=== PATIENT | male | born 1960 | race Hispanic/Latino ===

== ENCOUNTER 2017-03-26 19:46 | Emergency (ER) | payer SELFPAY ==
[2017-03-26 21:25] LABS: Basophils % (Auto) 0.4 % (0.0-1.8); Eosinophils % (Auto) 2.1 % (0.0-4.3); Hematocrit 39.7 % (35.5-45.6); Hemoglobin 13.6 gm/dl (11.8-15.2); Mean Corpuscular HGB Conc 34 % (32-34); Mean Corpuscular Hemoglobin 35 pg (28-32); Mean Corpuscular Volume 103 fl (84-94); Platelet Count 367 K/mm3 (140-440); Red Blood Count 3.86 M/mm3 (3.65-5.03); Red Cell Distribution Width 12.6 % (13.2-15.2); White Blood Count 14.2 K/mm3 (4.5-11.0)
[2017-03-26 21:39] LABS: Anion Gap 20 mmol/L; Blood Urea Nitrogen 8 mg/dL (9-20); Calcium 8.7 mg/dL (8.4-10.2); Carbon Dioxide 23 mmol/L (22-30); Chloride 97.1 mmol/L (98-107); Glucose 93 mg/dL (75-100); Potassium 4.3 mmol/L (3.6-5.0); Sodium 136 mmol/L (137-145)
[2017-03-26 22:09] LABS: Bacteria,Urine 1+ /HPF (Negative); Bilirubin,Urine NEG (Negative); Blood,Urine LG (Negative); Ketones,Urine NEG (Negative); Leukocyte Esterase,Urine MOD (Negative); Mucus,Urine FEW /HPF; Nitrite,Urine NEG (Negative); Protein,Urine <15 mg/dL mg/dL (Negative); Urobilinogen,Urine < 2.0 mg/dL (<2.0)
[2017-03-26] MEDS ORDERED: TORADOL IV ONE (23:38)
[2017-03-26] MEDS ORDERED: NACL 0.9% 1000 ML 2,000 ML IV ONE (23:38)
[2017-03-26] MEDS ORDERED: ZOFRAN IV ONE (23:38)
[2017-03-26] MEDS ORDERED: ROCEPHIN/NS 1 GM/50 ML 1 GM/50 ML BAG IV ONE (23:38)
[2017-03-26] MEDS ORDERED: TYLENOL PO ONE (23:39)
--- NOTE | 2017-03-26 23:40 | Emergency Department Report ---
ED Male HPI - General Chief complaint: Urogenital-Male Stated complaint: BLEEDING PENIS Time Seen by Provider: 03/26/17 23:30 Source: patient, RN notes reviewed Mode of arrival: Ambulatory Limitations: No Limitations - History of Present Illness Initial comments: This is a 56-year-old male who is unknown to this provider. Has a past history of tobacco consumption, alcohol consumption and cannabis consumption. Presents to the ear with gross hematuria, low-grade fever, chills, and back pain. There is no testicular pain, patient endorses dysuria. He has no pelvic or rectal pain. There is no dyschezia. MD Complaint: penile discharge, dysuria -: Gradual Location: penis Radiation: none Severity: moderate Consistency: constant Improves with: none Worsens with: none blood in urine, dysuria, fever - Related Data Sexually active: Yes Home Medications Medication Instructions Recorded Confirmed Last Taken Albuterol Sulfate [Proventil HFA] 1 - 2 puff IH Q4H PRN 09/22/13 09/22/13 Previous Rx's Medication Instructions Recorded Last Taken Type ALBUTEROL Inhaler [ProAir HFA 2 puff IH QID PRN 1 Days 09/22/13 Unknown Rx Inhaler] Azithromycin [Zithromax TAB] 500 mg PO QDAY #5 tablet 09/22/13 Unknown Rx predniSONE [Deltasone] 60 mg PO QDAY 4 Days 09/22/13 Unknown Rx Acetaminophen [Tylenol Arthritis] 650 mg PO Q6HR PRN #30 tablet.er 03/27/17 Unknown Rx Albuterol Sulfate [Proair 90 mcg IH Q4HR PRN #2 aer.pow.ba 03/27/17 Unknown Rx Respiclick] Ibuprofen [Motrin] 600 mg PO Q8H PRN #30 tablet 03/27/17 Unknown Rx Metoclopramide [Reglan] 10 mg PO QID PRN #30 tablet 03/27/17 Unknown Rx Ondansetron [Zofran Odt] 4 mg PO QID PRN #20 tab.rapdis 03/27/17 Unknown Rx Sulfamethoxazole/Trimethoprim 1 each PO BID #28 tablet 03/27/17 Unknown Rx [Bactrim DS TAB] chlordiazePOXIDE [Librium] 25 mg PO Q6H PRN #30 capsule 03/27/17 Unknown Rx Allergies Allergy/AdvReac Type Severity Reaction Status Date / Time No Known Allergies Allergy Unverified 09/22/13 14:33 ED Review of Systems ROS: Stated complaint: BLEEDING PENIS Other details as noted in HPI Constitutional: fever, malaise, weakness Eyes: denies: vision change ENT: denies: epistaxis Respiratory: denies: cough Cardiovascular: denies: chest pain Gastrointestinal: nausea. denies: abdominal pain Genitourinary: dysuria, frequency, hematuria. denies: testicular pain, testicular mass Musculoskeletal: back pain Skin: denies: lesions Neurological: weakness Psychiatric: anxiety ED Past Medical Hx - Past Medical History Previous Medical History?: Yes Hx CVA: Yes (BRONCHITIS) - Surgical History Past Surgical History?: Yes Additional Surgical History: LEFT FEMUR FRACTURE - Social History Smoking Status: Current Every Day Smoker Substance Use Type: Alcohol, Marijuana - Medications Home Medications: Home Medications Medication Instructions Recorded Confirmed Last Taken Type ALBUTEROL Inhaler [ProAir HFA 2 puff IH QID PRN 1 Days 09/22/13 Unknown Rx Inhaler] Albuterol Sulfate [Proventil HFA] 1 - 2 puff IH Q4H PRN 09/22/13 09/22/13 History Azithromycin [Zithromax TAB] 500 mg PO QDAY #5 tablet 09/22/13 Unknown Rx predniSONE [Deltasone] 60 mg PO QDAY 4 Days 09/22/13 Unknown Rx Acetaminophen [Tylenol Arthritis] 650 mg PO Q6HR PRN #30 tablet.er 03/27/17 Unknown Rx Albuterol Sulfate [Proair 90 mcg IH Q4HR PRN #2 aer.pow.ba 03/27/17 Unknown Rx Respiclick] Ibuprofen [Motrin] 600 mg PO Q8H PRN #30 tablet 03/27/17 Unknown Rx Metoclopramide [Reglan] 10 mg PO QID PRN #30 tablet 03/27/17 Unknown Rx Ondansetron [Zofran Odt] 4 mg PO QID PRN #20 tab.rapdis 03/27/17 Unknown Rx Sulfamethoxazole/Trimethoprim 1 each PO BID #28 tablet 03/27/17 Unknown Rx [Bactrim DS TAB] chlordiazePOXIDE [Librium] 25 mg PO Q6H PRN #30 capsule 03/27/17 Unknown Rx ED Physical Exam - General Limitations: No Limitations General appearance: alert, in no apparent distress - Head Head exam: Present: atraumatic, normocephalic - Eye Eye exam: Present: normal appearance, EOMI. Absent: nystagmus - ENT ENT exam: Present: normal exam, normal orophraynx, mucous membranes moist, normal external ear exam - Neck Neck exam: Present: normal inspection, full ROM. Absent: tenderness, meningismus - Respiratory Respiratory exam: Present: normal lung sounds bilaterally. Absent: respiratory distress, wheezes, rales, rhonchi, stridor, chest wall tenderness, accessory muscle use, decreased breath sounds, prolonged expiratory - Cardiovascular Cardiovascular Exam: Present: regular rate, normal rhythm, normal heart sounds. Absent: bradycardia, tachycardia, irregular rhythm, systolic murmur, diastolic murmur, rubs, gallop - GI/Abdominal GI/Abdominal exam: Present: soft, normal bowel sounds. Absent: distended, tenderness, guarding, rebound, rigid - Rectal Rectal exam: Present: normal inspection, normal rectal tone, heme (-) stool, prostate tenderness, prostate enlargement, other (during rectal examination, I am escorted by nurse Gilmar Lorenzana) - Extremities Exam Extremities exam: Present: normal inspection, full ROM, normal capillary refill. Absent: tenderness, pedal edema, joint swelling, calf tenderness - Back Exam Back exam: Present: normal inspection, full ROM, paraspinal tenderness. Absent : tenderness, CVA tenderness (R), CVA tenderness (L) - Neurological Exam Neurological exam: Present: alert, oriented X3, normal gait, other (Extraocular movements intact. Tongue midline. No facial droop. Facial sensation intact to light touch in the V1, V2, V3 distribution bilaterally. 5 and 5 strength in 4 extremities.. Sensation is intact to light touch in 4 extremities.). Absent : motor sensory deficit - Psychiatric Psychiatric exam: Present: normal affect, normal mood - Skin Skin exam: Present: warm, dry, intact, normal color. Absent: rash ED Course Vital Signs 03/26/17 03/26/17 03/27/17 20:47 23:30 00:05 Temperature 99.4 F 101.3 F H Pulse Rate 92 H 87 Respiratory 18 19 Rate Blood Pressure 144/88 O2 Sat by Pulse 95 96 Oximetry 03/27/17 03/27/17 03/27/17 00:15 00:30 01:00 Temperature Pulse Rate 84 81 76 Respiratory 16 22 23 Rate Blood Pressure 139/77 133/66 126/61 O2 Sat by Pulse 96 92 92 Oximetry 03/27/17 01:30 Temperature 98.6 F Pulse Rate 76 Respiratory 23 Rate Blood Pressure 134/65 O2 Sat by Pulse 94 Oximetry - Reevaluation(s) Reevaluation #1: 03/27/17 00:27 Differential diagnosis: Pyelonephritis, prostatitis, hemorrhagic cystitis, malignancy Assessment and plan: 56-year-old male with lower back pain, irritative urinary symptoms, hematuria, prostatic tenderness, no CVA tenderness. Possibly prostatitis, possibly hemorrhagic cystitis. He is febrile, with reassuring vital signs otherwise. He will be treated empirically with 2 L of IV fluid, nausea medication, pain medication, and ceftriaxone. Noncontrast CT scan of the abdomen and pelvis is pending. Has a GCS of 15, with an NIH score of 0. No midline spinal tenderness, history and physical not consistent with epidural compression syndrome. No IV drug use. Extraocular movements intact. Tongue midline. No facial droop. Facial sensation intact to light touch in the V1, V2, V3 distribution bilaterally. 5 and 5 strength in 4 extremities.. Sensation is intact to light touch in 4 extremities. Gait within normal limits. Reevaluation #2: 03/27/17 01:17 CT scan shows no evidence of intra-abdominal abscess or kidney stones. Nonspecific findings are noted in the left lower lung. Patient does not have symptoms to suggest pneumonia at this time. He does not have risk factors for tuberculosis. He will be treated empirically with 2 weeks of Bactrim, and he will be discharged with pain medication, nausea medication, antibiotics. Patient is instructed to closely follow up with outpatient primary care as well as urology. Return precautions are reviewed. I have reevaluated the patient, he reports that he feels much improved. He will be discharged at this time. Reevaluation #3: 03/27/17 01:26 Family requests as needed albuterol for cough at home. No active wheezing at this time. Reevaluation #4: 03/27/17 01:54 Family given a list of names, phone numbers, address of local detoxification centers for alcohol. The patient is not clinically withdrawing at this time. Family endorses a history of alcohol dependence. Encouraged to not consume alcohol while taking the Bactrim antibiotic. He is therefore given a prescription for Librium medication. Patient verbalized understanding. ED Medical Decision Making - Lab Data Result diagrams: 03/26/17 21:11 03/26/17 21:11 Vital Signs 03/26/17 03/26/17 03/27/17 20:47 23:30 00:05 Temperature 99.4 F 101.3 F H Pulse Rate 92 H 87 Respiratory 18 19 Rate Blood Pressure 144/88 O2 Sat by Pulse 95 96 Oximetry 03/27/17 00:15 Temperature Pulse Rate 84 Respiratory 16 Rate Blood Pressure 139/77 O2 Sat by Pulse 96 Oximetry Lab Results 03/26/17 03/26/17 03/26/17 Range/Units 21:11 21:11 21:30 WBC 14.2 H (4.5-11.0) K/mm3 RBC 3.86 (3.65-5.03) M/mm3 Hgb 13.6 (11.8-15.2) gm/dl Hct 39.7 (35.5-45.6) % MCV 103 H (84-94) fl MCH 35 H (28-32) pg MCHC 34 (32-34) % RDW 12.6 L (13.2-15.2) % Plt Count 367 (140-440) K/mm3 Lymph % (Auto) 10.3 L (13.4-35.0) % Bent % (Auto) 9.8 H (0.0-7.3) % Eos % (Auto) 2.1 (0.0-4.3) % Baso % (Auto) 0.4 (0.0-1.8) % Lymph # 1.5 (1.2-5.4) K/mm3 Bent # 1.4 H (0.0-0.8) K/mm3 Eos # 0.3 (0.0-0.4) K/mm3 Baso # 0.1 (0.0-0.1) K/mm3 Seg Neutrophils % 77.4 H (40.0-70.0) % Seg Neutrophils # 11.0 H (1.8-7.7) K/mm3 Sodium 136 L (137-145) mmol/L Potassium 4.3 (3.6-5.0) mmol/L Chloride 97.1 L (98-107) mmol/L Carbon Dioxide 23 (22-30) mmol/L Anion Gap 20 mmol/L BUN 8 L (9-20) mg/dL Creatinine 0.5 L (0.8-1.5) mg/dL Estimated GFR > 60 ml/min BUN/Creatinine Ratio 16.00 % Glucose 93 (75-100) mg/dL Calcium 8.7 (8.4-10.2) mg/dL Urine Color Yellow (Yellow) Urine Turbidity Clear (Clear) Urine pH 5.0 (5.0-7.0) Ur Specific [place] 1.015 (1.003-1.030) Urine Protein <15 mg/dl (Negative) mg/dL Urine Glucose (UA) Neg (Negative) mg/dL Urine Ketones Neg (Negative) mg/dL Urine Blood Lg (Negative) Urine Nitrite Neg (Negative) Urine Bilirubin Neg (Negative) Urine Urobilinogen < 2.0 (<2.0) mg/dL Ur Leukocyte Esterase Mod (Negative) Urine WBC (Auto) 16.0 H (0.0-6.0) /HPF Urine RBC (Auto) 26.0 (0.0-6.0) /HPF U Epithel Cells (Auto) 1.0 (0-13.0) /HPF Urine Bacteria (Auto) 1+ (Negative) /HPF Urine Mucus Few /HPF - Radiology Data Radiology results: report reviewed, image reviewed CT scan of the abdomen/pelvis demonstrates no kidney stones. No obvious intra- abdominal abscess. There is a cluster of densities in the left lower lobe and nodular consolidation of punctate nodules in the left lower lobe, concerning for pneumonia. May be mycobacterial or fungal in origin. No obstructive uropathy. Constipation is suggested. Inguinal hernias are suggested. Critical care attestation.: If time is entered above; I have spent that time in minutes in the direct care of this critically ill patient, excluding procedure time. ED Disposition Clinical Impression: Prostatitis Qualifiers: Prostatitis type: acute Qualified Code(s): N41.0 - Acute prostatitis Disposition: TO HOME OR SELFCARE Is pt being admited?: No Does the pt Need Aspirin: No Condition: Stable Instructions: Prostatitis (ED) Additional Instructions: Take albuterol as needed for cough and/or wheezing. Take the Bactrim twice daily for the next 2 weeks for presumed infection of the prostate. Cultures was sent today, results will be available in the next 3-5 days. Have a primary care doctor contact the medical records department to obtain culture results. For nausea, patient can take either Zofran, or Reglan, which ever is more financially convenient, and effective. Take Tylenol alternating with Motrin as needed for pain. Follow up with a urology specialist within the next month to 6 weeks. Not following up as recommended may result in an undiagnosed tumor/cancer/malignancy of the urinary tract. CT scan of the abdomen and pelvis demonstrated nonspecific findings in the left lower lung field. Discontinue tobacco consumption. Follow up with her primary care doctor for these left lower lung findings within the next month. If the patient develops intractable nausea or vomiting, persistent fevers, worsening pain, confusion, inability to tolerate liquid feeds, dizziness, lightheadedness , altered mental status, return to the emergency room right away. Dr. Cordoba is a local urology specialist. Dr. Perla is a local primary care doctor. [facility] is a local [facility] Center available for your convenience. Do not consume alcohol while taking the antibiotics. Prescriptions: Acetaminophen [Tylenol Arthritis] 650 mg PO Q6HR PRN #30 tablet.er PRN Reason: Pain Albuterol Sulfate [Proair Respiclick] 90 mcg IH Q4HR PRN #2 aer.pow.ba PRN Reason: Wheezing chlordiazePOXIDE [Librium] 25 mg PO Q6H PRN #30 capsule PRN Reason: Alcohol Withdrawal Ibuprofen [Motrin] 600 mg PO Q8H PRN #30 tablet PRN Reason: Pain Metoclopramide [Reglan] 10 mg PO QID PRN #30 tablet PRN Reason: Nausea Ondansetron [Zofran Odt] 4 mg PO QID PRN #20 tab.rapdis PRN Reason: Nausea Sulfamethoxazole/Trimethoprim [Bactrim DS TAB] 1 each PO BID #28 tablet Referrals: PRIMARY CARE, [Primary Care Provider] - 3-5 Days CHANTELLE ALMEIDA MD [Staff Physician] - 3-5 Days ADEOLA PERLA MD [Staff Physician] - 3-5 Days [facility] [Provider Group] - 3-5 Days
--- NOTE | 2017-03-27 01:05 | Cat Scan Report ---
FINAL REPORT EXAM: CT ABDOMEN PELVIS WO CON HISTORY: back pain hematuria fever COMPARISON: None available. TECHNIQUE: Contiguous axial images were obtained. Additional sagittal and coronal reformatted images were obtained. FINDINGS: Cluster of small nodules at the lateral margin of the left lower lobe small airspace consolidation areas of nodularity in lingula concerning for infectious process. This may be fungal or mycobacterial in origin. No calcified gallstones. Liver, spleen, pancreas and adrenal glands are grossly unremarkable. 9 millimeter right renal cyst. No nephrolithiasis or hydronephrosis. Aorta and IVC are normal in caliber. Mild to moderate calcified plaque along the aorta. No distal ureteral urinary bladder calculi. Urinary bladder and prostate gland are grossly unremarkable. No free fluid or lymphadenopathy in the pelvic cavity. Moderate large amount of stool in the colon. The appendix measures 5 millimeters and is normal in caliber. Small bilateral inguinal hernias partially containing fat and bowel. No associated bowel obstruction or inflammation. Lumbar vertebral body heights are preserved. Bony pelvis is grossly intact. IMPRESSION: Cluster of nodular densities left lower lobe and nodular consolidation punctate nodules left lower lobe concerning for pneumonia. This may be mycobacterial or fungal in origin. No other acute findings. No obstructive uropathy urolithiasis. Moderate large amount of stool in the colon. No focal inflammatory changes the bowel or appendix. Small bilateral inguinal hernias containing fat and bowel. No associated bowel obstruction.
[2017-03-27 01:33] VITALS: BP 134/65
== END 2017-03-27 01:45 | disposition home or self-care (01) ==
LOC: ED 19:46
DX: N41.0 Acute prostatitis (principal); F17.200 Nicotine dependence, unspecified, uncomplicated; F12.10 Cannabis abuse, uncomplicated; Z86.73 Personal history of transient ischemic attack (TIA), and cerebral infarction without residual deficits
CPT/HCPCS: 36415; 74176; 80048; 81001; 85025; 87086; 96365; 96375; 99284; J0696; J1885; J2405; J7030

== ENCOUNTER 2017-04-03 00:03 | Emergency (ER) | payer SELFPAY ==
[2017-04-03 01:26] LABS: Urine Drugs of Abuse Note Disclamer
[2017-04-03 01:32] LABS: Eosinophils % (Auto) 6.4 % (0.0-4.3); Hematocrit 40.2 % (35.5-45.6); Hemoglobin 13.4 gm/dl (11.8-15.2); Mean Corpuscular HGB Conc 33 % (32-34); Mean Corpuscular Hemoglobin 35 pg (28-32); Mean Corpuscular Volume 103 fl (84-94); Platelet Count 376 K/mm3 (140-440); Red Blood Count 3.89 M/mm3 (3.65-5.03); White Blood Count 6.3 K/mm3 (4.5-11.0)
[2017-04-03 01:50] LABS: Alanine Aminotransferase 15 units/L (7-56); Albumin 3.7 g/dL (3.9-5); Albumin/Globulin Ratio 1.3 %; Alkaline Phosphatase 88 units/L (35-129); Anion Gap 22 mmol/L; Bilirubin,Total < 0.20 mg/dL (0.1-1.2); Blood Urea Nitrogen 7 mg/dL (9-20); Calcium 8.7 mg/dL (8.4-10.2); Carbon Dioxide 23 mmol/L (22-30); Chloride 106.2 mmol/L (98-107); Glucose 89 mg/dL (75-100); Potassium 4.6 mmol/L (3.6-5.0); Sodium 147 mmol/L (137-145); Total Protein 6.6 g/dL (6.3-8.2)
[2017-04-03] MEDS ORDERED: VITAMIN B-1 100 MG, FOLVITE 1 MG, INFUVITE 10 ML in NACL 0.9% 1000 ML 1,000 ML IV ONE (02:12)
[2017-04-03] MEDS ORDERED: NACL 0.9% 1000 ML 1,000 ML IV ONE (02:12)
--- NOTE | 2017-04-03 05:35 | Emergency Department Report ---
ED Alcohol HPI - General Chief Complaint: Alcohol Stated Complaint: ETOH Time Seen by Provider: 04/03/17 01:09 Source: patient, EMS Mode of arrival: Stretcher Limitations: Altered Mental Status - History of Present Illness Initial Comments: 56-year-old male presents to the hospital with acute alcohol intoxication. Patient states he's been consuming alcohol since noon. He drinks daily if he can get it he states. History of alcohol withdrawal tremors in the past. Patient is sleeping due to intoxication denies any complaints at this time. - Related Data Home Medications Medication Instructions Recorded Confirmed Last Taken Albuterol Sulfate [Proventil HFA] 1 - 2 puff IH Q4H PRN 09/22/13 09/22/13 Previous Rx's Medication Instructions Recorded Last Taken Type ALBUTEROL Inhaler [ProAir HFA 2 puff IH QID PRN 1 Days 09/22/13 Unknown Rx Inhaler] Azithromycin [Zithromax TAB] 500 mg PO QDAY #5 tablet 09/22/13 Unknown Rx predniSONE [Deltasone] 60 mg PO QDAY 4 Days 09/22/13 Unknown Rx Acetaminophen [Tylenol Arthritis] 650 mg PO Q6HR PRN #30 tablet.er 03/27/17 Unknown Rx Albuterol Sulfate [Proair 90 mcg IH Q4HR PRN #2 aer.pow.ba 03/27/17 Unknown Rx Respiclick] Ibuprofen [Motrin] 600 mg PO Q8H PRN #30 tablet 03/27/17 Unknown Rx Metoclopramide [Reglan] 10 mg PO QID PRN #30 tablet 03/27/17 Unknown Rx Ondansetron [Zofran Odt] 4 mg PO QID PRN #20 tab.rapdis 03/27/17 Unknown Rx Sulfamethoxazole/Trimethoprim 1 each PO BID #28 tablet 03/27/17 Unknown Rx [Bactrim DS TAB] chlordiazePOXIDE [Librium] 25 mg PO Q6H PRN #30 capsule 03/27/17 Unknown Rx Allergies Allergy/AdvReac Type Severity Reaction Status Date / Time No Known Allergies Allergy Unverified 09/22/13 14:33 ED Review of Systems ROS: Stated complaint: ETOH Other details as noted in HPI Comment: All other systems reviewed and negative Other: Constitutional: No fevers chills Neck: Denies pain Respiratory: Denies cough, shortness of breath Cardiovascular: Denies chest pain GI: Denies abdominal pain, nausea, vomiting : Denies dysuria Musculoskeletal: Denies back luis Skin: Denies rash Neurologic: Denies headache ED Past Medical Hx - Past Medical History Previous Medical History?: Yes Hx CVA: Yes (BRONCHITIS) - Surgical History Additional Surgical History: LEFT FEMUR FRACTURE - Social History Smoking Status: Current Every Day Smoker Substance Use Type: Alcohol, Marijuana - Medications Home Medications: Home Medications Medication Instructions Recorded Confirmed Last Taken Type ALBUTEROL Inhaler [ProAir HFA 2 puff IH QID PRN 1 Days 09/22/13 Unknown Rx Inhaler] Albuterol Sulfate [Proventil HFA] 1 - 2 puff IH Q4H PRN 09/22/13 09/22/13 History Azithromycin [Zithromax TAB] 500 mg PO QDAY #5 tablet 09/22/13 Unknown Rx predniSONE [Deltasone] 60 mg PO QDAY 4 Days 09/22/13 Unknown Rx Acetaminophen [Tylenol Arthritis] 650 mg PO Q6HR PRN #30 tablet.er 03/27/17 Unknown Rx Albuterol Sulfate [Proair 90 mcg IH Q4HR PRN #2 aer.pow.ba 03/27/17 Unknown Rx Respiclick] Ibuprofen [Motrin] 600 mg PO Q8H PRN #30 tablet 03/27/17 Unknown Rx Metoclopramide [Reglan] 10 mg PO QID PRN #30 tablet 03/27/17 Unknown Rx Ondansetron [Zofran Odt] 4 mg PO QID PRN #20 tab.rapdis 03/27/17 Unknown Rx Sulfamethoxazole/Trimethoprim 1 each PO BID #28 tablet 03/27/17 Unknown Rx [Bactrim DS TAB] chlordiazePOXIDE [Librium] 25 mg PO Q6H PRN #30 capsule 03/27/17 Unknown Rx ED Physical Exam - General Limitations: Altered Mental Status - Other Other exam information: General: No limitations, patient is alert in no acute distress Head exam: Atraumatic, normocephalic Eyes exam: Normal appearance, pupils equal reactive to light, extraocular movements intact ENT: Moist mucous membrane, normal oropharynx Neck exam: Normal inspection, full range of motion, no meningismus nontender Respiratory exam: Clear to auscultation bilateral, no wheezes, rales, crackles Cardiovascular: Normal rate and rhythm, normal heart sounds Abdomen: Soft, nondistended, and nontender, with normal bowel sounds, no rebound, or guarding Extremity: Full range of motion normal inspection no deformity Back: Normal Inspection, full range of motion, no tenderness Neurologic: Alert, oriented x3, cranial nerves intact, no motor or sensory deficit Psychiatric: normal affect, normal mood Skin: Warm, dry, intact ED Course Vital Signs 04/03/17 04/03/17 04/03/17 00:41 00:47 02:40 Temperature 97.7 F 97 F L Pulse Rate 78 78 67 Respiratory 18 18 Rate Blood Pressure 113/73 Blood Pressure 113/73 102/63 [Right] O2 Sat by Pulse 100 100 Oximetry 04/03/17 04:21 Temperature Pulse Rate 63 Respiratory Rate Blood Pressure Blood Pressure 98/57 [Right] O2 Sat by Pulse Oximetry - Reevaluation(s) Reevaluation #1: 04/03/17 05:32 Patient treated with normal saline and a banana bag. Patient on director of cardiac rehabilitation ED Medical Decision Making - Lab Data Result diagrams: 04/03/17 01:14 04/03/17 01:14 Lab Results 04/03/17 04/03/17 04/03/17 Range/Units 01:14 01:14 01:14 WBC 6.3 (4.5-11.0) K/mm3 RBC 3.89 (3.65-5.03) M/mm3 Hgb 13.4 (11.8-15.2) gm/dl Hct 40.2 (35.5-45.6) % MCV 103 H (84-94) fl MCH 35 H (28-32) pg MCHC 33 (32-34) % RDW 13.0 L (13.2-15.2) % Plt Count 376 (140-440) K/mm3 Lymph % (Auto) 45.4 H (13.4-35.0) % [place] % (Auto) 5.9 (0.0-7.3) % Eos % (Auto) 6.4 H (0.0-4.3) % Baso % (Auto) 1.0 (0.0-1.8) % Lymph # 2.9 (1.2-5.4) K/mm3 [place] # 0.4 (0.0-0.8) K/mm3 Eos # 0.4 (0.0-0.4) K/mm3 Baso # 0.1 (0.0-0.1) K/mm3 Seg Neutrophils % 41.3 (40.0-70.0) % Seg Neutrophils # 2.6 (1.8-7.7) K/mm3 Sodium 147 H (137-145) mmol/L Potassium 4.6 (3.6-5.0) mmol/L Chloride 106.2 (98-107) mmol/L Carbon Dioxide 23 (22-30) mmol/L Anion Gap 22 mmol/L BUN 7 L (9-20) mg/dL Creatinine 0.5 L (0.8-1.5) mg/dL Estimated GFR > 60 ml/min BUN/Creatinine Ratio 14.00 % Glucose 89 (75-100) mg/dL Calcium 8.7 (8.4-10.2) mg/dL Magnesium 2.40 H (1.7-2.3) mg/dL Total Bilirubin < 0.20 (0.1-1.2) mg/dL AST 23 (5-40) units/L ALT 15 (7-56) units/L Alkaline Phosphatase 88 (35-129) units/L Total Protein 6.6 (6.3-8.2) g/dL Albumin 3.7 L (3.9-5) g/dL Albumin/Globulin Ratio 1.3 % Urine Opiates Screen Urine Methadone Screen Ur Barbiturates Screen Ur Phencyclidine Scrn Ur Amphetamines Screen U Benzodiazepines Scrn Urine Cocaine Screen U Marijuana (THC) Screen Drugs of Abuse Note Plasma/Serum Alcohol 0.37 H (0-0.07) gm% 04/03/17 Range/Units 01:14 WBC (4.5-11.0) K/mm3 RBC (3.65-5.03) M/mm3 Hgb (11.8-15.2) gm/dl Hct (35.5-45.6) % MCV (84-94) fl MCH (28-32) pg MCHC (32-34) % RDW (13.2-15.2) % Plt Count (140-440) K/mm3 Lymph % (Auto) (13.4-35.0) % [place] % (Auto) (0.0-7.3) % Eos % (Auto) (0.0-4.3) % Baso % (Auto) (0.0-1.8) % Lymph # (1.2-5.4) K/mm3 [place] # (0.0-0.8) K/mm3 Eos # (0.0-0.4) K/mm3 Baso # (0.0-0.1) K/mm3 Seg Neutrophils % (40.0-70.0) % Seg Neutrophils # (1.8-7.7) K/mm3 Sodium (137-145) mmol/L Potassium (3.6-5.0) mmol/L Chloride (98-107) mmol/L Carbon Dioxide (22-30) mmol/L Anion Gap mmol/L BUN (9-20) mg/dL Creatinine (0.8-1.5) mg/dL Estimated GFR ml/min BUN/Creatinine Ratio % Glucose (75-100) mg/dL Calcium (8.4-10.2) mg/dL Magnesium (1.7-2.3) mg/dL Total Bilirubin (0.1-1.2) mg/dL AST (5-40) units/L ALT (7-56) units/L Alkaline Phosphatase (35-129) units/L Total Protein (6.3-8.2) g/dL Albumin (3.9-5) g/dL Albumin/Globulin Ratio % Urine Opiates Screen Presumptive negative Urine Methadone Screen Presumptive negative Ur Barbiturates Screen Presumptive negative Ur Phencyclidine Scrn Presumptive negative Ur Amphetamines Screen Presumptive negative U Benzodiazepines Scrn Presumptive negative Urine Cocaine Screen Presumptive negative U Marijuana (THC) Screen Presumptive positive Drugs of Abuse Note Disclamer Plasma/Serum Alcohol (0-0.07) gm% - Medical Decision Making Patient has a significantly elevated alcohol level. Patient will be signed out to oncoming physician Dr. Siddiqi to discharge was clinically sober with a reliable ride or alcohol is below legal limit if no one is available to pick him up to take him home. Patient will need reassessment once sober - Differential Diagnosis drug intoxication, alcohol intoxication, electrolyte abnormality Critical Care Time: No Critical care attestation.: If time is entered above; I have spent that time in minutes in the direct care of this critically ill patient, excluding procedure time. ED Disposition Clinical Impression: Alcohol intoxication, Marijuana use Disposition: [id number]-01 TO HOME OR SELFCARE Is pt being admited?: No Does the pt Need Aspirin: No Condition: Stable Instructions: Abuse of Alcohol (ED) Additional Instructions: Follow-up with the primary care clinic in [facility] if he desire help with alcohol addiction. Also follow-up for primary care management. Return if symptoms worsen. Referrals: [facility] [Provider Group] - 3-5 Days [facility] [Outside] - 3-5 Days Time of Disposition: 05:34
[2017-04-03 13:48] VITALS: BP 126/77
== END 2017-04-03 09:05 | disposition home or self-care (01) ==
LOC: ED 00:03
DX: F10.129 Alcohol abuse with intoxication, unspecified (principal); F12.10 Cannabis abuse, uncomplicated; F17.210 Nicotine dependence, cigarettes, uncomplicated; Z86.73 Personal history of transient ischemic attack (TIA), and cerebral infarction without residual deficits
CPT/HCPCS: 36415; 80053; 80307; 83735; 85025; 96361; 96365; 99284; G0480; J3411; J7030; 80320

== ENCOUNTER 2018-02-06 20:11 | Emergency (ER) | payer SELFPAY ==
[2018-02-06] MEDS ORDERED: DUONEB *Not for PRN Use IH ONE ×2 (20:29→20:42)
[2018-02-06 21:11] LABS: Basophils % (Auto) 0.6 % (0.0-1.8); Eosinophils # (Auto) 0.5 K/mm3 (0.0-0.4); Eosinophils % (Auto) 7.4 % (0.0-4.3); Hematocrit 44.8 % (35.5-45.6); Hemoglobin 15.5 gm/dl (11.8-15.2); Lymphocytes # (Auto) 1.6 K/mm3 (1.2-5.4); Lymphocytes % (Auto) 23.3 % (13.4-35.0); Mean Corpuscular HGB Conc 35 % (32-34); Mean Corpuscular Hemoglobin 36 pg (28-32); Mean Corpuscular Volume 104 fl (84-94); Monocytes # (Auto) 0.7 K/mm3 (0.0-0.8); Monocytes % (Auto) 10.7 % (0.0-7.3); Platelet Count 220 K/mm3 (140-440); Red Blood Count 4.29 M/mm3 (3.65-5.03); Red Cell Distribution Width 13.5 % (13.2-15.2)
[2018-02-06 21:22] LABS: BUN/Creatinine Ratio 13; Blood Urea Nitrogen 8 mg/dL (9-20); Calcium 9.7 mg/dL (8.4-10.2); Hemolysis Index 4
--- NOTE | 2018-02-06 21:29 | XRay Report ---
FINAL REPORT EXAM: XR CHEST ROUTINE 2V HISTORY: Shortness of breath TECHNIQUE: Two view chest PA and lateral PRIORS: None. FINDINGS: Cardiac and mediastinal contours are unremarkable. No focal pulmonary infiltrate is identified. No pleural fluid collection seen. Pulmonary vasculature is unremarkable. IMPRESSION: Negative two-view chest
[2018-02-07] MEDS ORDERED: SOLU-Medrol IM ONE (00:55)
[2018-02-07] MEDS ORDERED: LEVALBUTEROL IH ONE (00:55)
--- NOTE | 2018-02-07 01:01 | Emergency Department Report ---
ED Shortness of Breath HPI - General Chief Complaint: Dyspnea/Respdistress Stated Complaint: SERGIO Time Seen by Provider: 02/06/18 23:50 Source: patient Mode of arrival: Ambulatory Limitations: No Limitations - History of Present Illness Initial Comments: Patient is 57 years old male history of COPD, heavy smokers. Presented to the ER complaining of off shortness of breath and cough for the last 5 days. Patient stated that his cough is productive for greenish sputum. Patient stated that he used his friend's bronchodilators, said it did help. Patient denied any chest pain. MD Complaint: shortness of breath, cough -: days(s) Consistency: constant Improves With: bronchodilators Known History Of: COPD Associated Symptoms: denies other symptoms - Related Data Home Medications Medication Instructions Recorded Confirmed Last Taken Albuterol Sulfate [Proventil HFA] 1 - 2 puff IH Q4H PRN 09/22/13 09/22/13 Previous Rx's Medication Instructions Recorded Last Taken Type ALBUTEROL Inhaler [ProAir HFA 2 puff IH QID PRN 1 Days 09/22/13 Unknown Rx Inhaler] inhalation Azithromycin [Zithromax TAB] 500 mg PO QDAY #5 tablet 09/22/13 Unknown Rx predniSONE [Deltasone] 60 mg PO QDAY 4 Days tab 09/22/13 Unknown Rx Acetaminophen [Tylenol Arthritis] 650 mg PO Q6HR PRN #30 tablet.er 03/27/17 Unknown Rx Albuterol Sulfate [Proair 90 mcg IH Q4HR PRN #2 aer.pow.ba 03/27/17 Unknown Rx Respiclick] Ibuprofen [Motrin] 600 mg PO Q8H PRN #30 tablet 03/27/17 Unknown Rx Metoclopramide [Reglan] 10 mg PO QID PRN #30 tablet 03/27/17 Unknown Rx Ondansetron [Zofran Odt] 4 mg PO QID PRN #20 tab.rapdis 03/27/17 Unknown Rx Sulfamethoxazole/Trimethoprim 1 each PO BID #28 tablet 03/27/17 Unknown Rx [Bactrim DS TAB] chlordiazePOXIDE [Librium] 25 mg PO Q6H PRN #30 capsule 03/27/17 Unknown Rx Allergies Allergy/AdvReac Type Severity Reaction Status Date / Time No Known Allergies Allergy Unverified 09/22/13 14:33 ED Review of Systems ROS: Stated complaint: SERGIO Other details as noted in HPI Comment: All other systems reviewed and negative Constitutional: denies: chills, fever Cardiovascular: dyspnea on exertion. denies: chest pain, palpitations, orthopnea, edema, syncope, paroxysmal nocturnal dyspnea Gastrointestinal: denies: abdominal pain, nausea, vomiting ED Past Medical Hx - Past Medical History Hx CVA: (BRONCHITIS) Hx Asthma: Yes Hx COPD: Yes - Surgical History Additional Surgical History: LEFT FEMUR FRACTURE - Social History Smoking Status: Current Every Day Smoker Substance Use Type: Alcohol - Medications Home Medications: Home Medications Medication Instructions Recorded Confirmed Last Taken Type ALBUTEROL Inhaler [ProAir HFA 2 puff IH QID PRN 1 Days 09/22/13 Unknown Rx Inhaler] inhalation Albuterol Sulfate [Proventil HFA] 1 - 2 puff IH Q4H PRN 09/22/13 09/22/13 History Azithromycin [Zithromax TAB] 500 mg PO QDAY #5 tablet 09/22/13 Unknown Rx predniSONE [Deltasone] 60 mg PO QDAY 4 Days tab 09/22/13 Unknown Rx Acetaminophen [Tylenol Arthritis] 650 mg PO Q6HR PRN #30 tablet.er 03/27/17 Unknown Rx Albuterol Sulfate [Proair 90 mcg IH Q4HR PRN #2 aer.pow.ba 03/27/17 Unknown Rx Respiclick] Ibuprofen [Motrin] 600 mg PO Q8H PRN #30 tablet 03/27/17 Unknown Rx Metoclopramide [Reglan] 10 mg PO QID PRN #30 tablet 03/27/17 Unknown Rx Ondansetron [Zofran Odt] 4 mg PO QID PRN #20 tab.rapdis 03/27/17 Unknown Rx Sulfamethoxazole/Trimethoprim 1 each PO BID #28 tablet 03/27/17 Unknown Rx [Bactrim DS TAB] chlordiazePOXIDE [Librium] 25 mg PO Q6H PRN #30 capsule 03/27/17 Unknown Rx ED Physical Exam - General Limitations: No Limitations General appearance: alert, in no apparent distress - Head Head exam: Present: atraumatic, normocephalic, normal inspection - ENT ENT exam: Present: normal exam, normal orophraynx, mucous membranes moist - Respiratory Respiratory exam: Present: wheezes, decreased breath sounds, prolonged expiratory. Absent: rales, rhonchi, accessory muscle use - Cardiovascular Cardiovascular Exam: Present: regular rate, normal rhythm, normal heart sounds - GI/Abdominal GI/Abdominal exam: Present: soft, normal bowel sounds. Absent: distended, tenderness, guarding, rebound, rigid, organomegaly, mass, bruit, pulsatile mass , hernia - Extremities Exam Extremities exam: Present: normal inspection, full ROM, normal capillary refill - Back Exam Back exam: Present: normal inspection, full ROM. Absent: tenderness, CVA tenderness (R), CVA tenderness (L), muscle spasm, paraspinal tenderness, vertebral tenderness - Neurological Exam Neurological exam: Present: alert, CN II-XII intact, normal gait, reflexes normal - Skin Skin exam: Present: warm, intact, normal color ED Course Vital Signs 02/06/18 02/07/18 20:35 02:36 Temperature 97.9 F Pulse Rate 71 Respiratory 18 20 Rate Blood Pressure 144/78 O2 Sat by Pulse 95 98 Oximetry - Reevaluation(s) Reevaluation #1: 02/07/18 04:27 Patient stated that he is feeling much better. ED Medical Decision Making - Lab Data Result diagrams: 02/06/18 20:46 02/06/18 20:46 - Radiology Data Radiology results: report reviewed Chest x-ray is unremarkable. Critical care attestation.: If time is entered above; I have spent that time in minutes in the direct care of this critically ill patient, excluding procedure time. ED Disposition Clinical Impression: COPD exacerbation Disposition: DC-01 TO HOME OR SELFCARE Is pt being admited?: No Condition: Stable Instructions: Chronic Obstructive Pulmonary Disease (ED), Acute Bronchitis (ED) Referrals: JUAN JOSE DUKE MD [Staff Physician] - 3-5 Days
[2018-02-07 05:06] VITALS: BP 146/88
== END 2018-02-07 05:07 | disposition home or self-care (01) ==
LOC: ED 20:11
DX: J44.1 Chronic obstructive pulmonary disease with (acute) exacerbation (principal); F17.200 Nicotine dependence, unspecified, uncomplicated
CPT/HCPCS: 36415; 71046; 80048; 85025; 93005; 93010; 96372; 99284; J2930

== ENCOUNTER 2018-07-30 10:44 | Emergency (ER) | payer SELFPAY ==
[2018-07-30] MEDS ORDERED: PROVENTIL IH ONE (10:53)
[2018-07-30] MEDS ORDERED: LEVAQUIN 750MG/150ML 750 MG/150 ML BAG IV ONE (10:53)
[2018-07-30] MEDS ORDERED: ATROVENT IH ONE (10:53)
[2018-07-30] MEDS ORDERED: NACL 0.9% 1000 ML 1,000 ML IV ONE (10:53)
--- NOTE | 2018-07-30 11:00 | Emergency Department Report ---
ED Shortness of Breath HPI - General Chief Complaint: Dyspnea/Respdistress Stated Complaint: SERGIO Time Seen by Provider: 07/30/18 10:51 Source: patient, EMS Mode of arrival: Stretcher Limitations: No Limitations - History of Present Illness Initial Comments: Patient is 57 years old male with history of COPD. Patient reports to the emergency room via EMS for acute respiratory distress. EMS stated that patient was tachypneic with an oxygen saturation of 84%. Patient is given albuterol, magnesium sulfate, Solu-Medrol and started on BiPAP by EMS. Upon arrival to the ER patient oxygen saturation is 96%. Patient stated that his symptoms started a few weeks ago but isn't progressively get worse for the last 3 days. Shortness of breath associated with cough, productive with greenish sputum. Patient denied any fever or chills, nausea or vomiting. MD Complaint: shortness of breath, cough -: week(s) Severity: severe Known History Of: COPD Context: recent URI - Related Data Home Medications Medication Instructions Recorded Confirmed Last Taken Albuterol Sulfate [Proventil HFA] 1 - 2 puff IH Q4H PRN 09/22/13 09/22/13 09/22/13 Previous Rx's Medication Instructions Recorded Last Taken Type ALBUTEROL Inhaler (OR & NICU) 2 puff IH QID PRN 1 Days 09/22/13 Unknown Rx [ProAir HFA Inhaler] inhalation Azithromycin [Zithromax TAB] 500 mg PO QDAY #5 tablet 09/22/13 Unknown Rx predniSONE [Deltasone] 60 mg PO QDAY 4 Days tab 09/22/13 Unknown Rx Acetaminophen [Tylenol Arthritis] 650 mg PO Q6HR PRN #30 tablet.er 03/27/17 Unknown Rx Albuterol Sulfate [Proair 90 mcg IH Q4HR PRN #2 aer.pow.ba 03/27/17 Unknown Rx Respiclick] Ibuprofen [Motrin] 600 mg PO Q8H PRN #30 tablet 03/27/17 Unknown Rx Metoclopramide [Reglan] 10 mg PO QID PRN #30 tablet 03/27/17 Unknown Rx Ondansetron [Zofran Odt] 4 mg PO QID PRN #20 tab.rapdis 03/27/17 Unknown Rx Sulfamethoxazole/Trimethoprim 1 each PO BID #28 tablet 03/27/17 Unknown Rx [Bactrim DS TAB] chlordiazePOXIDE [Librium] 25 mg PO Q6H PRN #30 capsule 03/27/17 Unknown Rx ALBUTEROL Inhaler (OR & NICU) 2 puff IH QID PRN #1 inhalation 02/07/18 Unknown Rx [ProAir HFA Inhaler] Prednisone [predniSONE (Sammi) ER 40 mg PO QDAY #40 tablet. 02/07/18 Unknown Rx TAB] levoFLOXacin [Levaquin TAB] 500 mg PO QDAY #7 tablet 02/07/18 Unknown Rx Allergies Allergy/AdvReac Type Severity Reaction Status Date / Time No Known Allergies Allergy Unverified 09/22/13 14:33 ED Review of Systems ROS: Stated complaint: SERGIO Other details as noted in HPI Comment: All other systems reviewed and negative Constitutional: denies: chills, fever Respiratory: cough, shortness of breath, SOB with exertion. denies: orthopnea, SOB at rest, wheezing Cardiovascular: denies: chest pain, palpitations, dyspnea on exertion Gastrointestinal: denies: abdominal pain, nausea, vomiting, diarrhea, constipation, hematemesis, melena, hematochezia Musculoskeletal: denies: back pain Neurological: denies: headache, weakness, numbness, paresthesias, confusion, abnormal gait ED Past Medical Hx - Past Medical History Hx CVA: (BRONCHITIS) Hx Asthma: Yes Hx COPD: Yes - Surgical History Additional Surgical History: LEFT FEMUR FRACTURE - Social History Smoking Status: Current Every Day Smoker Substance Use Type: None - Medications Home Medications: Home Medications Medication Instructions Recorded Confirmed Last Taken Type ALBUTEROL Inhaler (OR & NICU) 2 puff IH QID PRN 1 Days 09/22/13 Unknown Rx [ProAir HFA Inhaler] inhalation Albuterol Sulfate [Proventil HFA] 1 - 2 puff IH Q4H PRN 09/22/13 09/22/13 09/22/13 History Azithromycin [Zithromax TAB] 500 mg PO QDAY #5 tablet 09/22/13 Unknown Rx predniSONE [Deltasone] 60 mg PO QDAY 4 Days tab 09/22/13 Unknown Rx Acetaminophen [Tylenol Arthritis] 650 mg PO Q6HR PRN #30 tablet.er 03/27/17 Unknown Rx Albuterol Sulfate [Proair 90 mcg IH Q4HR PRN #2 aer.pow.ba 03/27/17 Unknown Rx Respiclick] Ibuprofen [Motrin] 600 mg PO Q8H PRN #30 tablet 03/27/17 Unknown Rx Metoclopramide [Reglan] 10 mg PO QID PRN #30 tablet 03/27/17 Unknown Rx Ondansetron [Zofran Odt] 4 mg PO QID PRN #20 tab.rapdis 03/27/17 Unknown Rx Sulfamethoxazole/Trimethoprim 1 each PO BID #28 tablet 03/27/17 Unknown Rx [Bactrim DS TAB] chlordiazePOXIDE [Librium] 25 mg PO Q6H PRN #30 capsule 03/27/17 Unknown Rx ALBUTEROL Inhaler (OR & NICU) 2 puff IH QID PRN #1 inhalation 02/07/18 Unknown Rx [ProAir HFA Inhaler] Prednisone [predniSONE (Sammi) ER 40 mg PO QDAY #40 tablet. 02/07/18 Unknown Rx TAB] levoFLOXacin [Levaquin TAB] 500 mg PO QDAY #7 tablet 02/07/18 Unknown Rx ED Physical Exam - General Limitations: No Limitations General appearance: alert, in distress - Head Head exam: Present: atraumatic, normocephalic, normal inspection - Eye Eye exam: Present: normal appearance, PERRL - ENT ENT exam: Present: normal exam, normal orophraynx, mucous membranes moist - Neck Neck exam: Present: normal inspection, full ROM. Absent: tenderness, meningismus, lymphadenopathy, thyromegaly - Respiratory Respiratory exam: Present: respiratory distress, wheezes, rales, rhonchi, decreased breath sounds, prolonged expiratory. Absent: stridor, accessory muscle use - Cardiovascular Cardiovascular Exam: Present: regular rate, normal rhythm, normal heart sounds - GI/Abdominal GI/Abdominal exam: Present: soft, normal bowel sounds. Absent: distended, tenderness, guarding, rebound, rigid, organomegaly, mass, bruit, pulsatile mass, hernia - Extremities Exam Extremities exam: Present: normal inspection, full ROM, normal capillary refill. Absent: pedal edema, calf tenderness - Back Exam Back exam: Present: normal inspection, full ROM. Absent: tenderness, CVA tenderness (R), CVA tenderness (L), muscle spasm, paraspinal tenderness, vertebral tenderness - Neurological Exam Neurological exam: Present: alert, oriented X3, CN II-XII intact, normal gait, reflexes normal - Skin Skin exam: Present: warm, intact, normal color ED Course Vital Signs 07/30/18 07/30/18 07/30/18 10:49 11:22 11:39 Temperature 98.7 F Pulse Rate 102 H 100 H Pulse Rate [ 94 H Anterior Bilateral] Respiratory 26 H 23 Rate Respiratory 20 Rate [Anterior Bilateral] Blood Pressure 129/78 O2 Sat by Pulse 100 100 Oximetry 07/30/18 11:46 Temperature Pulse Rate 100 H Pulse Rate [ Anterior Bilateral] Respiratory 23 Rate Respiratory Rate [Anterior Bilateral] Blood Pressure O2 Sat by Pulse 99 Oximetry ED Medical Decision Making - Lab Data Result diagrams: 07/30/18 10:55 07/30/18 10:55 - EKG Data EKG shows normal: sinus rhythm Rate: normal - EKG Data Interpretation: no acute changes - Radiology Data Radiology results: report reviewed Referring Physician: MILY MCRAE Patient Name: GRACIE CONTE Date of : 1960 Sex: Male Report Date: 2018-07-30 Report Status: Finalized Findings [facility] [address] [place] [address] XRay Report Signed Patient: GRACIE CONTE MR#: [id number] : 1960 Acct:[id number] Age/Sex: 57 / M ADM Date: 07/30/18 Loc: ED Attending Dr: Ordering Physician: MILY MCRAE Date of Service: 07/30/18 Procedure(s): XR chest 1V ap Accession Number(s): [id number] cc: MILY MCRAE Fluoro Time In Minutes: PORTABLE CHEST INDICATION: Dyspnea. COMPARISON: 01/31/2018 FINDINGS: Portable, frontal chest radiograph again demonstrates normal cardiomediastinal silhouette. Clear, slightly hyperexpanded lungs/possible COPD. No pleural effusions or CHF. EKG leads. Intact bones. CONCLUSION: No acute disease. Thank you for the opportunity to participate in this patient's care. Transcribed By: RS Dictated By: MOISE WELLINGTON MD Electronically Authenticated By: MOISE WELLINGTON MD Signed Date/Time: 07/30/18 1157 DD/ 1156 TD/TT: 07/30/18 1157 - Medical Decision Making Patient is 57 years old male with history of COPD. Patient reports to the emergency room via EMS for acute respiratory distress. EMS stated that patient was tachypneic with an oxygen saturation of 84%. Patient is given albuterol, magnesium sulfate, Solu-Medrol and started on BiPAP by EMS. Upon arrival to the ER patient oxygen saturation is 96%. Patient stated that his symptoms started a few weeks ago but isn't progressively get worse for the last 3 days. Shortness of breath associated with cough, productive with greenish sputum. Patient denied any fever or chills, nausea or vomiting. Patient evaluated by me multiple times. Patient stated that he is feeling much better. Chest x-ray is negative for acute findings. Labs reviewed and is negative. I discussed the patient with, he agreed to admit the patient to medical service. Critical Care Time: Yes Critical care time in (mins) excluding proc time.: 30 Critical care attestation.: If time is entered above; I have spent that time in minutes in the direct care of this critically ill patient, excluding procedure time. ED Disposition Clinical Impression: COPD exacerbation Disposition: DC-09 OP ADMIT IP TO THIS HOSP Is pt being admited?: Yes Condition: Stable Instructions: Chronic Obstructive Pulmonary Disease (ED)
[2018-07-30 11:07] LABS: Basophils # (Auto) 0.1 K/mm3 (0.0-0.1); Basophils % (Auto) 0.9 % (0.0-1.8); Eosinophils # (Auto) 1.1 K/mm3 (0.0-0.4); Eosinophils % (Auto) 10.7 % (0.0-4.3); Hematocrit 45.9 % (35.5-45.6); Hemoglobin 15.5 gm/dl (11.8-15.2); Lymphocytes % (Auto) 30.1 % (13.4-35.0); Mean Corpuscular HGB Conc 34 % (32-34); Mean Corpuscular Volume 104 fl (84-94); Monocytes % (Auto) 9.6 % (0.0-7.3); Platelet Count 257 K/mm3 (140-440); Red Blood Count 4.42 M/mm3 (3.65-5.03); Red Cell Distribution Width 14.2 % (13.2-15.2)
[2018-07-30 11:27] LABS: BUN/Creatinine Ratio 12; Blood Urea Nitrogen 7 mg/dL (9-20); Calcium 9.1 mg/dL (8.4-10.2); Hemolysis Index 31
--- NOTE | 2018-07-30 12:01 | XRay Report ---
PORTABLE CHEST INDICATION: Dyspnea. COMPARISON: 01/31/2018 FINDINGS: Portable, frontal chest radiograph again demonstrates normal cardiomediastinal silhouette. Clear, slightly hyperexpanded lungs/possible COPD. No pleural effusions or CHF. EKG leads. Intact bones. CONCLUSION: No acute disease. Thank you for the opportunity to participate in this patient's care.
--- NOTE | 2018-07-30 12:19 | History and Physical Report ---
Medications and Allergies Allergies Allergy/AdvReac Type Severity Reaction Status Date / Time No Known Allergies Allergy Unverified 09/22/13 14:33 Home Medications Medication Instructions Recorded Confirmed Last Taken Type ALBUTEROL Inhaler (OR & NICU) 2 puff IH QID PRN 1 Days 09/22/13 Unknown Rx [ProAir HFA Inhaler] inhalation Albuterol Sulfate [Proventil HFA] 1 - 2 puff IH Q4H PRN 09/22/13 09/22/13 09/22/13 History Azithromycin [Zithromax TAB] 500 mg PO QDAY #5 tablet 09/22/13 Unknown Rx predniSONE [Deltasone] 60 mg PO QDAY 4 Days tab 09/22/13 Unknown Rx Acetaminophen [Tylenol Arthritis] 650 mg PO Q6HR PRN #30 tablet.er 03/27/17 Unknown Rx Albuterol Sulfate [Proair 90 mcg IH Q4HR PRN #2 aer.pow.ba 03/27/17 Unknown Rx Respiclick] Ibuprofen [Motrin] 600 mg PO Q8H PRN #30 tablet 03/27/17 Unknown Rx Metoclopramide [Reglan] 10 mg PO QID PRN #30 tablet 03/27/17 Unknown Rx Ondansetron [Zofran Odt] 4 mg PO QID PRN #20 tab.rapdis 03/27/17 Unknown Rx Sulfamethoxazole/Trimethoprim 1 each PO BID #28 tablet 03/27/17 Unknown Rx [Bactrim DS TAB] chlordiazePOXIDE [Librium] 25 mg PO Q6H PRN #30 capsule 03/27/17 Unknown Rx ALBUTEROL Inhaler (OR & NICU) 2 puff IH QID PRN #1 inhalation 02/07/18 Unknown Rx [ProAir HFA Inhaler] Prednisone [predniSONE (Sammi) ER 40 mg PO QDAY #40 tablet.dr 02/07/18 Unknown Rx TAB] levoFLOXacin [Levaquin TAB] 500 mg PO QDAY #7 tablet 02/07/18 Unknown Rx Active Meds: Active Medications Levofloxacin/Dextrose (Levaquin 750mg/150ml) 750 mg in 150 mls @ 100 mls/hr IV ONCE ONE; Protocol Stop: 07/30/18 12:22 Last Admin: 07/30/18 11:59 Dose: 100 mls/hr Documented by: Sodium Chloride (Nacl 0.9% 1000 Ml) 1,000 mls @ 125 mls/hr IV ONCE ONE Stop: 07/30/18 18:52 Last Admin: 07/30/18 11:59 Dose: 125 mls/hr Documented by: Exam - Constitutional Vitals: Temp Pulse Resp BP Pulse Ox 98.7 F 100 H 23 129/78 99 07/30/18 10:49 07/30/18 11:46 07/30/18 11:46 07/30/18 10:49 07/30/18 11:46 Results - Labs CBC & Chem 7: 07/30/18 10:55 07/30/18 10:55 Labs: Abnormal lab results 07/30/18 07/30/18 07/30/18 Range/Units 10:55 10:55 11:47 Hgb 15.5 H (11.8-15.2) gm/dl Hct 45.9 H (35.5-45.6) % MCV 104 H (84-94) fl MCH 35 H (28-32) pg [place] % (Auto) 9.6 H (0.0-7.3) % Eos % (Auto) 10.7 H (0.0-4.3) % [place] # 1.0 H (0.0-0.8) K/mm3 Eos # 1.1 H (0.0-0.4) K/mm3 POC ABG pO2 130 H (80-105) BUN 7 L (9-20) mg/dL Creatinine 0.6 L (0.8-1.5) mg/dL Glucose 101 H (75-100) mg/dL
[2018-07-30] MEDS ORDERED: ZOFRAN IV ONE (13:28)
[2018-07-30] MEDS ORDERED: ZOFRAN ONE (13:32)
[2018-07-30 14:44] VITALS: BP 139/87
--- NOTE | 2018-08-20 08:33 | Event Note ---
Date: 07/30/18 57 YO Male seen and evaluated in ED for COPD Exacerbation, and ETOH Dependence. Pt treated with supportive care Patient is given albuterol, magnesium sulfate, Solu-Medrol and started on BiPAP by EMS. Upon arrival to the ER patient oxygen saturation is 96%. Patient medically optimized and back to usual state of health. Pt discharged home and instructed to F/U pcp 1wk, Pulmonary prn. - General Limitations: No Limitations General appearance: alert, in distress - Head Head exam: Present: atraumatic, normocephalic, normal inspection - Eye Eye exam: Present: normal appearance, PERRL - ENT ENT exam: Present: normal exam, normal orophraynx, mucous membranes moist - Neck Neck exam: Present: normal inspection, full ROM. Absent: tenderness, meningismus, lymphadenopathy, thyromegaly - Respiratory Respiratory exam: Present: CTA Bilaterally, No respiratory distress S/P treatment.. Absent: stridor, accessory muscle use - Cardiovascular Cardiovascular Exam: Present: regular rate, normal rhythm, normal heart sounds - GI/Abdominal GI/Abdominal exam: Present: soft, normal bowel sounds. Absent: distended, tenderness, guarding, rebound, rigid, organomegaly, mass, bruit, pulsatile mass, hernia - Extremities Exam Extremities exam: Present: normal inspection, full ROM, normal capillary refill. Absent: pedal edema, calf tenderness - Back Exam Back exam: Present: normal inspection, full ROM. Absent: tenderness, CVA tenderness (R), CVA tenderness (L), muscle spasm, paraspinal tenderness, vertebral tenderness - Neurological Exam Neurological exam: Present: alert, oriented X3, CN II-XII intact, normal gait, reflexes normal - Skin Skin exam: Present: warm, intact, normal color
== END 2018-07-30 14:43 | disposition admitted as inpatient to this hospital (09) ==
LOC: ED 10:44
DX: J44.1 Chronic obstructive pulmonary disease with (acute) exacerbation (principal); F17.200 Nicotine dependence, unspecified, uncomplicated
CPT/HCPCS: 36415; 71045; 80048; 82803; 85025; 87040; 93005; 93010; 94640; 96365; 96375; 99291; J1956; J2405; J7030

== ENCOUNTER 2018-09-07 12:36 | Inpatient (IN) | payer SELFPAY ==
[2018-09-07] MEDS ORDERED: PROVENTIL IH ONE ×2 (12:46→12:52)
[2018-09-07] MEDS ORDERED: MAGNESIUM SULFATE 2GM/50ML 2 GM/50 ML BAG IV ONE (12:51)
[2018-09-07] MEDS ORDERED: SOLU-Medrol IV ONE (12:51)
[2018-09-07] MEDS ORDERED: ATROVENT IH ONE (12:52)
--- NOTE | 2018-09-07 12:58 | Emergency Department Report ---
HPI - General Chief Complaint: Dyspnea/Respdistress Time Seen by Provider: 09/07/18 12:46 - HPI HPI: Room 20 The patient is a 57-year-old male presenting with chief complaint of shortness of breath. The patient states she has a history of COPD but is not on home O2. The patient states this morning when he awakened he began to feel short of breath. Patient is cough that is occasionally productive. Patient denies history of fever. Patient reportedly hypoxic to 92% on room air Location: Lungs Duration: [See above] Quality: Shortness of breath Severity: Moderate Modifying factors: [see above] Context: [see above] Mode of transportation: [not driving] ED Past Medical Hx - Past Medical History Hx CVA: (BRONCHITIS) Hx Asthma: Yes Hx COPD: Yes - Surgical History Past Surgical History?: No Additional Surgical History: LEFT FEMUR FRACTURE - Family History Family history: no significant - Social History Smoking Status: Current Every Day Smoker (over one pack per day) Substance Use Type: None (denies illicit drug use), Alcohol (moderate) - Medications Home Medications: Home Medications Medication Instructions Recorded Confirmed Last Taken Type Albuterol Sulfate [Albuterol 0.63% 0.63 mg IH TID PRN #1 box 07/30/18 Unknown Rx NEBS] Ciprofloxacin HCl [Ciprofloxacin 500 mg PO Q12H #12 tab 07/30/18 Unknown Rx TAB] Ipratropium [Atrovent NEB] 0.5 mg IH Q8HRT #1 box 07/30/18 Unknown Rx Nebulizer and Compressor [[place] 1 each MC TID PRN #1 each 07/30/18 Unknown Rx Choice Nebulizer] Prednisone [predniSONE 10 mg 10 mg PO .TAPER #1 tab.ds.pk 07/30/18 Unknown Rx (6-Day Pack, 21 Tabs)] ED Review of Systems ROS: Stated complaint: SERGIO Other details as noted in HPI Constitutional: denies: fever Eyes: denies: eye pain ENT: denies: throat pain Respiratory: see HPI, shortness of breath Cardiovascular: denies: chest pain Endocrine: no symptoms reported Gastrointestinal: nausea. denies: abdominal pain Genitourinary: denies: dysuria Musculoskeletal: back pain Neurological: denies: headache Physical Exam - Physical Exam Physical Exam: GENERAL: The patient is well-developed well-nourished male sitting on stretcher receiving breathing treatment. To be in mild respiratory distress. [] HEENT: Normocephalic. Atraumatic. Extraocular motions are intact. Patient has moist mucous membranes. NECK: Supple. Trachea midline CHEST/LUNGS: Diffuse wheezing. Occasional cough. There is no respiratory distress noted. HEART/CARDIOVASCULAR: Regular. There is tachycardia. There is no gallop rub or murmur. ABDOMEN: Abdomen is soft, nontender. Patient has normal bowel sounds. There is no abdominal distention. SKIN: There is no rash. There is no edema. There is no diaphoresis. NEURO: The patient is awake, alert, and oriented. The patient is cooperative. The patient has normal speech MUSCULOSKELETAL: There is no evidence of acute injury. ED Course - Reevaluation(s) Reevaluation #1: 09/07/18 15:15 The patient still has wheezing but looks more comfortable. Will admit to the hospital for further treatment ED Medical Decision Making - Lab Data Result diagrams: 09/07/18 Unknown 09/07/18 Unknown Laboratory Tests 09/07/18 09/07/18 09/07/18 13:29 Unknown Unknown WBC 8.1 RBC 4.09 Hgb 14.4 Hct 42.0 MCV 103 H MCH 35 H MCHC 34 RDW 13.8 Plt Count 382 Lymph % (Auto) 31.9 [place] % (Auto) 8.8 H Eos % (Auto) 8.8 H Baso % (Auto) 1.3 Lymph # 2.6 [place] # 0.7 Eos # 0.7 H Baso # 0.1 Seg Neutrophils % 49.2 Seg Neutrophils # 4.0 PT 12.6 INR 0.89 APTT 31.6 POC ABG pH 7.347 L POC ABG pCO2 44.1 POC ABG pO2 73 L POC ABG HCO3 24.2 POC ABG Total CO2 26 POC ABG O2 Sat 94 POC ABG Base Excess -1 FiO2 21 Sodium Potassium Chloride Carbon Dioxide Anion Gap BUN Creatinine Estimated GFR BUN/Creatinine Ratio Glucose Calcium Total Creatine Kinase CK-MB (CK-2) CK-MB (CK-2) Rel Index Troponin T NT-Pro-B Natriuret Pep 09/07/18 Unknown WBC RBC Hgb Hct MCV MCH MCHC RDW Plt Count Lymph % (Auto) [place] % (Auto) Eos % (Auto) Baso % (Auto) Lymph # [place] # Eos # Baso # Seg Neutrophils % Seg Neutrophils # PT INR APTT POC ABG pH POC ABG pCO2 POC ABG pO2 POC ABG HCO3 POC ABG Total CO2 POC ABG O2 Sat POC ABG Base Excess FiO2 Sodium 138 Potassium 4.3 Chloride 98.5 Carbon Dioxide 27 Anion Gap 17 BUN 8 L Creatinine 0.6 L Estimated GFR > 60 BUN/Creatinine Ratio 13 Glucose 94 Calcium 9.0 Total Creatine Kinase 140 CK-MB (CK-2) 3.5 CK-MB (CK-2) Rel Index 2.5 Troponin T < 0.010 NT-Pro-B Natriuret Pep 184.2 - Radiology Data Radiology results: image reviewed (chest x-ray) interpreted by me: Chest x-ray-no focal infiltrates, no pneumothorax - Differential Diagnosis COPD exacerbation, pneumonia, bronchitis Critical care attestation.: If time is entered above; I have spent that time in minutes in the direct care of this critically ill patient, excluding procedure time. ED Disposition Clinical Impression: COPD exacerbation, Shortness of breath, Hypoxia Disposition: 09 OP ADMIT IP TO THIS HOSP Is pt being admited?: Yes Does the pt Need Aspirin: Yes Condition: Fair Instructions: Chronic Obstructive Pulmonary Disease (ED) Time of Disposition: 15:16 (hospitalist paged (Dr Zaldivar))
[2018-09-07] MEDS ORDERED: ZOFRAN ONE (12:59)
[2018-09-07 13:14] LABS: Basophils # (Auto) 0.1 K/mm3 (0.0-0.1); Basophils % (Auto) 1.3 % (0.0-1.8); Eosinophils # (Auto) 0.7 K/mm3 (0.0-0.4); Eosinophils % (Auto) 8.8 % (0.0-4.3); Hemoglobin 14.4 gm/dl (11.8-15.2); Lymphocytes # (Auto) 2.6 K/mm3 (1.2-5.4); Lymphocytes % (Auto) 31.9 % (13.4-35.0); Mean Corpuscular HGB Conc 34 % (32-34); Mean Corpuscular Volume 103 fl (84-94); Monocytes # (Auto) 0.7 K/mm3 (0.0-0.8); Monocytes % (Auto) 8.8 % (0.0-7.3); Platelet Count 382 K/mm3 (140-440); Red Blood Count 4.09 M/mm3 (3.65-5.03); Red Cell Distribution Width 13.8 % (13.2-15.2)
[2018-09-07 13:26] LABS: INR 0.89 (0.87-1.13)
[2018-09-07 13:27] LABS: Partial Thromboplastin Time 31.6 Sec. (24.2-36.6)
[2018-09-07 13:40] LABS: BUN/Creatinine Ratio 13; Blood Urea Nitrogen 8 mg/dL (9-20); Creatine Kinase MB 3.5 ng/mL (0.0-4.0); Hemolysis Index 30
--- NOTE | 2018-09-07 13:50 | XRay Report ---
AP CHEST: HISTORY: Shortness of breath Advanced emphysema is stable since 07/30/18. No evidence for pneumonia, pleural effusion or pneumothorax. Heart size is within normal limits. IMPRESSION: Emphysema. No acute process identified.
[2018-09-07] MEDS ORDERED: SODIUM CHLORIDE FLUSH SYRINGE 10 ML IV PRN (16:18)
--- NOTE | 2018-09-07 16:18 | History and Physical Report ---
History of Present Illness Chief complaint: Im short of breath. History of present illness: 57 YO Male with Nicotine Dependence, COPD, Asthma presents to ED for evaluation. Pt states that he has experienced shortness of breath over the past 1 week, with increased productive cough of clear sputum. Pt denies improvement in symptoms with increased bronchodilator therapy. Pt denies fever, chills, CP, Palpitations, NVD, Trauma, BRBPR, or recent ill contacts. Pt transported to [facility] by private vehicle for further care. Pt seen and evaluated in ED and found to have COPD Exacerbation, complicated by Acute Hypoxemic Respiratory Failure. Pt admitted to [facility] and treated with supportive care. Past History Past Medical History: COPD, other (asthma) Past Surgical History: Other (Left Femur) Social history: single Family history: no significant family history (reviewed) Medications and Allergies Allergies Allergy/AdvReac Type Severity Reaction Status Date / Time No Known Allergies Allergy Unverified 09/22/13 14:33 Home Medications Medication Instructions Recorded Confirmed Last Taken Type Albuterol Sulfate [Albuterol 0.63% 0.63 mg IH TID PRN #1 box 07/30/18 09/07/18 Unknown Rx NEBS] Ciprofloxacin HCl [Ciprofloxacin 500 mg PO Q12H #12 tab 07/30/18 09/07/18 Unknown Rx TAB] Ipratropium [Atrovent NEB] 0.5 mg IH Q8HRT #1 box 07/30/18 09/07/18 Unknown Rx Nebulizer and Compressor [[place] 1 each MC TID PRN #1 each 07/30/18 09/07/18 Unknown Rx Choice Nebulizer] Prednisone [predniSONE 10 mg 10 mg PO .TAPER #1 tab.ds.pk 07/30/18 09/07/18 Unknown Rx (6-Day Pack, 21 Tabs)] Review of Systems Constitutional: no weight loss, no weight gain, no fever, no chills Ears, nose, mouth and throat: no ear pain, no ear discharge, no tinnitis, no decreased hearing, no nose pain, no nasal congestion Cardiovascular: no chest pain, no orthopnea, no palpitations Respiratory: no cough, no cough with sputum, no excessive sputum, no shortness of breath Gastrointestinal: no abdominal pain, no nausea, no vomiting, no diarrhea, no constipation Genitourinary Male: no hematuria, no flank pain, no discharge, no urinary frequency, no urinary hesitancy Rectal: no pain, no incontinence Musculoskeletal: no neck stiffness, no neck pain, no shooting arm pain, no arm numbness/tingling, no low back pain Integumentary: no rash, no pruritis, no sores, no wounds Neurological: no head injury, no transient paralysis, no paralysis, no parathe denise, no numbness, no tingling Psychiatric: no anxiety, no memory loss, no change in sleep habits, no insomnia, no hypersomnia, no change in appetite, no change in libido, no suicidal ideation Endocrine: no cold intolerance, no heat intolerance, no polyuria, no nocturia, no excessive sweating Hematologic/Lymphatic: no easy bruising, no easy bleeding, no lymphadenopathy, no lymphedema Allergic/Immunologic: no urticaria, no allergic rhinitis, no wheezing, no anaphylaxis, no angioedema Exam - Constitutional Vitals: Temp Pulse Resp BP Pulse Ox 104 H 23 140/76 95 09/07/18 14:30 09/07/18 14:30 09/07/18 14:30 09/07/18 14:30 General appearance: Present: mild distress - EENT Eyes: Present: PERRL ENT: hearing intact, clear oral mucosa - Neck Neck: Present: supple, normal ROM - Respiratory Respiratory effort: labored Respiratory: bilateral: diminished, rhonchi - Cardiovascular Heart Sounds: Present: S1 & S2. Absent: rub, click - Extremities Extremities: pulses symmetrical, No edema Peripheral Pulses: within normal limits - Abdominal General gastrointestinal: Present: soft, non-tender, non-distended, normal bowel sounds Male genitourinary: Present: normal - Integumentary Integumentary: Present: clear, warm, dry - Musculoskeletal Musculoskeletal: gait normal, strength equal bilaterally - Psychiatric Psychiatric: appropriate mood/affect, intact judgment & insight - Neurologic Neurologic: CNII-XII intact, moves all extremities Results - Labs CBC & Chem 7: 09/07/18 Unknown 09/07/18 Unknown Labs: Abnormal lab results 09/07/18 09/07/18 09/07/18 Range/Units 13:29 Unknown Unknown MCV 103 H (84-94) fl MCH 35 H (28-32) pg [place] % (Auto) 8.8 H (0.0-7.3) % Eos % (Auto) 8.8 H (0.0-4.3) % Eos # 0.7 H (0.0-0.4) K/mm3 POC ABG pH 7.347 L (7.35-7.45) POC ABG pO2 73 L (80-105) BUN 8 L (9-20) mg/dL Creatinine 0.6 L (0.8-1.5) mg/dL Assessment and Plan - Patient Problems (1) Acute respiratory failure Current Visit: Yes Status: Acute Qualifiers: Respiratory failure complication: hypoxia Qualified Code(s): J96.01 - Acute respiratory failure with hypoxia Plan to address problem: Admit to IMCU, ABG, supplemental oxygen, chest x ray, CTA chest, NIPPV as clinically indicated, nebulizer therapy, pulse oximetry. (2) Nicotine dependence Current Visit: Yes Status: Acute Qualifiers: Nicotine product type: cigarettes Substance use status: in withdrawal Qualified Code(s): F17.213 - Nicotine dependence, cigarettes, with withdrawal Plan to address problem: smoking cessation counseling, supportive care. (3) COPD exacerbation Current Visit: Yes Status: Acute Plan to address problem: nebulizer therapy, NIPPV as clinically indicated, supplemental oxygen, Iv steroid therapy, IV antibiotic therapy, chest x ray, pulse oximetry (4) DVT prophylaxis Current Visit: Yes Status: Acute Plan to address problem: SCD to BLE while in bed.
[2018-09-07] MEDS: PROVENTIL IH PRN (21:06)
[2018-09-07] MEDS ORDERED: AFLURIA QUAD 2018-2019 SYRINGE IM ONE (21:37)
[2018-09-07] MEDS: SOLU-Medrol IV SCH (22:31)
[2018-09-07] MEDS: SODIUM CHLORIDE FLUSH SYRINGE 10 ML IV SCH (22:31)
[2018-09-08] MEDS: PROVENTIL IH PRN (01:49)
[2018-09-08 05:44] LABS: Basophils % (Auto) 0.5 % (0.0-1.8); Eosinophils % (Auto) 0.1 % (0.0-4.3); Hematocrit 39.3 % (35.5-45.6); Hemoglobin 13.4 gm/dl (11.8-15.2); Lymphocytes # (Auto) 0.4 K/mm3 (1.2-5.4); Lymphocytes % (Auto) 11.1 % (13.4-35.0); Mean Corpuscular HGB Conc 34 % (32-34); Mean Corpuscular Volume 102 fl (84-94); Monocytes # (Auto) 0.3 K/mm3 (0.0-0.8); Monocytes % (Auto) 6.7 % (0.0-7.3); Platelet Count 296 K/mm3 (140-440); Red Blood Count 3.87 M/mm3 (3.65-5.03); Red Cell Distribution Width 13.7 % (13.2-15.2)
[2018-09-08 05:55] LABS: BUN/Creatinine Ratio 28; Blood Urea Nitrogen 17 mg/dL (9-20); Calcium 8.8 mg/dL (8.4-10.2); Hemolysis Index 6
[2018-09-08] MEDS ORDERED: DUONEB *Not for PRN Use IH ONE (09:47)
[2018-09-08] MEDS: SOLU-Medrol IV SCH ×2 (10:35→22:08)
[2018-09-08] MEDS: SODIUM CHLORIDE FLUSH SYRINGE 10 ML IV SCH ×2 (10:35→22:09)
[2018-09-08] MEDS: ZITHROMAX 500 MG in NACL 0.9% 250ML 250 ML IV SCH (10:36)
[2018-09-08] MEDS ORDERED: ATIVAN IV PRN (11:37)
--- NOTE | 2018-09-08 11:40 | Progress Note ---
Assessment and Plan / Acute respiratory failure Admitted to IMCU, cont supplemental oxygen, NIPPV as clinically indicated, nebulizer therapy, pulse oximetry. taper steroid when appropriate / Nicotine dependence smoking cessation counseling, supportive care. / COPD exacerbation cont nebulizer therapy, NIPPV as clinically indicated, supplemental oxygen, Iv steroid therapy, IV antibiotic therapy, pulse oximetry /Alcohol abuse as needed ativan, thiamin, folic acid /moderate to severe malnutrition - will order albumin and prealbumin, nutrition consult / DVT prophylaxis SCD to BLE while in bed. Subjective Date of service: 09/08/18 Interval history: Pt seen and examined c/o SOB even on rest, off bipap, on N/c admits drinking beer 5/6 cans daily also smokes tobacco 1 and 1/2ppd Objective - Constitutional Vitals: Vital Signs - 12hr 09/08/18 09/08/18 09/08/18 00:00 00:30 01:00 Pulse Rate 77 70 Pulse Rate [ Anterior Bilateral Throughout] Respiratory 21 23 21 Rate Respiratory Rate [Anterior Bilateral Throughout] Blood Pressure 104/54 117/57 O2 Sat by Pulse 97 98 98 Oximetry 09/08/18 09/08/18 09/08/18 01:49 01:59 02:00 Pulse Rate 90 Pulse Rate [ 96 H 109 H Anterior Bilateral Throughout] Respiratory 35 H Rate Respiratory 22 22 Rate [Anterior Bilateral Throughout] Blood Pressure 117/57 O2 Sat by Pulse 100 Oximetry 09/08/18 09/08/18 09/08/18 03:00 04:00 08:00 Pulse Rate 94 H Pulse Rate [ Anterior Bilateral Throughout] Respiratory 22 21 17 Rate Respiratory Rate [Anterior Bilateral Throughout] Blood Pressure 132/82 O2 Sat by Pulse 98 99 97 Oximetry 09/08/18 09/08/18 09/08/18 09:38 09:49 09:56 Pulse Rate Pulse Rate [ 83 Anterior Bilateral Throughout] Respiratory Rate Respiratory 21 Rate [Anterior Bilateral Throughout] Blood Pressure O2 Sat by Pulse 95 95 Oximetry 09/08/18 09:59 Pulse Rate Pulse Rate [ 89 Anterior Bilateral Throughout] Respiratory Rate Respiratory 24 Rate [Anterior Bilateral Throughout] Blood Pressure O2 Sat by Pulse Oximetry General appearance: Present: no acute distress, other (malnourished) - EENT Eyes: PERRL, EOM intact ENT: hearing intact, clear oral mucosa Ears: bilateral: normal - Neck Neck: supple, normal ROM - Respiratory Respiratory effort: normal Respiratory: bilateral: diminished - Cardiovascular Rhythm: regular Heart Sounds: Present: S1 & S2. Absent: gallop, rub Extremities: pulses intact, No edema, normal color, Full ROM - Gastrointestinal General gastrointestinal: Present: soft, non-tender, non-distended, normal bowel sounds - Integumentary Integumentary: clear, warm, dry - Musculoskeletal Musculoskeletal: 1, strength equal bilaterally - Neurologic Neurologic: moves all extremities - Psychiatric Psychiatric: memory intact, appropriate mood/affect, intact judgment & insight - Labs CBC & Chem 7: 09/08/18 04:40 09/08/18 04:40 Labs: Abnormal lab results 09/07/18 09/07/18 09/07/18 Range/Units 13:29 Unknown Unknown WBC (4.5-11.0) K/mm3 MCV 103 H (84-94) fl MCH 35 H (28-32) pg Lymph % (Auto) (13.4-35.0) % [place] % (Auto) 8.8 H (0.0-7.3) % Eos % (Auto) 8.8 H (0.0-4.3) % Lymph # (1.2-5.4) K/mm3 Eos # 0.7 H (0.0-0.4) K/mm3 Seg Neutrophils % (40.0-70.0) % POC ABG pH 7.347 L (7.35-7.45) POC ABG pO2 73 L (80-105) Sodium (137-145) mmol/L Chloride (98-107) mmol/L BUN 8 L (9-20) mg/dL Creatinine 0.6 L (0.8-1.5) mg/dL Glucose (75-100) mg/dL 09/08/18 09/08/18 Range/Units 04:40 04:40 WBC 3.8 L (4.5-11.0) K/mm3 MCV 102 H (84-94) fl MCH 35 H (28-32) pg Lymph % (Auto) 11.1 L (13.4-35.0) % [place] % (Auto) (0.0-7.3) % Eos % (Auto) (0.0-4.3) % Lymph # 0.4 L (1.2-5.4) K/mm3 Eos # (0.0-0.4) K/mm3 Seg Neutrophils % 81.6 H (40.0-70.0) % POC ABG pH (7.35-7.45) POC ABG pO2 (80-105) Sodium 132 L (137-145) mmol/L Chloride 95.2 L (98-107) mmol/L BUN (9-20) mg/dL Creatinine 0.6 L (0.8-1.5) mg/dL Glucose 197 H (75-100) mg/dL
[2018-09-08] MEDS ORDERED: DUONEB *Not for PRN Use IH SCH (14:00)
[2018-09-08] MEDS: DUONEB *Not for PRN Use IH SCH ×2 (15:46→20:13)
--- NOTE | 2018-09-08 16:46 | Cat Scan Report ---
PROCEDURE: CT angiogram chest with contrast. TECHNIQUE: Computerized tomographic angiography of the chest was performed after the IV injection of iodinated nonionic contrast including image processing. The image data was postprocessed using 2-di mensional multiplanar reformatted (MPR) and 3-dimensional (MIP and/or volume rendered) techniques. Au tomated exposure control, adjustment of mA and/or kV according to patient size, or iterative reconstr uction dose optimization techniques were utilized. CT DOSE LENGTH PRODUCT: 367.98 mGycm HISTORY: Dyspnea. COMPARISONS: None. FINDINGS: The trachea and central bronchi appear normal. There are small cysts in both upper lobes. This sugges ts early emphysema. The lungs are otherwise clear. There are no pleural effusions. The thoracic aorta has a normal caliber without evidence of dissection. The pulmonary arteries enhance normally. There is no evidence of pulmonary embolism. There is no mediastinal adenopathy. The heart size is normal. T he adrenal glands are not enlarged. The thoracic skeleton appears intact. IMPRESSION: No evidence of pulmonary embolism. Probable early emphysema. This document is electronically signed by Carl Haas MD., September 08 2018 04:44:39 PM ET
[2018-09-08] MEDS: FOLVITE PO SCH (19:32)
[2018-09-08] MEDS: HABITROL TD SCH (19:33)
[2018-09-08] MEDS: VITAMIN B-1 PO SCH (19:34)
[2018-09-08] MEDS: LOVENOX SUB-Q SCH (22:08)
[2018-09-09] MEDS: DUONEB *Not for PRN Use IH SCH ×6 (03:25→20:05)
--- NOTE | 2018-09-09 11:25 | Progress Note ---
Assessment and Plan / Acute respiratory failure, improving cont supplemental oxygen, taper steroid , NIPPV as clinically indicated, nebulizer therapy, pulse oximetry. / Nicotine dependence smoking cessation counseling, supportive care. / COPD exacerbation cont nebulizer therapy, NIPPV as clinically indicated, supplemental oxygen, Iv steroid therapy, IV antibiotic therapy, pulse oximetry /Alcohol abuse as needed ativan, thiamin, folic acid /moderate to severe malnutrition - will order albumin and prealbumin, nutrition consult /Physical debility, PT consult / DVT prophylaxis SCD to BLE while in bed. Subjective Date of service: 09/09/18 Interval history: Pt seen and examined c/o SOB with minor exertion, off bipap, on N/c admits drinking beer 5/6 cans daily, also smokes tobacco 1 and 1/2ppd c/o generalized weakness Objective - Exam Narrative Exam: General appearance: Present: no acute distress, other (malnourished) - EENT Eyes: PERRL, EOM intact ENT: hearing intact, clear oral mucosa Ears: bilateral: normal - Neck Neck: supple, normal ROM - Respiratory Respiratory effort: normal Respiratory: bilateral: diminished - Cardiovascular Rhythm: regular Heart Sounds: Present: S1 & S2. Absent: gallop, rub Extremities: pulses intact, No edema, normal color, Full ROM - Gastrointestinal General gastrointestinal: Present: soft, non-tender, non-distended, normal bowel sounds - Integumentary Integumentary: clear, warm, dry - Musculoskeletal Musculoskeletal: 1, strength equal bilaterally - Neurologic Neurologic: moves all extremities - Psychiatric Psychiatric: memory intact, appropriate mood/affect, intact judgment & insight - Constitutional Vitals: Vital Signs - 12hr 09/08/18 09/09/18 09/09/18 23:48 03:29 03:38 Temperature 97.8 F Pulse Rate 85 Pulse Rate [ 81 77 Anterior Bilateral Throughout] Respiratory 18 Rate Respiratory 20 20 Rate [Anterior Bilateral Throughout] Blood Pressure 113/65 O2 Sat by Pulse 97 Oximetry 09/09/18 09/09/18 09/09/18 04:57 07:24 07:34 Temperature 97.9 F Pulse Rate 69 Pulse Rate [ 80 90 Anterior Bilateral Throughout] Respiratory 18 Rate Respiratory 20 20 Rate [Anterior Bilateral Throughout] Blood Pressure 102/54 O2 Sat by Pulse 99 98 Oximetry - Labs CBC & Chem 7: 09/08/18 04:40 09/08/18 04:40 Labs: Abnormal lab results 09/08/18 Range/Units 12:11 POC Glucose 169 H (70-105)
[2018-09-09] MEDS: VITAMIN B-1 PO SCH (12:03)
[2018-09-09] MEDS: SOLU-Medrol IV SCH ×2 (12:03→22:06)
[2018-09-09] MEDS: ZITHROMAX 500 MG in NACL 0.9% 250ML 250 ML IV SCH (12:03)
[2018-09-09] MEDS: SODIUM CHLORIDE FLUSH SYRINGE 10 ML IV SCH ×2 (12:04→22:05)
[2018-09-09] MEDS: FOLVITE PO SCH (12:04)
[2018-09-09] MEDS: HABITROL TD SCH (12:04)
[2018-09-09 14:30] LABS: Albumin 3.5 g/dL (3.9-5); Prealbumin 0.205 g/L (0.200-0.400)
[2018-09-09] MEDS: LOVENOX SUB-Q SCH (22:05)
[2018-09-10] MEDS: DUONEB *Not for PRN Use IH SCH ×4 (02:56→14:41)
[2018-09-10] MEDS: ZITHROMAX 500 MG in NACL 0.9% 250ML 250 ML IV SCH (09:23)
[2018-09-10] MEDS: SOLU-Medrol IV SCH (09:24)
[2018-09-10] MEDS: HABITROL TD SCH (09:24)
[2018-09-10] MEDS: VITAMIN B-1 PO SCH (09:25)
[2018-09-10] MEDS: FOLVITE PO SCH (09:25)
[2018-09-10] MEDS: SODIUM CHLORIDE FLUSH SYRINGE 10 ML IV SCH (09:25)
--- NOTE | 2018-09-10 11:24 | Discharge Summary ---
Providers - Providers Date of Admission: 09/07/18 16:18 Date of discharge: 09/10/18 Attending physician: ANILA WELSH 09/09/18 11:25 Consult to Dietitian/Nutrition [CONS] Routine Physician Instructions: Reason For Exam: Reason for Consult: Malnutrition 09/09/18 12:31 Physical Therapy Evaluation and Treat [CONS] Routine Comment: Reason For Exam: placement [facility] Reason for admission: SOB Condition: Fair Pertinent studies: CXR: Emphysema Chest CTA: No PE Hospital course: 57 YO Male with Nicotine Dependence, COPD, Asthma presented to ED for evaluation of shortness of breath over the past 1 week, with increased productive cough of clear sputum. Patient seen and evaluated in ED and found to have COPD Exacerbation, complicated by Acute Hypoxemic Respiratory Failure. Patient admitted to IMCU, placed on as needed BiPAP and treated with supportive care. His symptom resolved, he was then discharged home in stable condition. Discharge diagnosis and management: / Acute respiratory failure, improved Managed with supplemental oxygen, tapering dose of steroid , NIPPV as clinically indicated, nebulizer therapy. / Nicotine dependence smoking cessation counseling done. / COPD exacerbation Placed on nebulizer therapy, NIPPV as clinically indicated, supplemental oxygen, Iv steroid therapy, IV antibiotic therapy. /Alcohol abuse Monitored for withdrawal. placed on as needed ativan, continued daily thiamin, folic acid /Mild malnutrition - Normal prealbumin, nutrition consulted /Physical debility, PT consulted, cleared for discharge. / DVT prophylaxis SCD to BLE while in bed. Physical exam - Exam Narrative Exam: General appearance: Present: no acute distress, other (malnourished) - EENT Eyes: PERRL, EOM intact ENT: hearing intact, clear oral mucosa Ears: bilateral: normal - Neck Neck: supple, normal ROM - Respiratory Respiratory effort: normal Respiratory: bilateral: diminished - Cardiovascular Rhythm: regular Heart Sounds: Present: S1 & S2. Absent: gallop, rub Extremities: pulses intact, No edema, normal color, Full ROM - Gastrointestinal General gastrointestinal: Present: soft, non-tender, non-distended, normal bowel sounds - Integumentary Integumentary: clear, warm, dry - Musculoskeletal Musculoskeletal: 1, strength equal bilaterally - Neurologic Neurologic: moves all extremities - Psychiatric Psychiatric: memory intact, appropriate mood/affect, intact judgment & insight Disposition: DC-01 TO HOME OR SELFCARE Time spent for discharge: 34 minutes Core Measure Documentation - Palliative Care Palliative Care/ Comfort Measures: Not Applicable - Core Measures Any of the following diagnoses?: none Exam - Constitutional Vitals: Temp Pulse Resp BP Pulse Ox 97.5 F L 95 H 20 121/77 96 09/10/18 06:10 09/10/18 07:51 09/10/18 07:51 09/10/18 06:10 09/10/18 07:41 Plan Activity: advance as tolerated Weight Bearing Status: Weight Bear as Tolerated Diet: regular Additional Instructions: Abstinance from drinking. Outpt alcohol rehab [facility]Primary Care Provider[facility] - 3-5 Days Prescriptions: Ipratropium [Atrovent NEB] 0.5 mg IH Q8HRT #1 box Folic Acid [Folvite] 1 mg PO QDAY #30 tablet Prednisone [predniSONE 10 mg (6-Day Pack, 21 Tabs)] 10 mg PO .TAPER #1 tab.ds.pk Budesonide/Formoterol Fumarate [Symbicort 80-4.5 Mcg Inhaler] 10.2 gm IH BID 30 Days hfa.aer.ad Thiamine [Vitamin B-1] 100 mg PO QDAY #30 tablet Azithromycin [Zithromax TAB] 500 mg PO QDAY #2 tablet
[2018-09-10 12:47] VITALS: BP 116/70
== END 2018-09-10 16:00 | disposition home or self-care (01) | DRG 189 ==
LOC: ED 12:36 → IMCU 16:18 → 3A 09-08 14:39
PROVIDERS: ADMIT Internal Medicine; ATTEND Internal Medicine
PROC: 4A033R1 Measurement of Arterial Saturation, Peripheral, Percutaneous Approach (ICD-10-PCS; principal; 2018-09-07)
DX: J96.01 Acute respiratory failure with hypoxia (principal); E43 Unspecified severe protein-calorie malnutrition; J44.1 Chronic obstructive pulmonary disease with (acute) exacerbation; F17.213 Nicotine dependence, cigarettes, with withdrawal; Z68.1 Body mass index [BMI] 19.9 or less, adult; F10.10 Alcohol abuse, uncomplicated; Y90.0 Blood alcohol level of less than 20 mg/100 ml; Z86.73 Personal history of transient ischemic attack (TIA), and cerebral infarction without residual deficits; Z79.51 Long term (current) use of inhaled steroids; Z79.899 Other long term (current) drug therapy; Z71.6 Tobacco abuse counseling
CPT/HCPCS: 36415; 71045; 71275; 80048; 82040; 82550; 82553; 82803; 82962; 83880; 84134; 84484; 85025; 85610; 85730; 87116; 90686; 94640; 94760; 96365; 96375; 99406; G0378; J0456; J1650; J2405; J2920; J2930; J3475; J7050; Q9967

== ENCOUNTER 2019-01-14 10:13 | Emergency (ER) | payer SELFPAY ==
[2019-01-14] MEDS ORDERED: ATROVENT IH ONE (10:18)
[2019-01-14] MEDS ORDERED: MAGNESIUM SULFATE 2GM/50ML 2 GM/50 ML BAG IV ONE (10:18)
[2019-01-14] MEDS ORDERED: PROVENTIL IH ONE ×2 (10:18→22:22)
--- NOTE | 2019-01-14 10:22 | Emergency Department Report ---
ED Shortness of Breath HPI - General Chief Complaint: Dyspnea/Respdistress Stated Complaint: SERGIO/COPD Time Seen by Provider: 01/14/19 10:17 Source: patient, EMS Mode of arrival: Stretcher Limitations: No Limitations - History of Present Illness Initial Comments: 58-year-old male with history of COPD presents to ED with difficulty breathing since this morning. Patient states he used his nebulizer at home, without relief. EMS was called. Reports room air sats 92%. Albuterol treatment, solumedrol given by EMS and patient transported to the ED. Patient reports subjective fever, nonproductive cough. Denies chest pain. Reports tobacco use. PCP: none MD Complaint: shortness of breath -: This morning Severity: moderate Improves With: bronchodilators Worsens With: exertion Known History Of: recurrent pnemonia Associated Symptoms: fever, cough Treatments Prior to Arrival: bronchodilator, other (solumedrol) - Related Data Previous Rx's Medication Instructions Recorded Last Taken Type Albuterol Sulfate [Albuterol 0.63% 0.63 mg IH TID PRN #1 box 07/30/18 01/13/19 Rx NEBS] Nebulizer and Compressor [[place] 1 each MC TID PRN #1 each 07/30/18 01/13/19 Rx Choice Nebulizer] Ipratropium [Atrovent NEB] 0.5 mg IH Q8HRT #1 box 09/10/18 01/13/19 Rx Allergies Allergy/AdvReac Type Severity Reaction Status Date / Time No Known Allergies Allergy Verified 01/14/19 10:21 ED Review of Systems ROS: Stated complaint: SERGIO/COPD Other details as noted in HPI Comment: All other systems reviewed and negative Constitutional: fever Respiratory: cough, shortness of breath, wheezing Cardiovascular: denies: chest pain Gastrointestinal: denies: nausea, vomiting ED Past Medical Hx - Past Medical History Previous Medical History?: Yes Hx CVA: (BRONCHITIS) Hx Heart Attack/AMI: No Hx Asthma: Yes Hx COPD: Yes Hx HIV: No - Surgical History Past Surgical History?: Yes Additional Surgical History: LEFT FEMUR FRACTURE - Social History Smoking Status: Current Every Day Smoker - Medications Home Medications: Home Medications Medication Instructions Recorded Confirmed Last Taken Type Albuterol Sulfate [Albuterol 0.63% 0.63 mg IH TID PRN #1 box 07/30/18 01/14/19 01/13/19 Rx NEBS] Nebulizer and Compressor [[place] 1 each MC TID PRN #1 each 07/30/18 01/14/19 01/13/19 Rx Choice Nebulizer] Ipratropium [Atrovent NEB] 0.5 mg IH Q8HRT #1 box 09/10/18 01/14/19 01/13/19 Rx ED Physical Exam - General Limitations: No Limitations General appearance: alert - Head Head exam: Present: atraumatic, normocephalic - Eye Eye exam: Present: normal appearance - ENT ENT exam: Present: mucous membranes moist - Neck Neck exam: Present: normal inspection - Respiratory Respiratory exam: Present: respiratory distress, wheezes - Cardiovascular Cardiovascular Exam: Present: regular rate, normal rhythm - GI/Abdominal GI/Abdominal exam: Present: soft. Absent: distended, tenderness - Extremities Exam Extremities exam: Absent: pedal edema, calf tenderness - Neurological Exam Neurological exam: Present: alert, oriented X3, CN II-XII intact. Absent: motor sensory deficit - Psychiatric Psychiatric exam: Present: normal affect, normal mood - Skin Skin exam: Present: warm, dry, intact, normal color ED Course Vital Signs 01/14/19 01/14/19 01/14/19 10:19 10:30 10:33 Pulse Rate 99 H 94 H Pulse Rate [ 98 H Anterior Bilateral Throughout] Respiratory 20 23 Rate Respiratory 18 Rate [Anterior Bilateral Throughout] Blood Pressure 149/91 O2 Sat by Pulse 94 100 Oximetry 01/14/19 01/14/19 01/14/19 10:45 11:00 11:04 Pulse Rate 98 H 94 H Pulse Rate [ 100 H Anterior Bilateral Throughout] Respiratory 19 21 Rate Respiratory 20 Rate [Anterior Bilateral Throughout] Blood Pressure 140/91 144/85 O2 Sat by Pulse 100 Oximetry 01/14/19 01/14/19 01/14/19 11:15 11:30 11:45 Pulse Rate 87 94 H 82 Pulse Rate [ Anterior Bilateral Throughout] Respiratory 21 18 18 Rate Respiratory Rate [Anterior Bilateral Throughout] Blood Pressure 148/82 159/85 152/81 O2 Sat by Pulse 96 93 96 Oximetry 01/14/19 01/14/19 01/14/19 12:00 12:15 12:30 Pulse Rate 61 67 61 Pulse Rate [ Anterior Bilateral Throughout] Respiratory 18 19 19 Rate Respiratory Rate [Anterior Bilateral Throughout] Blood Pressure 143/81 132/72 134/73 O2 Sat by Pulse 93 93 93 Oximetry 01/14/19 01/14/19 01/14/19 12:45 13:00 13:15 Pulse Rate 85 107 H 97 H Pulse Rate [ Anterior Bilateral Throughout] Respiratory 20 29 H 20 Rate Respiratory Rate [Anterior Bilateral Throughout] Blood Pressure 142/89 142/89 162/95 O2 Sat by Pulse 93 92 Oximetry 01/14/19 01/14/19 01/14/19 13:30 13:45 14:00 Pulse Rate 90 61 94 H Pulse Rate [ Anterior Bilateral Throughout] Respiratory 20 17 24 Rate Respiratory Rate [Anterior Bilateral Throughout] Blood Pressure 149/83 144/70 152/78 O2 Sat by Pulse 93 92 93 Oximetry 01/14/19 01/14/19 01/14/19 14:16 14:30 14:45 Pulse Rate 104 H 67 68 Pulse Rate [ Anterior Bilateral Throughout] Respiratory 29 H 20 20 Rate Respiratory Rate [Anterior Bilateral Throughout] Blood Pressure 137/87 144/71 147/79 O2 Sat by Pulse 93 93 95 Oximetry 01/14/19 01/14/19 01/14/19 15:00 15:15 15:30 Pulse Rate 81 67 90 Pulse Rate [ Anterior Bilateral Throughout] Respiratory 22 19 25 H Rate Respiratory Rate [Anterior Bilateral Throughout] Blood Pressure 145/88 148/80 156/89 O2 Sat by Pulse 95 96 Oximetry 01/14/19 01/14/19 01/14/19 15:45 16:00 16:15 Pulse Rate 61 93 H 87 Pulse Rate [ Anterior Bilateral Throughout] Respiratory 20 17 21 Rate Respiratory Rate [Anterior Bilateral Throughout] Blood Pressure 145/74 150/84 155/87 O2 Sat by Pulse 95 93 95 Oximetry 01/14/19 01/14/19 01/14/19 16:30 16:45 17:00 Pulse Rate 60 78 59 L Pulse Rate [ Anterior Bilateral Throughout] Respiratory 20 21 16 Rate Respiratory Rate [Anterior Bilateral Throughout] Blood Pressure 142/70 143/92 142/73 O2 Sat by Pulse 92 91 91 Oximetry 01/14/19 01/14/19 01/14/19 17:15 17:31 17:45 Pulse Rate 65 100 H 95 H Pulse Rate [ Anterior Bilateral Throughout] Respiratory 20 25 H 20 Rate Respiratory Rate [Anterior Bilateral Throughout] Blood Pressure 144/81 144/118 152/101 O2 Sat by Pulse 93 94 95 Oximetry 01/14/19 01/14/19 18:00 18:15 Pulse Rate 65 87 Pulse Rate [ Anterior Bilateral Throughout] Respiratory 20 21 Rate Respiratory Rate [Anterior Bilateral Throughout] Blood Pressure 145/72 133/80 O2 Sat by Pulse 94 96 Oximetry ED Medical Decision Making - Lab Data Result diagrams: 01/14/19 10:23 01/14/19 10:23 - Radiology Data Radiology results: report reviewed, image reviewed - Medical Decision Making - COPD exacerbation - administered neb treatment at home - EMS gave solumedrol, albuterol neb - pt receiveed 1-hr albuterol/atrovent nebs, mag sulfate here in ED - pt became dyspneic w/ ambulation around ED, O2 dropped to 91% - will admit to hospitalist, Dr Zaldivar, for further management - Differential Diagnosis COPD, pneumonia, CHF Critical Care Time: Yes Critical care time in (mins) excluding proc time.: 35 Critical care attestation.: If time is entered above; I have spent that time in minutes in the direct care of this critically ill patient, excluding procedure time. Critical Care Time: 35 min ED Disposition Clinical Impression: Acute respiratory distress, COPD with acute exacerbation Disposition: -09 OP ADMIT IP TO THIS HOSP Is pt being admited?: Yes Condition: Stable Instructions: Chronic Obstructive Pulmonary Disease (ED) Referrals: KIZZY MONAE MD [Primary Care Provider] - 3-5 Days Time of Disposition: 12:05
[2019-01-14 10:33] LABS: Basophils % (Auto) 0.6 % (0.0-1.8); Eosinophils % (Auto) 11.9 % (0.0-4.3); Hematocrit 42.2 % (35.5-45.6); Hemoglobin 14.5 gm/dl (11.8-15.2); Lymphocytes # (Auto) 2.4 K/mm3 (1.2-5.4); Lymphocytes % (Auto) 29.3 % (13.4-35.0); Mean Corpuscular HGB Conc 34 % (32-34); Mean Corpuscular Volume 107 fl (84-94); Monocytes # (Auto) 0.9 K/mm3 (0.0-0.8); Monocytes % (Auto) 10.7 % (0.0-7.3); Platelet Count 229 K/mm3 (140-440); Red Blood Count 3.96 M/mm3 (3.65-5.03); Red Cell Distribution Width 14.2 % (13.2-15.2)
--- NOTE | 2019-01-14 10:46 | XRay Report ---
CHEST 1 VIEW INDICATION: Shortness of breath for 2 days. COPD, asthma. COMPARISON: 09/07/2018 FINDINGS: Support devices: None. Heart: Within normal limits. Lungs/Pleura: The lungs remain hyperinflated. No evidence for infiltrate, nodule, effusion or pneumot horax. Additional findings: None. IMPRESSION: Emphysema/COPD. No acute cardiopulmonary process. Signer Name: Malachi Camacho Jr, MD Signed: 01/14/2019 10:42 AM Workstation Name: [id number]
[2019-01-14 10:53] LABS: BUN/Creatinine Ratio 8; Blood Urea Nitrogen 5 mg/dL (9-20); Calcium 8.9 mg/dL (8.4-10.2); Hemolysis Index 20
[2019-01-14] MEDS: SOLU-Medrol IV ONE ×3 (12:20→15:47)
[2019-01-14] MEDS ORDERED: SOLU-Medrol ONE (15:47)
--- NOTE | 2019-01-14 19:22 | Event Note ---
Date: 01/14/19 58 YO Male with COPD, Nicotine Dependence presents to ED for evaluation. Pt seen and evaluated in ED and found to have Chronic Bronchitis. Pt treated with supportive care with improvement in symptoms. Pt underwent 6 minute walk to evaluate for home oxygen and found to have SaO2 of 93%. Case management consulted. Pt does not qualify for home oxygen, and also states that he does not have resources if home oxygen prescribed. Pt medically optimized and back to usual state of health and subsequently discharged home and instructed to F/U pcp 3-5 days, as well as Pulmonary 3-5 days. Pt counseled regarding Nicotine cessation. - General Limitations: No Limitations General appearance: alert - Head Head exam: Present: atraumatic, normocephalic - Eye Eye exam: Present: normal appearance - ENT ENT exam: Present: mucous membranes moist - Neck Neck exam: Present: normal inspection - Respiratory Respiratory exam: Present: CTA, chronic lung changes, no acute findings. fair air entry. - Cardiovascular Cardiovascular Exam: Present: regular rate, normal rhythm - GI/Abdominal GI/Abdominal exam: Present: soft. Absent: distended, tenderness - Extremities Exam Extremities exam: Absent: pedal edema, calf tenderness - Neurological Exam Neurological exam: Present: alert, oriented X3, CN II-XII intact. Absent: motor sensory deficit - Psychiatric Psychiatric exam: Present: normal affect, normal mood - Skin Skin exam: Present: warm, dry, intact, normal color
[2019-01-14 23:27] VITALS: BP 151/87
== END 2019-01-14 23:55 | disposition admitted as inpatient to this hospital (09) ==
LOC: ED 10:13
DX: J44.1 Chronic obstructive pulmonary disease with (acute) exacerbation (principal); R06.03 Acute respiratory distress; J45.909 Unspecified asthma, uncomplicated; F17.200 Nicotine dependence, unspecified, uncomplicated; Z79.899 Other long term (current) drug therapy; Z86.73 Personal history of transient ischemic attack (TIA), and cerebral infarction without residual deficits
CPT/HCPCS: 36415; 71045; 80048; 82803; 85025; 94640; 94644; 96365; 96375; 99291; J2930; J3475

== ENCOUNTER 2019-03-12 22:35 | Emergency (ER) | payer SELFPAY ==
[2019-03-13 00:23] LABS: Basophils # (Auto) 0.1 K/mm3 (0.0-0.1); Basophils % (Auto) 0.8 % (0.0-1.8); Eosinophils # (Auto) 0.3 K/mm3 (0.0-0.4); Eosinophils % (Auto) 3.5 % (0.0-4.3); Hematocrit 42.1 % (35.5-45.6); Hemoglobin 14.2 gm/dl (11.8-15.2); Lymphocytes % (Auto) 36.8 % (13.4-35.0); Mean Corpuscular HGB Conc 34 % (32-34); Mean Corpuscular Volume 106 fl (84-94); Monocytes # (Auto) 0.7 K/mm3 (0.0-0.8); Monocytes % (Auto) 8.3 % (0.0-7.3); Platelet Count 250 K/mm3 (140-440); Red Blood Count 3.97 M/mm3 (3.65-5.03)
[2019-03-13 00:41] LABS: Alanine Aminotransferase 21 units/L (7-56); Albumin 4.2 g/dL (3.9-5); BUN/Creatinine Ratio 10; Blood Urea Nitrogen 6 mg/dL (9-20); Calcium 9.1 mg/dL (8.4-10.2); Hemolysis Index 9
--- NOTE | 2019-03-13 00:54 | Emergency Department Report ---
<BRYAN CISNEROS - Last Filed: 03/14/19 11:55> ED Psych HPI - General Chief Complaint: Psych Stated Complaint: DRUG ABUSE Time Seen by Provider: 03/13/19 00:37 - Related Data Previous Rx's Medication Instructions Recorded Last Taken Type Albuterol Sulfate [Albuterol 0.63% 0.63 mg IH TID PRN #1 box 01/14/19 Unknown Rx NEBS] Ciprofloxacin HCl [Ciprofloxacin 500 mg PO Q12HR #12 tab 01/14/19 Unknown Rx TAB] Ipratropium [Atrovent NEB] 0.5 mg IH Q8HRT #1 box 01/14/19 Unknown Rx Nebulizer and Compressor [[place] 1 each MC TID PRN #1 each 01/14/19 Unknown Rx Choice Nebulizer] Prednisone [predniSONE 10 mg 10 mg PO .TAPER #1 tab.ds.pk 01/14/19 Unknown Rx (6-Day Pack, 21 Tabs)] chlordiazePOXIDE [Librium] 50 mg PO DAILY #20 capsule 03/14/19 Unknown Rx Allergies Allergy/AdvReac Type Severity Reaction Status Date / Time No Known Allergies Allergy Verified 01/14/19 10:21 ED Past Medical Hx - Medications Home Medications: Home Medications Medication Instructions Recorded Confirmed Last Taken Type Albuterol Sulfate [Albuterol 0.63% 0.63 mg IH TID PRN #1 box 01/14/19 Unknown Rx NEBS] Ciprofloxacin HCl [Ciprofloxacin 500 mg PO Q12HR #12 tab 01/14/19 Unknown Rx TAB] Ipratropium [Atrovent NEB] 0.5 mg IH Q8HRT #1 box 01/14/19 Unknown Rx Nebulizer and Compressor [[place] 1 each MC TID PRN #1 each 01/14/19 Unknown Rx Choice Nebulizer] Prednisone [predniSONE 10 mg 10 mg PO .TAPER #1 tab.ds.pk 01/14/19 Unknown Rx (6-Day Pack, 21 Tabs)] chlordiazePOXIDE [Librium] 50 mg PO DAILY #20 capsule 03/14/19 Unknown Rx ED Course - Reevaluation(s) Reevaluation #1: 03/14/19 11:55 Is in his voluntary nonattention 13. Recommended discharge for outpatient follow-up after psychiatric assessment. During ED stay patient did exhibit withdrawal symptoms requiring Ativan. Patient also received a banana bag. Will discharged with Librium taper and outpatient detox resources. ED Medical Decision Making - Lab Data Result diagrams: 03/13/19 00:00 03/13/19 00:00 ED Disposition Clinical Impression: Alcohol abuse, Polysubstance abuse Disposition: DC-01 TO HOME OR SELFCARE Is pt being admited?: No Does the pt Need Aspirin: No Condition: Stable Instructions: Abuse of Alcohol (ED), Polysubstance Abuse (ED) Additional Instructions: Take the medication as prescribed to help with alcohol withdrawal symptoms. Do not drink alcohol and take the prescribed medication. Follow-up with your doct or or with the doctor/clinic provided. Return if symptoms worsen as indicated by your discharge instructions. Prescriptions: chlordiazePOXIDE [Librium] 50 mg PO DAILY #20 capsule Referrals: PRIMARY CARE, [Primary Care Provider] - 3-5 Days [facility] [place] [Provider Group] - 3-5 Days [facility] [Outside] - 3-5 Days Time of Disposition: 12:00 <AGUSTIN RODRIGUEZ - Last Filed: 03/15/19 16:39> ED Psych HPI - General Source: patient Mode of arrival: Ambulatory - History of Present Illness Initial Comments: 58 yo M w/ hx of COPD, alcohol abuse presents to ED requesting detox off of drugs and alcohol. Pt reports daily ETOH use. States last used cocaine and meth 1 month ago. Pt states he called police to bring him here. Triage note [facility] ates pt is suicidal, however, pt currently denies SI or HI. Improves With: none Worsens With: none Context: recent alcohol abuse, recent drug abuse Associated Symptoms: denies other symptoms Treatments Prior to Arrival: none ED Review of Systems ROS: Stated complaint: DRUG ABUSE Other details as noted in HPI Comment: All other systems reviewed and negative Psychiatric: denies: homicidal thoughts, suicidal thoughts ED Past Medical Hx - Past Medical History Previous Medical History?: Yes Hx CVA: (BRONCHITIS) Hx Heart Attack/AMI: No Hx Asthma: Yes Hx COPD: Yes Hx HIV: No - Surgical History Past Surgical History?: Yes Additional Surgical History: LEFT FEMUR FRACTURE - Social History Smoking Status: Current Every Day Smoker Substance Use Type: Alcohol, Cocaine, Marijuana, Methamphetamines, Other ED Physical Exam - General Limitations: No Limitations General appearance: alert, in no apparent distress, other (appears unkempt) - Head Head exam: Present: atraumatic, normocephalic - Eye Eye exam: Present: normal appearance - ENT ENT exam: Present: mucous membranes moist - Neck Neck exam: Present: normal inspection - Respiratory Respiratory exam: Present: normal lung sounds bilaterally. Absent: respiratory distress - Cardiovascular Cardiovascular Exam: Present: regular rate, normal rhythm - GI/Abdominal GI/Abdominal exam: Absent: distended - Extremities Exam Extremities exam: Present: normal inspection - Neurological Exam Neurological exam: Present: alert, oriented X3 - Psychiatric Psychiatric exam: Present: normal affect, normal mood - Skin Skin exam: Present: warm, dry, intact, normal color ED Course Vital Signs 03/12/19 03/13/19 03/13/19 23:01 01:01 09:55 Temperature 98.6 F Pulse Rate 92 H 89 Respiratory 16 18 22 Rate Blood Pressure 140/99 Blood Pressure 141/79 [Right] O2 Sat by Pulse 96 94 Oximetry 03/13/19 03/14/19 03/14/19 22:35 06:24 06:25 Temperature 98.9 F Pulse Rate 62 68 Respiratory 16 18 18 Rate Blood Pressure Blood Pressure 131/77 155/89 [Right] O2 Sat by Pulse 95 96 96 Oximetry 03/14/19 03/14/19 10:17 10:25 Temperature 98.6 F Pulse Rate 86 Respiratory 18 16 Rate Blood Pressure Blood Pressure 131/76 [Right] O2 Sat by Pulse 96 98 Oximetry ED Medical Decision Making - Lab Data Result diagrams: 03/13/19 00:00 03/13/19 00:00 - Medical Decision Making Pt requesting drug and alcohol detox. ETOH level currently 300. Denies SI, HI. Will dispo per psych. - Differential Diagnosis alcohol abuse, drug abuse Critical care attestation.: If time is entered above; I have spent that time in minutes in the direct care of this critically ill patient, excluding procedure time.
[2019-03-13 00:58] LABS: Bilirubin,Urine NEG (Negative); Blood,Urine NEG (Negative); Color,Urine Straw (Yellow); Protein,Urine <15 mg/dL mg/dL (Negative); Urobilinogen,Urine < 2.0 mg/dL (<2.0)
[2019-03-13 00:59] LABS: Amphetamine Screen,Urine PRESUMPTIVE NEGATIVE; Benzodiazepines Screen,Urine PRESUMPTIVE NEGATIVE; Cocaine Screen,Urine PRESUMPTIVE NEGATIVE; Methadone Screen,Urine PRESUMPTIVE NEGATIVE; Opiate Screen,Urine PRESUMPTIVE NEGATIVE
[2019-03-13 01:12] LABS: RBC,Urine < 1.0 /HPF (0.0-6.0); WBC,Urine < 1.0 /HPF (0.0-6.0)
[2019-03-13 01:19] LABS: Cannabinoid Screen,Urine PRESUMPTIVE POSITIVE
[2019-03-13] MEDS ORDERED: ZOFRAN IV ONE (09:31)
[2019-03-13] MEDS ORDERED: ATIVAN ONE (09:36)
[2019-03-13] MEDS ORDERED: ATIVAN IV ONE (09:41)
[2019-03-13] MEDS ORDERED: VITAMIN B-1 100 MG, FOLVITE 1 MG, INFUVITE 10 ML in NACL 0.9% 1000 ML 1,000 ML IV ONE (10:30)
--- NOTE | 2019-03-13 14:13 | Consultation ---
History of Present Illness - Reason for Consult Consult date: 03/13/19 Reason for consult: Initial Psychiatric Evaluation - Chief Complaint Chief complaint: " Alcohol and drug use" - History of Present Psychiatric Illness Patient is a 58 year old male that presents to the hospital for drug and alcohol abuse. Today the patient is cooperative and anxious during the assessment. Presents with impoverished thought process and delayed responses. Patient is requesting to be transferred to [place]. He states, " I drink at least a 6 ppd a day. I smoke marijuana 2-3 times weekly." He reports when I wake up in the morning , I have to take a drink because I'm shaking. He endorses decrease appetite, decrease energy, and decrease sleep. He denies SI/HI's, A/VH's, and delusions. Patient reports that he does not take any psychiatric medications. Per assigned RN patient was having alcohol withdrawals- tremors, anxiety, and diaphoresis. Patient given ATIVAN PRN- per CIWA. Current Psychiatric Medications: Patient denies. Past Psychiatric History: No previous past psychiatric diagnosis; No previous inpatient hospitalizations; no outpatient psychiatrist; 2 suicide attempts " cutting and jumping off a building." Past Medication Trials: Patient denies. History of Abuse/Trauma: Patient denies trauma; denies sexual, physical, and mental abuse. History of Drug/Abuse: Alcohol- 6 ppd or more daily ( beer), last use 03-12-, first use- age 13; marijuana - 2 to 3 times weekly, last use- 03/11/19, first use - age 16. UDS positive for marijuana. Upon arrival blood alcohol level 0.30. Family of Psychiatric Illness/Substance Abuse: Patient denies family history of psychiatric illness and substance abuse. Social History: GED- highest level of education; lives with friend in [place], [place]; 5 children; no pending legal issues. Medications and Allergies Allergies Allergy/AdvReac Type Severity Reaction Status Date / Time No Known Allergies Allergy Verified 01/14/19 10:21 Home Medications Medication Instructions Recorded Confirmed Last Taken Type Albuterol Sulfate [Albuterol 0.63% 0.63 mg IH TID PRN #1 box 01/14/19 Unknown Rx NEBS] Ciprofloxacin HCl [Ciprofloxacin 500 mg PO Q12HR #12 tab 01/14/19 Unknown Rx TAB] Ipratropium [Atrovent NEB] 0.5 mg IH Q8HRT #1 box 01/14/19 Unknown Rx Nebulizer and Compressor [[place] 1 each MC TID PRN #1 each 01/14/19 Unknown Rx Choice Nebulizer] Prednisone [predniSONE 10 mg 10 mg PO .TAPER #1 tab.ds.pk 01/14/19 Unknown Rx (6-Day Pack, 21 Tabs)] Active Meds: Active Medications Thiamine HCl 100 mg/ Folic Acid 1 mg/ Multivitamins/Minerals 10 ml/ Sodium Chloride 1,011.2 mls @ 250 mls/hr IV ONCE ONE Stop: 03/13/19 14:32 Last Admin: 03/13/19 10:02 Dose: 250 mls/hr Documented by: Mental Status Exam - Vital signs Last Vital Signs Temp 98.6 F 03/12/19 23:01 Pulse 89 03/13/19 09:55 Resp 22 03/13/19 09:55 BP 141/79 03/13/19 09:55 Pulse Ox 94 03/13/19 09:55 - Exam Narrative exam: Mental Status Exam Appearance: in hospital attire Behavior: regular eye contact Speech: regular rate and tone Mood: "okay"; depressed/dysphoric Affect: congruent to mood Thought Process: impoverished, delayed Thought Content: no gestures of SI/HI's Motor Activity: laying in bed Cognition: alert and oriented x 2 Insight: variable Judgment: variable Results Result Diagrams: 03/13/19 00:00 03/13/19 00:00 Abnormal lab results 03/13/19 03/13/19 03/13/19 Range/Units 00:00 00:00 00:00 MCV 106 H (84-94) fl MCH 36 H (28-32) pg RDW 13.0 L (13.2-15.2) % Lymph % (Auto) 36.8 H (13.4-35.0) % Randall % (Auto) 8.3 H (0.0-7.3) % BUN 6 L (9-20) mg/dL Creatinine 0.6 L (0.8-1.5) mg/dL AST 41 H (5-40) units/L Alkaline Phosphatase 146 H (35-129) units/L Salicylates (2.8-20.0) mg/dL Acetaminophen (10.0-30.0) ug/mL Plasma/Serum Alcohol 0.30 H (0-0.07) % 03/13/19 03/13/19 Range/Units 00:11 00:11 MCV (84-94) fl MCH (28-32) pg RDW (13.2-15.2) % Lymph % (Auto) (13.4-35.0) % Randall % (Auto) (0.0-7.3) % BUN (9-20) mg/dL Creatinine (0.8-1.5) mg/dL AST (5-40) units/L Alkaline Phosphatase (35-129) units/L Salicylates < 0.3 L (2.8-20.0) mg/dL Acetaminophen < 5.0 L (10.0-30.0) ug/mL Plasma/Serum Alcohol (0-0.07) % All other labs normal. Assessment and Plan Assessment and plan: Impression: Alcohol Use Disorder, severe with withdrawal symptoms; Cannabis Use Disorder, moderate ; MDD, recurrent, moderate. Today the patient is cooperative and anxious during the assessment. UDS positive for marijuana. Recommendation/Plan: 1. Continue CIWA protocol. 2. Will reassess in 24 hours. 3. Patient refuses medications for depressive symptoms. At this time patient prefers talk therapy. Disposition: Will reassess in 24 hours to determine if patient will be referred to inpatient services or [facility] services. Will staff with Dr. Robert Portillo.
[2019-03-13] MEDS ORDERED: HABITROL TD ONE (19:47)
[2019-03-14] MEDS ORDERED: PEPCID IV ONE (08:32)
--- NOTE | 2019-03-14 09:47 | Progress Note ---
Subjective - Reason for Consult Consult date: 03/14/19 Reason for consult: Psychiatry Follow-up - Chief Complaint Chief complaint: "I will do my nest to stay sober" 58 year old male that presents to the hospital for drug and alcohol abuse. Today the patient was calm and cooperative during the assessment. He stated that he will try to stay sober. He stated that he is willing to attend rehab services when discharged. He stated that he is homeless. He denies SI/HI's and AVH's. Mental Status Exam - Vital signs Last Vital Signs Temp 98.9 F 03/13/19 22:35 Pulse 68 03/14/19 06:24 Resp 18 03/14/19 06:25 BP 155/89 03/14/19 06:24 Pulse Ox 96 03/14/19 06:25 - Exam Narrative exam: MSE: Appearance: calm, cooperative Behavior: regular eye contact Speech: regular rate and low tone Mood: "okay" Affect: congruent to mood Thought Process: logical Thought Content: denies SI/HI's and AVH's Motor Activity: ambulatory Cognition: A/O x 3 Insight: fair Judgment: fair Assessment and Plan Impression: Alcohol Use DO. Cannabis Use DO. Today the patient was calm and cooperative during the assessment. Mild tremors noted (etoh). Recommendation/Plan: Discussed the importance to abstain from alcohol consumption (etoh), he verbalized understanding. Case Mgmt involvement, the patient will need assistance with placement. Dispo: The patient can follow up with [facility] for outpatient psy rehab services. Will staff with Dr Robert Portillo.
[2019-03-14 10:26] VITALS: BP 131/76
== END 2019-03-14 12:15 | disposition home or self-care (01) ==
LOC: ED 22:35 → EEVIPCON 22:35 → ED 03-14 12:15
DX: F10.129 Alcohol abuse with intoxication, unspecified (principal); F15.10 Other stimulant abuse, uncomplicated; J44.9 Chronic obstructive pulmonary disease, unspecified; F17.200 Nicotine dependence, unspecified, uncomplicated; F12.10 Cannabis abuse, uncomplicated; F14.10 Cocaine abuse, uncomplicated
CPT/HCPCS: 36415; 80053; 80307; 81001; 85025; 96365; 96375; 99284; J2060; J2405; J3411; J7030; 80320; G0480

== ENCOUNTER 2019-05-29 08:27 | Inpatient (IN) | payer OTHER ==
[2019-05-29] MEDS ORDERED: ASPIRIN 325 MG TAB PO ONE (08:38)
[2019-05-29] MEDS ORDERED: SODIUM CHLORIDE 0.9% 1000 ML 1,000 ML IV ONE ×2 (09:11→10:23)
[2019-05-29] MEDS ORDERED: ALBUTEROL 2.5 MG/3 ML NEBU IH ONE (09:11)
[2019-05-29] MEDS ORDERED: methylPREDNISolone Sod Succinate 125 MG/2 ML INJ IV ONE (09:11)
[2019-05-29] MEDS ORDERED: IPRATROPIUM 0.02% NEBU 2.5 ML IH ONE (09:12)
[2019-05-29 09:17] LABS: Basophils % (Auto) 0.3 % (0.0-1.8); Hematocrit 43.4 % (35.5-45.6); Hemoglobin 15.1 gm/dl (11.8-15.2); Lymphocytes # (Auto) 0.6 K/mm3 (1.2-5.4); Lymphocytes % (Auto) 6.3 % (13.4-35.0); Mean Corpuscular HGB Conc 35 % (32-34); Mean Corpuscular Volume 102 fl (84-94); Monocytes # (Auto) 0.8 K/mm3 (0.0-0.8); Platelet Count 121 K/mm3 (140-440); Red Blood Count 4.24 M/mm3 (3.65-5.03); Red Cell Distribution Width 13.2 % (13.2-15.2)
--- NOTE | 2019-05-29 09:31 | Emergency Department Report ---
ED Chest Pain HPI - General Chief Complaint: Chest Pain Stated Complaint: CHEST PAIN/SERGIO Time Seen by Provider: 05/29/19 08:52 Source: patient, EMS Mode of arrival: Stretcher Limitations: No Limitations - History of Present Illness Initial Comments: Patient 58-year-old male with history of COPD and drug abuse presents with complaints of left-sided chest pain and shortness of breath today. He rates the pain as a 7/10 in severity and describes it as a shooting pressure- like pain. He admits to family history of heart disease, however denies any history of PR/CVA/DVT/PE/CAD, leg pain/swelling, recent long travel. Patient states he has not slept in 3 days since using cocaine. He admits to continued smoking. He states he has been out of his nebulizer medications and complaints of wheezing. Patient also admits to dizziness, but denies any headache, vision changes, numbness/tingling/weakness, confusion, or syncope. Patient was 90% on room air [employer] per EMS. Patient states he is on home oxygen. -: Sudden - Related Data Previous Rx's Medication Instructions Recorded Last Taken Type Albuterol Sulfate [Albuterol 0.63% 0.63 mg IH TID PRN #1 box 01/14/19 Unknown Rx NEBS] Ciprofloxacin HCl [Ciprofloxacin 500 mg PO Q12HR #12 tab 01/14/19 Unknown Rx TAB] Ipratropium [Atrovent NEB] 0.5 mg IH Q8HRT #1 box 01/14/19 Unknown Rx Nebulizer and Compressor [[place] 1 each MC TID PRN #1 each 01/14/19 Unknown Rx Choice Nebulizer] Prednisone [predniSONE 10 mg 10 mg PO .TAPER #1 tab.ds.pk 01/14/19 Unknown Rx (6-Day Pack, 21 Tabs)] chlordiazePOXIDE [Librium] 50 mg PO DAILY #20 capsule 03/14/19 Unknown Rx Allergies Allergy/AdvReac Type Severity Reaction Status Date / Time No Known Allergies Allergy Verified 01/14/19 10:21 Heart Score - HEART Score History: Moderately suspicious EKG: Normal Age: 45-65 Risk factors: > 3 risk factors or hx of atherosclerotic disease Troponin: < normal limit HEART Score: 4 ED Review of Systems ROS: Stated complaint: CHEST PAIN/SERGIO Other details as noted in HPI Constitutional: malaise. denies: chills, diaphoresis, fever, weakness Eyes: denies: vision change ENT: throat pain Respiratory: cough, shortness of breath, SOB with exertion, SOB at rest Cardiovascular: chest pain, orthopnea. denies: palpitations, edema, syncope Endocrine: no symptoms reported Gastrointestinal: denies: abdominal pain, nausea, vomiting, diarrhea Genitourinary: denies: dysuria, frequency Musculoskeletal: denies: back pain Skin: denies: rash, lesions Neurological: denies: headache, weakness, numbness, paresthesias, confusion, abnormal gait Psychiatric: denies: depression Hematological/Lymphatic: denies: easy bleeding, easy bruising ED Past Medical Hx - Past Medical History Previous Medical History?: Yes Hx CVA: (BRONCHITIS) Hx Heart Attack/AMI: No Hx Asthma: Yes Hx COPD: Yes Hx HIV: No - Surgical History Past Surgical History?: Yes Additional Surgical History: LEFT FEMUR FRACTURE - Social History Smoking Status: Current Every Day Smoker Substance Use Type: Alcohol, Cocaine - Medications Home Medications: Home Medications Medication Instructions Recorded Confirmed Last Taken Type Albuterol Sulfate [Albuterol 0.63% 0.63 mg IH TID PRN #1 box 01/14/19 Unknown Rx NEBS] Ciprofloxacin HCl [Ciprofloxacin 500 mg PO Q12HR #12 tab 01/14/19 Unknown Rx TAB] Ipratropium [Atrovent NEB] 0.5 mg IH Q8HRT #1 box 01/14/19 Unknown Rx Nebulizer and Compressor [[place] 1 each MC TID PRN #1 each 01/14/19 Unknown Rx Choice Nebulizer] Prednisone [predniSONE 10 mg 10 mg PO .TAPER #1 tab.ds.pk 01/14/19 Unknown Rx (6-Day Pack, 21 Tabs)] chlordiazePOXIDE [Librium] 50 mg PO DAILY #20 capsule 03/14/19 Unknown Rx ED Physical Exam - General Limitations: No Limitations General appearance: alert, in no apparent distress - Head Head exam: Present: atraumatic, normocephalic - Eye Eye exam: Present: normal appearance, PERRL. Absent: scleral icterus - ENT ENT exam: Present: normal orophraynx, mucous membranes moist - Neck Neck exam: Present: normal inspection, full ROM. Absent: lymphadenopathy - Respiratory Respiratory exam: Present: wheezes, rhonchi, decreased breath sounds, other (moderate tachypnea noted). Absent: rales, accessory muscle use - Cardiovascular Cardiovascular Exam: Present: normal rhythm, tachycardia, normal heart sounds - GI/Abdominal GI/Abdominal exam: Present: soft. Absent: distended, tenderness - Rectal Rectal exam: Present: deferred - Extremities Exam Extremities exam: Absent: pedal edema, calf tenderness - Back Exam Back exam: Present: full ROM - Neurological Exam Neurological exam: Present: alert, oriented X3 - Psychiatric Psychiatric exam: Present: normal affect, normal mood - Skin Skin exam: Present: warm, dry, intact, normal color. Absent: rash, cyanosis, diaphoretic, erythema ED Course Vital Signs 05/29/19 05/29/19 09:28 11:30 Temperature 97.9 F 98.3 F Pulse Rate 108 H 102 H Respiratory 28 H 22 Rate Blood Pressure 133/91 137/76 [Left] O2 Sat by Pulse 97 98 Oximetry ED Medical Decision Making - Lab Data Result diagrams: 05/29/19 08:53 05/29/19 08:53 Lab Results 05/29/19 05/29/19 05/29/19 Range/Units 08:53 08:53 09:32 WBC 9.0 (4.5-11.0) K/mm3 RBC 4.24 (3.65-5.03) M/mm3 Hgb 15.1 (11.8-15.2) gm/dl Hct 43.4 (35.5-45.6) % MCV 102 H (84-94) fl MCH 36 H (28-32) pg MCHC 35 H (32-34) % RDW 13.2 (13.2-15.2) % Plt Count 121 L (140-440) K/mm3 Lymph % (Auto) 6.3 L (13.4-35.0) % [place] % (Auto) 9.0 H (0.0-7.3) % Eos % (Auto) 0.0 (0.0-4.3) % Baso % (Auto) 0.3 (0.0-1.8) % Lymph # 0.6 L (1.2-5.4) K/mm3 [place] # 0.8 (0.0-0.8) K/mm3 Eos # 0.0 (0.0-0.4) K/mm3 Baso # 0.0 (0.0-0.1) K/mm3 Seg Neutrophils % 84.4 H (40.0-70.0) % Seg Neutrophils # 7.6 (1.8-7.7) K/mm3 PT 11.2 L (12.2-14.9) Sec. INR 0.82 L (0.87-1.13) APTT 31.2 (24.2-36.6) Sec. D-Dimer (0-234) ng/mlDDU POC ABG pH (7.35-7.45) POC ABG pCO2 (35-45) POC ABG pO2 (80-105) POC ABG HCO3 (22-26 mml/L) POC ABG Total CO2 (23-27mmol/L) POC ABG O2 Sat POC ABG Base Excess ((-2) - (+3)mmol/L) FiO2 % Sodium 127 L (137-145) mmol/L Potassium 3.7 (3.6-5.0) mmol/L Chloride 86.9 L (98-107) mmol/L Carbon Dioxide 20 L (22-30) mmol/L Anion Gap 24 mmol/L BUN 7 L (9-20) mg/dL Creatinine 0.5 L (0.8-1.5) mg/dL Estimated GFR > 60 ml/min BUN/Creatinine Ratio 14 % Glucose 118 H (75-100) mg/dL Calcium 9.3 (8.4-10.2) mg/dL Total Bilirubin (0.1-1.2) mg/dL Direct Bilirubin (0-0.2) mg/dL Indirect Bilirubin mg/dL AST (5-40) units/L ALT (7-56) units/L Alkaline Phosphatase (35-129) units/L Total Creatine Kinase 193 H (55-170) units/L Troponin T < 0.010 (0.00-0.029) ng/mL NT-Pro-B Natriuret Pep 463.6 (0-900) pg/mL Total Protein (6.3-8.2) g/dL Albumin (3.9-5) g/dL Albumin/Globulin Ratio % Urine Opiates Screen Urine Methadone Screen Ur Barbiturates Screen Ur Phencyclidine Scrn Ur Amphetamines Screen U Benzodiazepines Scrn Urine Cocaine Screen U Marijuana (THC) Screen Drugs of Abuse Note 11/27/19 11/27/19 11/27/19 Range/Units 09:32 09:46 11:29 WBC (4.5-11.0) K/mm3 RBC (3.65-5.03) M/mm3 Hgb (11.8-15.2) gm/dl Hct (35.5-45.6) % MCV (84-94) fl MCH (28-32) pg MCHC (32-34) % RDW (13.2-15.2) % Plt Count (140-440) K/mm3 Lymph % (Auto) (13.4-35.0) % [place] % (Auto) (0.0-7.3) % Eos % (Auto) (0.0-4.3) % Baso % (Auto) (0.0-1.8) % Lymph # (1.2-5.4) K/mm3 [place] # (0.0-0.8) K/mm3 Eos # (0.0-0.4) K/mm3 Baso # (0.0-0.1) K/mm3 Seg Neutrophils % (40.0-70.0) % Seg Neutrophils # (1.8-7.7) K/mm3 PT (12.2-14.9) Sec. INR (0.87-1.13) APTT (24.2-36.6) Sec. D-Dimer 632.89 H (0-234) ng/mlDDU POC ABG pH 7.535 H (7.35-7.45) POC ABG pCO2 30.0 L (35-45) POC ABG pO2 76 L (80-105) POC ABG HCO3 25.3 (22-26 mml/L) POC ABG Total CO2 26 (23-27mmol/L) POC ABG O2 Sat 97 POC ABG Base Excess 3 ((-2) - (+3)mmol/L) FiO2 21 % Sodium (137-145) mmol/L Potassium (3.6-5.0) mmol/L Chloride (98-107) mmol/L Carbon Dioxide (22-30) mmol/L Anion Gap mmol/L BUN (9-20) mg/dL Creatinine (0.8-1.5) mg/dL Estimated GFR ml/min BUN/Creatinine Ratio % Glucose (75-100) mg/dL Calcium (8.4-10.2) mg/dL Total Bilirubin (0.1-1.2) mg/dL Direct Bilirubin (0-0.2) mg/dL Indirect Bilirubin mg/dL AST (5-40) units/L ALT (7-56) units/L Alkaline Phosphatase (35-129) units/L Total Creatine Kinase (55-170) units/L Troponin T (0.00-0.029) ng/mL NT-Pro-B Natriuret Pep (0-900) pg/mL Total Protein (6.3-8.2) g/dL Albumin (3.9-5) g/dL Albumin/Globulin Ratio % Urine Opiates Screen Presumptive negative Urine Methadone Screen Presumptive negative Ur Barbiturates Screen Presumptive negative Ur Phencyclidine Scrn Presumptive negative Ur Amphetamines Screen Presumptive positive U Benzodiazepines Scrn Presumptive negative Urine Cocaine Screen Presumptive negative U Marijuana (THC) Screen Presumptive positive Drugs of Abuse Note Disclamer 05/29/19 Range/Units 12:02 WBC (4.5-11.0) K/mm3 RBC (3.65-5.03) M/mm3 Hgb (11.8-15.2) gm/dl Hct (35.5-45.6) % MCV (84-94) fl MCH (28-32) pg MCHC (32-34) % RDW (13.2-15.2) % Plt Count (140-440) K/mm3 Lymph % (Auto) (13.4-35.0) % [place] % (Auto) (0.0-7.3) % Eos % (Auto) (0.0-4.3) % Baso % (Auto) (0.0-1.8) % Lymph # (1.2-5.4) K/mm3 [place] # (0.0-0.8) K/mm3 Eos # (0.0-0.4) K/mm3 Baso # (0.0-0.1) K/mm3 Seg Neutrophils % (40.0-70.0) % Seg Neutrophils # (1.8-7.7) K/mm3 PT (12.2-14.9) Sec. INR (0.87-1.13) APTT (24.2-36.6) Sec. D-Dimer (0-234) ng/mlDDU POC ABG pH (7.35-7.45) POC ABG pCO2 (35-45) POC ABG pO2 (80-105) POC ABG HCO3 (22-26 mml/L) POC ABG Total CO2 (23-27mmol/L) POC ABG O2 Sat POC ABG Base Excess ((-2) - (+3)mmol/L) FiO2 % Sodium (137-145) mmol/L Potassium (3.6-5.0) mmol/L Chloride (98-107) mmol/L Carbon Dioxide (22-30) mmol/L Anion Gap mmol/L BUN (9-20) mg/dL Creatinine (0.8-1.5) mg/dL Estimated GFR ml/min BUN/Creatinine Ratio % Glucose (75-100) mg/dL Calcium (8.4-10.2) mg/dL Total Bilirubin 1.20 (0.1-1.2) mg/dL Direct Bilirubin 0.4 H (0-0.2) mg/dL Indirect Bilirubin 0.8 mg/dL AST 59 H (5-40) units/L ALT 56 (7-56) units/L Alkaline Phosphatase 141 H (35-129) units/L Total Creatine Kinase (55-170) units/L Troponin T (0.00-0.029) ng/mL NT-Pro-B Natriuret Pep (0-900) pg/mL Total Protein 6.9 (6.3-8.2) g/dL Albumin 4.1 (3.9-5) g/dL Albumin/Globulin Ratio 1.5 % Urine Opiates Screen Urine Methadone Screen Ur Barbiturates Screen Ur Phencyclidine Scrn Ur Amphetamines Screen U Benzodiazepines Scrn Urine Cocaine Screen U Marijuana (THC) Screen Drugs of Abuse Note - Radiology Data Radiology results: report reviewed CHEST 1 VIEW INDICATION: Chest Pain. COMPARISON: 01/14/2019 FINDINGS: Support devices: None. Heart: Within normal limits. Lungs/Pleura: The lungs are hyperinflated but clear. No pleural effusion or pneumothorax. Additional findings: None. IMPRESSION: Emphysematous changes. No acute change since 01/14/2019. - Medical Decision Making The 8-year-old male patient here with complaints of shortness of breath and chest pain. Patient has history of COPD, is on home oxygen, and continues to smoke. Patient also states he has not been able sleep for the past 3 days after using cocaine. Drug screen is positive for methamphetamines. Patient was initially 90% on room air per EMS. Chest x-ray is negative for acute findings. WBCs are normal. Anion gap noted to be at 24. ABG shows respiratory alkalosis. Hyponatremia also noted on BMP. Patient given hour long DuoNeb treatment, Solu-Medrol, and magnesium sulfate. Patient states some improvement in his breathing, however still significant wheezing on exam. Patient continues to complain of chest tightness and pain. Heart score = 4. Patient now satting at 100% on 4 L nasal cannula. D-dimer is positive, CTA chest pending. Discussed patient with Dr. Martínez, patient to be admitted to hospital for further evaluation and treatment. Critical care attestation.: If time is entered above; I have spent that time in minutes in the direct care of this critically ill patient, excluding procedure time. ED Disposition Clinical Impression: COPD exacerbation, Acute respiratory alkalosis, Hyponatremia, Hypoxia Chest pain Qualifiers: Chest pain type: other chest pain Qualified Code(s): R07.89 - Other chest pain Disposition: DC-[id number] OP ADMIT IP TO THIS HOSP Is pt being admited?: Yes Condition: Stable
[2019-05-29 09:46] LABS: BUN/Creatinine Ratio 14; Blood Urea Nitrogen 7 mg/dL (9-20); Calcium 9.3 mg/dL (8.4-10.2); Hemolysis Index 19
--- NOTE | 2019-05-29 09:56 | XRay Report ---
CHEST 1 VIEW INDICATION: Chest Pain. COMPARISON: 01/14/2019 FINDINGS: Support devices: None. Heart: Within normal limits. Lungs/Pleura: The lungs are hyperinflated but clear. No pleural effusion or pneumothorax. Additional findings: None. IMPRESSION: Emphysematous changes. No acute change since 01/14/2019. Signer Name: Malachi Camacho Jr, MD Signed: 05/29/2019 9:51 AM Workstation Name: [id number]
[2019-05-29 10:05] LABS: INR 0.82 (0.87-1.13)
[2019-05-29 10:06] LABS: Partial Thromboplastin Time 31.2 Sec. (24.2-36.6)
[2019-05-29 10:23] LABS: Benzodiazepines Screen,Urine PRESUMPTIVE NEGATIVE; Cocaine Screen,Urine PRESUMPTIVE NEGATIVE; Methadone Screen,Urine PRESUMPTIVE NEGATIVE; Opiate Screen,Urine PRESUMPTIVE NEGATIVE
[2019-05-29 10:37] LABS: Amphetamine Screen,Urine PRESUMPTIVE POSITIVE; Cannabinoid Screen,Urine PRESUMPTIVE POSITIVE
[2019-05-29] MEDS ORDERED: MAGNESIUM SULFATE 2 GM/50 ML BAG IV ONE (11:59)
[2019-05-29 12:40] LABS: Albumin 4.1 g/dL (3.9-5); Bilirubin,Direct 0.4 mg/dL (0-0.2)
[2019-05-29 13:21] LABS: BUN/Creatinine Ratio 14; Blood Urea Nitrogen 7 mg/dL (9-20); Hemolysis Index 7
--- NOTE | 2019-05-29 13:59 | Cat Scan Report ---
CTA CHEST WITH CONTRAST INDICATION : chest pain, SOB, +dimer. TECHNIQUE: Axial imaging performed through the chest, with contrast bolus timing set to maximize opa cification of the pulmonary arteries. Sagittal and coronal reformatted images. 3-plane MIP reformatte d images were obtained. All CT scans at this location are performed using CT dose reduction for ALAR A by means of automated exposure control. 100 mL of intravenous contrast administered. COMPARISON: 09/08/2018 FINDINGS: Bolus: Contrast bolus timing is adequate. PTE: No filling defect is present to suggest PTE. Mediastinum: Heart and great vessels appear normal. No pathologic mediastinal adenopathy. Mild circ umferential thickening of the distal esophagus is suggested. Lungs: The lungs are clear. No mass, infiltrate, effusion or pneumothorax. Moderate centrilobular em physematous changes are noted. Bones: Degenerative changes in the spine with nothing acute. Upper abdomen: Limited imaging of the upper abdomen shows nothing acute. Mild hepatic steatosis. IMPRESSION: No evidence for pulmonary embolus. Emphysematous changes. Mild circumferential thickening of the distal esophagus. Correlate for esophagitis. Fatty change in the liver. Signer Name: Malachi Camacho Jr, MD Signed: 05/29/2019 1:55 PM Workstation Name: [id number]
[2019-05-29] MEDS ORDERED: ACETAMINOPHEN 325 MG TAB PO PRN (20:15)
[2019-05-29] MEDS ORDERED: ONDANSETRON 4 MG/2 ML INJ IV PRN (20:15)
[2019-05-29] MEDS ORDERED: METOCLOPRAMIDE 10 MG/2 ML INJ IV PRN (20:17)
[2019-05-29] MEDS ORDERED: oxyCODONE /ACETAMINOPHEN 5-325MG TAB PO PRN (20:17)
[2019-05-29] MEDS ORDERED: HYDROmorphone 1 MG/1 ML INJ IV PRN (20:17)
[2019-05-29] MEDS ORDERED: IPRATROPIUM/ALBUTEROL SULFATE 3 ML AMPUL.NEB IH PRN (20:18)
--- NOTE | 2019-05-29 20:28 | History and Physical Report ---
History of Present Illness Date of examination: 05/29/19 Date of admission: 05/29/19 12:32 Chief complaint: Shortness of breath since a.m. History of present illness: 58-year-old male with past medical history of COPD and cocaine abuse comes in for increasing shortness of breath and chest pain since morning. Shortness of breath and cough present. Cough is productive of mucoid sputum. Patient also has left-sided chest pain which is about 7 on a scale of 1-10. Sharp and intermittent. No diaphoresis no palpitations. No recent travel. Patient has been using cocaine for last 3 days and not sleeping. Patient has a family history of coronary artery disease. Patient was 90% on room air prior to admission. Patient is on home oxygen. Does not use his nebulizers regularly. No recent travel. Past Medical History Previous Medical History?: Yes CVA CAllergiesOPD Surgical History Past Surgical History?: Yes Additional Surgical History: LEFT FEMUR FRACTURE Social History Smoking Status: Current Every Day Smoker Substance Use Type: Alcohol, Cocaine Family history Htn - Medications Home Medications: Home Medications Medication Instructions Recorded Confirmed Last Taken Type Albuterol Sulfate [Albuterol 0.63% 0.63 mg IH TID PRN #1 box 01/14/19 Unknown Rx NEBS] Ciprofloxacin HCl [Ciprofloxacin 500 mg PO Q12HR #12 tab 01/14/19 Unknown Rx TAB] Ipratropium [Atrovent NEB] 0.5 mg IH Q8HRT #1 box 01/14/19 Unknown Rx Nebulizer and Compressor [[place] 1 each MC TID PRN #1 each 01/14/19 Unknown Rx Choice Nebulizer] Prednisone [predniSONE 10 mg 10 mg PO .TAPER #1 tab.ds.pk 01/14/19 Unknown Rx (6-Day Pack, 21 Tabs)] chlordiazePOXIDE [Librium] 50 mg PO DAILY #20 capsule 03/14/19 Unknown Rx Review of Systems ROS: Stated complaint: CHEST PAIN/SERGIO Other details as noted in HPI Constitutional: malaise. denies: chills, diaphoresis, fever, weakness Eyes: denies: vision change ENT: throat pain Respiratory: cough, shortness of breath, SOB with exertion, SOB at rest Cardiovascular: chest pain, orthopnea. denies: palpitations, edema, syncope Endocrine: no symptoms reported Gastrointestinal: denies: abdominal pain, nausea, vomiting, diarrhea Genitourinary: denies: dysuria, frequency Musculoskeletal: denies: back pain Skin: denies: rash, lesions Neurological: denies: headache, weakness, numbness, paresthesias, confusion, abn ormal gait Psychiatric: denies: depression Hematological/Lymphatic: denies: easy bleeding, easy bruising Medications and Allergies Allergies Allergy/AdvReac Type Severity Reaction Status Date / Time No Known Allergies Allergy Verified 01/14/19 10:21 Home Medications Medication Instructions Recorded Confirmed Last Taken Type Albuterol Sulfate [Albuterol 0.63% 0.63 mg IH TID PRN #1 box 01/14/19 Unknown Rx NEBS] Ciprofloxacin HCl [Ciprofloxacin 500 mg PO Q12HR #12 tab 01/14/19 Unknown Rx TAB] Ipratropium [Atrovent NEB] 0.5 mg IH Q8HRT #1 box 01/14/19 Unknown Rx Nebulizer and Compressor [[place] 1 each MC TID PRN #1 each 01/14/19 Unknown Rx Choice Nebulizer] Prednisone [predniSONE 10 mg 10 mg PO .TAPER #1 tab.ds.pk 01/14/19 Unknown Rx (6-Day Pack, 21 Tabs)] chlordiazePOXIDE [Librium] 50 mg PO DAILY #20 capsule 03/14/19 Unknown Rx Active Meds: Active Medications Acetaminophen (Tylenol) 650 mg PO Q4H PRN PRN Reason: Pain MILD(1-3)/Fever >100.5/PATRICIO Albuterol/Ipratropium (Duoneb *Not For Prn Use*) 1 ampul IH Q3H PRN PRN Reason: Wheezing Albuterol/Ipratropium (Duoneb *Not For Prn Use*) 1 ampul IH QIDRT GATO Chlordiazepoxide HCl (Librium) 25 mg PO QHS GATO Famotidine (Pepcid) 20 mg IV BID GATO Hydromorphone HCl (Dilaudid) 0.5 mg IV Q3H PRN PRN Reason: Pain , Severe (7-10) Sodium Chloride (Nacl 0.9% 1000 Ml) 1,000 mls @ 75 mls/hr IV DIRECT GATO Stop: 05/30/19 11:00 Levofloxacin/Dextrose (Levaquin 750mg/150ml) 750 mg in 150 mls @ 100 mls/hr IV Q24HR GATO; Protocol Methylprednisolone Sodium Succinate (Solu-Medrol) 80 mg IV Q8HR GATO Metoclopramide HCl (Reglan) 10 mg IV Q6H PRN PRN Reason: Nausea And Vomiting Ondansetron HCl (Zofran) 4 mg IV Q3H PRN PRN Reason: Nausea And Vomiting Oxycodone/Acetaminophen (Percocet 5/325) 1 tab PO Q6H PRN PRN Reason: Pain, Moderate (4-6) Sodium Chloride (Sodium Chloride Flush Syringe 10 Ml) 10 ml IV BID GATO Sodium Chloride (Sodium Chloride Flush Syringe 10 Ml) 10 ml IV PRN PRN PRN Reason: LINE FLUSH Exam - Constitutional Vitals: Temp Pulse Resp BP Pulse Ox 98.3 F 101 H 18 140/68 97 05/29/19 13:54 05/29/19 18:39 05/29/19 17:12 05/29/19 13:54 05/29/19 17:12 General appearance: Present: no acute distress, well-nourished - EENT Eyes: Present: PERRL ENT: hearing intact, clear oral mucosa - Neck Neck: Present: supple, normal ROM - Respiratory Respiratory effort: normal Respiratory: bilateral: CTA - Cardiovascular Heart rate: 78 Rhythm: regular Heart Sounds: Present: S1 & S2. Absent: rub, click - Extremities Extremities: no ischemia, pulses intact, pulses symmetrical, No edema Extremity abnormal: edema Peripheral Pulses: within normal limits - Abdominal General gastrointestinal: Present: soft, non-tender, non-distended, normal bowel sounds Male genitourinary: Present: normal - Rectal Rectal Exam: deferred - Integumentary Integumentary: Present: clear, warm, dry - Musculoskeletal Musculoskeletal: gait normal, strength equal bilaterally - Psychiatric Psychiatric: appropriate mood/affect, intact judgment & insight - Neurologic Neurologic: CNII-XII intact, moves all extremities - Allied Health Allied health notes reviewed: nursing, case management Results - Labs CBC & Chem 7: 05/29/19 08:53 05/29/19 12:25 Labs: Laboratory Last Values WBC 9.0 K/mm3 (4.5-11.0) 05/29/19 08:53 RBC 4.24 M/mm3 (3.65-5.03) 05/29/19 08:53 Hgb 15.1 gm/dl (11.8-15.2) 05/29/19 08:53 Hct 43.4 % (35.5-45.6) 05/29/19 08:53 MCV 102 fl (84-94) H 05/29/19 08:53 MCH 36 pg (28-32) H 05/29/19 08:53 MCHC 35 % (32-34) H 05/29/19 08:53 RDW 13.2 % (13.2-15.2) 05/29/19 08:53 Plt Count 121 K/mm3 (140-440) L 05/29/19 08:53 Lymph % (Auto) 6.3 % (13.4-35.0) L 05/29/19 08:53 [place] % (Auto) 9.0 % (0.0-7.3) H 05/29/19 08:53 Eos % (Auto) 0.0 % (0.0-4.3) 05/29/19 08:53 Baso % (Auto) 0.3 % (0.0-1.8) 05/29/19 08:53 Lymph # 0.6 K/mm3 (1.2-5.4) L 05/29/19 08:53 [place] # 0.8 K/mm3 (0.0-0.8) 05/29/19 08:53 Eos # 0.0 K/mm3 (0.0-0.4) 05/29/19 08:53 Baso # 0.0 K/mm3 (0.0-0.1) 05/29/19 08:53 Seg Neutrophils % 84.4 % (40.0-70.0) H 05/29/19 08:53 Seg Neutrophils # 7.6 K/mm3 (1.8-7.7) 05/29/19 08:53 PT 11.2 Sec. (12.2-14.9) L 05/29/19 09:32 INR 0.82 (0.87-1.13) L 05/29/19 09:32 APTT 31.2 Sec. (24.2-36.6) 05/29/19 09:32 D-Dimer 632.89 ng/mlDDU (0-234) H 05/29/19 09:32 POC ABG pH 7.535 (7.35-7.45) H 05/29/19 11:29 POC ABG pCO2 30.0 (35-45) L 05/29/19 11:29 POC ABG pO2 76 (80-105) L 05/29/19 11:29 POC ABG HCO3 25.3 (22-26 mml/L) 05/29/19 11:29 POC ABG Total CO2 26 (23-27mmol/L) 05/29/19 11:29 POC ABG O2 Sat 97 05/29/19 11:29 POC ABG Base Excess 3 ((-2) - (+3)mmol/L) 05/29/19 11:29 FiO2 21 % 05/29/19 11:29 Sodium 134 mmol/L (137-145) L D 05/29/19 12:25 Potassium 3.8 mmol/L (3.6-5.0) 05/29/19 12:25 Chloride 91.3 mmol/L (98-107) L 05/29/19 12:25 Carbon Dioxide 22 mmol/L (22-30) 05/29/19 12:25 Anion Gap 25 mmol/L 05/29/19 12:25 BUN 7 mg/dL (9-20) L 05/29/19 12:25 Creatinine 0.5 mg/dL (0.8-1.5) L 05/29/19 12:25 Estimated GFR > 60 ml/min 05/29/19 12:25 BUN/Creatinine Ratio 14 % 05/29/19 12:25 Glucose 118 mg/dL (75-100) H 05/29/19 12:25 Calcium 9.0 mg/dL (8.4-10.2) 05/29/19 12:25 Total Bilirubin 1.20 mg/dL (0.1-1.2) 05/29/19 12:02 Direct Bilirubin 0.4 mg/dL (0-0.2) H 05/29/19 12:02 Indirect Bilirubin 0.8 mg/dL 05/29/19 12:02 AST 59 units/L (5-40) H 05/29/19 12:02 ALT 56 units/L (7-56) 05/29/19 12:02 Alkaline Phosphatase 141 units/L (35-129) H 05/29/19 12:02 Total Creatine Kinase 193 units/L (55-170) H 05/29/19 08:53 Troponin T < 0.010 ng/mL (0.00-0.029) 05/29/19 Unknown NT-Pro-B Natriuret Pep 463.6 pg/mL (0-900) 05/29/19 08:53 Total Protein 6.9 g/dL (6.3-8.2) 05/29/19 12:02 Albumin 4.1 g/dL (3.9-5) 05/29/19 12:02 Albumin/Globulin Ratio 1.5 % 05/29/19 12:02 Urine Opiates Screen Presumptive negative 05/29/19 09:46 Urine Methadone Screen Presumptive negative 05/29/19 09:46 Ur Barbiturates Screen Presumptive negative 05/29/19 09:46 Ur Phencyclidine Scrn Presumptive negative 05/29/19 09:46 Ur Amphetamines Screen Presumptive positive 05/29/19 09:46 U Benzodiazepines Scrn Presumptive negative 05/29/19 09:46 Urine Cocaine Screen Presumptive negative 05/29/19 09:46 U Marijuana (THC) Screen Presumptive positive 05/29/19 09:46 Drugs of Abuse Note Disclamer 05/29/19 09:46 - Imaging and Cardiology Chest x-ray: report reviewed (emphysematous changes. No acute changes) Imaging and Cardiology: EKG SINUS RHYTHM CONSIDER LEFT VENTRICULAR HYPERTROPHY ANTERIOR ST ELEVATION, PROBABLY DUE TO LVH Assessment and Plan Advance Directives: Yes (full code) VTE prophylaxis?: Chemical Plan of care discussed with patient/family: Yes - Patient Problems (1) Acute respiratory failure with hypoxia Current Visit: Yes Status: Acute Plan to address problem: Patient on IV steroids, IV Levaquin and DuoNeb around the clock and when necessary ABG shows pH of 7.535 PCO2 of 30 PO2 of 76 bicarbonate of 25.3 FiO2 of 21% (2) COPD exacerbation Current Visit: Yes Status: Acute Plan to address problem: IV Levaquin, IV Solu-Medrol and duo nebs [id number] and when necessary BiPAP if necessary Intubation if necessary (3) Chest pain Current Visit: Yes Status: Acute Qualifiers: Chest pain type: other chest pain Qualified Code(s): R07.89 - Other chest pain; R07.8 - Other chest pain Plan to address problem: Chest pain protocol Lexiscan in a.m. Serial troponins (4) Cocaine dependence Current Visit: Yes Status: Chronic Qualifiers: Substance use status: uncomplicated Qualified Code(s): F14.20 - Cocaine dependence, uncomplicated Plan to address problem: CIWA protocol if necessary Patient counseled about the dangers of cocaine (5) Hyponatremia Current Visit: Yes Status: Acute Plan to address problem: Moderate, went up from 127-134 Should resolve with IV fluids (6) Macrocytosis without anemia Current Visit: Yes Status: Chronic Plan to address problem: Patient may have B12 and folic acid deficiency because of his cocaine use etc. Check folic acid and B12 levels (7) DVT prophylaxis Current Visit: No Status: Acute Plan to address problem: On heparin and GI prophylaxis
[2019-05-29] MEDS ORDERED: ALBUTEROL 2.5 MG/3 ML NEBU IH PRN (20:33)
[2019-05-29] MEDS ORDERED: SODIUM CHLORIDE 0.9% 1000 ML 1,000 ML IV SCH (21:00)
[2019-05-29] MEDS: methylPREDNISolone Sod Succinate 125 MG/2 ML INJ IV SCH (21:24)
[2019-05-29] MEDS: HEPARIN 5,000 UNIT/1 ML VIAL SUB-Q SCH (21:25)
[2019-05-29] MEDS: chlordiazePOXIDE 25 MG CAP PO SCH (21:25)
[2019-05-29] MEDS: PANTOPRAZOLE 40 MG INJ IV SCH (21:51)
[2019-05-29] MEDS ORDERED: FAMOTIDINE 20 MG/2 ML INJ IV SCH (22:00)
[2019-05-30 05:50] LABS: Hematocrit 40.3 % (35.5-45.6); Hemoglobin 13.9 gm/dl (11.8-15.2); Mean Corpuscular HGB Conc 34 % (32-34); Mean Corpuscular Volume 104 fl (84-94); Platelet Count 100 K/mm3 (140-440); Red Blood Count 3.87 M/mm3 (3.65-5.03); Red Cell Distribution Width 13.3 % (13.2-15.2)
[2019-05-30 06:15] LABS: Alanine Aminotransferase 41 units/L (7-56); Albumin 3.5 g/dL (3.9-5); BUN/Creatinine Ratio 13; Blood Urea Nitrogen 8 mg/dL (9-20); Calcium 8.8 mg/dL (8.4-10.2); Hemolysis Index 19
[2019-05-30] MEDS: methylPREDNISolone Sod Succinate 125 MG/2 ML INJ IV SCH ×3 (06:28→21:34)
[2019-05-30 06:35] LABS: Basophils % (Manual) 0 % (0.0-1.8); Eosinophils % (Manual) 0 % (0.0-4.3); Total Cells Counted 100
[2019-05-30 06:36] LABS: Large Platelets Few; Platelet Estimate Consistent w Auto; RBC Morphology Normal
[2019-05-30] MEDS: IPRATROPIUM/ALBUTEROL SULFATE 3 ML AMPUL.NEB IH SCH ×4 (08:04→21:52)
[2019-05-30] MEDS: LORazepam 2 MG/ML VIAL IV PRN ×7 (08:55→23:18)
[2019-05-30] MEDS: PANTOPRAZOLE 40 MG INJ IV SCH (09:09)
[2019-05-30] MEDS: HEPARIN 5,000 UNIT/1 ML VIAL SUB-Q SCH ×2 (09:09→21:34)
--- NOTE | 2019-05-30 12:38 | Progress Note ---
Assessment and Plan Assessment and plan: 58-year-old male with past medical history of COPD and cocaine abuse comes in for increasing shortness of breath and chest pain since morning. Shortness of breath and cough present. Cough is productive of mucoid sputum. Patient also has left-sided chest pain which is about 7 on a scale of 1-10. Sharp and intermittent. No diaphoresis no palpitations. No recent travel. Patient has been using cocaine for last 3 days and not sleeping. Patient has a family history of coronary artery disease. Patient was 90% on room air prior to admission. Patient is on home oxygen. Does not use his nebulizers regularly. No recent travel. * On my examination the patient has mild delirium tremens with palpitation and hepatic flaps noted. * And also significant alcohol use. He denies any chest pain or shortness of breath at this time. Toxic metabolic encephalopathy secondary to EtOH withdrawal Delirium tremens EtOH abuse Acute on chronic respiratory failure with hypoxia COPD with exacerbation likely secondary to alcohol derangements Atypical chest pain-now resolved Substance abuse with cocaine preference Tobacco dependence Hyponatremia likely secondary to EtOH abuse Microcytic anemia likely secondary to EtOH abuse plan Supportive care Fall precautions wean steroids cancel stress test, patient not in any shape to undergo such Continue abx, to cover for possible aspiration. No evidence of sepsis ABG shows pH of 7.535 PCO2 of 30 PO2 of 76 bicarbonate of 25.3 FiO2 of 21% on admission Patient counseled about the dangers of cocaine will reemphasis when more awake Monitor Na level Patient may have B12 and folic acid deficiency because of his cocaine use etc. Check folic acid and B12 levels DVT/GI Prophy evaluated with Nurse at bedside History Interval history: Patient seen and examined, undergoing mild DTs, no other complaints, Endosors strong etoh daily, porbably about 2 quart volume Hospitalist Physical - Physical exam Narrative exam: VITAL SIGNS: Reviewed. GENERAL: The patient appears normally developed otherwise this shoveled with significant erythema from the base of the neck to the head., Vital signs as documented. HEAD: No signs of head trauma. EYES: Pupils are equal. Extraocular motions intact. EARS: Hearing grossly intact. MOUTH: Oropharynx is normal. NECK: No adenopathy, no JVD. CHEST: Chest with clear breath sounds bilaterally. No wheezes, rales, or rhonchi. CARDIAC: Regular rate and rhythm. S1 and S2, without murmurs, gallops, or rubs. VASCULAR: No Edema. Peripheral pulses normal and equal in all extremities. ABDOMEN: Soft, non tender and non distended. No rebound or guarding, and no masses palpated. Bowel Sounds normal. MUSCULOSKELETAL: Good range of motion of all major joints. Extremities without clubbing, cyanosis or edema. NEUROLOGIC EXAM: Awake with intermittent disorientation. No focal sensory or strength deficits. Speech normal. Follows some commands. PSYCHIATRIC: Mood normal. SKIN: detail exam as documented in skin assessment - Constitutional Vitals: Temp Pulse Resp BP Pulse Ox 98.0 F 98 H 18 132/75 94 05/30/19 08:25 05/30/19 08:25 05/30/19 08:25 05/30/19 08:25 05/30/19 08:25 General appearance: Present: no acute distress, well-nourished Results - Labs CBC & Chem 7: 05/31/19 06:27 05/30/19 04:59 Labs: Laboratory Last Values WBC 9.4 K/mm3 (4.5-11.0) 05/30/19 04:59 RBC 3.87 M/mm3 (3.65-5.03) 05/30/19 04:59 Hgb 13.9 gm/dl (11.8-15.2) 05/30/19 04:59 Hct 40.3 % (35.5-45.6) 05/30/19 04:59 MCV 104 fl (84-94) H 05/30/19 04:59 MCH 36 pg (28-32) H 05/30/19 04:59 MCHC 34 % (32-34) 05/30/19 04:59 RDW 13.3 % (13.2-15.2) 05/30/19 04:59 Plt Count 100 K/mm3 (140-440) L 05/30/19 04:59 Lymph % (Auto) 6.3 % (13.4-35.0) L 05/29/19 08:53 [place] % (Auto) 9.0 % (0.0-7.3) H 05/29/19 08:53 Eos % (Auto) 0.0 % (0.0-4.3) 05/29/19 08:53 Baso % (Auto) 0.3 % (0.0-1.8) 05/29/19 08:53 Lymph # 0.6 K/mm3 (1.2-5.4) L 05/29/19 08:53 [place] # 0.8 K/mm3 (0.0-0.8) 05/29/19 08:53 Eos # 0.0 K/mm3 (0.0-0.4) 05/29/19 08:53 Baso # 0.0 K/mm3 (0.0-0.1) 05/29/19 08:53 Add Manual Diff Complete 05/30/19 04:59 Total Counted 100 05/30/19 04:59 Seg Neutrophils % Full Stack Php Developer 05/30/19 04:59 Seg Neuts % (Manual) 95.0 % (40.0-70.0) H 05/30/19 04:59 Band Neutrophils % 0 % 05/30/19 04:59 Lymphocytes % (Manual) 3.0 % (13.4-35.0) L 05/30/19 04:59 Reactive Lymphs % (Man) 0 % 05/30/19 04:59 Monocytes % (Manual) 2.0 % (0.0-7.3) 05/30/19 04:59 Eosinophils % (Manual) 0 % (0.0-4.3) 05/30/19 04:59 Basophils % (Manual) 0 % (0.0-1.8) 05/30/19 04:59 Metamyelocytes % 0 % 05/30/19 04:59 Myelocytes % 0 % 05/30/19 04:59 Promyelocytes % 0 % 05/30/19 04:59 Blast Cells % 0 % 05/30/19 04:59 Nucleated RBC % Not Reportable 05/30/19 04:59 Seg Neutrophils # 7.6 K/mm3 (1.8-7.7) 05/29/19 08:53 Seg Neutrophils # Man 8.9 K/mm3 (1.8-7.7) H 05/30/19 04:59 Band Neutrophils # 0.0 K/mm3 05/30/19 04:59 Lymphocytes # (Manual) 0.3 K/mm3 (1.2-5.4) L 05/30/19 04:59 Abs React Lymphs (Man) 0.0 K/mm3 05/30/19 04:59 Monocytes # (Manual) 0.2 K/mm3 (0.0-0.8) 05/30/19 04:59 Eosinophils # (Manual) 0.0 K/mm3 (0.0-0.4) 05/30/19 04:59 Basophils # (Manual) 0.0 K/mm3 (0.0-0.1) 05/30/19 04:59 Metamyelocytes # 0.0 K/mm3 05/30/19 04:59 Myelocytes # 0.0 K/mm3 05/30/19 04:59 Promyelocytes # 0.0 K/mm3 05/30/19 04:59 Blast Cells # 0.0 K/mm3 05/30/19 04:59 WBC Morphology Not Reportable 05/30/19 04:59 Hypersegmented Neuts Not Reportable 05/30/19 04:59 Hyposegmented Neuts Not Reportable 05/30/19 04:59 Hypogranular Neuts Not Reportable 05/30/19 04:59 Smudge Cells Not Reportable 05/30/19 04:59 Toxic Granulation Not Reportable 05/30/19 04:59 Toxic Vacuolation Not Reportable 05/30/19 04:59 Dohle Bodies Not Reportable 05/30/19 04:59 [place]-Huet Anomaly Not Reportable 05/30/19 04:59 Michelle Rods Not Reportable 05/30/19 04:59 Platelet Estimate Consistent w auto 05/30/19 04:59 Clumped Platelets Not Reportable 05/30/19 04:59 Plt Clumps, EDTA Not Reportable 05/30/19 04:59 Large Platelets Few 05/30/19 04:59 Giant Platelets Not Reportable 05/30/19 04:59 Platelet Satelliting Not Reportable 05/30/19 04:59 Plt Morphology Comment Not Reportable 05/30/19 04:59 RBC Morphology Normal 05/30/19 04:59 Dimorphic RBCs Not Reportable 05/30/19 04:59 Polychromasia Not Reportable 05/30/19 04:59 Hypochromasia Not Reportable 05/30/19 04:59 Poikilocytosis Not Reportable 05/30/19 04:59 Anisocytosis Not Reportable 05/30/19 04:59 Microcytosis Not Reportable 05/30/19 04:59 Macrocytosis Not Reportable 05/30/19 04:59 Spherocytes Not Reportable 05/30/19 04:59 Pappenheimer Bodies Not Reportable 05/30/19 04:59 Sickle Cells Not Reportable 05/30/19 04:59 Target Cells Not Reportable 05/30/19 04:59 Tear Drop Cells Not Reportable 05/30/19 04:59 Ovalocytes Not Reportable 05/30/19 04:59 Helmet Cells Not Reportable 05/30/19 04:59 [place] Bodies Not Reportable 05/30/19 04:59 [place] Rings Not Reportable 05/30/19 04:59 [place] Cells Not Reportable 05/30/19 04:59 Bite Cells Not Reportable 05/30/19 04:59 Crenated Cell Not Reportable 05/30/19 04:59 Elliptocytes Not Reportable 05/30/19 04:59 Acanthocytes (Spur) Not Reportable 05/30/19 04:59 [place]leaux Not Reportable 05/30/19 04:59 Hemoglobin C Crystals Not Reportable 05/30/19 04:59 Schistocytes Not Reportable 05/30/19 04:59 Malaria parasites Not Reportable 05/30/19 04:59 [place] Bodies Not Reportable 05/30/19 04:59 Hem Pathologist Commnt No 05/30/19 04:59 PT 11.2 Sec. (12.2-14.9) L 05/29/19 09:32 INR 0.82 (0.87-1.13) L 05/29/19 09:32 APTT 31.2 Sec. (24.2-36.6) 05/29/19 09:32 D-Dimer 632.89 ng/mlDDU (0-234) H 05/29/19 09:32 POC ABG pH 7.535 (7.35-7.45) H 05/29/19 11:29 POC ABG pCO2 30.0 (35-45) L 05/29/19 11:29 POC ABG pO2 76 (80-105) L 05/29/19 11:29 POC ABG HCO3 25.3 (22-26 mml/L) 05/29/19 11:29 POC ABG Total CO2 26 (23-27mmol/L) 05/29/19 11:29 POC ABG O2 Sat 97 05/29/19 11:29 POC ABG Base Excess 3 ((-2) - (+3)mmol/L) 05/29/19 11:29 FiO2 21 % 05/29/19 11:29 Sodium 136 mmol/L (137-145) L 05/30/19 04:59 Potassium 3.6 mmol/L (3.6-5.0) 05/30/19 04:59 Chloride 99.1 mmol/L (98-107) 05/30/19 04:59 Carbon Dioxide 23 mmol/L (22-30) 05/30/19 04:59 Anion Gap 18 mmol/L 05/30/19 04:59 BUN 8 mg/dL (9-20) L 05/30/19 04:59 Creatinine 0.6 mg/dL (0.8-1.5) L 05/30/19 04:59 Estimated GFR > 60 ml/min 05/30/19 04:59 BUN/Creatinine Ratio 13 % 05/30/19 04:59 Glucose 133 mg/dL (75-100) H 05/30/19 04:59 Hemoglobin A1c 5.4 % (4-6) 05/30/19 04:59 Calcium 8.8 mg/dL (8.4-10.2) 05/30/19 04:59 Total Bilirubin 0.60 mg/dL (0.1-1.2) 05/30/19 04:59 Direct Bilirubin 0.4 mg/dL (0-0.2) H 05/29/19 12:02 Indirect Bilirubin 0.8 mg/dL 05/29/19 12:02 AST 33 units/L (5-40) 05/30/19 04:59 ALT 41 units/L (7-56) 05/30/19 04:59 Alkaline Phosphatase 102 units/L (35-129) 05/30/19 04:59 Total Creatine Kinase 193 units/L (55-170) H 05/29/19 08:53 Troponin T < 0.010 ng/mL (0.00-0.029) 05/29/19 Unknown NT-Pro-B Natriuret Pep 463.6 pg/mL (0-900) 05/29/19 08:53 Total Protein 6.5 g/dL (6.3-8.2) 05/30/19 04:59 Albumin 3.5 g/dL (3.9-5) L 05/30/19 04:59 Albumin/Globulin Ratio 1.2 % 05/30/19 04:59 Vitamin B12 601.9 pg/mL (211-911) 05/29/19 20:59 Urine Opiates Screen Presumptive negative 05/29/19 09:46 Urine Methadone Screen Presumptive negative 05/29/19 09:46 Ur Barbiturates Screen Presumptive negative 05/29/19 09:46 Ur Phencyclidine Scrn Presumptive negative 05/29/19 09:46 Ur Amphetamines Screen Presumptive positive 05/29/19 09:46 U Benzodiazepines Scrn Presumptive negative 05/29/19 09:46 Urine Cocaine Screen Presumptive negative 05/29/19 09:46 U Marijuana (THC) Screen Presumptive positive 05/29/19 09:46 Drugs of Abuse Note Disclamer 05/29/19 09:46 Active Medications - Current Medications Current Medications: Generic Name Dose Route Start Last Admin Trade Name Freq PRN Reason Stop Dose Admin Acetaminophen 650 mg 05/29/19 20:15 Tylenol PO Q4H PRN Pain MILD(1-3)/Fever >100.5/PATRICIO Albuterol 2.5 mg 05/29/19 20:33 Proventil IH Q3HRT PRN Wheezing Albuterol/Ipratropium 1 ampul 05/30/19 08:00 05/30/19 11:37 Duoneb *Not For Prn Use* IH Not Given QIDRT GATO Chlordiazepoxide HCl 25 mg 05/29/19 22:00 05/29/19 21:25 Librium PO 25 mg QHS GATO Administration Heparin Sodium (Porcine) 5,000 unit 05/29/19 22:00 05/30/19 09:09 Heparin SUB-Q 5,000 unit Q12HR GATO Administration Hydromorphone HCl 0.5 mg 05/29/19 20:17 Dilaudid IV Q3H PRN Pain , Severe (7-10) Levofloxacin 750 mg 05/30/19 22:00 Levaquin PO 06/02/19 22:01 Q24H GATO Lorazepam 2 mg 05/29/19 20:46 05/30/19 10:00 Ativan IV 2 mg Q1H PRN Administration CIWA-Ar 8-15 Lorazepam 4 mg 11/27/19 20:46 Ativan IV Q1H PRN CIWA-Ar 16-25 Methylprednisolone Sodium Succinate 60 mg 05/30/19 14:00 Solu-Medrol IV Q8HR GATO Metoclopramide HCl 10 mg 05/29/19 20:17 Reglan IV Q6H PRN Nausea And Vomiting Ondansetron HCl 4 mg 05/29/19 20:15 Zofran IV Q3H PRN Nausea And Vomiting Oxycodone/Acetaminophen 1 tab 05/29/19 20:17 Percocet 5/325 PO Q6H PRN Pain, Moderate (4-6) Pantoprazole Sodium 40 mg 05/30/19 22:00 Protonix PO BID GATO Sodium Chloride 10 ml 05/29/19 22:00 05/30/19 09:10 Sodium Chloride Flush Syringe 10 Ml IV 10 ml BID GATO Administration Sodium Chloride 10 ml 05/29/19 20:15 Sodium Chloride Flush Syringe 10 Ml IV PRN PRN LINE FLUSH
[2019-05-30] MEDS: 1: FOLIC ACID 1 MG, MULTIPLE VITAMIN INJ, ADULT 10 ML, THIAMINE 100 MG in SODIUM CHLORID IV SCH ×2 (13:37→21:40)
[2019-05-30] MEDS: PANTOPRAZOLE 40 MG TAB PO SCH (21:33)
[2019-05-30] MEDS: chlordiazePOXIDE 25 MG CAP PO SCH (21:33)
[2019-05-30] MEDS ORDERED: SODIUM CHLORIDE 0.9% 1000 ML 1,000 ML ONE (21:41)
[2019-05-30] MEDS ORDERED: SODIUM CHLORIDE 0.9% 1000 ML 1,000 ML IV SCH (22:00)
[2019-05-30] MEDS: levoFLOXacin 750 MG TAB PO SCH (22:41)
[2019-05-31] MEDS: IPRATROPIUM/ALBUTEROL SULFATE 3 ML AMPUL.NEB IH SCH ×4 (01:55→20:51)
[2019-05-31] MEDS: LORazepam 2 MG/ML VIAL IV PRN ×3 (03:19→15:19)
[2019-05-31] MEDS: methylPREDNISolone Sod Succinate 125 MG/2 ML INJ IV SCH (05:06)
[2019-05-31] MEDS: 1: FOLIC ACID 1 MG, MULTIPLE VITAMIN INJ, ADULT 10 ML, THIAMINE 100 MG in SODIUM CHLORID IV SCH ×3 (05:07→22:19)
[2019-05-31 07:04] LABS: Hematocrit 37.6 % (35.5-45.6); Hemoglobin 12.8 gm/dl (11.8-15.2); Mean Corpuscular HGB Conc 34 % (32-34); Mean Corpuscular Volume 105 fl (84-94); Platelet Count 115 K/mm3 (140-440); Red Blood Count 3.57 M/mm3 (3.65-5.03); Red Cell Distribution Width 13.4 % (13.2-15.2)
[2019-05-31 07:18] LABS: BUN/Creatinine Ratio 18; Blood Urea Nitrogen 7 mg/dL (9-20); Calcium 8.4 mg/dL (8.4-10.2); Hemolysis Index 5
--- NOTE | 2019-05-31 07:21 | Progress Note ---
Assessment and Plan Assessment and plan: 58-year-old male with past medical history of COPD and cocaine abuse comes in for increasing shortness of breath and chest pain since morning. Shortness of breath and cough present. Cough is productive of mucoid sputum. Patient also has left-sided chest pain which is about 7 on a scale of 1-10. Sharp and intermittent. No diaphoresis no palpitations. No recent travel. Patient has been using cocaine for last 3 days and not sleeping. Patient has a family history of coronary artery disease. Patient was 90% on room air prior to admission. Patient is on home oxygen. Does not use his nebulizers regularly. No recent travel. * On my examination the patient has mild delirium tremens with palpitation and hepatic flaps noted. * And also significant alcohol use. He denies any chest pain or shortness of breath at this time. Toxic metabolic encephalopathy secondary to EtOH withdrawal Delirium tremens Hypokalemia EtOH abuse Acute on chronic respiratory failure with hypoxia COPD with exacerbation likely secondary to alcohol derangements Atypical chest pain-now resolved Substance abuse with cocaine preference Tobacco dependence Hyponatremia likely secondary to EtOH abuse- resolved Microcytic anemia likely secondary to EtOH abuse Thrombocytopenia plan Supportive care, continue ciwa protocol Fall precautions Replace K wean steroids cancel stress test, patient not in any shape to undergo such Continue abx, to cover for possible aspiration. No evidence of sepsis ABG shows pH of 7.535 PCO2 of 30 PO2 of 76 bicarbonate of 25.3 FiO2 of 21% on admission Patient counseled about the dangers of cocaine will reemphasis when more awake Monitor Na level Patient may have B12 and folic acid deficiency because of his cocaine use etc. Check folic acid and B12 levels DVT/GI Prophy evaluated with Nurse at bedside History Interval history: Patient seen and examined, undergoing mild DTs, no other complaints, no adverse event noted overnight Hospitalist Physical - Physical exam Narrative exam: VITAL SIGNS: Reviewed. GENERAL: The patient appears normally developed otherwise, disheveled with significant erythema from the base of the neck to the head., Vital signs as documented. HEAD: No signs of head trauma. EYES: Pupils are equal. Extraocular motions intact. EARS: Hearing grossly intact. MOUTH: Oropharynx is normal. NECK: No adenopathy, no JVD. CHEST: Chest with clear breath sounds bilaterally. No wheezes, rales, or rhonchi. CARDIAC: Regular rate and rhythm. S1 and S2, without murmurs, gallops, or rubs. VASCULAR: No Edema. Peripheral pulses normal and equal in all extremities. ABDOMEN: Soft, non tender and non distended. No rebound or guarding, and no masses palpated. Bowel Sounds normal. MUSCULOSKELETAL: Good range of motion of all major joints. Extremities without clubbing, cyanosis or edema. NEUROLOGIC EXAM: Awake with intermittent disorientation. No focal sensory or strength deficits. Speech normal. Follows some commands. PSYCHIATRIC: Mood normal. SKIN: detail exam as documented in skin assessment - Constitutional Vitals: Temp Pulse Resp BP Pulse Ox 97.7 F 83 20 140/90 99 05/31/19 06:18 05/31/19 06:18 05/31/19 06:18 05/31/19 06:18 05/31/19 06:18 General appearance: Present: no acute distress, well-nourished Results - Labs CBC & Chem 7: 05/31/19 06:27 05/31/19 15:38 Labs: Laboratory Last Values WBC 9.2 K/mm3 (4.5-11.0) 05/31/19 06:27 RBC 3.57 M/mm3 (3.65-5.03) L 05/31/19 06:27 Hgb 12.8 gm/dl (11.8-15.2) 05/31/19 06:27 Hct 37.6 % (35.5-45.6) 05/31/19 06:27 MCV 105 fl (84-94) H 05/31/19 06:27 MCH 36 pg (28-32) H 05/31/19 06:27 MCHC 34 % (32-34) 05/31/19 06:27 RDW 13.4 % (13.2-15.2) 05/31/19 06:27 Plt Count 115 K/mm3 (140-440) L 05/31/19 06:27 Lymph % (Auto) 6.3 % (13.4-35.0) L 05/29/19 08:53 [place]utherford % (Auto) 9.0 % (0.0-7.3) H 05/29/19 08:53 Eos % (Auto) 0.0 % (0.0-4.3) 05/29/19 08:53 Baso % (Auto) 0.3 % (0.0-1.8) 05/29/19 08:53 Lymph # 0.6 K/mm3 (1.2-5.4) L 05/29/19 08:53 Rutherford # 0.8 K/mm3 (0.0-0.8) 05/29/19 08:53 Eos # 0.0 K/mm3 (0.0-0.4) 05/29/19 08:53 Baso # 0.0 K/mm3 (0.0-0.1) 05/29/19 08:53 Add Manual Diff Complete 05/30/19 04:59 Total Counted 100 05/30/19 04:59 Seg Neutrophils % Dictionary Editor 05/30/19 04:59 Seg Neuts % (Manual) 95.0 % (40.0-70.0) H 05/30/19 04:59 Band Neutrophils % 0 % 05/30/19 04:59 Lymphocytes % (Manual) 3.0 % (13.4-35.0) L 05/30/19 04:59 Reactive Lymphs % (Man) 0 % 05/30/19 04:59 Monocytes % (Manual) 2.0 % (0.0-7.3) 05/30/19 04:59 Eosinophils % (Manual) 0 % (0.0-4.3) 05/30/19 04:59 Basophils % (Manual) 0 % (0.0-1.8) 05/30/19 04:59 Metamyelocytes % 0 % 05/30/19 04:59 Myelocytes % 0 % 05/30/19 04:59 Promyelocytes % 0 % 05/30/19 04:59 Blast Cells % 0 % 05/30/19 04:59 Nucleated RBC % Not Reportable 05/30/19 04:59 Seg Neutrophils # 7.6 K/mm3 (1.8-7.7) 05/29/19 08:53 Seg Neutrophils # Man 8.9 K/mm3 (1.8-7.7) H 05/30/19 04:59 Band Neutrophils # 0.0 K/mm3 05/30/19 04:59 Lymphocytes # (Manual) 0.3 K/mm3 (1.2-5.4) L 05/30/19 04:59 Abs React Lymphs (Man) 0.0 K/mm3 05/30/19 04:59 Monocytes # (Manual) 0.2 K/mm3 (0.0-0.8) 05/30/19 04:59 Eosinophils # (Manual) 0.0 K/mm3 (0.0-0.4) 05/30/19 04:59 Basophils # (Manual) 0.0 K/mm3 (0.0-0.1) 05/30/19 04:59 Metamyelocytes # 0.0 K/mm3 05/30/19 04:59 Myelocytes # 0.0 K/mm3 05/30/19 04:59 Promyelocytes # 0.0 K/mm3 05/30/19 04:59 Blast Cells # 0.0 K/mm3 05/30/19 04:59 WBC Morphology Not Reportable 05/30/19 04:59 Hypersegmented Neuts Not Reportable 05/30/19 04:59 Hyposegmented Neuts Not Reportable 05/30/19 04:59 Hypogranular Neuts Not Reportable 05/30/19 04:59 Smudge Cells Not Reportable 05/30/19 04:59 Toxic Granulation Not Reportable 05/30/19 04:59 Toxic Vacuolation Not Reportable 05/30/19 04:59 Dohle Bodies Not Reportable 05/30/19 04:59 Pelger-Huet Anomaly Not Reportable 05/30/19 04:59 Michelle Rods Not Reportable 05/30/19 04:59 Platelet Estimate Consistent w auto 05/30/19 04:59 Clumped Platelets Not Reportable 05/30/19 04:59 Plt Clumps, EDTA Not Reportable 05/30/19 04:59 Large Platelets Few 05/30/19 04:59 Giant Platelets Not Reportable 05/30/19 04:59 Platelet Satelliting Not Reportable 05/30/19 04:59 Plt Morphology Comment Not Reportable 05/30/19 04:59 RBC Morphology Normal 05/30/19 04:59 Dimorphic RBCs Not Reportable 05/30/19 04:59 Polychromasia Not Reportable 05/30/19 04:59 Hypochromasia Not Reportable 05/30/19 04:59 Poikilocytosis Not Reportable 05/30/19 04:59 Anisocytosis Not Reportable 05/30/19 04:59 Microcytosis Not Reportable 05/30/19 04:59 Macrocytosis Not Reportable 05/30/19 04:59 Spherocytes Not Reportable 05/30/19 04:59 Pappenheimer Bodies Not Reportable 05/30/19 04:59 Sickle Cells Not Reportable 05/30/19 04:59 Target Cells Not Reportable 05/30/19 04:59 Tear Drop Cells Not Reportable 05/30/19 04:59 Ovalocytes Not Reportable 05/30/19 04:59 Helmet Cells Not Reportable 05/30/19 04:59 Mcgrath-[place] Bodies Not Reportable 05/30/19 04:59 Carlyle Rings Not Reportable 05/30/19 04:59 Elizabeth Cells Not Reportable 05/30/19 04:59 Bite Cells Not Reportable 05/30/19 04:59 Crenated Cell Not Reportable 05/30/19 04:59 Elliptocytes Not Reportable 05/30/19 04:59 Acanthocytes (Spur) Not Reportable 05/30/19 04:59 Rouleaux Not Reportable 05/30/19 04:59 Hemoglobin C Crystals Not Reportable 05/30/19 04:59 Schistocytes Not Reportable 05/30/19 04:59 Malaria parasites Not Reportable 05/30/19 04:59 Miguelito Bodies Not Reportable 05/30/19 04:59 Hem Pathologist Commnt No 05/30/19 04:59 PT 11.2 Sec. (12.2-14.9) L 05/29/19 09:32 INR 0.82 (0.87-1.13) L 05/29/19 09:32 APTT 31.2 Sec. (24.2-36.6) 05/29/19 09:32 D-Dimer 632.89 ng/mlDDU (0-234) H 05/29/19 09:32 POC ABG pH 7.535 (7.35-7.45) H 05/29/19 11:29 POC ABG pCO2 30.0 (35-45) L 05/29/19 11:29 POC ABG pO2 76 (80-105) L 05/29/19 11:29 POC ABG HCO3 25.3 (22-26 mml/L) 05/29/19 11:29 POC ABG Total CO2 26 (23-27mmol/L) 05/29/19 11:29 POC ABG O2 Sat 97 05/29/19 11:29 POC ABG Base Excess 3 ((-2) - (+3)mmol/L) 05/29/19 11:29 FiO2 21 % 05/29/19 11:29 Sodium 137 mmol/L (137-145) 05/31/19 06:27 Potassium 3.6 mmol/L (3.6-5.0) 05/30/19 04:59 Chloride 101.2 mmol/L (98-107) 05/31/19 06:27 Carbon Dioxide 24 mmol/L (22-30) 05/31/19 06:27 Anion Gap 15 mmol/L 05/31/19 06:27 BUN 7 mg/dL (9-20) L 05/31/19 06:27 Creatinine 0.4 mg/dL (0.8-1.5) L 05/31/19 06:27 Estimated GFR > 60 ml/min 05/31/19 06:27 BUN/Creatinine Ratio 18 % 05/31/19 06:27 Glucose 135 mg/dL (75-100) H 05/31/19 06:27 Hemoglobin A1c 5.4 % (4-6) 05/30/19 04:59 Calcium 8.4 mg/dL (8.4-10.2) 05/31/19 06:27 Total Bilirubin 0.60 mg/dL (0.1-1.2) 05/30/19 04:59 Direct Bilirubin 0.4 mg/dL (0-0.2) H 05/29/19 12:02 Indirect Bilirubin 0.8 mg/dL 05/29/19 12:02 AST 33 units/L (5-40) 05/30/19 04:59 ALT 41 units/L (7-56) 05/30/19 04:59 Alkaline Phosphatase 102 units/L (35-129) 05/30/19 04:59 Total Creatine Kinase 193 units/L (55-170) H 05/29/19 08:53 Troponin T < 0.010 ng/mL (0.00-0.029) 05/29/19 Unknown NT-Pro-B Natriuret Pep 463.6 pg/mL (0-900) 05/29/19 08:53 Total Protein 6.5 g/dL (6.3-8.2) 05/30/19 04:59 Albumin 3.5 g/dL (3.9-5) L 05/30/19 04:59 Albumin/Globulin Ratio 1.2 % 05/30/19 04:59 Vitamin B12 601.9 pg/mL (211-911) 05/29/19 20:59 Urine Opiates Screen Presumptive negative 05/29/19 09:46 Urine Methadone Screen Presumptive negative 05/29/19 09:46 Ur Barbiturates Screen Presumptive negative 05/29/19 09:46 Ur Phencyclidine Scrn Presumptive negative 05/29/19 09:46 Ur Amphetamines Screen Presumptive positive 05/29/19 09:46 U Benzodiazepines Scrn Presumptive negative 05/29/19 09:46 Urine Cocaine Screen Presumptive negative 05/29/19 09:46 U Marijuana (THC) Screen Presumptive positive 05/29/19 09:46 Drugs of Abuse Note Disclamer 05/29/19 09:46 Active Medications - Current Medications Current Medications: Generic Name Dose Route Start Last Admin Trade Name Freq PRN Reason Stop Dose Admin Acetaminophen 650 mg 05/29/19 20:15 Tylenol PO Q4H PRN Pain MILD(1-3)/Fever >100.5/PATRICIO Albuterol 2.5 mg 05/29/19 20:33 Proventil IH Q3HRT PRN Wheezing Albuterol/Ipratropium 1 ampul 05/30/19 20:00 05/31/19 01:55 Duoneb *Not For Prn Use* IH Not Given Q6HRT GATO Chlordiazepoxide HCl 25 mg 05/29/19 22:00 05/30/19 21:33 Librium PO 25 mg QHS GATO Administration Heparin Sodium (Porcine) 5,000 unit 05/29/19 22:00 05/30/19 21:34 Heparin SUB-Q 5,000 unit Q12HR GATO Administration Hydromorphone HCl 0.5 mg 05/29/19 20:17 Dilaudid IV Q3H PRN Pain , Severe (7-10) Folic Acid 1 mg/ Multivitamins 1,000 mls @ 125 mls/hr 05/30/19 13:00 05/30/19 13:37 /Minerals 10 ml/ Thiamine HCl IV 125 mls/hr 100 mg/ Sodium Chloride .BY DURATION GATO Administration Sodium Chloride 1,000 mls @ 125 mls/hr 05/30/19 13:00 05/31/19 05:07 Nacl 0.9% 1000 Ml IV 125 mls/hr .BY DURATION GATO Administration Sodium Chloride 1,000 mls @ 125 mls/hr 05/30/19 22:00 Nacl 0.9% 1000 Ml IV DIRECT GATO Levofloxacin 750 mg 05/30/19 22:00 05/30/19 22:41 Levaquin PO 06/02/19 22:01 750 mg Q24H GATO Administration Lorazepam 2 mg 05/29/19 20:46 05/30/19 17:40 Ativan IV 2 mg Q1H PRN Administration CIWA-Ar 8-15 Lorazepam 4 mg 05/29/19 20:46 05/31/19 03:19 Ativan IV 4 mg Q1H PRN Administration CIWA-Ar 16-25 Methylprednisolone Sodium Succinate 60 mg 05/30/19 14:00 05/31/19 05:06 Solu-Medrol IV 60 mg Q8HR GATO Administration Metoclopramide HCl 10 mg 05/29/19 20:17 Reglan IV Q6H PRN Nausea And Vomiting Ondansetron HCl 4 mg 05/29/19 20:15 Zofran IV Q3H PRN Nausea And Vomiting Oxycodone/Acetaminophen 1 tab 05/29/19 20:17 Percocet 5/325 PO Q6H PRN Pain, Moderate (4-6) Pantoprazole Sodium 40 mg 05/30/19 22:00 05/30/19 21:33 Protonix PO 40 mg BID GATO Administration Sodium Chloride 10 ml 05/29/19 22:00 05/30/19 21:33 Sodium Chloride Flush Syringe 10 Ml IV 10 ml BID GATO Administration Sodium Chloride 10 ml 05/29/19 20:15 Sodium Chloride Flush Syringe 10 Ml IV PRN PRN LINE FLUSH Nutrition/Malnutrition Assess - Dietary Evaluation Nutrition/Malnutrition Findings: Nutrition Notes Start: 05/30/19 12:47 Freq: Status: Active Protocol: Document 05/30/19 12:47 LM (Rec: 05/30/19 12:52 LM [id number]) Nutrition Notes Need for Assessment generated from: Low BMI Initial or Follow up Brief Note Current Diagnosis COPD,Stroke Other Pertinent Diagnosis Cocaine abuse Current Diet Regular diet Labs/Tests Na 136 Subjective/Other Information Low BMI screen. Visited pt twice. Pt asleep at both visits. Observed wasting of clavicle and deltoid muscle. Observed lunch tray untouched. Nutrition Intervention Follow-Up By: 05/31/19 Additional Comments F/U for assessment
[2019-05-31] MEDS ORDERED: POTASSIUM CHLORIDE 20 MEQ PACKET PO NR (08:30)
[2019-05-31] MEDS ORDERED: MAGNESIUM SULFATE 1 GM in SODIUM CHLORIDE 0.9% 50 ML IV ONE (09:00)
[2019-05-31] MEDS: POTASSIUM CHLORIDE 10 MEQ 10 MEQ/100 ML BAG IV SCH ×4 (09:28→12:30)
[2019-05-31] MEDS: PANTOPRAZOLE 40 MG TAB PO SCH ×2 (09:29→22:05)
[2019-05-31] MEDS: predniSONE 20 MG TAB PO SCH (09:29)
[2019-05-31] MEDS: HEPARIN 5,000 UNIT/1 ML VIAL SUB-Q SCH ×2 (09:37→22:06)
[2019-05-31] MEDS: chlordiazePOXIDE 25 MG CAP PO SCH (22:05)
[2019-05-31] MEDS: levoFLOXacin 750 MG TAB PO SCH (22:49)
[2019-06-01] MEDS: 1: FOLIC ACID 1 MG, MULTIPLE VITAMIN INJ, ADULT 10 ML, THIAMINE 100 MG in SODIUM CHLORID IV SCH ×3 (05:06→23:34)
[2019-06-01 06:58] LABS: Hematocrit 36.1 % (35.5-45.6); Hemoglobin 12.3 gm/dl (11.8-15.2); Mean Corpuscular HGB Conc 34 % (32-34); Mean Corpuscular Volume 106 fl (84-94); Platelet Count 116 K/mm3 (140-440); Red Blood Count 3.41 M/mm3 (3.65-5.03); Red Cell Distribution Width 13.5 % (13.2-15.2)
[2019-06-01 07:13] LABS: BUN/Creatinine Ratio 20; Blood Urea Nitrogen 8 mg/dL (9-20); Calcium 8.1 mg/dL (8.4-10.2); Hemolysis Index 6
[2019-06-01] MEDS: IPRATROPIUM/ALBUTEROL SULFATE 3 ML AMPUL.NEB IH SCH ×3 (10:11→21:26)
[2019-06-01] MEDS: PANTOPRAZOLE 40 MG TAB PO SCH ×2 (10:29→22:48)
[2019-06-01] MEDS: NICOTINE 14 MG/24 HR PATCH TD SCH (10:29)
[2019-06-01] MEDS: predniSONE 20 MG TAB PO SCH (10:29)
[2019-06-01] MEDS: HEPARIN 5,000 UNIT/1 ML VIAL SUB-Q SCH ×2 (10:30→22:50)
[2019-06-01] MEDS: POTASSIUM CHLORIDE 10 MEQ 10 MEQ/100 ML BAG IV SCH ×3 (16:00→23:28)
--- NOTE | 2019-06-01 16:01 | Progress Note ---
Assessment and Plan Assessment and plan: 58-year-old male with past medical history of COPD and cocaine abuse comes in for increasing shortness of breath and chest pain since morning. Shortness of breath and cough present. Cough is productive of mucoid sputum. Patient also has left-sided chest pain which is about 7 on a scale of 1-10. Sharp and intermittent. No diaphoresis no palpitations. No recent travel. Patient has been using cocaine for last 3 days and not sleeping. Patient has a family history of coronary artery disease. Patient was 90% on room air prior to admission. Patient is on home oxygen. Does not use his nebulizers regularly. No recent travel. * On my examination the patient has mild delirium tremens with palpitation and hepatic flaps noted. * And also significant alcohol use. He denies any chest pain or shortness of breath at this time. Toxic metabolic encephalopathy secondary to EtOH withdrawal Delirium tremens Hypokalemia-persistent EtOH abuse Acute on chronic respiratory failure with hypoxia COPD with exacerbation likely secondary to alcohol derangements Atypical chest pain-now resolved Substance abuse with cocaine preference Tobacco dependence Hyponatremia likely secondary to EtOH abuse- resolved Microcytic anemia likely secondary to EtOH abuse Thrombocytopenia plan Supportive care, continue ciwa protocol Fall precautions Replace K wean steroids Discontinue Tele, Patient showing some clinical improvement. Maintain fall precaution, discussed with Nursing staff cancel stress test, patient not in any shape to undergo such Continue abx, to cover for possible aspiration. No evidence of sepsis ABG shows pH of 7.535 PCO2 of 30 PO2 of 76 bicarbonate of 25.3 FiO2 of 21% on admission Patient counseled about the dangers of cocaine will reemphasis when more awake Monitor Na level Patient may have B12 and folic acid deficiency because of his cocaine use etc. Check folic acid and B12 levels DVT/GI Prophy evaluated with Nurse at bedside History Interval history: Patient seen and examined, undergoing mild DTs, no other complaints, no adverse event noted overnight, clinically improving Hospitalist Physical - Physical exam Narrative exam: VITAL SIGNS: Reviewed. GENERAL: The patient appears normally developed otherwise, disheveled with significant erythema from the base of the neck to the head., Vital signs as documented. HEAD: No signs of head trauma. EYES: Pupils are equal. Extraocular motions intact. EARS: Hearing grossly intact. MOUTH: Oropharynx is normal. NECK: No adenopathy, no JVD. CHEST: Chest with clear breath sounds bilaterally. No wheezes, rales, or rhonchi. CARDIAC: Regular rate and rhythm. S1 and S2, without murmurs, gallops, or rub s. VASCULAR: No Edema. Peripheral pulses normal and equal in all extremities. ABDOMEN: Soft, non tender and non distended. No rebound or guarding, and no masses palpated. Bowel Sounds normal. MUSCULOSKELETAL: Good range of motion of all major joints. Extremities without clubbing, cyanosis or edema. NEUROLOGIC EXAM: Awake with intermittent disorientation. No focal sensory or strength deficits. Speech normal. Follows some commands. PSYCHIATRIC: Mood normal. SKIN: detail exam as documented in skin assessment - Constitutional Vitals: Temp Pulse Resp BP Pulse Ox 97.7 F 82 20 134/82 98 06/01/19 04:22 06/01/19 14:00 06/01/19 14:00 06/01/19 04:22 06/01/19 10:00 General appearance: Present: no acute distress, well-nourished Results - Labs CBC & Chem 7: 06/01/19 06:15 06/01/19 06:15 Labs: Laboratory Last Values WBC 5.9 K/mm3 (4.5-11.0) 06/01/19 06:15 RBC 3.41 M/mm3 (3.65-5.03) L 06/01/19 06:15 Hgb 12.3 gm/dl (11.8-15.2) 06/01/19 06:15 Hct 36.1 % (35.5-45.6) 06/01/19 06:15 MCV 106 fl (84-94) H 06/01/19 06:15 MCH 36 pg (28-32) H 06/01/19 06:15 MCHC 34 % (32-34) 06/01/19 06:15 RDW 13.5 % (13.2-15.2) 06/01/19 06:15 Plt Count 116 K/mm3 (140-440) L 06/01/19 06:15 Lymph % (Auto) 6.3 % (13.4-35.0) L 05/29/19 08:53 Levy % (Auto) 9.0 % (0.0-7.3) H 05/29/19 08:53 Eos % (Auto) 0.0 % (0.0-4.3) 05/29/19 08:53 Baso % (Auto) 0.3 % (0.0-1.8) 05/29/19 08:53 Lymph # 0.6 K/mm3 (1.2-5.4) L 05/29/19 08:53 Levy # 0.8 K/mm3 (0.0-0.8) 05/29/19 08:53 Eos # 0.0 K/mm3 (0.0-0.4) 05/29/19 08:53 Baso # 0.0 K/mm3 (0.0-0.1) 05/29/19 08:53 Add Manual Diff Complete 05/30/19 04:59 Total Counted 100 05/30/19 04:59 Seg Neutrophils % Foreign Collection Clerk 05/30/19 04:59 Seg Neuts % (Manual) 95.0 % (40.0-70.0) H 05/30/19 04:59 Band Neutrophils % 0 % 05/30/19 04:59 Lymphocytes % (Manual) 3.0 % (13.4-35.0) L 05/30/19 04:59 Reactive Lymphs % (Man) 0 % 05/30/19 04:59 Monocytes % (Manual) 2.0 % (0.0-7.3) 05/30/19 04:59 Eosinophils % (Manual) 0 % (0.0-4.3) 05/30/19 04:59 Basophils % (Manual) 0 % (0.0-1.8) 05/30/19 04:59 Metamyelocytes % 0 % 05/30/19 04:59 Myelocytes % 0 % 05/30/19 04:59 Promyelocytes % 0 % 05/30/19 04:59 Blast Cells % 0 % 05/30/19 04:59 Nucleated RBC % Not Reportable 05/30/19 04:59 Seg Neutrophils # 7.6 K/mm3 (1.8-7.7) 05/29/19 08:53 Seg Neutrophils # Man 8.9 K/mm3 (1.8-7.7) H 05/30/19 04:59 Band Neutrophils # 0.0 K/mm3 05/30/19 04:59 Lymphocytes # (Manual) 0.3 K/mm3 (1.2-5.4) L 05/30/19 04:59 Abs React Lymphs (Man) 0.0 K/mm3 05/30/19 04:59 Monocytes # (Manual) 0.2 K/mm3 (0.0-0.8) 05/30/19 04:59 Eosinophils # (Manual) 0.0 K/mm3 (0.0-0.4) 05/30/19 04:59 Basophils # (Manual) 0.0 K/mm3 (0.0-0.1) 05/30/19 04:59 Metamyelocytes # 0.0 K/mm3 05/30/19 04:59 Myelocytes # 0.0 K/mm3 05/30/19 04:59 Promyelocytes # 0.0 K/mm3 05/30/19 04:59 Blast Cells # 0.0 K/mm3 05/30/19 04:59 WBC Morphology Not Reportable 05/30/19 04:59 Hypersegmented Neuts Not Reportable 05/30/19 04:59 Hyposegmented Neuts Not Reportable 05/30/19 04:59 Hypogranular Neuts Not Reportable 05/30/19 04:59 Smudge Cells Not Reportable 05/30/19 04:59 Toxic Granulation Not Reportable 05/30/19 04:59 Toxic Vacuolation Not Reportable 05/30/19 04:59 Dohle Bodies Not Reportable 05/30/19 04:59 Pelger-Huet Anomaly Not Reportable 05/30/19 04:59 Michelle Rods Not Reportable 05/30/19 04:59 Platelet Estimate Consistent w auto 05/30/19 04:59 Clumped Platelets Not Reportable 05/30/19 04:59 Plt Clumps, EDTA Not Reportable 05/30/19 04:59 Large Platelets Few 05/30/19 04:59 Giant Platelets Not Reportable 05/30/19 04:59 Platelet Satelliting Not Reportable 05/30/19 04:59 Plt Morphology Comment Not Reportable 05/30/19 04:59 RBC Morphology Normal 05/30/19 04:59 Dimorphic RBCs Not Reportable 05/30/19 04:59 Polychromasia Not Reportable 05/30/19 04:59 Hypochromasia Not Reportable 05/30/19 04:59 Poikilocytosis Not Reportable 05/30/19 04:59 Anisocytosis Not Reportable 05/30/19 04:59 Microcytosis Not Reportable 05/30/19 04:59 Macrocytosis Not Reportable 05/30/19 04:59 Spherocytes Not Reportable 05/30/19 04:59 Pappenheimer Bodies Not Reportable 05/30/19 04:59 Sickle Cells Not Reportable 05/30/19 04:59 Target Cells Not Reportable 05/30/19 04:59 Tear Drop Cells Not Reportable 05/30/19 04:59 Ovalocytes Not Reportable 05/30/19 04:59 Helmet Cells Not Reportable 05/30/19 04:59 Mcgrath-Lafontaine Bodies Not Reportable 05/30/19 04:59 Rochelle Rings Not Reportable 05/30/19 04:59 Elizabeth Cells Not Reportable 05/30/19 04:59 Bite Cells Not Reportable 05/30/19 04:59 Crenated Cell Not Reportable 05/30/19 04:59 Elliptocytes Not Reportable 05/30/19 04:59 Acanthocytes (Spur) Not Reportable 05/30/19 04:59 Rouleaux Not Reportable 05/30/19 04:59 Hemoglobin C Crystals Not Reportable 05/30/19 04:59 Schistocytes Not Reportable 05/30/19 04:59 Malaria parasites Not Reportable 05/30/19 04:59 Miguelito Bodies Not Reportable 05/30/19 04:59 Hem Pathologist Commnt No 05/30/19 04:59 PT 11.2 Sec. (12.2-14.9) L 05/29/19 09:32 INR 0.82 (0.87-1.13) L 05/29/19 09:32 APTT 31.2 Sec. (24.2-36.6) 05/29/19 09:32 D-Dimer 632.89 ng/mlDDU (0-234) H 05/29/19 09:32 POC ABG pH 7.535 (7.35-7.45) H 05/29/19 11:29 POC ABG pCO2 30.0 (35-45) L 05/29/19 11:29 POC ABG pO2 76 (80-105) L 05/29/19 11:29 POC ABG HCO3 25.3 (22-26 mml/L) 05/29/19 11:29 POC ABG Total CO2 26 (23-27mmol/L) 05/29/19 11:29 POC ABG O2 Sat 97 05/29/19 11:29 POC ABG Base Excess 3 ((-2) - (+3)mmol/L) 05/29/19 11:29 FiO2 21 % 05/29/19 11:29 Sodium 140 mmol/L (137-145) 06/01/19 06:15 Potassium 3.0 mmol/L (3.6-5.0) L D 06/01/19 06:15 Chloride 107.5 mmol/L (98-107) H 06/01/19 06:15 Carbon Dioxide 24 mmol/L (22-30) 06/01/19 06:15 Anion Gap 12 mmol/L 06/01/19 06:15 BUN 8 mg/dL (9-20) L 06/01/19 06:15 Creatinine 0.4 mg/dL (0.8-1.5) L 06/01/19 06:15 Estimated GFR > 60 ml/min 06/01/19 06:15 BUN/Creatinine Ratio 20 % 06/01/19 06:15 Glucose 100 mg/dL (75-100) 06/01/19 06:15 Hemoglobin A1c 5.4 % (4-6) 05/30/19 04:59 Calcium 8.1 mg/dL (8.4-10.2) L 06/01/19 06:15 Magnesium 2.10 mg/dL (1.7-2.3) 05/31/19 06:27 Total Bilirubin 0.60 mg/dL (0.1-1.2) 05/30/19 04:59 Direct Bilirubin 0.4 mg/dL (0-0.2) H 05/29/19 12:02 Indirect Bilirubin 0.8 mg/dL 05/29/19 12:02 AST 33 units/L (5-40) 05/30/19 04:59 ALT 41 units/L (7-56) 05/30/19 04:59 Alkaline Phosphatase 102 units/L (35-129) 05/30/19 04:59 Ammonia < 10.0 umol/L (25-60) L 05/31/19 15:38 Total Creatine Kinase 193 units/L (55-170) H 05/29/19 08:53 Troponin T < 0.010 ng/mL (0.00-0.029) 05/29/19 Unknown NT-Pro-B Natriuret Pep 463.6 pg/mL (0-900) 05/29/19 08:53 Total Protein 6.5 g/dL (6.3-8.2) 05/30/19 04:59 Albumin 3.5 g/dL (3.9-5) L 05/30/19 04:59 Albumin/Globulin Ratio 1.2 % 05/30/19 04:59 Vitamin B12 601.9 pg/mL (211-911) 05/29/19 20:59 Urine Opiates Screen Presumptive negative 05/29/19 09:46 Urine Methadone Screen Presumptive negative 05/29/19 09:46 Ur Barbiturates Screen Presumptive negative 05/29/19 09:46 Ur Phencyclidine Scrn Presumptive negative 05/29/19 09:46 Ur Amphetamines Screen Presumptive positive 05/29/19 09:46 U Benzodiazepines Scrn Presumptive negative 05/29/19 09:46 Urine Cocaine Screen Presumptive negative 05/29/19 09:46 U Marijuana (THC) Screen Presumptive positive 05/29/19 09:46 Drugs of Abuse Note Disclamer 05/29/19 09:46 Active Medications - Current Medications Current Medications: Generic Name Dose Route Start Last Admin Trade Name Freq PRN Reason Stop Dose Admin Acetaminophen 650 mg 05/29/19 20:15 Tylenol PO Q4H PRN Pain MILD(1-3)/Fever >100.5/PATRICIO Albuterol 2.5 mg 05/29/19 20:33 06/01/19 03:34 Proventil IH 2.5 mg Q3HRT PRN Administration Wheezing Albuterol/Ipratropium 1 ampul 05/31/19 14:00 06/01/19 14:29 Duoneb *Not For Prn Use* IH 1 ampul TIDRT GATO Administration Chlordiazepoxide HCl 25 mg 05/29/19 22:00 05/31/19 22:05 Librium PO 25 mg QHS GATO Administration Folic Acid 1 mg 06/02/19 10:00 Folvite PO DAILY GATO Heparin Sodium (Porcine) 5,000 unit 05/29/19 22:00 06/01/19 10:30 Heparin SUB-Q 5,000 unit Q12HR GATO Administration Hydromorphone HCl 0.5 mg 05/29/19 20:17 Dilaudid IV Q3H PRN Pain , Severe (7-10) Folic Acid 1 mg/ Multivitamins 1,000 mls @ 125 mls/hr 05/30/19 13:00 06/01/19 13:55 /Minerals 10 ml/ Thiamine HCl IV 06/01/19 23:59 125 mls/hr 100 mg/ Sodium Chloride .BY DURATION GATO Administration Sodium Chloride 1,000 mls @ 125 mls/hr 05/30/19 13:00 06/01/19 05:06 Nacl 0.9% 1000 Ml IV 06/01/19 23:59 Not Given .BY DURATION GATO Sodium Chloride 1,000 mls @ 125 mls/hr 06/02/19 09:00 Nacl 0.9% 1000 Ml IV DIRECT GATO Potassium Chloride 10 meq in 100 mls @ 100 mls/hr 06/01/19 15:00 Kcl 10meq/100ml IV 06/01/19 18:59 Q1H GATO Levofloxacin 750 mg 05/30/19 22:00 05/31/19 22:49 Levaquin PO 06/02/19 22:01 750 mg Q24H GATO Administration Lorazepam 2 mg 05/29/19 20:46 05/31/19 15:19 Ativan IV 2 mg Q1H PRN Administration CIWA-Ar 8-15 Lorazepam 4 mg 05/29/19 20:46 05/31/19 03:19 Ativan IV 4 mg Q1H PRN Administration CIWA-Ar 16-25 Metoclopramide HCl 10 mg 05/29/19 20:17 Reglan IV Q6H PRN Nausea And Vomiting Multivitamins/Minerals 1 each 06/02/19 10:00 Theragran-M Tab PO QDAY GATO Nicotine 14 mg 06/01/19 10:00 06/01/19 10:29 Habitrol TD 14 mg QDAY GATO Administration Ondansetron HCl 4 mg 05/29/19 20:15 Zofran IV Q3H PRN Nausea And Vomiting Oxycodone/Acetaminophen 1 tab 05/29/19 20:17 Percocet 5/325 PO Q6H PRN Pain, Moderate (4-6) Pantoprazole Sodium 40 mg 05/30/19 22:00 06/01/19 10:29 Protonix PO 40 mg BID GATO Administration Prednisone 20 mg 05/31/19 10:00 06/01/19 10:29 Deltasone PO 20 mg QDAY GATO Administration Sodium Chloride 10 ml 05/29/19 22:00 06/01/19 10:29 Sodium Chloride Flush Syringe 10 Ml IV 10 ml BID GATO Administration Sodium Chloride 10 ml 05/29/19 20:15 Sodium Chloride Flush Syringe 10 Ml IV PRN PRN LINE FLUSH Thiamine HCl 100 mg 06/02/19 10:00 Vitamin B-1 PO QDAY GATO Nutrition/Malnutrition Assess - Dietary Evaluation Nutrition/Malnutrition Findings: Nutrition Notes Start: 05/30/19 12:47 Freq: Status: Active Protocol: Document 05/31/19 14:23 LM (Rec: 05/31/19 14:44 LM [email or web address]) Nutrition Notes Initial or Follow up Assessment Current Diagnosis COPD,Respiratory Failure, Stroke Other Pertinent Diagnosis Cocaine abuse, ETOH abuse/ withdrawal, Nicotine dependence, SOB Current Diet Regular diet Labs/Tests K 2.8 BUN 7 Cr 0.4 BG 135 Pertinent Medications Folic acid/multivitamins/ minerals/thiamine Nacl at 125 ml/hr Height 5 ft 5 in Weight 45.3 kg Usual Body Weight 45.5 kg [place] Body Weight (kg) 61.81 BMI 16.6 Subjective/Other Information Pt stated he does not eat well at home. 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 Pt stated he lost 20 lb in at least 2 weeks but weighs the same as his UBW. Pt did not eat breakfast this AM . Pt with muscle and fat wasting. Food preferences taken, discussed ONS, and encouraged pt to eat. 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 No Is Patient Ambulatory and/or Out of Bed Yes REE-(Nuckolls-St. Jeor-ambulatory/OOB) [ 1553.344 [id number]] Kcal/Kg value to use for calculation 45 Approximate Energy Requirements Using 2038 kcal/Kg Calculation Used for Recommendations Kcal/kg Additional Notes Protein: 54-68g (1.2-1.5g/kg) Fluid: 1 ml/kcal Nutrition Intervention Change Diet Order: Continue Regular diet Add Supplement/Snack (indicate name/kcal Ensure Enlive chocolate BID /protein ) Provides kCal: 700 Provides Protein (gm) 40 Goal #1 Meet at least 80% of energy and protein needs via PO/ONS Anticipated Discharge Needs: Regular diet and ONS Follow-Up By: 06/03/19 Additional Comments F/U for PO/ONS intakes
[2019-06-01] MEDS: chlordiazePOXIDE 25 MG CAP PO SCH (22:48)
[2019-06-01] MEDS: levoFLOXacin 750 MG TAB PO SCH (23:29)
[2019-06-02] MEDS: POTASSIUM CHLORIDE 10 MEQ 10 MEQ/100 ML BAG IV SCH ×6 (01:41→22:04)
[2019-06-02 07:58] LABS: BUN/Creatinine Ratio 13; Blood Urea Nitrogen 5 mg/dL (9-20); Hemolysis Index 7
[2019-06-02] MEDS ORDERED: SODIUM CHLORIDE 0.9% 1000 ML 1,000 ML IV SCH (09:00)
[2019-06-02] MEDS: predniSONE 20 MG TAB PO SCH (09:54)
[2019-06-02] MEDS: NICOTINE 14 MG/24 HR PATCH TD SCH (09:54)
[2019-06-02] MEDS: HEPARIN 5,000 UNIT/1 ML VIAL SUB-Q SCH ×2 (09:54→22:50)
[2019-06-02] MEDS: MULTIVITAMINS,THER W-MINERALS TAB PO SCH (09:56)
[2019-06-02] MEDS: FOLIC ACID 1 MG TAB PO SCH (09:56)
[2019-06-02] MEDS: PANTOPRAZOLE 40 MG TAB PO SCH ×2 (09:56→22:50)
[2019-06-02] MEDS: THIAMINE 100 MG TAB PO SCH (09:57)
[2019-06-02] MEDS: IPRATROPIUM/ALBUTEROL SULFATE 3 ML AMPUL.NEB IH SCH ×3 (10:16→19:36)
[2019-06-02] MEDS ORDERED: POTASSIUM CHLORIDE ER 20 MEQ TAB PO ONE ×2 (11:09→14:00)
--- NOTE | 2019-06-02 12:20 | Progress Note ---
Assessment and Plan Assessment and plan: 58-year-old male with past medical history of COPD and cocaine abuse comes in for increasing shortness of breath and chest pain since morning. Shortness of breath and cough present. Cough is productive of mucoid sputum. Patient also has left-sided chest pain which is about 7 on a scale of 1-10. Sharp and intermittent. No diaphoresis no palpitations. No recent travel. Patient has been using cocaine for last 3 days and not sleeping. Patient has a family history of coronary artery disease. Patient was 90% on room air prior to admission. Patient is on home oxygen. Does not use his nebulizers regularly. No recent travel. * On my examination the patient has mild delirium tremens with palpitation and hepatic flaps noted. * And also significant alcohol use. He denies any chest pain or shortness of breath at this time. * Patient clinically improving but significantly weak and lethargic, needs 2 people assist to stand * CM consult in am for possible rehab * PT eval and treat. Toxic metabolic encephalopathy secondary to EtOH withdrawal Delirium tremens Hypokalemia-persistent EtOH abuse Acute on chronic respiratory failure with hypoxia COPD with exacerbation likely secondary to alcohol derangements Atypical chest pain-now resolved Substance abuse with cocaine preference Tobacco dependence Hyponatremia likely secondary to EtOH abuse- resolved Microcytic anemia likely secondary to EtOH abuse Thrombocytopenia plan Supportive care, continue ciwa protocol Fall precautions Replace K wean steroids Discontinue Tele, Patient showing some clinical improvement. Maintain fall precaution, discussed with Nursing staff cancel stress test, patient not in any shape to undergo such Continue abx, to cover for possible aspiration. No evidence of sepsis ABG shows pH of 7.535 PCO2 of 30 PO2 of 76 bicarbonate of 25.3 FiO2 of 21% on admission Patient counseled about the dangers of cocaine will reemphasis when more awake Monitor Na level Patient may have B12 and folic acid deficiency because of his cocaine use etc. Check folic acid and B12 levels DVT/GI Prophy evaluated with Nurse at bedside History Interval history: Patient seen and examined, undergoing mild DTs, no other complaints, no adverse event noted overnight, clinically improving Hospitalist Physical - Physical exam Narrative exam: VITAL SIGNS: Reviewed. GENERAL: The patient appears normally developed otherwise, disheveled with significant erythema from the base of the neck to the head., Vital signs as doc umented. HEAD: No signs of head trauma. EYES: Pupils are equal. Extraocular motions intact. EARS: Hearing grossly intact. MOUTH: Oropharynx is normal. NECK: No adenopathy, no JVD. CHEST: Chest with clear breath sounds bilaterally. No wheezes, rales, or rhonchi. CARDIAC: Regular rate and rhythm. S1 and S2, without murmurs, gallops, or rubs. VASCULAR: No Edema. Peripheral pulses normal and equal in all extremities. ABDOMEN: Soft, non tender and non distended. No rebound or guarding, and no masses palpated. Bowel Sounds normal. MUSCULOSKELETAL: Good range of motion of all major joints. Extremities without clubbing, cyanosis or edema. NEUROLOGIC EXAM: Awake with intermittent disorientation. No focal sensory or strength deficits. Speech normal. Follows commands but very weak. PSYCHIATRIC: Mood normal. SKIN: detail exam as documented in skin assessment - Constitutional Vitals: Temp Pulse Resp BP Pulse Ox 97.6 F 117 H 20 135/87 94 06/02/19 12:06 06/02/19 12:06 06/02/19 12:06 06/02/19 12:06 06/02/19 12:06 General appearance: Present: no acute distress, well-nourished Results - Labs CBC & Chem 7: 06/01/19 06:15 06/02/19 07:09 Labs: Laboratory Last Values WBC 5.9 K/mm3 (4.5-11.0) 06/01/19 06:15 RBC 3.41 M/mm3 (3.65-5.03) L 06/01/19 06:15 Hgb 12.3 gm/dl (11.8-15.2) 06/01/19 06:15 Hct 36.1 % (35.5-45.6) 06/01/19 06:15 MCV 106 fl (84-94) H 06/01/19 06:15 MCH 36 pg (28-32) H 06/01/19 06:15 MCHC 34 % (32-34) 06/01/19 06:15 RDW 13.5 % (13.2-15.2) 06/01/19 06:15 Plt Count 116 K/mm3 (140-440) L 06/01/19 06:15 Lymph % (Auto) 6.3 % (13.4-35.0) L 05/29/19 08:53 [place] % (Auto) 9.0 % (0.0-7.3) H 05/29/19 08:53 Eos % (Auto) 0.0 % (0.0-4.3) 05/29/19 08:53 Baso % (Auto) 0.3 % (0.0-1.8) 05/29/19 08:53 Lymph # 0.6 K/mm3 (1.2-5.4) L 05/29/19 08:53 [place] # 0.8 K/mm3 (0.0-0.8) 05/29/19 08:53 Eos # 0.0 K/mm3 (0.0-0.4) 05/29/19 08:53 Baso # 0.0 K/mm3 (0.0-0.1) 05/29/19 08:53 Add Manual Diff Complete 05/30/19 04:59 Total Counted 100 05/30/19 04:59 Seg Neutrophils % System Development Manager 05/30/19 04:59 Seg Neuts % (Manual) 95.0 % (40.0-70.0) H 05/30/19 04:59 Band Neutrophils % 0 % 05/30/19 04:59 Lymphocytes % (Manual) 3.0 % (13.4-35.0) L 05/30/19 04:59 Reactive Lymphs % (Man) 0 % 05/30/19 04:59 Monocytes % (Manual) 2.0 % (0.0-7.3) 05/30/19 04:59 Eosinophils % (Manual) 0 % (0.0-4.3) 05/30/19 04:59 Basophils % (Manual) 0 % (0.0-1.8) 05/30/19 04:59 Metamyelocytes % 0 % 05/30/19 04:59 Myelocytes % 0 % 05/30/19 04:59 Promyelocytes % 0 % 05/30/19 04:59 Blast Cells % 0 % 05/30/19 04:59 Nucleated RBC % Not Reportable 05/30/19 04:59 Seg Neutrophils # 7.6 K/mm3 (1.8-7.7) 05/29/19 08:53 Seg Neutrophils # Man 8.9 K/mm3 (1.8-7.7) H 05/30/19 04:59 Band Neutrophils # 0.0 K/mm3 05/30/19 04:59 Lymphocytes # (Manual) 0.3 K/mm3 (1.2-5.4) L 05/30/19 04:59 Abs React Lymphs (Man) 0.0 K/mm3 05/30/19 04:59 Monocytes # (Manual) 0.2 K/mm3 (0.0-0.8) 05/30/19 04:59 Eosinophils # (Manual) 0.0 K/mm3 (0.0-0.4) 05/30/19 04:59 Basophils # (Manual) 0.0 K/mm3 (0.0-0.1) 05/30/19 04:59 Metamyelocytes # 0.0 K/mm3 05/30/19 04:59 Myelocytes # 0.0 K/mm3 05/30/19 04:59 Promyelocytes # 0.0 K/mm3 05/30/19 04:59 Blast Cells # 0.0 K/mm3 05/30/19 04:59 WBC Morphology Not Reportable 05/30/19 04:59 Hypersegmented Neuts Not Reportable 05/30/19 04:59 Hyposegmented Neuts Not Reportable 05/30/19 04:59 Hypogranular Neuts Not Reportable 05/30/19 04:59 Smudge Cells Not Reportable 05/30/19 04:59 Toxic Granulation Not Reportable 05/30/19 04:59 Toxic Vacuolation Not Reportable 05/30/19 04:59 Dohle Bodies Not Reportable 05/30/19 04:59 Pelger-Huet Anomaly Not Reportable 05/30/19 04:59 Michelle Rods Not Reportable 05/30/19 04:59 Platelet Estimate Consistent w auto 05/30/19 04:59 Clumped Platelets Not Reportable 05/30/19 04:59 Plt Clumps, EDTA Not Reportable 05/30/19 04:59 Large Platelets Few 05/30/19 04:59 Giant Platelets Not Reportable 05/30/19 04:59 Platelet Satelliting Not Reportable 05/30/19 04:59 Plt Morphology Comment Not Reportable 05/30/19 04:59 RBC Morphology Normal 05/30/19 04:59 Dimorphic RBCs Not Reportable 05/30/19 04:59 Polychromasia Not Reportable 05/30/19 04:59 Hypochromasia Not Reportable 05/30/19 04:59 Poikilocytosis Not Reportable 05/30/19 04:59 Anisocytosis Not Reportable 05/30/19 04:59 Microcytosis Not Reportable 05/30/19 04:59 Macrocytosis Not Reportable 05/30/19 04:59 Spherocytes Not Reportable 05/30/19 04:59 Pappenheimer Bodies Not Reportable 05/30/19 04:59 Sickle Cells Not Reportable 05/30/19 04:59 Target Cells Not Reportable 05/30/19 04:59 Tear Drop Cells Not Reportable 05/30/19 04:59 Ovalocytes Not Reportable 05/30/19 04:59 Helmet Cells Not Reportable 05/30/19 04:59 Mcgrath-Larwill Bodies Not Reportable 05/30/19 04:59 [place] Rings Not Reportable 05/30/19 04:59 [place] Cells Not Reportable 05/30/19 04:59 Bite Cells Not Reportable 05/30/19 04:59 Crenated Cell Not Reportable 05/30/19 04:59 Elliptocytes Not Reportable 05/30/19 04:59 Acanthocytes (Spur) Not Reportable 05/30/19 04:59 Rouleaux Not Reportable 05/30/19 04:59 Hemoglobin C Crystals Not Reportable 05/30/19 04:59 Schistocytes Not Reportable 05/30/19 04:59 Malaria parasites Not Reportable 05/30/19 04:59 Miguelito Bodies Not Reportable 05/30/19 04:59 Hem Pathologist Commnt No 05/30/19 04:59 PT 11.2 Sec. (12.2-14.9) L 05/29/19 09:32 INR 0.82 (0.87-1.13) L 05/29/19 09:32 APTT 31.2 Sec. (24.2-36.6) 05/29/19 09:32 D-Dimer 632.89 ng/mlDDU (0-234) H 05/29/19 09:32 POC ABG pH 7.535 (7.35-7.45) H 05/29/19 11:29 POC ABG pCO2 30.0 (35-45) L 05/29/19 11:29 POC ABG pO2 76 (80-105) L 05/29/19 11:29 POC ABG HCO3 25.3 (22-26 mml/L) 05/29/19 11:29 POC ABG Total CO2 26 (23-27mmol/L) 05/29/19 11:29 POC ABG O2 Sat 97 05/29/19 11:29 POC ABG Base Excess 3 ((-2) - (+3)mmol/L) 05/29/19 11:29 FiO2 21 % 05/29/19 11:29 Sodium 142 mmol/L (137-145) 06/02/19 07:09 Potassium 3.5 mmol/L (3.6-5.0) L 06/02/19 07:09 Chloride 104.1 mmol/L (98-107) 06/02/19 07:09 Carbon Dioxide 24 mmol/L (22-30) 06/02/19 07:09 Anion Gap 17 mmol/L 06/02/19 07:09 BUN 5 mg/dL (9-20) L 06/02/19 07:09 Creatinine 0.4 mg/dL (0.8-1.5) L 06/02/19 07:09 Estimated GFR > 60 ml/min 06/02/19 07:09 BUN/Creatinine Ratio 13 % 06/02/19 07:09 Glucose 86 mg/dL (75-100) 06/02/19 07:09 Hemoglobin A1c 5.4 % (4-6) 05/30/19 04:59 Calcium 9.0 mg/dL (8.4-10.2) 06/02/19 07:09 Magnesium 2.10 mg/dL (1.7-2.3) 05/31/19 06:27 Total Bilirubin 0.60 mg/dL (0.1-1.2) 05/30/19 04:59 Direct Bilirubin 0.4 mg/dL (0-0.2) H 05/29/19 12:02 Indirect Bilirubin 0.8 mg/dL 05/29/19 12:02 AST 33 units/L (5-40) 05/30/19 04:59 ALT 41 units/L (7-56) 05/30/19 04:59 Alkaline Phosphatase 102 units/L (35-129) 05/30/19 04:59 Ammonia < 10.0 umol/L (25-60) L 05/31/19 15:38 Total Creatine Kinase 193 units/L (55-170) H 05/29/19 08:53 Troponin T < 0.010 ng/mL (0.00-0.029) 05/29/19 Unknown NT-Pro-B Natriuret Pep 463.6 pg/mL (0-900) 05/29/19 08:53 Total Protein 6.5 g/dL (6.3-8.2) 05/30/19 04:59 Albumin 3.5 g/dL (3.9-5) L 05/30/19 04:59 Albumin/Globulin Ratio 1.2 % 05/30/19 04:59 Vitamin B12 601.9 pg/mL (211-911) 05/29/19 20:59 Urine Opiates Screen Presumptive negative 05/29/19 09:46 Urine Methadone Screen Presumptive negative 05/29/19 09:46 Ur Barbiturates Screen Presumptive negative 05/29/19 09:46 Ur Phencyclidine Scrn Presumptive negative 05/29/19 09:46 Ur Amphetamines Screen Presumptive positive 05/29/19 09:46 U Benzodiazepines Scrn Presumptive negative 05/29/19 09:46 Urine Cocaine Screen Presumptive negative 05/29/19 09:46 U Marijuana (THC) Screen Presumptive positive 05/29/19 09:46 Drugs of Abuse Note Disclamer 05/29/19 09:46 Active Medications - Current Medications Current Medications: Generic Name Dose Route Start Last Admin Trade Name Freq PRN Reason Stop Dose Admin Acetaminophen 650 mg 05/29/19 20:15 Tylenol PO Q4H PRN Pain MILD(1-3)/Fever >100.5/PATRICIO Albuterol 2.5 mg 05/29/19 20:33 06/01/19 03:34 Proventil IH 2.5 mg Q3HRT PRN Administration Wheezing Albuterol/Ipratropium 1 ampul 05/31/19 14:00 06/02/19 10:16 Duoneb *Not For Prn Use* IH 1 ampul TIDRT GATO Administration Chlordiazepoxide HCl 25 mg 05/29/19 22:00 06/01/19 22:48 Librium PO 25 mg QHS GATO Administration Folic Acid 1 mg 06/02/19 10:00 06/02/19 09:56 Folvite PO 1 mg DAILY GATO Administration Heparin Sodium (Porcine) 5,000 unit 05/29/19 22:00 06/02/19 09:54 Heparin SUB-Q 5,000 unit Q12HR GATO Administration Hydromorphone HCl 0.5 mg 05/29/19 20:17 Dilaudid IV Q3H PRN Pain , Severe (7-10) Sodium Chloride 1,000 mls @ 125 mls/hr 06/02/19 09:00 06/02/19 09:53 Nacl 0.9% 1000 Ml IV 125 mls/hr DIRECT GATO Administration Potassium Chloride 10 meq in 100 mls @ 100 mls/hr 06/02/19 13:00 Kcl 10meq/100ml IV 06/02/19 16:59 Q1H GATO Levofloxacin 750 mg 05/30/19 22:00 06/01/19 23:29 Levaquin PO 06/02/19 22:01 750 mg Q24H GATO Administration Lorazepam 2 mg 05/29/19 20:46 05/31/19 15:19 Ativan IV 2 mg Q1H PRN Administration CIWA-Ar 8-15 Lorazepam 4 mg 05/29/19 20:46 05/31/19 03:19 Ativan IV 4 mg Q1H PRN Administration CIWA-Ar 16-25 Metoclopramide HCl 10 mg 05/29/19 20:17 Reglan IV Q6H PRN Nausea And Vomiting Multivitamins/Minerals 1 each 06/02/19 10:00 06/02/19 09:56 Theragran-M Tab PO 1 each QDAY GATO Administration Nicotine 14 mg 06/01/19 10:00 06/02/19 09:54 Habitrol TD 14 mg QDAY GATO Administration Ondansetron HCl 4 mg 05/29/19 20:15 Zofran IV Q3H PRN Nausea And Vomiting Oxycodone/Acetaminophen 1 tab 05/29/19 20:17 Percocet 5/325 PO Q6H PRN Pain, Moderate (4-6) Pantoprazole Sodium 40 mg 05/30/19 22:00 06/02/19 09:56 Protonix PO 40 mg BID GATO Administration Sodium Chloride 10 ml 05/29/19 22:00 06/02/19 09:56 Sodium Chloride Flush Syringe 10 Ml IV 10 ml BID GATO Administration Sodium Chloride 10 ml 05/29/19 20:15 Sodium Chloride Flush Syringe 10 Ml IV PRN PRN LINE FLUSH Thiamine HCl 100 mg 06/02/19 10:00 06/02/19 09:57 Vitamin B-1 PO 100 mg QDAY GATO Administration Nutrition/Malnutrition Assess - Dietary Evaluation Nutrition/Malnutrition Findings: Nutrition Notes Start: 05/30/19 12:47 Freq: Status: Active Protocol: Document 05/31/19 14:23 LM (Rec: 05/31/19 14:44 LM [id number]) Nutrition Notes Initial or Follow up Assessment Current Diagnosis COPD,Respiratory Failure, Stroke Other Pertinent Diagnosis Cocaine abuse, ETOH abuse/ withdrawal, Nicotine dependence, SOB Current Diet Regular diet Labs/Tests K 2.8 BUN 7 Cr 0.4 BG 135 Pertinent Medications Folic acid/multivitamins/ minerals/thiamine Nacl at 125 ml/hr Height 5 ft 5 in Weight 45.3 kg Usual Body Weight 45.5 kg [place] Body Weight (kg) 61.81 BMI 16.6 Subjective/Other Information Pt stated he does not eat well at home. 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 Pt stated he lost 20 lb in at least 2 weeks but weighs the same as his UBW. Pt did not eat breakfast this AM . Pt with muscle and fat wasting. Food preferences taken, discussed ONS, and encouraged pt to eat. GI Symptoms None Current % PO Negligible Minimum of two criteria Yes Energy Intake (severe) < or equal to 50% Estimated Energy Requirement > or equal to 5 days Body Fat Depletion Mild depletion (non-severe) Muscle Mass Mild Depletion (non-severe) #2 Nutrition Diagnosis Inadequate oral intake Etiology Cocaine and ETOH abuse/ withdrawal As Evidenced by Signs and Symptoms 0% intakes, pt not eating for 4 days [employer] MEMBER, multiple nutrient deficiencies #1 Nutrition Diagnosis Malnutrition Etiology Cocaine and ETOH abuse As Evidenced by Signs and Symptoms muscle and fat wasting, <75% EER < 7 days, BMI 16.6 Is patient on ventilator? No Is Patient Ambulatory and/or Out of Bed Yes REE-([place] or-ambulatory/OOB) [ 1553.344 NUTR.[id number]] Kcal/Kg value to use for calculation 45 Approximate Energy Requirements Using 2038 kcal/Kg Calculation Used for Recommendations Kcal/kg Additional Notes Protein: 54-68g (1.2-1.5g/kg) Fluid: 1 ml/kcal Nutrition Intervention Change Diet Order: Continue Regular diet Add Supplement/Snack (indicate name/kcal Ensure Enlive chocolate BID /protein ) Provides kCal: 700 Provides Protein (gm) 40 Goal #1 Meet at least 80% of energy and protein needs via PO/ONS Anticipated Discharge Needs: Regular diet and ONS Follow-Up By: 06/03/19 Additional Comments F/U for PO/ONS intakes
[2019-06-02] MEDS: levoFLOXacin 750 MG TAB PO SCH (23:11)
[2019-06-03] MEDS: IPRATROPIUM/ALBUTEROL SULFATE 3 ML AMPUL.NEB IH SCH ×2 (09:12→14:12)
[2019-06-03 10:45] LABS: BUN/Creatinine Ratio 13; Blood Urea Nitrogen 8 mg/dL (9-20); Calcium 9.4 mg/dL (8.4-10.2); Hemolysis Index 8
[2019-06-03] MEDS: NICOTINE 14 MG/24 HR PATCH TD SCH (11:09)
[2019-06-03] MEDS: FOLIC ACID 1 MG TAB PO SCH (11:11)
[2019-06-03] MEDS: HEPARIN 5,000 UNIT/1 ML VIAL SUB-Q SCH (11:11)
[2019-06-03] MEDS: MULTIVITAMINS,THER W-MINERALS TAB PO SCH (11:11)
[2019-06-03] MEDS: PANTOPRAZOLE 40 MG TAB PO SCH (11:11)
[2019-06-03] MEDS: THIAMINE 100 MG TAB PO SCH (11:11)
--- NOTE | 2019-06-03 11:43 | Discharge Summary ---
Providers - Providers Date of Admission: 05/29/19 12:32 Attending physician: ANNY MEJIA MD 06/02/19 12:17 Physical Therapy Evaluation and Treat [CONS] Routine Comment: Reason For Exam: ataxia 06/02/19 12:39 Physical Therapy Evaluation and Treat [CONS] Routine Comment: Reason For Exam: weakness 06/02/19 12:40 Occupational Therapy Evaluate and Treat [CONS] Routine Comment: Reason For Exam: weakness Primary care physician: [facility] Hospitalization Reason for admission: etoh withdrawal Condition: Stable Hospital course: 58-year-old male with past medical history of COPD and cocaine abuse comes in for increasing shortness of breath and chest pain since morning. Shortness of breath and cough present. Cough is productive of mucoid sputum. Patient also has left-sided chest pain which is about 7 on a scale of 1-10. Sharp and intermittent. No diaphoresis no palpitations. No recent travel. Patient has been using cocaine for last 3 days and not sleeping. Patient has a family history of coronary artery disease. Patient was 90% on room air prior to admission. Patient is on home oxygen. Does not use his nebulizers regularly. No recent travel. * On my examination the patient has mild delirium tremens with palpitation and hepatic flaps noted. * And also significant alcohol use. He denies any chest pain or shortness of breath at this time. * Patient clinically improving but significantly weak and lethargic, needs 2 people assist to stand * CM consult in am for possible rehab * PT eval and treat and recommned home with home health * Electrolytes were corrected and Discussed extensively with the patient need to be complaint and quit etoh and cocain * Also advised to follow with cardiology for outpatient stress test Toxic metabolic encephalopathy secondary to EtOH withdrawal Delirium tremens Hypokalemia-persistent EtOH abuse Acute on chronic respiratory failure with hypoxia COPD with exacerbation likely secondary to alcohol derangements Atypical chest pain-now resolved Substance abuse with cocaine preference Tobacco dependence Hyponatremia likely secondary to EtOH abuse- resolved Microcytic anemia likely secondary to EtOH abuse Thrombocytopenia Disposition: [id number]/[place]-[id number] HOME UNDER HOME [facility] Time spent for discharge: 35 mins Core Measure Documentation - Palliative Care Palliative Care/ Comfort Measures: Not Applicable - Core Measures Any of the following diagnoses?: none Exam - Physical Exam Narrative exam: VITAL SIGNS: Reviewed. GENERAL: The patient appears normally developed otherwise, Vital signs as documented. HEAD: No signs of head trauma. EYES: Pupils are equal. Extraocular motions intact. EARS: Hearing grossly intact. MOUTH: Oropharynx is normal. NECK: No adenopathy, no JVD. CHEST: Chest with clear breath sounds bilaterally. No wheezes, rales, or rhonchi. CARDIAC: Regular rate and rhythm. S1 and S2, without murmurs, gallops, or r ubs. VASCULAR: No Edema. Peripheral pulses normal and equal in all extremities. ABDOMEN: Soft, non tender and non distended. No rebound or guarding, and no masses palpated. Bowel Sounds normal. MUSCULOSKELETAL: Good range of motion of all major joints. Extremities without clubbing, cyanosis or edema. NEUROLOGIC EXAM: Awake oriented x 3, some gait abnormality but ambulated 70 feet with assistance. No focal sensory or strength deficits. Speech normal. Follows commands PSYCHIATRIC: Mood normal. SKIN: detail exam as documented in skin assessment - Constitutional Vitals: Temp Pulse Resp BP Pulse Ox 97.7 F 89 20 137/79 97 06/03/19 05:41 06/03/19 09:12 06/03/19 09:12 06/03/19 05:41 06/03/19 09:11 Plan Activity: advance as tolerated, fall precautions Diet: low fat Special Instructions: record daily BP diary, smoking cessation (also quit substance abuse. ), physical therapy, occupational therapy Additional Instructions: follow with [facility] for stress test. No strenouse activity until evaluated by cardiology outpatient Follow up with: PRIMARY CARE, [Primary Care Provider] - 3-5 Days JOSEPH HICKS MD [Staff Physician] - 7 Days Prescriptions: Albuterol Sulfate [Albuterol 0.63% NEBS] 0.63 mg IH TID PRN #1 box PRN Reason: Wheezing Ipratropium [Atrovent NEB] 0.5 mg IH Q8HRT #1 box Folic Acid [Folvite] 1 mg PO DAILY #30 tablet Multivitamin Tab W-MINERAL [Multiple Vitamin/Mineral (Theragran M)] 1 each PO QDAY #30 tablet Pantoprazole [Protonix] 40 mg PO QDAY #30 tablet Thiamine [Vitamin B-1] 100 mg PO QDAY #30 tablet
[2019-06-03 16:39] VITALS: BP 137/83
== END 2019-06-03 18:00 | disposition home or self-care (01) | DRG 189 ==
LOC: ED 08:27 → 4A 12:32 → 3A 06-01 15:58
PROVIDERS: ADMIT Internal Medicine; ATTEND Internal Medicine
PROC: 4A033R1 Measurement of Arterial Saturation, Peripheral, Percutaneous Approach (ICD-10-PCS; principal; 2019-05-29)
DX: J96.21 Acute and chronic respiratory failure with hypoxia (principal); E87.1 Hypo-osmolality and hyponatremia; J44.1 Chronic obstructive pulmonary disease with (acute) exacerbation; F10.231 Alcohol dependence with withdrawal delirium; F14.20 Cocaine dependence, uncomplicated; G92 Toxic encephalopathy; E87.3 Alkalosis; E87.6 Hypokalemia; R07.89 Other chest pain; F19.10 Other psychoactive substance abuse, uncomplicated; F17.200 Nicotine dependence, unspecified, uncomplicated; D50.9 Iron deficiency anemia, unspecified; D69.6 Thrombocytopenia, unspecified; Z82.49 Family history of ischemic heart disease and other diseases of the circulatory system; Z86.73 Personal history of transient ischemic attack (TIA), and cerebral infarction without residual deficits
CPT/HCPCS: 36415; 36600; 71045; 71275; 80048; 80053; 80076; 80307; 82140; 82550; 82607; 82747; 82803; 83036; 83735; 83880; 84132; 84484; 85007; 85025; 85027; 85379; 85610; 85730; 93005; 93010; 94640; 94644; 94760; 96374; G0378; C9113; J1170; J1644; J1956; J2060; J2930; J3411; J3475; J3480; J7030; J7512; Q9967

== ENCOUNTER 2019-06-27 20:34 | Emergency (ER) | payer SELFPAY ==
[2019-06-27 23:01] LABS: Bilirubin,Urine NEG (Negative); Blood,Urine NEG (Negative); Color,Urine Yellow (Yellow); Hyaline Casts,Urine 3 /LPF; Mucus,Urine 2+ /HPF; Protein,Urine <15 mg/dL mg/dL (Negative)
[2019-06-27 23:03] LABS: Amphetamine Screen,Urine PRESUMPTIVE NEGATIVE; Benzodiazepines Screen,Urine PRESUMPTIVE NEGATIVE; Cocaine Screen,Urine PRESUMPTIVE NEGATIVE; Methadone Screen,Urine PRESUMPTIVE NEGATIVE; Opiate Screen,Urine PRESUMPTIVE NEGATIVE
[2019-06-27 23:15] LABS: Cannabinoid Screen,Urine PRESUMPTIVE POSITIVE
[2019-06-27 23:55] LABS: Basophils % (Auto) 0.4 % (0.0-1.8); Eosinophils % (Auto) 0.4 % (0.0-4.3); Hematocrit 42.2 % (35.5-45.6); Hemoglobin 14.3 gm/dl (11.8-15.2); Lymphocytes % (Auto) 27.6 % (13.4-35.0); Mean Corpuscular HGB Conc 34 % (32-34); Mean Corpuscular Volume 106 fl (84-94); Monocytes # (Auto) 0.5 K/mm3 (0.0-0.8); Monocytes % (Auto) 7.6 % (0.0-7.3); Platelet Count 185 K/mm3 (140-440); Red Blood Count 3.99 M/mm3 (3.65-5.03); Red Cell Distribution Width 13.7 % (13.2-15.2)
[2019-06-28 00:19] LABS: BUN/Creatinine Ratio 17; Blood Urea Nitrogen 10 mg/dL (9-20); Hemolysis Index 4
[2019-06-28] MEDS ORDERED: THIAMINE 100 MG, FOLIC ACID 1 MG, MULTIPLE VITAMIN INJ, ADULT 10 ML in SODIUM CHLORIDE ... IV ONE (06:16)
[2019-06-28] MEDS ORDERED: MAGNESIUM SULFATE 2 GM/50 ML BAG IV ONE ×2 (06:16→09:00)
--- NOTE | 2019-06-28 06:23 | Emergency Department Report ---
HPI - General Chief Complaint: Alcohol Time Seen by Provider: 06/28/19 06:14 - HPI HPI: Room 12 The patient is a 58-year-old male presenting with a chief complaint of alcoholism. The patient states he came to the emergency department for alcohol detox. Patient states he drinks at least a sixpack of beer daily and last consumed yesterday. When asked how he is feeling currently the patient states he feels okay and denies complaints. The patient states he went to [place] and was sent here for medical clearance Location: [See above] Duration: [See above] Quality: [See above] Severity: [See above] Timing: [See above] Context: [See above] Modifying factors: [See above] Associated signs and symptoms: [see above] ED Past Medical Hx - Past Medical History Previous Medical History?: Yes Hx CVA: (BRONCHITIS) Hx Asthma: Yes Hx COPD: Yes Additional medical history: BPH - Surgical History Past Surgical History?: Yes Additional Surgical History: LEFT FEMUR FRACTURE - Family History Family history: no significant - Social History Smoking Status: Current Every Day Smoker (1 pack per day) Substance Use Type: None (denies illicit drug use), Alcohol (sixpack daily) - Medications Home Medications: Home Medications Medication Instructions Recorded Confirmed Last Taken Type Nebulizer and Compressor [Amigo 1 each MC TID PRN #1 each 01/14/19 06/28/19 Unknown Rx Choice Nebulizer] Albuterol Sulfate [Albuterol 0.63% 0.63 mg IH TID PRN #1 box 06/03/19 06/28/19 Unknown Rx NEBS] Folic Acid [Folvite] 1 mg PO DAILY #30 tablet 06/03/19 06/28/19 Unknown Rx Ipratropium [Atrovent NEB] 0.5 mg IH Q8HRT #1 box 06/03/19 06/28/19 Unknown Rx Multivitamin Tab W-MINERAL 1 each PO QDAY #30 tablet 06/03/19 06/28/19 Unknown Rx [Multiple Vitamin/Mineral (Theragran M)] Pantoprazole [Protonix] 40 mg PO QDAY #30 tablet 06/03/19 06/28/19 Unknown Rx Thiamine [Vitamin B-1] 100 mg PO QDAY #30 tablet 06/03/19 06/28/19 Unknown Rx ED Review of Systems ROS: Stated complaint: PYSCH EVAL Other details as noted in HPI Constitutional: no symptoms reported Eyes: denies: eye pain ENT: denies: throat pain Respiratory: no symptoms reported Cardiovascular: denies: chest pain Endocrine: no symptoms reported Gastrointestinal: denies: abdominal pain Genitourinary: denies: dysuria Musculoskeletal: denies: back pain Neurological: denies: headache Physical Exam - Physical Exam Vital Signs: Vital Signs 06/27/19 21:10 Temperature 98.8 F Pulse Rate 91 H Respiratory 18 Rate Blood Pressure 137/79 O2 Sat by Pulse 99 Oximetry Physical Exam: GENERAL: The patient is well-developed male sleeping on chair not appearing to be in acute distress HEENT: Normocephalic. Atraumatic. Extraocular motions are intact. Patient has moist mucous membranes. NECK: Supple. Trachea midline CHEST/LUNGS: Clear to auscultation. There is no respiratory distress noted. HEART/CARDIOVASCULAR: Regular. There is no tachycardia. There is no gallop rub or murmur. ABDOMEN: Abdomen is soft, nontender. Patient has normal bowel sounds. There is no abdominal distention. SKIN: There is no rash. There is no edema. There is no diaphoresis. NEURO: The patient is awake, alert, and oriented. The patient is cooperative. The patient has normal speech MUSCULOSKELETAL: There is no evidence of acute injury. ED Course Vital Signs 06/27/19 21:10 Temperature 98.8 F Pulse Rate 91 H Respiratory 18 Rate Blood Pressure 137/79 O2 Sat by Pulse 99 Oximetry ED Medical Decision Making - Lab Data Result diagrams: 06/27/19 23:10 06/27/19 23:10 Laboratory Tests 06/27/19 06/27/19 06/27/19 23:10 23:10 23:10 WBC RBC Hgb Hct MCV MCH MCHC RDW Plt Count Lymph % (Auto) [place] % (Auto) Eos % (Auto) Baso % (Auto) Lymph # [place] # Eos # Baso # Seg Neutrophils % Seg Neutrophils # Sodium 140 Potassium 4.7 Chloride 100.5 Carbon Dioxide 27 Anion Gap 17 BUN 10 Creatinine 0.6 L Estimated GFR > 60 BUN/Creatinine Ratio 17 Glucose 199 H Calcium 9.0 Urine Color Urine Turbidity Urine pH Ur Specific Stanton Urine Protein Urine Glucose (UA) Urine Ketones Urine Blood Urine Nitrite Urine Bilirubin Urine Urobilinogen Ur Leukocyte Esterase Urine WBC (Auto) Urine RBC (Auto) U Epithel Cells (Auto) Hyaline Casts Urine Mucus Salicylates < 0.3 L Urine Opiates Screen Urine Methadone Screen Acetaminophen < 5.0 L Ur Barbiturates Screen Ur Phencyclidine Scrn Ur Amphetamines Screen U Benzodiazepines Scrn Urine Cocaine Screen U Marijuana (THC) Screen Drugs of Abuse Note Plasma/Serum Alcohol 06/27/19 06/27/19 06/27/19 23:10 23:10 Unknown WBC 7.1 RBC 3.99 Hgb 14.3 Hct 42.2 MCV 106 H MCH 36 H MCHC 34 RDW 13.7 Plt Count 185 Lymph % (Auto) 27.6 [place] % (Auto) 7.6 H Eos % (Auto) 0.4 Baso % (Auto) 0.4 Lymph # 2.0 [place] # 0.5 Eos # 0.0 Baso # 0.0 Seg Neutrophils % 64.0 Seg Neutrophils # 4.5 Sodium Potassium Chloride Carbon Dioxide Anion Gap BUN Creatinine Estimated GFR BUN/Creatinine Ratio Glucose Calcium Urine Color Yellow Urine Turbidity Clear Urine pH 5.0 Ur Specific Stanton 1.016 Urine Protein <15 mg/dl Urine Glucose (UA) Neg Urine Ketones Tr Urine Blood Neg Urine Nitrite Neg Urine Bilirubin Neg Urine Urobilinogen 2.0 Ur Leukocyte Esterase Neg Urine WBC (Auto) 3.0 Urine RBC (Auto) 5.0 U Epithel Cells (Auto) 1.0 Hyaline Casts 3 Urine Mucus 2+ Salicylates Urine Opiates Screen Urine Methadone Screen Acetaminophen Ur Barbiturates Screen Ur Phencyclidine Scrn Ur Amphetamines Screen U Benzodiazepines Scrn Urine Cocaine Screen U Marijuana (THC) Screen Drugs of Abuse Note Plasma/Serum Alcohol 0.20 H 06/27/19 Unknown WBC RBC Hgb Hct MCV MCH MCHC RDW Plt Count Lymph % (Auto) [place] % (Auto) Eos % (Auto) Baso % (Auto) Lymph # [place] # Eos # Baso # Seg Neutrophils % Seg Neutrophils # Sodium Potassium Chloride Carbon Dioxide Anion Gap BUN Creatinine Estimated GFR BUN/Creatinine Ratio Glucose Calcium Urine Color Urine Turbidity Urine pH Ur Specific Stanton Urine Protein Urine Glucose (UA) Urine Ketones Urine Blood Urine Nitrite Urine Bilirubin Urine Urobilinogen Ur Leukocyte Esterase Urine WBC (Auto) Urine RBC (Auto) U Epithel Cells (Auto) Hyaline Casts Urine Mucus Salicylates Urine Opiates Screen Presumptive negative Urine Methadone Screen Presumptive negative Acetaminophen Ur Barbiturates Screen Presumptive negative Ur Phencyclidine Scrn Presumptive negative Ur Amphetamines Screen Presumptive negative U Benzodiazepines Scrn Presumptive negative Urine Cocaine Screen Presumptive negative U Marijuana (THC) Screen Presumptive positive Drugs of Abuse Note Disclamer Plasma/Serum Alcohol - Differential Diagnosis alcoholism Critical care attestation.: If time is entered above; I have spent that time in minutes in the direct care of this critically ill patient, excluding procedure time. ED Disposition Clinical Impression: Alcoholism Disposition: DC/TX-65 PSY HOSP/PSY UNIT Is pt being admited?: No Does the pt Need Aspirin: No Condition: Stable Referrals: PRIMARY CARE [Primary Care Provider] - 3-5 Days Time of Disposition: 06:23 (awaiting acceptance)
[2019-06-28 10:02] VITALS: BP 135/89
== END 2019-06-28 12:19 ==
LOC: ED 20:34
DX: F10.20 Alcohol dependence, uncomplicated (principal); J44.9 Chronic obstructive pulmonary disease, unspecified; F17.200 Nicotine dependence, unspecified, uncomplicated; Z86.73 Personal history of transient ischemic attack (TIA), and cerebral infarction without residual deficits; Z79.899 Other long term (current) drug therapy
CPT/HCPCS: 36415; 80048; 80307; 81001; 85025; 96365; 96366; 96368; 99284; J3411; J3475; J7030; 80320; 96367; G0480

== ENCOUNTER 2019-07-18 00:06 | Emergency (ER) | payer SELFPAY ==
[2019-07-18 01:29] LABS: Basophils % (Auto) 0.7 % (0.0-1.8); Eosinophils % (Auto) 0.7 % (0.0-4.3); Hematocrit 43.9 % (35.5-45.6); Hemoglobin 15.1 gm/dl (11.8-15.2); Lymphocytes # (Auto) 2.4 K/mm3 (1.2-5.4); Lymphocytes % (Auto) 34.7 % (13.4-35.0); Mean Corpuscular HGB Conc 35 % (32-34); Mean Corpuscular Volume 104 fl (84-94); Monocytes # (Auto) 0.6 K/mm3 (0.0-0.8); Monocytes % (Auto) 8.3 % (0.0-7.3); Platelet Count 331 K/mm3 (140-440); Red Cell Distribution Width 13.4 % (13.2-15.2)
[2019-07-18 01:42] LABS: Amphetamine Screen,Urine PRESUMPTIVE NEGATIVE; Benzodiazepines Screen,Urine PRESUMPTIVE NEGATIVE; Cannabinoid Screen,Urine PRESUMPTIVE NEGATIVE; Cocaine Screen,Urine PRESUMPTIVE NEGATIVE; Methadone Screen,Urine PRESUMPTIVE NEGATIVE; Opiate Screen,Urine PRESUMPTIVE NEGATIVE
[2019-07-18 01:43] LABS: BUN/Creatinine Ratio 9; Blood Urea Nitrogen 6 mg/dL (9-20); Calcium 9.4 mg/dL (8.4-10.2); Hemolysis Index 6
[2019-07-18 01:47] LABS: Bacteria,Urine 1+ /HPF (Negative); Bilirubin,Urine NEG (Negative); Blood,Urine NEG (Negative); Color,Urine Yellow (Yellow); Mucus,Urine FEW /HPF; Protein,Urine <15 mg/dL mg/dL (Negative); Urobilinogen,Urine < 2.0 mg/dL (<2.0)
--- NOTE | 2019-07-18 01:53 | Emergency Department Report ---
ED General Adult HPI - General Chief complaint: Medical Clearance Stated complaint: DETOX Time Seen by Provider: 07/18/19 01:44 Source: patient Mode of arrival: Ambulatory Limitations: No Limitations - History of Present Illness Initial comments: 58 y.o. male with history of COPD and alcoholism presents stating that he wants to detox from alcohol and drugs primarily marijuana. Patient denies suicidal or homicidal ideation. Patient denies any active auditory hallucinations. Patient states his last drink of alcohol was 11:30 PM. Patient denies any seizure activity. - Related Data Previous Rx's Medication Instructions Recorded Last Taken Type Nebulizer and Compressor [Tryon 1 each MC TID PRN #1 each 01/14/19 Unknown Rx Choice Nebulizer] Albuterol Sulfate [Albuterol 0.63% 0.63 mg IH TID PRN #1 box 06/03/19 Unknown Rx NEBS] Folic Acid [Folvite] 1 mg PO DAILY #30 tablet 06/03/19 Unknown Rx Ipratropium [Atrovent NEB] 0.5 mg IH Q8HRT #1 box 06/03/19 Unknown Rx Multivitamin Tab W-MINERAL 1 each PO QDAY #30 tablet 06/03/19 Unknown Rx [Multiple Vitamin/Mineral (Theragran M)] Pantoprazole [Protonix] 40 mg PO QDAY #30 tablet 06/03/19 Unknown Rx Thiamine [Vitamin B-1] 100 mg PO QDAY #30 tablet 06/03/19 Unknown Rx Allergies Allergy/AdvReac Type Severity Reaction Status Date / Time No Known Allergies Allergy Verified 01/14/19 10:21 ED Review of Systems ROS: Stated complaint: DETOX Other details as noted in HPI Constitutional: denies: chills, fever Eyes: denies: eye pain, eye discharge, vision change ENT: denies: ear pain, throat pain Respiratory: denies: cough, shortness of breath, wheezing Cardiovascular: denies: chest pain, palpitations Endocrine: no symptoms reported Gastrointestinal: denies: abdominal pain, nausea, diarrhea Genitourinary: denies: urgency, dysuria Musculoskeletal: denies: back pain, joint swelling, arthralgia Skin: denies: rash, lesions Neurological: denies: headache, weakness, paresthesias Psychiatric: denies: anxiety, depression Hematological/Lymphatic: denies: easy bleeding, easy bruising ED Past Medical Hx - Past Medical History Previous Medical History?: Yes Hx CVA: (BRONCHITIS) Hx Heart Attack/AMI: No Hx Asthma: Yes Hx COPD: Yes Hx HIV: No Additional medical history: BPH - Surgical History Past Surgical History?: Yes Additional Surgical History: LEFT FEMUR FRACTURE - Social History Smoking Status: Current Every Day Smoker Substance Use Type: Alcohol, Cocaine - Medications Home Medications: Home Medications Medication Instructions Recorded Confirmed Last Taken Type Nebulizer and Compressor [Tryon 1 each MC TID PRN #1 each 01/14/19 06/28/19 Unknown Rx Choice Nebulizer] Albuterol Sulfate [Albuterol 0.63% 0.63 mg IH TID PRN #1 box 06/03/19 06/28/19 Unknown Rx NEBS] Folic Acid [Folvite] 1 mg PO DAILY #30 tablet 06/03/19 06/28/19 Unknown Rx Ipratropium [Atrovent NEB] 0.5 mg IH Q8HRT #1 box 06/03/19 06/28/19 Unknown Rx Multivitamin Tab W-MINERAL 1 each PO QDAY #30 tablet 06/03/19 06/28/19 Unknown Rx [Multiple Vitamin/Mineral (Theragran M)] Pantoprazole [Protonix] 40 mg PO QDAY #30 tablet 06/03/19 06/28/19 Unknown Rx Thiamine [Vitamin B-1] 100 mg PO QDAY #30 tablet 06/03/19 06/28/19 Unknown Rx ED Physical Exam - General Limitations: No Limitations General appearance: alert, in no apparent distress - Head Head exam: Present: atraumatic, normocephalic - Eye Eye exam: Present: normal appearance - ENT ENT exam: Present: mucous membranes dry - Neck Neck exam: Present: normal inspection - Respiratory Respiratory exam: Present: normal lung sounds bilaterally. Absent: respiratory distress - Cardiovascular Cardiovascular Exam: Present: regular rate, normal rhythm. Absent: systolic murmur, diastolic murmur, rubs, gallop - GI/Abdominal GI/Abdominal exam: Present: soft, normal bowel sounds - Rectal Rectal exam: Present: deferred - Extremities Exam Extremities exam: Present: normal inspection - Back Exam Back exam: Present: normal inspection - Neurological Exam Neurological exam: Present: alert, oriented X3. Absent: motor sensory deficit - Psychiatric Psychiatric exam: Present: normal affect, normal mood - Skin Skin exam: Present: warm, dry, intact, normal color. Absent: rash ED Course Vital Signs 07/18/19 07/18/19 00:17 00:49 Temperature 98.2 F 98.2 F Pulse Rate 101 H 101 H Respiratory 18 18 Rate Blood Pressure 120/82 120/82 O2 Sat by Pulse 95 95 Oximetry ED Medical Decision Making - Lab Data Result diagrams: 07/18/19 00:56 07/18/19 00:56 - Medical Decision Making Patient is medically clear. Patient states that [facility] will take him in the morning. Patient last alcohol was 11:30 PM dose low suspicion for alcohol drop. Patient be discharged follow-up as an outpatient at [facility]. - Differential Diagnosis Dehydration; Anemia; Electrolyte Abnormality; Critical care attestation.: If time is entered above; I have spent that time in minutes in the direct care of this critically ill patient, excluding procedure time. ED Disposition Clinical Impression: Alcohol abuse Disposition: DC-01 TO HOME OR SELFCARE Is pt being admited?: No Condition: Stable Instructions: Polysubstance Abuse (ED), Abuse of Alcohol (ED) Referrals: PRIMARY CARE, [Primary Care Provider] - 3-5 Days Time of Disposition: 02:02 Print Language: FAROESE
[2019-07-18 02:12] VITALS: BP 136/79
== END 2019-07-18 02:15 | disposition home or self-care (01) ==
LOC: ED 00:06
DX: F10.129 Alcohol abuse with intoxication, unspecified (principal); J44.9 Chronic obstructive pulmonary disease, unspecified; F17.200 Nicotine dependence, unspecified, uncomplicated; F14.10 Cocaine abuse, uncomplicated
CPT/HCPCS: 36415; 80048; 80307; 80320; 81001; 85025; 99284; G0480

== ENCOUNTER 2019-08-25 21:36 | Emergency (ER) | payer SELFPAY ==
[2019-08-25] MEDS ORDERED: IBUPROFEN 800 MG TAB PO ONE (22:12)
--- NOTE | 2019-08-25 22:17 | Emergency Department Report ---
ED Fall HPI - General Chief Complaint: Fall Stated Complaint: ABD PAIN Time Seen by Provider: 08/25/19 22:11 Source: patient, EMS Mode of arrival: Stretcher Limitations: No Limitations - History of Present Illness Initial Comments: Chief complaint:" I fell and hurt myself." HPI: Mr. Bender is a 58-year-old gentleman with a history of asthma, COPD, po lysubstance abuse who had a ground-level fall. He not cannot recall the events surrounding the fall. Due to his alcohol use he feels that he may have stumbled. He has right rib cage pain. Denies head trauma. Denies abdominal pain. MD Complaint: fall -: unknown Fall From: standing When Fall Occurred: unsure Fall Witnessed: no Place Fall Occurred: street Loss of Consciousness: none Prolonged Down Time?: no Severity: mild Quality: sharp Context: tripped/slipped Associated Symptoms: denies - Related Data Previous Rx's Medication Instructions Recorded Last Taken Type Nebulizer and Compressor [Startex 1 each MC TID PRN #1 each 01/14/19 Unknown Rx Choice Nebulizer] Albuterol Sulfate [Albuterol 0.63% 0.63 mg IH TID PRN #1 box 06/03/19 Unknown Rx NEBS] Folic Acid [Folvite] 1 mg PO DAILY #30 tablet 06/03/19 Unknown Rx Ipratropium [Atrovent NEB] 0.5 mg IH Q8HRT #1 box 06/03/19 Unknown Rx Multivitamin Tab W-MINERAL 1 each PO QDAY #30 tablet 06/03/19 Unknown Rx [Multiple Vitamin/Mineral (Theragran M)] Pantoprazole [Protonix] 40 mg PO QDAY #30 tablet 06/03/19 Unknown Rx Thiamine [Vitamin B-1] 100 mg PO QDAY #30 tablet 06/03/19 Unknown Rx Ibuprofen [Motrin 800 MG tab] 800 mg PO Q8HR PRN #15 tablet 08/25/19 Unknown Rx Allergies Allergy/AdvReac Type Severity Reaction Status Date / Time No Known Allergies Allergy Verified 01/14/19 10:21 ED Review of Systems ROS: Stated complaint: ABD PAIN Other details as noted in HPI Constitutional: denies: fever, malaise Respiratory: denies: cough, shortness of breath Cardiovascular: chest pain Gastrointestinal: denies: abdominal pain Skin: denies: rash, lesions Neurological: denies: headache ED Past Medical Hx - Past Medical History Previous Medical History?: Yes Hx CVA: (BRONCHITIS) Hx Heart Attack/AMI: No Hx Asthma: Yes Hx COPD: Yes Hx HIV: No Additional medical history: BPH - Surgical History Past Surgical History?: Yes Additional Surgical History: LEFT FEMUR FRACTURE - Social History Smoking Status: Current Every Day Smoker Substance Use Type: Alcohol, Cocaine, Marijuana - Medications Home Medications: Home Medications Medication Instructions Recorded Confirmed Last Taken Type Nebulizer and Compressor [Startex 1 each MC TID PRN #1 each 01/14/19 06/28/19 Unknown Rx Choice Nebulizer] Albuterol Sulfate [Albuterol 0.63% 0.63 mg IH TID PRN #1 box 06/03/19 06/28/19 Unknown Rx NEBS] Folic Acid [Folvite] 1 mg PO DAILY #30 tablet 06/03/19 06/28/19 Unknown Rx Ipratropium [Atrovent NEB] 0.5 mg IH Q8HRT #1 box 06/03/19 06/28/19 Unknown Rx Multivitamin Tab W-MINERAL 1 each PO QDAY #30 tablet 06/03/19 06/28/19 Unknown Rx [Multiple Vitamin/Mineral (Theragran M)] Pantoprazole [Protonix] 40 mg PO QDAY #30 tablet 06/03/19 06/28/19 Unknown Rx Thiamine [Vitamin B-1] 100 mg PO QDAY #30 tablet 06/03/19 06/28/19 Unknown Rx Ibuprofen [Motrin 800 MG tab] 800 mg PO Q8HR PRN #15 tablet 08/25/19 Unknown Rx ED Physical Exam - General Limitations: No Limitations General appearance: alert, in no apparent distress, other (Appears well appears comfortable) - Head Head exam: Present: atraumatic, normocephalic - Eye Eye exam: Present: normal appearance - ENT ENT exam: Present: mucous membranes moist - Neck Neck exam: Present: normal inspection, full ROM - Respiratory Respiratory exam: Present: normal lung sounds bilaterally, other (No crepitus no step-off no bruising). Absent: respiratory distress, wheezes, rales, rhonchi, chest wall tenderness, accessory muscle use, decreased breath sounds, prolonged expiratory - Cardiovascular Cardiovascular Exam: Present: regular rate, normal rhythm, normal heart sounds. Absent: systolic murmur, diastolic murmur, rubs, gallop - GI/Abdominal GI/Abdominal exam: Present: soft, normal bowel sounds. Absent: distended, tenderness, guarding, rebound - Rectal Rectal exam: Present: deferred - Extremities Exam Extremities exam: Present: normal inspection - Back Exam Back exam: Present: normal inspection - Neurological Exam Neurological exam: Present: alert, oriented X3 - Psychiatric Psychiatric exam: Present: normal affect, normal mood - Skin Skin exam: Present: warm, dry, intact, normal color. Absent: rash ED Course Vital Signs 08/25/19 08/25/19 21:56 22:22 Temperature 97.4 F L 98.0 F Pulse Rate 95 H 78 Respiratory 22 13 Rate Blood Pressure 116/69 120/74 [Left] O2 Sat by Pulse 98 96 Oximetry ED Medical Decision Making - Radiology Data Radiology results: report reviewed Right rib series PA lateral: Minimally displaced right rib fracture - Medical Decision Making Mr. Bender has right rib cage pain after fall Rib series reveal right ninth rib fracture Prescribed ibuprofen Critical care attestation.: If time is entered above; I have spent that time in minutes in the direct care of this critically ill patient, excluding procedure time. ED Disposition Clinical Impression: Fall from ground level, Right rib fracture Disposition: DC-01 TO HOME OR SELFCARE Is pt being admited?: No Does the pt Need Aspirin: No Condition: Stable Instructions: Rib Fracture (ED) Prescriptions: Ibuprofen [Motrin 800 MG tab] 800 mg PO Q8HR PRN #15 tablet PRN Reason: Pain , Severe (7-10) Referrals: ANKUR PEÑA MD [Staff Physician] - 3-5 Days
--- NOTE | 2019-08-25 22:55 | XRay Report ---
RIGHT RIB SERIES, 4 VIEWS INDICATION: fall right rib cage pain. COMPARISON: Chest radiograph 05/29/2019 FINDINGS: On the included chest radiograph, no pulmonary contusion or hemopneumothorax. There is a minimally displaced fracture to the lateral right ninth rib. No additional fractures. IMPRESSION: 1. Minimally displaced lateral right ninth rib fracture. Signer Name: Dave Winkler MD Signed: 08/25/2019 10:51 PM Workstation Name: [id number]
[2019-08-25 23:46] VITALS: BP 131/71
== END 2019-08-26 00:22 | disposition home or self-care (01) ==
LOC: ED 21:36
DX: S22.31XA Fracture of one rib, right side, initial encounter for closed fracture (principal); R10.9 Unspecified abdominal pain; J44.9 Chronic obstructive pulmonary disease, unspecified; F17.200 Nicotine dependence, unspecified, uncomplicated; F12.90 Cannabis use, unspecified, uncomplicated; F14.90 Cocaine use, unspecified, uncomplicated; Z79.899 Other long term (current) drug therapy; W18.30XA Fall on same level, unspecified, initial encounter; Y93.89 Activity, other specified; Y92.89 Other specified places as the place of occurrence of the external cause; Y99.8 Other external cause status

== ENCOUNTER 2019-08-26 02:50 | Emergency (ER) | payer SELFPAY ==
[2019-08-26] MEDS ORDERED: LORazepam 2 MG/ML VIAL IV ONE (03:08)
[2019-08-26] MEDS ORDERED: SODIUM CHLORIDE 0.9% 1000 ML 1,000 ML IV ONE ×2 (03:08→03:50)
[2019-08-26] MEDS ORDERED: ONDANSETRON 4 MG/2 ML INJ IV ONE (03:08)
[2019-08-26] MEDS ORDERED: chlordiazePOXIDE 25 MG CAP PO PRN (03:13)
--- NOTE | 2019-08-26 03:13 | Emergency Department Report ---
<JENNIFER DIAZ - Last Filed: 08/26/19 03:52> ED N/V/D HPI - General Chief complaint: Nausea/Vomiting/Diarrhea Stated complaint: VOMITTING Source: patient Mode of arrival: Ambulatory Limitations: No Limitations - History of Present Illness Initial comments: Chief complaint: "I have been sick ever since I last left here." HPI: I recently evaluated Mr. Bender for fall resulting in rib fracture. He is a 58-year-old gentleman with history of COPD polysubstance abuse. He informed the discharge nurse that he had plan to sleep in our lobby because he did not have a place to stay. He stated that he has had nausea vomiting since he was discharged 4 hours ago. Denies abdominal he cannot recall his last drink of alcohol. Pain. He also has suicidal ideation without plan. MD complaint: nausea, vomiting -: days(s) (1) Description of Vomiting: food contents Associated Abdominal Pain: No Severity: moderate Consistency: constant Improves with: none Worsens with: none Associated Symptoms: nausea/vomiting - Related Data Previous Rx's Medication Instructions Recorded Last Taken Type Nebulizer and Compressor [[place] 1 each MC TID PRN #1 each 01/14/19 Unknown Rx Choice Nebulizer] Albuterol Sulfate [Albuterol 0.63% 0.63 mg IH TID PRN #1 box 06/03/19 Unknown Rx NEBS] Folic Acid [Folvite] 1 mg PO DAILY #30 tablet 06/03/19 Unknown Rx Ipratropium [Atrovent NEB] 0.5 mg IH Q8HRT #1 box 06/03/19 Unknown Rx Multivitamin Tab W-MINERAL 1 each PO QDAY #30 tablet 06/03/19 Unknown Rx [Multiple Vitamin/Mineral (Theragran M)] Pantoprazole [Protonix] 40 mg PO QDAY #30 tablet 06/03/19 Unknown Rx Thiamine [Vitamin B-1] 100 mg PO QDAY #30 tablet 06/03/19 Unknown Rx Ibuprofen [Motrin 800 MG tab] 800 mg PO Q8HR PRN #15 tablet 08/25/19 Unknown Rx Allergies Allergy/AdvReac Type Severity Reaction Status Date / Time No Known Allergies Allergy Verified 01/14/19 10:21 ED Review of Systems Comment: All other systems reviewed and negative Constitutional: denies: fever, malaise Gastrointestinal: nausea, vomiting ED Past Medical Hx - Past Medical History Previous Medical History?: Yes Hx CVA: (BRONCHITIS) Hx Heart Attack/AMI: No Hx Asthma: Yes Hx COPD: Yes Hx HIV: No Additional medical history: BPH - Surgical History Past Surgical History?: Yes Additional Surgical History: LEFT FEMUR FRACTURE - Social History Smoking Status: Current Every Day Smoker Substance Use Type: Alcohol, Cocaine, Marijuana - Medications Home Medications: Home Medications Medication Instructions Recorded Confirmed Last Taken Type Nebulizer and Compressor [[place] 1 each MC TID PRN #1 each 01/14/19 06/28/19 Unknown Rx Choice Nebulizer] Albuterol Sulfate [Albuterol 0.63% 0.63 mg IH TID PRN #1 box 06/03/19 06/28/19 Unknown Rx NEBS] Folic Acid [Folvite] 1 mg PO DAILY #30 tablet 06/03/19 06/28/19 Unknown Rx Ipratropium [Atrovent NEB] 0.5 mg IH Q8HRT #1 box 06/03/19 06/28/19 Unknown Rx Multivitamin Tab W-MINERAL 1 each PO QDAY #30 tablet 06/03/19 06/28/19 Unknown Rx [Multiple Vitamin/Mineral (Theragran M)] Pantoprazole [Protonix] 40 mg PO QDAY #30 tablet 06/03/19 06/28/19 Unknown Rx Thiamine [Vitamin B-1] 100 mg PO QDAY #30 tablet 06/03/19 06/28/19 Unknown Rx Ibuprofen [Motrin 800 MG tab] 800 mg PO Q8HR PRN #15 tablet 08/25/19 Unknown Rx ED Physical Exam - General Limitations: No Limitations General appearance: alert, anxious, other (Shaky tremulous) - Head Head exam: Present: atraumatic, normocephalic - Eye Eye exam: Present: normal appearance - ENT ENT exam: Present: mucous membranes moist - Neck Neck exam: Present: normal inspection, full ROM - Respiratory Respiratory exam: Present: normal lung sounds bilaterally. Absent: respiratory distress, wheezes, rales, rhonchi - Cardiovascular Cardiovascular Exam: Present: normal rhythm, tachycardia, normal heart sounds. Absent: systolic murmur, diastolic murmur, rubs, gallop - GI/Abdominal GI/Abdominal exam: Present: soft, normal bowel sounds. Absent: distended, tenderness, guarding, rebound - Rectal Rectal exam: Present: deferred - Extremities Exam Extremities exam: Present: normal inspection - Neurological Exam Neurological exam: Present: alert, oriented X3 - Psychiatric Psychiatric exam: Present: normal mood, anxious - Skin Skin exam: Present: warm, dry, intact, normal color. Absent: rash ED Medical Decision Making - Lab Data Result diagrams: 08/26/19 03:11 08/26/19 03:11 Laboratory Results - last 24 hr 08/26/19 08/26/19 08/26/19 03:11 03:11 03:11 WBC 6.3 RBC 3.91 Hgb 14.1 Hct 41.0 MCV 105 H MCH 36 H MCHC 34 RDW 14.0 Plt Count 166 Sodium 138 Potassium 3.7 Chloride 95.4 L Carbon Dioxide 19 L Anion Gap 27 BUN 7 L Creatinine 0.7 L Estimated GFR > 60 BUN/Creatinine Ratio 10 Glucose 96 Calcium 8.8 Total Bilirubin 0.30 AST 84 H ALT 63 H Alkaline Phosphatase 124 Total Protein 7.1 Albumin 4.2 Albumin/Globulin Ratio 1.4 Lipase 17 - EKG Data 08/26/19 03:36 EKG obtained 0334 Sinus rhythm rate 80 bpm normal axis prolonged QT interval positive LVH no significant ST elevation nonischemic T wave pattern - Medical Decision Making Mr. Bender returns to the emergency department with nausea and vomiting. No vomiting noted here in the emergency department. No leukocytosis. Chemistry does reflect alcoholic ketoacidosis. Treated with IV fluids. Treated with IV Zofran. Placed on CIWA protocol, no indication of alcohol withdrawal. Awaiting mental health consultation. Awaiting case management consultation. This gentleman is medically clear for psychiatric care. Anticipate discharge ED Disposition Clinical Impression: Alcoholic ketoacidosis, Suicidal ideation, History of COPD, Alcohol abuse, Elevated liver enzymes Disposition: DC-01 TO HOME OR SELFCARE Condition: Stable Instructions: Abuse of Alcohol (ED), Suicide Prevention for Adults (ED) Additional Instructions: Please follow-up with a primary care physician in the next few days. Please follow-up with either the [facility] facility, or any of the outpatient referrals given to you by the psychiatric team. Return to the emerge ncy department with any worsening of your symptoms, thoughts of harming your self or others, or with any acute distress. Referrals: [facility] [Outside] - 2-3 Days [facility] [Outside] - 2-3 Days <ANUSHKA GÓMEZ S - Last Filed: 08/26/19 13:05> ED Review of Systems ROS: Stated complaint: VOMITTING Other details as noted in HPI ED Course Vital Signs 08/26/19 08/26/19 08/26/19 02:59 03:12 03:16 Temperature 97.9 F Pulse Rate 120 H 113 H 105 H Respiratory 18 27 H 26 H Rate Blood Pressure 159/85 Blood Pressure 167/78 [Right] O2 Sat by Pulse 99 99 99 Oximetry 08/26/19 08/26/19 08/26/19 03:37 03:46 04:00 Temperature Pulse Rate 74 79 78 Respiratory 20 17 17 Rate Blood Pressure 138/85 126/72 Blood Pressure [Right] O2 Sat by Pulse 95 83 L 95 Oximetry 08/26/19 08/26/19 08/26/19 04:16 04:30 04:46 Temperature Pulse Rate 86 71 69 Respiratory 20 19 17 Rate Blood Pressure 126/72 128/79 130/69 Blood Pressure [Right] O2 Sat by Pulse 90 95 96 Oximetry 08/26/19 08/26/19 08/26/19 05:00 05:16 05:30 Temperature Pulse Rate 60 57 L 67 Respiratory 15 17 18 Rate Blood Pressure 137/72 137/72 137/80 Blood Pressure [Right] O2 Sat by Pulse 97 96 96 Oximetry 08/26/19 08/26/19 08/26/19 05:46 06:00 06:16 Temperature Pulse Rate 78 69 71 Respiratory 19 19 19 Rate Blood Pressure 132/79 127/76 127/76 Blood Pressure [Right] O2 Sat by Pulse 94 96 96 Oximetry 08/26/19 08/26/19 08/26/19 06:30 06:46 07:00 Temperature Pulse Rate 62 62 67 Respiratory 15 17 18 Rate Blood Pressure 135/74 131/76 134/86 Blood Pressure [Right] O2 Sat by Pulse 96 96 96 Oximetry 08/26/19 08/26/19 08/26/19 07:16 07:30 07:46 Temperature Pulse Rate 64 60 69 Respiratory 16 17 18 Rate Blood Pressure 134/86 129/77 138/76 Blood Pressure [Right] O2 Sat by Pulse 94 95 95 Oximetry 08/26/19 08/26/19 08/26/19 08:00 08:16 08:30 Temperature Pulse Rate 75 57 L 59 L Respiratory 16 18 17 Rate Blood Pressure 129/66 129/66 119/61 Blood Pressure [Right] O2 Sat by Pulse 96 95 96 Oximetry 08/26/19 08/26/19 08/26/19 08:46 09:00 09:16 Temperature Pulse Rate 92 H 93 H 63 Respiratory 16 22 16 Rate Blood Pressure 129/60 158/92 158/92 Blood Pressure [Right] O2 Sat by Pulse 95 Oximetry 08/26/19 08/26/19 08/26/19 09:30 09:46 10:00 Temperature Pulse Rate 70 79 99 H Respiratory 17 17 17 Rate Blood Pressure 140/76 137/74 136/83 Blood Pressure [Right] O2 Sat by Pulse 94 Oximetry 08/26/19 08/26/19 08/26/19 10:16 10:30 10:46 Temperature Pulse Rate 78 70 68 Respiratory 19 18 19 Rate Blood Pressure 136/83 137/66 134/70 Blood Pressure [Right] O2 Sat by Pulse 93 93 Oximetry 08/26/19 08/26/19 08/26/19 11:00 11:16 11:30 Temperature Pulse Rate 69 68 64 Respiratory 20 17 17 Rate Blood Pressure 149/68 149/68 133/70 Blood Pressure [Right] O2 Sat by Pulse 90 95 95 Oximetry 08/26/19 08/26/19 08/26/19 11:46 12:00 12:16 Temperature Pulse Rate 65 65 72 Respiratory 18 20 21 Rate Blood Pressure 138/68 135/71 135/71 Blood Pressure [Right] O2 Sat by Pulse 96 94 94 Oximetry 08/26/19 12:30 Temperature Pulse Rate 63 Respiratory 19 Rate Blood Pressure 144/72 Blood Pressure [Right] O2 Sat by Pulse 95 Oximetry ED Medical Decision Making - Lab Data Result diagrams: 08/26/19 03:11 08/26/19 03:11 - Medical Decision Making This patient remained in the emergency department for an evaluation from case management and the psychiatric team. Psych did not feel that the patient warranted a 1013 or involuntary inpatient psychiatric admission. He had been on the alcohol withdrawal protocol but did not appear to have any signs of significant withdrawal or DTs. His vital signs been stable throughout his ED course. The patient will be discharged to follow-up with a primary care physician and psychiatry. He will return to the ER with any worsening of his symptoms or any acute distress. Critical care attestation.: If time is entered above; I have spent that time in minutes in the direct care of this critically ill patient, excluding procedure time. ED Disposition Is pt being admited?: No Time of Disposition: 12:58
[2019-08-26 03:23] LABS: Hemoglobin 14.1 gm/dl (11.8-15.2); Mean Corpuscular HGB Conc 34 % (32-34); Mean Corpuscular Volume 105 fl (84-94); Platelet Count 166 K/mm3 (140-440); Red Blood Count 3.91 M/mm3 (3.65-5.03)
[2019-08-26 03:38] LABS: Alanine Aminotransferase 63 units/L (7-56); Albumin 4.2 g/dL (3.9-5); BUN/Creatinine Ratio 10; Blood Urea Nitrogen 7 mg/dL (9-20); Calcium 8.8 mg/dL (8.4-10.2); Hemolysis Index 16
[2019-08-26 13:54] VITALS: BP 154/72
== END 2019-08-26 13:07 | disposition home or self-care (01) ==
LOC: ED 02:50
DX: R11.2 Nausea with vomiting, unspecified (principal); J44.9 Chronic obstructive pulmonary disease, unspecified; F17.200 Nicotine dependence, unspecified, uncomplicated; F12.90 Cannabis use, unspecified, uncomplicated; F14.90 Cocaine use, unspecified, uncomplicated; Z98.890 Other specified postprocedural states; Z79.899 Other long term (current) drug therapy
CPT/HCPCS: 36415; 80053; 83690; 85027; 93005; 93010; 96361; 96374; 96375; 99284; J2060; J2405; J7030; 80320; G0480

== ENCOUNTER 2019-11-26 14:57 | Observation (INO) | payer OTHER ==
[2019-11-26 16:10] LABS: Basophils % (Auto) 0.2 % (0.0-1.8); Eosinophils % (Auto) 0.4 % (0.0-4.3); Lymphocytes # (Auto) 0.9 K/mm3 (1.2-5.4); Lymphocytes % (Auto) 9.4 % (13.4-35.0); Monocytes # (Auto) 0.7 K/mm3 (0.0-0.8); Monocytes % (Auto) 7.6 % (0.0-7.3)
[2019-11-26] MEDS ORDERED: ASPIRIN 325 MG TAB PO ONE (16:10)
[2019-11-26 16:37] LABS: Hematocrit 43.8 % (35.5-45.6); Hemoglobin 15.1 gm/dl (11.8-15.2); Mean Corpuscular HGB Conc 35 % (32-34); Mean Corpuscular Volume 105 fl (84-94); Platelet Count 181 K/mm3 (140-440); Red Blood Count 4.19 M/mm3 (3.65-5.03); Red Cell Distribution Width 12.7 % (13.2-15.2)
--- NOTE | 2019-11-26 16:52 | XRay Report ---
CHEST 2 VIEWS INDICATION: Chest Pain. COMPARISON: 08/25/2019 FINDINGS: Support devices: None. Heart: Within normal limits. Lungs/Pleura: No acute air space or interstitial disease. No significant pleural effusion. IMPRESSION: No acute findings. Signer Name: Jorden Rocha MD Signed: 11/26/2019 4:48 PM Workstation Name: [id number]
[2019-11-26 16:55] LABS: Alanine Aminotransferase 27 units/L (7-56); Albumin 4.2 g/dL (3.9-5); BUN/Creatinine Ratio 17; Blood Urea Nitrogen 10 mg/dL (9-20); Calcium 9.5 mg/dL (8.4-10.2); Hemolysis Index 5
--- NOTE | 2019-11-26 20:08 | Emergency Department Report ---
ED Abdominal Pain HPI - General Chief Complaint: Back Pain/Injury Stated Complaint: BACK PAIN Time Seen by Provider: 11/26/19 20:00 Source: patient, EMS Mode of arrival: Wheelchair Limitations: No Limitations - History of Present Illness Initial Comments: 58-year-old male with history of right inguinal hernia for several years presents to ED with worsening abdominal pain bleeding in the area of the hernia. Patient states the pain radiates to his lower back. He reports nausea and vomiting. Denies any fever, diarrhea, constipation. MD Complaint: abdominal pain -: week(s) (1) Location: RLQ Radiation: back Migration to: no migration Severity: moderate Quality: sharp Consistency: intermittent Improves With: nothing Worsens With: nothing Associated Symptoms: nausea, vomiting. denies: diarrhea, fever, chills - Related Data Previous Rx's Medication Instructions Recorded Last Taken Type Nebulizer and Compressor [[place] 1 each MC TID PRN #1 each 01/14/19 Unknown Rx Choice Nebulizer] Albuterol Sulfate [Albuterol 0.63% 0.63 mg IH TID PRN #1 box 06/03/19 Unknown Rx NEBS] Folic Acid [Folvite] 1 mg PO DAILY #30 tablet 06/03/19 Unknown Rx Ipratropium [Atrovent NEB] 0.5 mg IH Q8HRT #1 box 06/03/19 Unknown Rx Multivitamin Tab W-MINERAL 1 each PO QDAY #30 tablet 06/03/19 Unknown Rx [Multiple Vitamin/Mineral (Theragran M)] Pantoprazole [Protonix] 40 mg PO QDAY #30 tablet 06/03/19 Unknown Rx Thiamine [Vitamin B-1] 100 mg PO QDAY #30 tablet 06/03/19 Unknown Rx Ibuprofen [Motrin 800 MG tab] 800 mg PO Q8HR PRN #15 tablet 08/25/19 Unknown Rx Allergies Allergy/AdvReac Type Severity Reaction Status Date / Time No Known Allergies Allergy Verified 01/14/19 10:21 ED Review of Systems ROS: Stated complaint: BACK PAIN Other details as noted in HPI Comment: All other systems reviewed and negative Constitutional: denies: chills, fever Gastrointestinal: abdominal pain, nausea, vomiting. denies: diarrhea, constipation ED Past Medical Hx - Past Medical History Previous Medical History?: Yes Hx CVA: (BRONCHITIS) Hx Heart Attack/AMI: No Hx Asthma: Yes Hx COPD: Yes Hx HIV: No Additional medical history: hernia - Surgical History Past Surgical History?: Yes Additional Surgical History: LEFT FEMUR FRACTURE - Social History Smoking Status: Current Every Day Smoker Substance Use Type: Alcohol, Marijuana - Medications Home Medications: Home Medications Medication Instructions Recorded Confirmed Last Taken Type Nebulizer and Compressor [[place] 1 each MC TID PRN #1 each 01/14/19 06/28/19 Unknown Rx Choice Nebulizer] Albuterol Sulfate [Albuterol 0.63% 0.63 mg IH TID PRN #1 box 06/03/19 06/28/19 Unknown Rx NEBS] Folic Acid [Folvite] 1 mg PO DAILY #30 tablet 06/03/19 06/28/19 Unknown Rx Ipratropium [Atrovent NEB] 0.5 mg IH Q8HRT #1 box 06/03/19 06/28/19 Unknown Rx Multivitamin Tab W-MINERAL 1 each PO QDAY #30 tablet 06/03/19 06/28/19 Unknown Rx [Multiple Vitamin/Mineral (Theragran M)] Pantoprazole [Protonix] 40 mg PO QDAY #30 tablet 06/03/19 06/28/19 Unknown Rx Thiamine [Vitamin B-1] 100 mg PO QDAY #30 tablet 06/03/19 06/28/19 Unknown Rx Ibuprofen [Motrin 800 MG tab] 800 mg PO Q8HR PRN #15 tablet 08/25/19 Unknown Rx ED Physical Exam - General Limitations: No Limitations General appearance: alert, in no apparent distress - Head Head exam: Present: atraumatic, normocephalic - Eye Eye exam: Present: normal appearance, EOMI - ENT ENT exam: Present: mucous membranes moist - Neck Neck exam: Present: normal inspection - Respiratory Respiratory exam: Present: normal lung sounds bilaterally. Absent: respiratory distress - Cardiovascular Cardiovascular Exam: Present: regular rate, normal rhythm - GI/Abdominal GI/Abdominal exam: Present: soft, hernia (right inguinal hernia, reducible on exam). Absent: distended - Extremities Exam Extremities exam: Present: normal inspection - Back Exam Back exam: Absent: CVA tenderness (R), vertebral tenderness - Neurological Exam Neurological exam: Present: alert, oriented X3 - Psychiatric Psychiatric exam: Present: normal affect, normal mood - Skin Skin exam: Present: warm, dry, intact, normal color ED Course Vital Signs 11/26/19 11/26/19 11/26/19 15:28 20:12 22:38 Temperature 98.5 F 98.1 F Pulse Rate 98 H 68 75 Respiratory 17 16 16 Rate Blood Pressure 140/82 Blood Pressure 173/80 150/90 [Left] O2 Sat by Pulse 96 98 98 Oximetry - Consultations Consultation #1: 11/26/19 22:30 Spoke w/ Dr Fairchild, recommends admission. Will see in the AM. Can PO challenge, if begins to vomit, place NG tube. ED Medical Decision Making - Lab Data Result diagrams: 11/26/19 15:48 11/26/19 15:48 - EKG Data -: EKG Interpreted by Me EKG shows normal: sinus rhythm, axis, intervals, QRS complexes, ST-T waves Rate: normal - EKG Data Interpretation: no acute changes - Radiology Data Radiology results: report reviewed, image reviewed - Medical Decision Making 58 yo M w/ incarcerated right inguinal hernia. Hernia is somewhat reducible on exam. Pt reports pain is much improved. Tolerated PO, so NG tube not placed. Spoke w/ Dr Fairchild. Will admit pt to ensure that hernia remains reducible and does not obstruct again. Will see pt in the AM. Pt will be admitted by Dr Byers, hospitalist, for further management. - Differential Diagnosis bowel obstruction, hernia Critical care attestation.: If time is entered above; I have spent that time in minutes in the direct care of this critically ill patient, excluding procedure time. ED Disposition Clinical Impression: Incarcerated right inguinal hernia Disposition: -09 OP ADMIT IP TO THIS HOSP Is pt being admited?: Yes Condition: Stable Time of Disposition: 22:32
[2019-11-26] MEDS ORDERED: SODIUM CHLORIDE 0.9% 1000 ML 1,000 ML IV ONE (20:09)
[2019-11-26] MEDS ORDERED: MORPHINE 2 MG/1 ML INJ IV ONE (20:09)
[2019-11-26] MEDS ORDERED: ONDANSETRON 4 MG/2 ML INJ IV ONE (20:09)
--- NOTE | 2019-11-26 21:46 | Cat Scan Report ---
CT of the abdomen and pelvis with contrast INDICATION: Right-sided pain COMPARISON: 03/26/2017 FINDINGS: Lung bases are clear. Liver, spleen, pancreas, adrenal glands and kidneys show no significa nt abnormalities with renal cysts incidentally noted. What appears be a gallbladder is grossly normal . No biliary tree abnormality. No fluid or adenopathy in the upper abdomen. CT of the pelvis shows right inguinal hernia containing fat which shows some induration suggesting fa t necrosis. In addition at the proximal aspect of the hernia at the entrance to the inguinal canal th ere is a bowel loop which appears to be obstructed. There are secondary dilated small bowel loops in the pelvis. Prostate is not significantly enlarged. There may be trace pelvic fluid. No adenopathy. A ppendix is seen and is normal. IMPRESSION: Moderate to large right inguinal hernia with apparent obstructed small bowel at the entra nce to the hernia sac. Automated exposure control was utilized to diminish radiation dose. Signer Name: Jose Alberto Flores MD Signed: 11/26/2019 9:41 PM Workstation Name: [id number]
[2019-11-26] MEDS ORDERED: MORPHINE 2 MG/1 ML INJ IV PRN (23:17)
[2019-11-26] MEDS ORDERED: ACETAMINOPHEN 325 MG TAB PO PRN (23:17)
[2019-11-26] MEDS ORDERED: ONDANSETRON 4 MG/2 ML INJ IV PRN (23:17)
[2019-11-26] MEDS ORDERED: SODIUM CHLORIDE 0.9% 1000 ML 1,000 ML IV SCH (23:30)
--- NOTE | 2019-11-26 23:38 | History and Physical Report ---
History of Present Illness Date of examination: 11/26/19 Date of admission: 11/26/2019 Chief complaint: Abdominal pain History of present illness: 58-year-old male with known history of right inguinal hernia for several years presenting to the emergency room today complaining of abdominal pain especially in the in the right groin. Patient denies any fever or chills, he has had some nausea and vomiting but denies any diarrhea or constipation. He denies any chest pain or shortness of breath. Patient indicates that his inguinal hernia has gotten bigger and has become painful in the last 24 to 48 hours. Upon arrival in the emergency room inguinal hernia was not quite reducible. CT scan of the abdomen and pelvis shows possible incarceration of the inguinal h ernia. Patient felt a little relieved after getting IV analgesic medication. General surgeon Dr. Fairchild was consulted and will be following up with patient Past History Past Medical History: COPD Past Surgical History: No surgical history Social history: smoking (Smokes about a pack of cigarette daily), alcohol abuse (Drinks alcohol on a daily basis), other (Uses marijuana occasionally) Family history: no significant family history Medications and Allergies Allergies Allergy/AdvReac Type Severity Reaction Status Date / Time No Known Allergies Allergy Verified 01/14/19 10:21 Home Medications Medication Instructions Recorded Confirmed Last Taken Type Nebulizer and Compressor [[place] 1 each MC TID PRN #1 each 01/14/19 06/28/19 Unknown Rx Choice Nebulizer] Albuterol Sulfate [Albuterol 0.63% 0.63 mg IH TID PRN #1 box 06/03/19 06/28/19 Unknown Rx NEBS] Folic Acid [Folvite] 1 mg PO DAILY #30 tablet 06/03/19 06/28/19 Unknown Rx Ipratropium [Atrovent NEB] 0.5 mg IH Q8HRT #1 box 06/03/19 06/28/19 Unknown Rx Multivitamin Tab W-MINERAL 1 each PO QDAY #30 tablet 06/03/19 06/28/19 Unknown Rx [Multiple Vitamin/Mineral (Theragran M)] Pantoprazole [Protonix] 40 mg PO QDAY #30 tablet 06/03/19 06/28/19 Unknown Rx Thiamine [Vitamin B-1] 100 mg PO QDAY #30 tablet 06/03/19 06/28/19 Unknown Rx Ibuprofen [Motrin 800 MG tab] 800 mg PO Q8HR PRN #15 tablet 08/25/19 Unknown Rx Active Meds: Active Medications Acetaminophen (Tylenol) 650 mg PO Q4H PRN PRN Reason: Pain MILD(1-3)/Fever >100.5/PATRICIO Sodium Chloride (Nacl 0.9% 1000 Ml) 1,000 mls @ 125 mls/hr IV DIRECT GATO Morphine Sulfate (Morphine) 2 mg IV Q4H PRN PRN Reason: Pain, Moderate (4-6) Ondansetron HCl (Zofran) 4 mg IV Q8H PRN PRN Reason: Nausea And Vomiting Sodium Chloride (Sodium Chloride Flush Syringe 10 Ml) 10 ml IV BID GATO Sodium Chloride (Sodium Chloride Flush Syringe 10 Ml) 10 ml IV PRN PRN PRN Reason: LINE FLUSH Review of Systems Constitutional: no fever, no chills Cardiovascular: no chest pain, no palpitations Respiratory: no cough, no shortness of breath Gastrointestinal: abdominal pain, nausea, vomiting, no diarrhea, no hematemesis, no BRBPR Genitourinary Male: no dysuria, no hematuria, no flank pain Musculoskeletal: low back pain, no neck pain Integumentary: no rash, no pruritis Neurological: no syncope, no headaches, no confusion Exam - Constitutional Vitals: Temp Pulse Resp BP Pulse Ox 98.1 F 75 16 150/90 98 11/26/19 20:12 11/26/19 22:38 11/26/19 22:38 11/26/19 22:38 11/26/19 22:38 General appearance: Present: no acute distress, well-nourished - EENT Eyes: Present: PERRL, EOM intact ENT: hearing intact, clear oral mucosa, dentition normal - Neck Neck: Present: supple, normal ROM - Respiratory Respiratory effort: normal Respiratory: bilateral: CTA - Cardiovascular Rhythm: regular Heart Sounds: Present: S1 & S2 - Extremities Extremities: no ischemia, pulses intact, pulses symmetrical, No edema, Full ROM Peripheral Pulses: within normal limits - Abdominal General gastrointestinal: Present: soft, tender (Mildly tender), non-distended, normal bowel sounds Male genitourinary: Present: normal, right inguinal hernia (Right inguinal hernia, slightly tender, not reducible) - Integumentary Integumentary: Present: clear, warm, dry - Musculoskeletal Musculoskeletal: strength equal bilaterally - Psychiatric Psychiatric: appropriate mood/affect, intact judgment & insight, cooperative - Neurologic Neurologic: CNII-XII intact, moves all extremities, other (Tremors in the right hand) HEART Score - HEART Score Troponin: Troponin T < 0.010 ng/mL (0.00-0.029) 11/26/19 22:47 Results - Labs CBC & Chem 7: 11/26/19 15:48 11/26/19 15:48 Labs: Abnormal lab results 11/26/19 11/26/19 11/26/19 Range/Units 15:45 15:48 15:48 MCV 105 H (84-94) fl MCH 36 H (28-32) pg MCHC 35 H (32-34) % RDW 12.7 L (13.2-15.2) % Lymph % (Auto) 9.4 L (13.4-35.0) % [place] % (Auto) 7.6 H (0.0-7.3) % Lymph # 0.9 L (1.2-5.4) K/mm3 Seg Neutrophils % 82.4 H (40.0-70.0) % Seg Neutrophils # 7.9 H (1.8-7.7) K/mm3 Sodium 136 L (137-145) mmol/L Chloride 95.9 L (98-107) mmol/L Carbon Dioxide 21 L (22-30) mmol/L Creatinine 0.6 L (0.8-1.5) mg/dL Glucose 123 H (75-100) mg/dL POC Glucose > 500 H (70-105) AST 47 H (5-40) units/L Alkaline Phosphatase 136 H (35-129) units/L 11/26/19 Range/Units 17:30 MCV (84-94) fl MCH (28-32) pg MCHC (32-34) % RDW (13.2-15.2) % Lymph % (Auto) (13.4-35.0) % [place] % (Auto) (0.0-7.3) % Lymph # (1.2-5.4) K/mm3 Seg Neutrophils % (40.0-70.0) % Seg Neutrophils # (1.8-7.7) K/mm3 Sodium (137-145) mmol/L Chloride (98-107) mmol/L Carbon Dioxide (22-30) mmol/L Creatinine (0.8-1.5) mg/dL Glucose (75-100) mg/dL POC Glucose 292 H (70-105) AST (5-40) units/L Alkaline Phosphatase (35-129) units/L Assessment and Plan - Patient Problems (1) Incarcerated right inguinal hernia Current Visit: Yes Status: Acute Plan to address problem: Patient admitted and made n.p.o. Will place on IV analgesic medication and await evaluation by general surgery. (2) Alcohol abuse Current Visit: Yes Status: Acute Plan to address problem: Patient states that he drinks alcohol almost on a daily basis and last alcohol intake was about 24 hours ago. Patient will be monitored for alcohol withdrawal symptoms. We will also place patient on thiamine and folic acid. (3) DVT prophylaxis Current Visit: No Status: Acute Plan to address problem: Patient has been placed on sequential compression device. (4) Full code status Current Visit: Yes Status: Acute
[2019-11-27 01:12] LABS: Bilirubin,Urine NEG (Negative); Blood,Urine NEG (Negative); Color,Urine Yellow (Yellow); Mucus,Urine FEW /HPF; Protein,Urine <15 mg/dL mg/dL (Negative)
[2019-11-27] MEDS ORDERED: LORazepam 2 MG/ML VIAL IV PRN ×2 (02:19)
[2019-11-27] MEDS ORDERED: THIAMINE 100 MG, FOLIC ACID 1 MG, MULTIPLE VITAMIN INJ, ADULT 10 ML in SODIUM CHLORIDE ... IV SCH (03:00)
[2019-11-27] MEDS ORDERED: 1: FOLIC ACID 1 MG, MULTIPLE VITAMIN INJ, ADULT 10 ML, THIAMINE 100 MG in SODIUM CHLORID IV SCH (03:00)
[2019-11-27 05:56] LABS: Basophils % (Auto) 0.5 % (0.0-1.8); Eosinophils # (Auto) 0.2 K/mm3 (0.0-0.4); Hematocrit 38.4 % (35.5-45.6); Hemoglobin 13.1 gm/dl (11.8-15.2); Lymphocytes # (Auto) 1.7 K/mm3 (1.2-5.4); Lymphocytes % (Auto) 28.2 % (13.4-35.0); Mean Corpuscular HGB Conc 34 % (32-34); Mean Corpuscular Volume 106 fl (84-94); Monocytes # (Auto) 0.8 K/mm3 (0.0-0.8); Monocytes % (Auto) 14.2 % (0.0-7.3); Platelet Count 167 K/mm3 (140-440); Red Blood Count 3.64 M/mm3 (3.65-5.03); Red Cell Distribution Width 12.8 % (13.2-15.2)
[2019-11-27 06:06] LABS: INR 0.91 (0.87-1.13)
[2019-11-27 07:05] LABS: BUN/Creatinine Ratio 20; Blood Urea Nitrogen 12 mg/dL (9-20); Calcium 8.8 mg/dL (8.4-10.2); Hemolysis Index 23
[2019-11-27] MEDS ORDERED: ALBUTEROL 2.5 MG/3 ML NEBU IH PRN (08:00)
--- NOTE | 2019-11-27 08:22 | XRay Report ---
ABDOMEN 1 VIEW(S) INDICATION / CLINICAL INFORMATION: psbo. COMPARISON: None available. FINDINGS: TUBES / LINES: None. BOWEL GAS PATTERN: No significant abnormality. FREE AIR / EXTRALUMINAL GAS: None seen. ADDITIONAL FINDINGS: Residual contrast is seen in the bladder. IMPRESSION: 1. No significant abnormality. There is no definite bowel obstruction seen currently. Signer Name: Jose Alberto Flores MD Signed: 11/27/2019 8:18 AM Workstation Name: [id number]
--- NOTE | 2019-11-27 08:37 | Consultation ---
History of Present Illness Consult date: 11/27/19 Reason for consult: abdominal pain Chief complaint: Abdominal and right groin pain - History of present illness History of present illness: 58-year-old male with a past medical history of COPD, alcohol dependence, tobacco dependence who presented to the emergency room with 1 day of right groin and abdominal pain, nausea, vomiting. Patient does not recall any inciting factors. The patient does have a history of a right inguinal hernia for at least the last 10 years. He states that he has thought about having it looked at by a physician however has not been seen by a surgeon. In the emergency ro om, the hernia was reduced, however CT scan of the abdomen and pelvis showed a loop of small intestine within the hernia with the possibility of a small bowel obstruction. After the CAT scan, once again, the ER physician was able to reduce the hernia. The patient immediately had relief. This morning, the patient states he feels much better. He feels that the hernia is much smaller than it usually is. He has no abdominal pain. No nausea or vomiting. He is passing flatus. His last bowel movement was yesterday. He states he is feeling very hungry and wants to eat. No fevers, chills, chest pain. Past History Past Medical History: COPD Past Surgical History: No surgical history Social history: smoking (Smokes about a pack of cigarette daily), alcohol abuse (Drinks alcohol on a daily basis), other (Uses marijuana occasionally) Family history: no significant family history Medications and Allergies Allergies Allergy/AdvReac Type Severity Reaction Status Date / Time No Known Allergies Allergy Verified 01/14/19 10:21 Home Medications Medication Instructions Recorded Confirmed Last Taken Type Nebulizer and Compressor [[place] 1 each MC TID PRN #1 each 01/14/19 06/28/19 Unknown Rx Choice Nebulizer] Albuterol Sulfate [Albuterol 0.63% 0.63 mg IH TID PRN #1 box 06/03/19 06/28/19 Unknown Rx NEBS] Folic Acid [Folvite] 1 mg PO DAILY #30 tablet 06/03/19 06/28/19 Unknown Rx Ipratropium [Atrovent NEB] 0.5 mg IH Q8HRT #1 box 06/03/19 06/28/19 Unknown Rx Multivitamin Tab W-MINERAL 1 each PO QDAY #30 tablet 06/03/19 06/28/19 Unknown Rx [Multiple Vitamin/Mineral (Theragran M)] Pantoprazole [Protonix] 40 mg PO QDAY #30 tablet 06/03/19 06/28/19 Unknown Rx Thiamine [Vitamin B-1] 100 mg PO QDAY #30 tablet 06/03/19 06/28/19 Unknown Rx Ibuprofen [Motrin 800 MG tab] 800 mg PO Q8HR PRN #15 tablet 08/25/19 Unknown Rx Active Meds: Active Medications Acetaminophen (Tylenol) 650 mg PO Q4H PRN PRN Reason: Pain MILD(1-3)/Fever >100.5/PATRICIO Albuterol (Proventil) 2.5 mg IH TIDRT PRN PRN Reason: Wheezing Last Admin: 11/27/19 08:09 Dose: 2.5 mg Documented by: Sodium Chloride (Nacl 0.9% 1000 Ml) 1,000 mls @ 75 mls/hr IV DIRECT GATO Thiamine HCl 100 mg/ Folic Acid 1 mg/ Multivitamins/Minerals 10 ml/ Sodium Chloride 1,011.2 mls @ 125 mls/hr IV Q24H GATO Last Admin: 11/27/19 04:00 Dose: 125 mls/hr Documented by: Lorazepam (Ativan) 2 mg IV Q1HR PRN PRN Reason: CIWA-Ar 8-15 Lorazepam (Ativan) 4 mg IV Q1HR PRN PRN Reason: CIWA-Ar 16-25 Morphine Sulfate (Morphine) 2 mg IV Q4H PRN PRN Reason: Pain, Moderate (4-6) Ondansetron HCl (Zofran) 4 mg IV Q8H PRN PRN Reason: Nausea And Vomiting Sodium Chloride (Sodium Chloride Flush Syringe 10 Ml) 10 ml IV BID GATO Sodium Chloride (Sodium Chloride Flush Syringe 10 Ml) 10 ml IV PRN PRN PRN Reason: LINE FLUSH Review of Systems All systems: negative (10 point review of systems was performed negative except for that listed in HPI) Exam Vital Signs Temp Pulse Resp BP Pulse Ox 98.5 F 98 H 17 140/82 96 11/26/19 15:28 11/26/19 15:28 11/26/19 15:28 11/26/19 15:28 11/26/19 15:28 Narrative exam: Gen.: Awake, alert, oriented 3. No apparent distress ENT: Trachea midline. No lymphadenopathy. No scleral icterus or conjunctival pallor. Very poor dentition CV: S1, S2 present Respiratory: No audible wheezes Abdomen: Soft, nondistended, nontender. No rebound, rigidity, guarding. Right inguinal hernia which is soft, nontender, reducible. After reduction, the hernia does bulge back out but can easily be reduced again. No skin changes. Extremities: No clubbing, cyanosis, edema Results - Labs 11/27/19 05:39 11/27/19 05:39 Abnormal lab results 11/26/19 11/26/19 11/26/19 Range/Units 15:45 15:48 15:48 RBC (3.65-5.03) M/mm3 MCV 105 H (84-94) fl MCH 36 H (28-32) pg MCHC 35 H (32-34) % RDW 12.7 L (13.2-15.2) % Lymph % (Auto) 9.4 L (13.4-35.0) % [place] % (Auto) 7.6 H (0.0-7.3) % Lymph # 0.9 L (1.2-5.4) K/mm3 Seg Neutrophils % 82.4 H (40.0-70.0) % Seg Neutrophils # 7.9 H (1.8-7.7) K/mm3 PT (12.2-14.9) Sec. Sodium 136 L (137-145) mmol/L Chloride 95.9 L (98-107) mmol/L Carbon Dioxide 21 L (22-30) mmol/L Creatinine 0.6 L (0.8-1.5) mg/dL Glucose 123 H (75-100) mg/dL POC Glucose > 500 H (70-105) AST 47 H (5-40) units/L Alkaline Phosphatase 136 H (35-129) units/L Ur Specific [place] (1.003-1.030) 11/26/19 11/26/19 11/27/19 Range/Units 17:30 22:38 05:39 RBC 3.64 L (3.65-5.03) M/mm3 MCV 106 H (84-94) fl MCH 36 H (28-32) pg MCHC (32-34) % RDW 12.8 L (13.2-15.2) % Lymph % (Auto) (13.4-35.0) % [place] % (Auto) 14.2 H (0.0-7.3) % Lymph # (1.2-5.4) K/mm3 Seg Neutrophils % (40.0-70.0) % Seg Neutrophils # (1.8-7.7) K/mm3 PT (12.2-14.9) Sec. Sodium (137-145) mmol/L Chloride (98-107) mmol/L Carbon Dioxide (22-30) mmol/L Creatinine (0.8-1.5) mg/dL Glucose (75-100) mg/dL POC Glucose 292 H (70-105) AST (5-40) units/L Alkaline Phosphatase (35-129) units/L Ur Specific [place] > 1.059 H (1.003-1.030) 11/27/19 11/27/19 Range/Units 05:39 05:39 RBC (3.65-5.03) M/mm3 MCV (84-94) fl MCH (28-32) pg MCHC (32-34) % RDW (13.2-15.2) % Lymph % (Auto) (13.4-35.0) % [place] % (Auto) (0.0-7.3) % Lymph # (1.2-5.4) K/mm3 Seg Neutrophils % (40.0-70.0) % Seg Neutrophils # (1.8-7.7) K/mm3 PT 12.1 L (12.2-14.9) Sec. Sodium (137-145) mmol/L Chloride (98-107) mmol/L Carbon Dioxide (22-30) mmol/L Creatinine 0.6 L (0.8-1.5) mg/dL Glucose (75-100) mg/dL POC Glucose (70-105) AST (5-40) units/L Alkaline Phosphatase (35-129) units/L Ur Specific [place] (1.003-1.030) Diabetes panel 11/26/19 11/27/19 Range/Units 15:48 05:39 Sodium 136 L 138 (137-145) mmol/L Potassium 4.5 4.0 (3.6-5.0) mmol/L Chloride 95.9 L 99.5 (98-107) mmol/L Carbon Dioxide 21 L 27 (22-30) mmol/L BUN 10 12 (9-20) mg/dL Creatinine 0.6 L 0.6 L (0.8-1.5) mg/dL Glucose 123 H 80 (75-100) mg/dL Calcium 9.5 8.8 (8.4-10.2) mg/dL AST 47 H (5-40) units/L ALT 27 (7-56) units/L Alkaline Phosphatase 136 H (35-129) units/L Total Protein 7.6 (6.3-8.2) g/dL Albumin 4.2 (3.9-5) g/dL Calcium panel 11/26/19 11/27/19 Range/Units 15:48 05:39 Calcium 9.5 8.8 (8.4-10.2) mg/dL Albumin 4.2 (3.9-5) g/dL Pituitary panel 11/26/19 11/27/19 Range/Units 15:48 05:39 Sodium 136 L 138 (137-145) mmol/L Potassium 4.5 4.0 (3.6-5.0) mmol/L Chloride 95.9 L 99.5 (98-107) mmol/L Carbon Dioxide 21 L 27 (22-30) mmol/L BUN 10 12 (9-20) mg/dL Creatinine 0.6 L 0.6 L (0.8-1.5) mg/dL Glucose 123 H 80 (75-100) mg/dL Calcium 9.5 8.8 (8.4-10.2) mg/dL Adrenal panel 11/26/19 11/27/19 Range/Units 15:48 05:39 Sodium 136 L 138 (137-145) mmol/L Potassium 4.5 4.0 (3.6-5.0) mmol/L Chloride 95.9 L 99.5 (98-107) mmol/L Carbon Dioxide 21 L 27 (22-30) mmol/L BUN 10 12 (9-20) mg/dL Creatinine 0.6 L 0.6 L (0.8-1.5) mg/dL Glucose 123 H 80 (75-100) mg/dL Calcium 9.5 8.8 (8.4-10.2) mg/dL Total Bilirubin 0.50 (0.1-1.2) mg/dL AST 47 H (5-40) units/L ALT 27 (7-56) units/L Alkaline Phosphatase 136 H (35-129) units/L Total Protein 7.6 (6.3-8.2) g/dL Albumin 4.2 (3.9-5) g/dL - Imaging CT scan - abdomen: report reviewed, image reviewed CT scan - pelvis: report reviewed, image reviewed Assessment and Plan 58-year-old male with incarcerated right inguinal hernia Patient is stable. After reduction of the hernia, his clinical symptoms are muc h improved and his pain, nausea, vomiting is completely resolved. KUB 11/27/19 - no obstruction Plan: 1. Start regular diet 2. Decrease IV fluids 3. I discussed my recommendation for inguinal hernia repair with the patient. I explained that as the hernia is been present for so long, the small bowel contained within it is incarcerated and could once again become obstructed. I recommended to the patient that the hernia repair be performed prior to discharge. The patient states that he is feeling better and he will have to think about having surgery, at this time he is uncertain that he wants to proceed with surgical intervention. If the patient is agreeable to surgery, we will schedule him for the OR this week. If the patient does not want surgery at this time, and he tolerates a regular diet, he may be discharged to home with outpatient follow-up in the surgery clinic. Thank you, please call with questions.
[2019-11-27 16:19] VITALS: BP 129/72
--- NOTE | 2019-11-27 16:54 | Discharge Summary ---
Providers - Providers Date of Admission: 11/26/19 23:07 Date of discharge: 11/27/19 Attending physician: HUSSEIN VILLELA 11/26/19 22:22 Consult to Physician [CONS] Stat Comment: Consulting Provider: DANIELLE JIMENEZ Physician Instructions: Reason For Exam: incarcerated hernia Primary care physician: MANAGER SAFE Hospitalization Condition: Stable Hospital course: 58-year-old male with a past medical history of COPD, alcohol dependence, tobacco dependence who presented to the emergency room with 1 day of right groin and abdominal pain, nausea, vomiting. Patient does not recall any inciting factors. The patient does have a history of a right inguinal hernia for at least the last 10 years. He states that he has thought about having it looked at by a physician however has not been seen by a surgeon. In the emergency room, the hernia was reduced, however CT scan of the abdomen and pelvis showed a loop of small intestine within the hernia with the possibility of a small bowel obstruction. After the CAT scan, once again, the ER physician was able to reduce the hernia. The patient immediately had relief. This morning, the patient states he feels much better. He feels that the hernia is much smaller than it usually is. He has no abdominal pain. No nausea or vomiting. He is passing flatus. His last bowel movement was yesterday. He states he is feeling very hungry and wants to eat. No fevers, chills, chest pain. Past History Past Medical History: COPD Past Surgical History: No surgical history Social history: smoking (Smokes about a pack of cigarette daily), alcohol abuse (Drinks alcohol on a daily basis), other (Uses marijuana occasionally) Family history: no significant family history Assessment and Plan 58-year-old male with incarcerated right inguinal hernia Patient is stable. After reduction of the hernia, his clinical symptoms are much improved and his pain, nausea, vomiting is completely resolved. Wants to get surgery after a few weeks. KUB 11/27/19 - no obstruction Plan: 1. Started regular diet 2. D/c IV fluids 3. Recommendation for inguinal hernia repair. Explained that as the hernia is been present for so long, the small bowel contained within it is incarcerated and could once again become obstructed. Recommended to the patient that the hernia repair be performed prior to discharge. The patient states that he is feeling better and he will have to think about having surgery, at this time he is uncertain that he wants to proceed with surgical intervention. Patient to be discharged home F/u with surgery as outpatient Disposition: DC-01 TO HOME OR SELFCARE Time spent for discharge: 30 Core Measure Documentation - Palliative Care Palliative Care/ Comfort Measures: Not Applicable - Core Measures Any of the following diagnoses?: none Exam - Constitutional Vitals: Temp Pulse Resp BP Pulse Ox 98.8 F 65 18 129/72 98 11/27/19 16:18 11/27/19 16:18 11/27/19 16:18 11/27/19 16:18 11/27/19 16:18 General appearance: Present: no acute distress, well-nourished - EENT Eyes: Present: PERRL ENT: hearing intact, clear oral mucosa - Neck Neck: Present: supple, normal ROM - Respiratory Respiratory effort: normal Respiratory: bilateral: CTA - Cardiovascular Heart rate: 78 Rhythm: regular Heart Sounds: Present: S1 & S2. Absent: rub, click - Extremities Extremities: no ischemia, pulses intact, pulses symmetrical, No edema Peripheral Pulses: within normal limits - Abdominal General gastrointestinal: Present: soft, non-tender, non-distended, normal bowel sounds Male genitourinary: Present: normal - Integumentary Integumentary: Present: clear, warm, dry - Musculoskeletal Musculoskeletal: gait normal, strength equal bilaterally - Psychiatric Psychiatric: appropriate mood/affect, intact judgment & insight - Neurologic Neurologic: CNII-XII intact, moves all extremities - Allied Health Allied health notes reviewed: nursing, case management Plan Activity: no restrictions Diet: regular Follow up with: PRIMARY CARE, [Primary Care Provider] - 3-5 Days DANIELLE JIMENEZ DO [Staff Physician] - 7 Days
[2019-11-28] MEDS ORDERED: THIAMINE 100 MG TAB PO SCH (10:00)
[2019-11-28] MEDS ORDERED: MULTIVITAMINS ,THERAPEUTIC TAB PO SCH (10:00)
[2019-11-28] MEDS ORDERED: FOLIC ACID 1 MG TAB PO SCH (10:00)
== END 2019-11-27 18:15 | disposition home or self-care (01) ==
LOC: ED 14:57 → 3B-SURG 23:07
PROVIDERS: ADMIT Internal Medicine Geriatric Medicine; ATTEND Internal Medicine
DX: K40.30 Unilateral inguinal hernia, with obstruction, without gangrene, not specified as recurrent (principal); R11.2 Nausea with vomiting, unspecified; J44.9 Chronic obstructive pulmonary disease, unspecified; F10.10 Alcohol abuse, uncomplicated; F17.210 Nicotine dependence, cigarettes, uncomplicated; Z79.51 Long term (current) use of inhaled steroids; Z79.899 Other long term (current) drug therapy
CPT/HCPCS: 36415; 71046; 74018; 74177; 80048; 80053; 81001; 82805; 82962; 83690; 84484; 85025; 85610; 93005; 94640; 96361; 96365; 96366; 96375; 99285; G0378; J2270; J2405; J3411; J7030; Q9967

== ENCOUNTER 2020-02-02 21:40 | Observation (INO) | payer OTHER, SELFPAY ==
[2020-02-02] MEDS ORDERED: dexAMETHasone 20 MG/5 ML VIAL IV ONE (22:46)
[2020-02-02] MEDS ORDERED: IPRATROPIUM/ALBUTEROL SULFATE 3 ML AMPUL.NEB IH ONE (22:46)
[2020-02-02] MEDS ORDERED: ASPIRIN 325 MG TAB PO ONE (22:46)
--- NOTE | 2020-02-02 22:52 | Emergency Department Report ---
ED Shortness of Breath HPI - General Chief Complaint: Dyspnea/Respdistress Stated Complaint: /ABD PAIN Source: patient, EMS Mode of arrival: Stretcher Limitations: No Limitations - History of Present Illness Initial Comments: Patient is a 59-year-old white male with a history of heavy tobacco abuse, alcohol abuse, COPD, asthma, hypertension and CHF who presents to the ED via EMS with complaint of acute onset persistent intermittent left-sided chest pain and shortness of breath for the last 2 weeks, worse in the last 2 days. Patient states that the chest pain is sharp, pressure-like and intermittent. Patient also complains of epigastric pain, nausea and vomiting but admits to regular daily heavy alcohol abuse the last time of which was 4 hours prior to arrival in the ED. Patient states that he has not eaten food for over 1 month but has been drinking alcohol every day. Patient states that the pain in her chest feels like what he felt when he had to get a chest tube insertion in her left chest wall about 1 month ago after he developed pneumothorax. Patient denies fever, chills, cough, dizziness, syncope, palpitations, change in vision, seizures, diarrhea, sore throat, nasal and sinus congestion or traumatic injury or heavy lifting. MD Complaint: shortness of breath, cough, chest pain (left-sided), pain with inspiration -: Sudden, week(s) (2) Radiation: other (nausea and vomiting; epigastric pain) Severity: moderate Pain Scale: 6 Quality: aching, sharp Consistency: intermittent Improves With: nothing Worsens With: exertion, movement, coughing Known History Of: COPD, asthma, other (chronic alcohol abuse) Context: choking/aspiration, smoke/fume exposure Associated Symptoms: denies other symptoms, chest pain, pain with inspiration, cough, sputum production, nausea/vomiting, abdominal pain Treatments Prior to Arrival: none - Related Data Home Oxygen Therapy: No Previous Rx's Medication Instructions Recorded Last Taken Type Albuterol Sulfate [Albuterol 0.63% 0.63 mg IH TID PRN #1 box 06/03/19 Unknown Rx NEBS] Multivitamin Tab W-MINER[place] 1 each PO QDAY #30 tablet 06/03/19 Unknown Rx [Multiple Vitamin/Mineral (Theragran M)] Folic Acid [Folvite] 1 mg PO DAILY #30 tablet 11/27/19 Unknown Rx Ibuprofen [Motrin 800 MG tab] 800 mg PO Q8HR PRN #15 tablet 11/27/19 Unknown Rx Ipratropium [Atrovent NEB] 0.5 mg IH Q8HRT #1 box 11/27/19 Unknown Rx Nebulizer and Compressor [[place] 1 each MC TID PRN #1 each 11/27/19 Unknown Rx Choice Nebulizer] Pantoprazole [Protonix TAB] 40 mg PO QDAY 30 Days #30 tablet 11/27/19 Unknown Rx Thiamine [Vitamin B-1] 100 mg PO QDAY 30 Days #30 11/27/19 Unknown Rx Allergies Allergy/AdvReac Type Severity Reaction Status Date / Time No Known Allergies Allergy Verified 01/14/19 10:21 ED Review of Systems ROS: Stated complaint: /ABD PAIN Other details as noted in HPI Constitutional: denies: chills, fever Eyes: denies: eye pain, eye discharge, vision change ENT: denies: ear pain, throat pain, congestion Respiratory: cough, shortness of breath, wheezing Cardiovascular: chest pain (left-sided). denies: palpitations Endocrine: no symptoms reported Gastrointestinal: abdominal pain (epigastric), nausea, vomiting. denies: diarrh ea, constipation, hematemesis, melena, hematochezia Genitourinary: denies: urgency, dysuria Musculoskeletal: denies: back pain, joint swelling, arthralgia Skin: denies: rash, lesions Neurological: denies: headache, weakness, paresthesias Psychiatric: denies: anxiety, depression Hematological/Lymphatic: denies: easy bleeding, easy bruising ED Past Medical Hx - Past Medical History Previous Medical History?: Yes Hx Hypertension: Yes Hx CVA: (BRONCHITIS) Hx Heart Attack/AMI: No Hx Congestive Heart Failure: Yes Hx Asthma: Yes Hx COPD: Yes Hx HIV: No Additional medical history: hernia - Surgical History Past Surgical History?: Yes Additional Surgical History: LEFT FEMUR FRACTURE, chest tube insertion - Social History Smoking Status: Current Every Day Smoker Substance Use Type: Alcohol - Medications Home Medications: Home Medications Medication Instructions Recorded Confirmed Last Taken Type Albuterol Sulfate [Albuterol 0.63% 0.63 mg IH TID PRN #1 box 06/03/19 01/11/20 Unknown Rx NEBS] Multivitamin Tab W-MINER[place] 1 each PO QDAY #30 tablet 06/03/19 01/11/20 Unknown Rx [Multiple Vitamin/Mineral (Theragran M)] Folic Acid [Folvite] 1 mg PO DAILY #30 tablet 11/27/19 01/11/20 Unknown Rx Ibuprofen [Motrin 800 MG tab] 800 mg PO Q8HR PRN #15 tablet 11/27/19 01/11/20 Unknown Rx Ipratropium [Atrovent NEB] 0.5 mg IH Q8HRT #1 box 11/27/19 01/11/20 Unknown Rx Nebulizer and Compressor [[place] 1 each MC TID PRN #1 each 11/27/19 01/11/20 Unknown Rx Choice Nebulizer] Pantoprazole [Protonix TAB] 40 mg PO QDAY 30 Days #30 tablet 11/27/19 01/11/20 Unknown Rx Thiamine [Vitamin B-1] 100 mg PO QDAY 30 Days #30 11/27/19 01/11/20 Unknown Rx ED Physical Exam - General Limitations: No Limitations General appearance: alert, in no apparent distress, anxious, cachectic - Head Head exam: Present: atraumatic, normocephalic, normal inspection - Eye Eye exam: Present: normal appearance, PERRL, EOMI Pupils: Present: normal accommodation - ENT ENT exam: Present: normal exam, normal orophraynx, mucous membranes moist, TM's normal bilaterally, normal external ear exam - Neck Neck exam: Present: normal inspection, full ROM. Absent: tenderness, meningismus, lymphadenopathy, thyromegaly - Respiratory Respiratory exam: Present: wheezes (Mildly diffuse coarse wheezes throughout). Absent: respiratory distress, rales, rhonchi, chest wall tenderness, accessory muscle use, decreased breath sounds, prolonged expiratory - Cardiovascular Cardiovascular Exam: Present: regular rate, normal rhythm, normal heart sounds. Absent: systolic murmur, diastolic murmur, rubs, gallop - GI/Abdominal GI/Abdominal exam: Present: soft, tenderness (epigastric pain), normal bowel sounds. Absent: guarding, rebound, hyperactive bowel sounds, hypoactive bowel sounds, organomegaly - Extremities Exam Extremities exam: Present: normal inspection, full ROM, normal capillary refill - Back Exam Back exam: Present: normal inspection, full ROM. Absent: tenderness, CVA tenderness (R), CVA tenderness (L), muscle spasm, paraspinal tenderness, vertebral tenderness - Neurological Exam Neurological exam: Present: alert, oriented X3, CN II-XII intact, normal gait, reflexes normal - Psychiatric Psychiatric exam: Present: normal affect, normal mood - Skin Skin exam: Present: warm, dry, intact, normal color. Absent: rash ED Course Vital Signs 02/02/20 02/02/20 02/02/20 22:00 22:06 22:10 Temperature 98.2 F Pulse Rate 99 H Respiratory 18 18 Rate Blood Pressure Blood Pressure 131/79 [Right] O2 Sat by Pulse 97 97 Oximetry 02/02/20 02/02/20 02/02/20 22:15 22:30 22:45 Temperature Pulse Rate 95 H 89 90 Respiratory 18 22 21 Rate Blood Pressure 126/80 123/78 128/77 Blood Pressure [Right] O2 Sat by Pulse 99 100 100 Oximetry ED Medical Decision Making - Lab Data Result diagrams: 02/02/20 23:38 02/02/20 23:38 - EKG Data EKG shows normal: sinus rhythm Rate: normal - EKG Data Interpretation: normal EKG 02/03/20 01:15 EKG shows normal sinus rhythm with a ventricular rate of [address] or T wave abnormalities. - Radiology Data Radiology results: report reviewed, image reviewed - Medical Decision Making This is a 59-year-old white male with a history of heavy tobacco abuse, alcohol abuse, COPD, asthma, hypertension and CHF who presents to the ED via EMS with complaint of acute onset persistent intermittent left-sided chest pain and s hortness of breath for the last 2 weeks, worse in the last 2 days. Patient states that the chest pain is sharp, pressure-like and intermittent. Patient also complains of epigastric pain, nausea and vomiting but admits to regular daily heavy alcohol abuse the last time of which was 4 hours prior to arrival in the ED. Patient states that he has not eaten food for over 1 month but has been drinking alcohol every day. Patient states that the pain in her chest feels like what he felt when he had to get a chest tube insertion in her left chest wall about 1 month ago after he developed pneumothorax. In the ED, patient is alert and oriented x3 and is not in distress. Vital signs are stable. Lab test results were reviewed and showed except for AST of 56 and alk phos of 131. The rest of the lab test results including the initial troponin level was nonactionable. Chest x-ray showed no acute cardiopulmonary abnormalities or pneumonitis. EKG shows normal sinus rhythm with a ventricular rate of [address] or T wave abnormalities. The patient's heart score is 4, patient is PERC negative per Wells criteria. Patient was treated for pain in the ED, also treated for nausea and vomiting and was given a meal tray in the ED. On reevaluation, patient still complains of chest pain despite being treated with aspirin and GI cocktail. Given the patient's history and cardiac risk factors, patient care was discussed with the ED attending physician Dr. Newman who agreed with plan of care to admit the patient to the hospital for further cardiac work-up. I also paged and discussed the patient's case with Dr. Byers, the Hospitalist physician psychosocial rehabilitation counselor who admitted the patient to the [facility]. - Differential Diagnosis CAD; Pneumonia; CHF; COPD; COVID-19 Critical care attestation.: If time is entered above; I have spent that time in minutes in the direct care of this critically ill patient, excluding procedure time. ED Disposition Clinical Impression: Increasing shortness of breath, Intermittent left-sided chest pain, Nausea and vomiting in adult, Chronic alcohol abuse, Continuous tobacco abuse, Continuous epigastric pain Disposition: 09 OP ADMIT IP TO THIS HOSP Is pt being admited?: Yes Does the pt Need Aspirin: No Condition: Stable Instructions: Chest Pain (ED) Time of Disposition: 01:17 Print Language: [place]
[2020-02-02] MEDS ORDERED: ALUM-MAG HYDROXIDE-SIMETHICONE 200-200-20MG/5ML ORAL LIQD 30 ML PO ONE (22:55)
[2020-02-02] MEDS ORDERED: FAMOTIDINE 20 MG/2 ML INJ IV ONE (22:55)
[2020-02-02] MEDS ORDERED: LIDOCAINE VISCOUS 2% 15 ML ORAL LIQD PO ONE (22:55)
[2020-02-02] MEDS ORDERED: ONDANSETRON 4 MG/2 ML INJ IV ONE (22:57)
--- NOTE | 2020-02-02 23:41 | XRay Report ---
CHEST 1 VIEW [id number] INDICATION / CLINICAL INFORMATION: CHEST PAIN, COUGH COMPARISON: 01/16/2020 FINDINGS: SUPPORT DEVICES: None HEART / MEDIASTINUM: No significant abnormality. LUNGS / PLEURA: Chronic changes are again noted. No definite acute infiltrates are seen. No pneumotho rax. ADDITIONAL FINDINGS: No significant additional findings. IMPRESSION: No significant acute abnormality Signer Name: Neri Tuttle MD Signed: 02/02/2020 11:37 PM Workstation Name: [id number]
[2020-02-03] LABS: Basophils # (Auto) 0.1 K/mm3 (0.0-0.1); Basophils % (Auto) 1.2 % (0.0-1.8); Eosinophils # (Auto) 0.2 K/mm3 (0.0-0.4); Eosinophils % (Auto) 3.5 % (0.0-4.3); Lymphocytes % (Auto) 37.1 % (13.4-35.0); Mean Corpuscular HGB Conc 36 % (32-34); Mean Corpuscular Volume 103 fl (84-94); Monocytes # (Auto) 0.4 K/mm3 (0.0-0.8); Monocytes % (Auto) 8.3 % (0.0-7.3); Platelet Count 161 K/mm3 (140-440); Red Blood Count 3.68 M/mm3 (3.65-5.03); Red Cell Distribution Width 14.1 % (13.2-15.2)
[2020-02-03 00:15] LABS: Alanine Aminotransferase 27 units/L (7-56); Albumin 3.8 g/dL (3.9-5); Blood Urea Nitrogen 7 mg/dL (9-20); Calcium 8.5 mg/dL (8.4-10.2); Hemolysis Index 11
[2020-02-03 00:16] LABS: BUN/Creatinine Ratio 12
[2020-02-03 00:19] LABS: Hemoglobin 13.7 gm/dl (11.8-15.2)
[2020-02-03 00:25] LABS: INR 0.89 (0.87-1.13)
[2020-02-03] MEDS ORDERED: NITROGLYCERIN 0.4 MG TAB SUBL SL PRN (02:44)
[2020-02-03] MEDS ORDERED: MORPHINE 2 MG/1 ML INJ IV PRN (02:44)
[2020-02-03] MEDS ORDERED: ONDANSETRON 4 MG/2 ML INJ IV PRN (02:44)
[2020-02-03] MEDS ORDERED: MAGNESIUM HYDROXIDE (MOM) ORAL LIQD UDC PO PRN (02:44)
--- NOTE | 2020-02-03 02:56 | History and Physical Report ---
History of Present Illness Date of examination: 02/03/20 Date of admission: 02/03/2020 Chief complaint: Chest Pain History of present illness: 59-year-old white male with known history of hypertension, CHF, COPD, tobacco and alcohol abuse presents to the emergency room today complaining of left-sided chest pain which has been ongoing for about 2 weeks. Chest pain has been intermittent, sharp and at times feels like pressure . He has had associated nausea and vomiting with some epigastric discomfort. He has also had some shortness of breath and mild cough. He denies any fever or chills, no headache or dizziness. He denies any sick contacts and no recent travel. No history of contact with anyone with COVID-19. Patient drinks alcohol on a daily basis and drank a few hours prior to reporting to the emergency room. He was seen here in the emergency room about a month ago when he developed pneumothorax and had a chest tube placement. Indicates that the pain he feels today is also similar to what he felt about a month ago. Past History Past Medical History: COPD, heart failure, hypertension Past Surgical History: hernia repair, Other (History of chest tube insertion, history of left femur fracture) Social history: smoking (Current daily smoker) Family history: no significant family history Medications and Allergies Allergies Allergy/AdvReac Type Severity Reaction Status Date / Time No Known Allergies Allergy Verified 01/14/19 10:21 Home Medications Medication Instructions Recorded Confirmed Last Taken Type Albuterol Sulfate [Albuterol 0.63% 0.63 mg IH TID PRN #1 box 06/03/19 02/03/20 Unknown Rx NEBS] Multivitamin Tab W-MINERAL 1 each PO QDAY #30 tablet 06/03/19 02/03/20 Unknown Rx [Multiple Vitamin/Mineral (Theragran M)] Folic Acid [Folvite] 1 mg PO DAILY #30 tablet 11/27/19 02/03/20 Unknown Rx Ibuprofen [Motrin 800 MG tab] 800 mg PO Q8HR PRN #15 tablet 11/27/19 02/03/20 Unknown Rx Ipratropium [Atrovent NEB] 0.5 mg IH Q8HRT #1 box 11/27/19 02/03/20 Unknown Rx Nebulizer and Compressor [[place] 1 each MC TID PRN #1 each 11/27/19 02/03/20 Unknown Rx Choice Nebulizer] Pantoprazole [Protonix TAB] 40 mg PO QDAY 30 Days #30 tablet 11/27/19 02/03/20 Unknown Rx Thiamine [Vitamin B-1] 100 mg PO QDAY 30 Days #30 11/27/19 02/03/20 Unknown Rx Review of Systems Constitutional: no fever, no chills Ears, nose, mouth and throat: no nasal congestion, no sore throat Cardiovascular: chest pain, no palpitations Respiratory: no cough, no shortness of breath Gastrointestinal: no abdominal pain, no nausea, no vomiting, no diarrhea Genitourinary Male: no dysuria, no hematuria, no flank pain Musculoskeletal: no neck pain, no low back pain Integumentary: no rash, no pruritis Neurological: no headaches, no confusion Psychiatric: no anxiety, no depression Exam - Constitutional Vitals: Temp Pulse Resp BP Pulse Ox 98.2 F 90 21 128/77 100 02/02/20 22:10 02/02/20 22:45 02/02/20 22:45 02/02/20 22:45 02/02/20 22:45 General appearance: Present: no acute distress, well-nourished - EENT Eyes: Present: PERRL, EOM intact ENT: hearing intact, clear oral mucosa, dentition normal - Neck Neck: Present: supple, normal ROM - Respiratory Respiratory effort: normal Respiratory: bilateral: CTA - Cardiovascular Rhythm: regular Heart Sounds: Present: S1 & S2. Absent: gallop, systolic murmur, diastolic murmur, rub, click - Extremities Extremities: no ischemia, pulses intact, pulses symmetrical, No edema, Full ROM Peripheral Pulses: within normal limits - Abdominal General gastrointestinal: Present: soft, non-tender, non-distended, normal bowel sounds. Absent: mass - Integumentary Integumentary: Present: clear, warm, dry. Absent: rash - Musculoskeletal Musculoskeletal: strength equal bilaterally - Psychiatric Psychiatric: appropriate mood/affect, intact judgment & insight, memory intact, cooperative - Neurologic Neurologic: CNII-XII intact, no focal deficits, moves all extremities HEART Score - HEART Score Troponin: Troponin T < 0.010 ng/mL (0.00-0.029) 02/02/20 23:38 Results - Labs CBC & Chem 7: 02/03/20 03:22 02/03/20 02:44 Labs: Abnormal lab results 02/02/20 02/02/20 02/02/20 Range/Units 23:38 23:38 23:38 MCV 103 H (84-94) fl MCH 37 H (28-32) pg MCHC 36 H (32-34) % Lymph % (Auto) 37.1 H (13.4-35.0) % [place] % (Auto) 8.3 H (0.0-7.3) % PT 12.1 L (12.2-14.9) Sec. Carbon Dioxide 20 L (22-30) mmol/L BUN 7 L (9-20) mg/dL Creatinine 0.6 L (0.8-1.3) mg/dL AST 56 H (5-40) units/L Alkaline Phosphatase 131 H (35-129) units/L Albumin 3.8 L (3.9-5) g/dL Assessment and Plan - Patient Problems (1) Chest pain Current Visit: No Status: Acute Qualifiers: Chest pain type: other chest pain Qualified Code(s): R07.89 - Other chest pain; R07.8 - Other chest pain Plan to address problem: Patient admitted and placed on telemetry. Will check serial cardiac enzymes. Patient placed on daily aspirin, sublingual nitroglycerin and IV morphine as needed for chest pain. He will be scheduled for stress test. (2) DVT prophylaxis Current Visit: No Status: Acute Plan to address problem: Patient placed on subcutaneous heparin (3) Full code status Current Visit: No Status: Acute (4) Alcohol abuse Current Visit: No Status: Acute Plan to address problem: Patient drinks almost on a daily basis. Will monitor for alcohol withdrawal during this admission. (5) Nicotine dependence Current Visit: No Status: Acute Qualifiers: Nicotine product type: cigarettes Substance use status: in withdrawal Qualified Code(s): F17.213 - Nicotine dependence, cigarettes, with withdrawal Plan to address problem: Patient counseled on quitting tobacco use.
[2020-02-03 03:33] LABS: Blood Urea Nitrogen 8 mg/dL (9-20); Calcium 8.6 mg/dL (8.4-10.2); Hemolysis Index 6
[2020-02-03 03:34] LABS: BUN/Creatinine Ratio 13
[2020-02-03 03:41] LABS: Basophils % (Auto) 0.2 % (0.0-1.8); Eosinophils % (Auto) 0.3 % (0.0-4.3); Hematocrit 38.2 % (35.5-45.6); Lymphocytes # (Auto) 0.4 K/mm3 (1.2-5.4); Lymphocytes % (Auto) 12.8 % (13.4-35.0); Mean Corpuscular HGB Conc 34 % (32-34); Mean Corpuscular Volume 105 fl (84-94); Monocytes % (Auto) 0.8 % (0.0-7.3); Platelet Count 148 K/mm3 (140-440); Red Blood Count 3.65 M/mm3 (3.65-5.03); Red Cell Distribution Width 14.4 % (13.2-15.2)
[2020-02-03] MEDS ORDERED: REGADENOSON 0.4 MG/5 ML INJ IV ONE ×2 (10:51→10:52)
--- NOTE | 2020-02-03 11:03 | Consultation ---
History of Present Illness Consult date: 02/03/20 Consult reason: chest pain History of present illness: This is a 59 year old man who presented to the hospital with chest pain. His chest pain was poorly characterized. Denies chest pain on exertion. Of note, patient was hospitalized at this hospital a month ago with left pneumothorax. A chest x-ray this presentation is negative. No pneumothorax. An ECG was sinus with no ST or T wave abnormalities. Cycled troponin T are normal thus far. He w as admitted by the hospitalist team and ordered to have a thallium stress test today. Patient denies prior cardiac history and had no recent cardiac workup. Co- morbidities include COPD, chronic tobacco abuse. Past History Past Medical History: COPD, heart failure, hypertension Past Surgical History: hernia repair, Other (History of chest tube insertion, history of left femur fracture) Social history: smoking (Current daily smoker) Family history: no significant family history Medications and Allergies Allergies Allergy/AdvReac Type Severity Reaction Status Date / Time No Known Allergies Allergy Verified 01/14/19 10:21 Home Medications Medication Instructions Recorded Confirmed Last Taken Type Albuterol Sulfate [Albuterol 0.63% 0.63 mg IH TID PRN #1 box 06/03/19 02/03/20 Unknown Rx NEBS] Multivitamin Tab W-MINERAL 1 each PO QDAY #30 tablet 06/03/19 02/03/20 Unknown Rx [Multiple Vitamin/Mineral (Theragran M)] Folic Acid [Folvite] 1 mg PO DAILY #30 tablet 11/27/19 02/03/20 Unknown Rx Ibuprofen [Motrin 800 MG tab] 800 mg PO Q8HR PRN #15 tablet 11/27/19 02/03/20 Unknown Rx Ipratropium [Atrovent NEB] 0.5 mg IH Q8HRT #1 box 11/27/19 02/03/20 Unknown Rx Nebulizer and Compressor [[place] 1 each MC TID PRN #1 each 11/27/19 02/03/20 Unknown Rx Choice Nebulizer] Pantoprazole [Protonix TAB] 40 mg PO QDAY 30 Days #30 tablet 11/27/19 02/03/20 Unknown Rx Thiamine [Vitamin B-1] 100 mg PO QDAY 30 Days #30 11/27/19 02/03/20 Unknown Rx Active Meds: Active Medications Acetaminophen (Tylenol) 650 mg PO Q4H PRN PRN Reason: Pain MILD(1-3)/Fever >100.5/PATRICIO Aspirin (Ecotrin) 325 mg PO QDAY [facility] Heparin Sodium (Porcine) (Heparin) 5,000 unit SUB-Q Q8HR [facility] Magnesium Hydroxide (Milk Of Magnesia) 30 ml PO Q4H PRN PRN Reason: Constipation Morphine Sulfate (Morphine) 2 mg IV Q5MIN PRN PRN Reason: Chest Pain unrelieved by NTG Nitroglycerin (Nitrostat) 0.4 mg SL Q5M PRN PRN Reason: Chest Pain Ondansetron HCl (Zofran) 4 mg IV Q8H PRN PRN Reason: Nausea And Vomiting Sodium Chloride (Sodium Chloride Flush Syringe 10 Ml) 10 ml IV BID [facility] Last Admin: 02/03/20 09:15 Dose: 10 ml Documented by: Sodium Chloride (Sodium Chloride Flush Syringe 10 Ml) 10 ml IV PRN PRN PRN Reason: LINE FLUSH Physical Examination Vital Signs Resp 18 02/02/20 22:00 General appearance: no acute distress HEENT: Positive: PERRL Neck: Positive: trachea midline Cardiac: Positive: Reg Rate and Rhythm Lungs: Positive: Decreased Breath Sounds Neuro: Positive: Grossly Intact Results 02/03/20 03:22 02/03/20 02:44 Cardiac Enzymes 02/02/20 Range/Units 23:38 AST 56 H (5-40) units/L Coagulation 02/02/20 Range/Units 23:38 PT 12.1 L (12.2-14.9) Sec. INR 0.89 (0.87-1.13) APTT 32.0 (24.2-36.6) Sec. CBC 02/02/20 02/03/20 Range/Units 23:38 03:22 WBC 5.3 3.4 L (4.5-11.0) K/mm3 RBC 3.68 3.65 (3.65-5.03) M/mm3 Hgb 13.7 13.0 (11.8-15.2) gm/dl Hct 38.0 38.2 (35.5-45.6) % Plt Count 161 148 (140-440) K/mm3 Lymph # 2.0 0.4 L (1.2-5.4) K/mm3 [place] # 0.4 0.0 (0.0-0.8) K/mm3 Eos # 0.2 0.0 (0.0-0.4) K/mm3 Baso # 0.1 0.0 (0.0-0.1) K/mm3 Comprehensive Metabolic Panel 02/02/20 02/03/20 Range/Units 23:38 02:44 Sodium 139 135 L (137-145) mmol/L Potassium 3.9 4.2 (3.6-5.0) mmol/L Chloride 102.3 100.0 (98-107) mmol/L Carbon Dioxide 20 L 20 L (22-30) mmol/L BUN 7 L 8 L (9-20) mg/dL Creatinine 0.6 L 0.6 L (0.8-1.3) mg/dL Glucose 78 259 H (75-100) mg/dL Calcium 8.5 8.6 (8.4-10.2) mg/dL AST 56 H (5-40) units/L ALT 27 (7-56) units/L Alkaline Phosphatase 131 H (35-129) units/L Total Protein 6.5 (6.3-8.2) g/dL Albumin 3.8 L (3.9-5) g/dL Assessment and Plan - Patient Problems (1) Chest pain Current Visit: No Status: Acute Qualifiers: Qualified Code(s): R07.89 - Other chest pain; R07.8 - Other chest pain Plan to address problem: Atypical Patient ordered to have a thallium stress test today. Results are pending.
--- NOTE | 2020-02-03 12:21 | Discharge Summary ---
Providers - Providers Date of Admission: 02/03/20 04:09 Attending physician: ANNY MEJIA MD 02/03/20 Consult to Cardiac Rehabilitation [CONS] Routine Reason For Exam: Phase I 02/03/20 02:44 Consult to Cardiology [CONS] Routine Consulting Provider: VICENTE MOLINA Reason For Exam: CHEST PAIN Primary care physician: DELIVERY CONSULTANT Hospitalization Condition: Stable Hospital course: No Pneumothorax Severe protein calorie malnutrition Disposition: DC-01 TO HOME OR SELFCARE Exam - Constitutional Vitals: Temp Pulse Resp BP Pulse Ox 97.5 F L 95 H 16 127/75 100 02/03/20 05:38 02/03/20 05:38 02/03/20 05:38 02/03/20 11:34 02/03/20 08:50 Plan Activity: advance as tolerated, fall precautions Diet: regular Special Instructions: record daily weights, record daily BP diary, other (must quit etoh) Follow up with: PRIMARY CARE, [Primary Care Provider] - 3-5 Days [facility] [Provider Group] - 7 Days Prescriptions: Albuterol Sulfate [Albuterol 0.63% NEBS] 0.63 mg IH TID PRN #1 box PRN Reason: Wheezing Ipratropium [Atrovent NEB] 0.5 mg IH Q8HRT #1 box Folic Acid [Folvite] 1 mg PO DAILY #30 tablet Multivitamin Tab W-MINERAL [Multiple Vitamin/Mineral (Theragran M)] 1 each PO QDAY #30 tablet Pantoprazole [Protonix TAB] 40 mg PO QDAY 30 Days #30 tablet Thiamine [Vitamin B-1] 100 mg PO QDAY 30 Days #30
[2020-02-03] MEDS ORDERED: ALBUTEROL 2.5 MG/3 ML NEBU IH ONE (14:36)
[2020-02-03] MEDS: HEPARIN 5,000 UNIT/1 ML VIAL SUB-Q SCH ×2 (14:58→21:39)
[2020-02-03] MEDS ORDERED: ALBUTEROL 2.5 MG/3 ML NEBU IH NR (15:00)
[2020-02-03] MEDS: ACETAMINOPHEN 325 MG TAB PO PRN ×2 (15:27→21:40)
[2020-02-03] MEDS ORDERED: ALBUTEROL 2.5 MG/3 ML NEBU IH PRN (18:56)
--- NOTE | 2020-02-03 18:56 | Event Note ---
Date: 02/03/20 Patient seen and examined, stress test was negative, extensive etoh hx, noted hypoxic and cannot afford home o2. start CIWA protocol. while low risk for COVID due to no reported contact, he does have high risk factors and will proceed to rule out. START ON [place], counselling against etoh use; patient verbalized understanding
[2020-02-03] MEDS: IPRATROPIUM/ALBUTEROL SULFATE 3 ML AMPUL.NEB IH SCH (21:28)
[2020-02-04] MEDS: IPRATROPIUM/ALBUTEROL SULFATE 3 ML AMPUL.NEB IH SCH ×3 (02:26→14:38)
[2020-02-04] MEDS: HEPARIN 5,000 UNIT/1 ML VIAL SUB-Q SCH ×2 (05:28→13:03)
[2020-02-04 07:44] LABS: Basophils % (Auto) 0.1 % (0.0-1.8); Eosinophils % (Auto) 0.1 % (0.0-4.3); Hematocrit 38.9 % (35.5-45.6); Hemoglobin 13.3 gm/dl (11.8-15.2); Lymphocytes # (Auto) 1.2 K/mm3 (1.2-5.4); Mean Corpuscular HGB Conc 34 % (32-34); Mean Corpuscular Volume 104 fl (84-94); Monocytes # (Auto) 0.7 K/mm3 (0.0-0.8); Monocytes % (Auto) 9.4 % (0.0-7.3); Platelet Count 159 K/mm3 (140-440); Red Blood Count 3.75 M/mm3 (3.65-5.03); Red Cell Distribution Width 14.2 % (13.2-15.2)
[2020-02-04 07:54] LABS: INR 0.86 (0.87-1.13)
[2020-02-04 08:27] LABS: Blood Urea Nitrogen 11 mg/dL (9-20); Calcium 8.9 mg/dL (8.4-10.2); Hemolysis Index 6
[2020-02-04 08:28] LABS: BUN/Creatinine Ratio 22
--- NOTE | 2020-02-04 09:40 | Progress Note ---
Assessment and Plan - Patient Problems (1) Chest pain Current Visit: No Status: Acute Qualifiers: Qualified Code(s): R07.89 - Other chest pain; R07.8 - Other chest pain Plan to address problem: Atypical MPI this admission: no reversible ischemia. Echo has been done, results are pending. Subjective Date of service: 02/04/20 Interval history: Discharged held because patient was hypoxic. Currently on isolation protocol for rule out COVID 19. Objective Vital Signs Temp Pulse Pulse Pulse Resp Resp BP 02/04/20 04:28 98.4 F 66 18 129/79 02/04/20 01:34 65 18 02/03/20 21:33 02/03/20 21:32 83 20 02/03/20 21:10 99.0 F 65 18 116/68 02/03/20 15:37 91 H 137/80 02/03/20 14:40 118 H 18 02/03/20 11:39 119 H 127/75 02/03/20 11:38 119 H 132/79 02/03/20 11:37 122 H 131/80 02/03/20 11:36 132 H 145/92 02/03/20 11:35 131 H 132/96 02/03/20 11:34 127/75 02/03/20 11:33 131/80 02/03/20 11:32 145/82 02/03/20 11:31 132/96 02/03/20 11:27 83 125/87 02/03/20 11:12 125/87 Pulse Ox 02/04/20 04:28 98 02/04/20 01:34 98 02/03/20 21:33 98 02/03/20 21:32 02/03/20 21:10 98 02/03/20 15:37 96 02/03/20 14:40 02/03/20 11:39 02/03/20 11:38 02/03/20 11:37 02/03/20 11:36 02/03/20 11:35 02/03/20 11:34 02/03/20 11:33 02/03/20 11:32 02/03/20 11:31 02/03/20 11:27 02/03/20 11:12 - Physical Examination Narrative exam: Deferred due to isolation protocol. Cardiac: Positive: Reg Rate and Rhythm - Labs and Meds Coagulation 02/04/20 Range/Units 07:16 PT 11.8 L (12.2-14.9) Sec. INR 0.86 L (0.87-1.13) CBC 02/04/20 Range/Units 07:16 WBC 7.4 (4.5-11.0) K/mm3 RBC 3.75 (3.65-5.03) M/mm3 Hgb 13.3 (11.8-15.2) gm/dl Hct 38.9 (35.5-45.6) % Plt Count 159 (140-440) K/mm3 Lymph # 1.2 (1.2-5.4) K/mm3 [place] # 0.7 (0.0-0.8) K/mm3 Eos # 0.0 (0.0-0.4) K/mm3 Baso # 0.0 (0.0-0.1) K/mm3 Comprehensive Metabolic Panel 02/04/20 Range/Units 07:16 Sodium 139 (137-145) mmol/L Potassium 3.7 (3.6-5.0) mmol/L Chloride 98.7 (98-107) mmol/L Carbon Dioxide 25 (22-30) mmol/L BUN 11 (9-20) mg/dL Creatinine 0.5 L (0.8-1.3) mg/dL Glucose 96 (75-100) mg/dL Calcium 8.9 (8.4-10.2) mg/dL
[2020-02-04] MEDS ORDERED: ASPIRIN EC 325 MG TAB PO SCH (10:00)
[2020-02-04] MEDS ORDERED: ALBUTEROL 8.5 GM MDI INHALATION IH PRN (10:30)
--- NOTE | 2020-02-04 10:30 | Treadmill Report ---
THALLIUM STRESS TEST LEFT VENTRICLE: Left ventricular size at the upper limits of normal. Perfusion study demonstrated fairly homogeneous uptake of the tracer in all segments, no significant perfusion defects identified. Gated analysis demonstrates mild left ventricular systolic dysfunction with left ventricular ejection fraction calculated at 46%. CONCLUSION: No demonstrable ischemia on thallium perfusion imaging. Echocardiographic reassessment of left ventricular chamber size and systolic function is recommended. JOB# [id number] CA/NTS
[2020-02-04] MEDS ORDERED: LISINOPRIL 5 MG TAB PO SCH (13:00)
[2020-02-04] MEDS ORDERED: FUROSEMIDE 20 MG TAB PO SCH (13:00)
[2020-02-04] MEDS ORDERED: carvediloL 3.125 MG TAB PO SCH (13:00)
[2020-02-04] MEDS ORDERED: SPIRONOLACTONE 25 MG TAB PO SCH (13:00)
--- NOTE | 2020-02-04 15:38 | Discharge Summary ---
Providers - Providers Date of Admission: 02/03/20 04:09 Date of discharge: 02/04/20 Attending physician: ANILA WELSH 02/03/20 Consult to Cardiac Rehabilitation [CONS] Routine Reason For Exam: Phase I 02/03/20 02:44 Consult to Cardiology [CONS] Routine Consulting Provider: VICENTE MOLINA Reason For Exam: CHEST PAIN 02/03/20 12:19 Consult to Case Management [CONS] Routine Services Needed at Discharge: Theoretical Physicist Notified:: cm Consult to Dietitian/Nutrition [CONS] Routine Physician Instructions: Reason For Exam: Reason for Consult: Poor oral intake Primary care physician: GUITAR REPAIR TECHNICIAN Hospitalization Condition: Stable Hospital course: The patient is a 59-year-old man with a history of alcohol abuse and COPD. He has also been hospitalized in recent months for a right inguinal hernia and a ?spontaneous left pneumothorax. He was admitted to the hospital at this time with atypical chest pain, underwent a rule out protocol and a Lexiscan thallium stress test done yesterday was normal. Echocardiogram however reveals a severe underlying cardiomyopathy with left ventricular ejection fraction estimated at 20 to 25%. Patient noted hypoxemic when the patient exercised on the floor. Cardiology was consulted for CHF and recommended guideline directed optimal medical therapy for nonischemic cardiomyopathy. Patient was also assess for home O2 requirement before discharge. He is COVID- 19 test was negative. Patient was counseled for alcohol cessation and discharged home in stable condition with outpatient cardiology follow-up... MPI this admission: no reversible ischemia. 2D echo: EF 20 to 25% CXR: no acute change Discharge diagnosis: Atypical chest pain, likely due to GERD New diagnosis of systolic CHF with EF 20 to 25% -Appears to be nonischemic cardiomyopathy, cardiology recommended medical management Exertional dyspnea, assess for home O2 requirement. Likely from underlying CHF and COPD. COPD, without exacerbation Alcohol abuse, counseled for cessation Physical exam: GENERAL: Elderly male lying on bed appeared to be in no discomfort. HEENT: Normocephalic. Atraumatic. No conjunctival congestion or icterus. Patient has moist mucous membranes. NECK: Supple. Trachea midline. CHEST/LUNGS: Clear to auscultated bilaterally, breathing nonlabored. No wheezes crackles or rhonchi. HEART/CARDIOVASCULAR: Regular in rate and rhythm. S1 and S2 positive. ABDOMEN: Abdomen is soft, nontender. Patient has normal bowel sounds. SKIN: There is no rash. Warm and dry. NEURO: No focal motor deficit. Follows command. MUSCULOSKELETAL: No joint effusion or tenderness. EXTRIMITY: No edema, no cyanosis or clubbing. PSYCH: Cooperative. Disposition: DC/[place]-06 HOME UNDER HOME [facility] Time spent for discharge: 34 minutes Core Measure Documentation - Palliative Care Palliative Care/ Comfort Measures: Not Applicable - Core Measures Any of the following diagnoses?: none Exam - Constitutional Vitals: Temp Pulse Resp BP Pulse Ox 98.4 F 66 18 129/79 98 02/04/20 04:28 02/04/20 04:28 02/04/20 04:28 02/04/20 04:28 02/04/20 04:28 Plan Activity: advance as tolerated Weight Bearing Status: Weight Bear as Tolerated Diet: low fat, low salt Special Instructions: restrict fluid intake to (1.2L daily), record daily weights Follow up with: [facility] [Provider Group] - 7 Days PRIMARY MD BESSY [Primary Care Provider] - 3-5 Days CHRISTINE ARCEO MD [Staff Physician] - 7 Days Prescriptions: Albuterol Sulfate [Albuterol 0.63% NEBS] 0.63 mg IH TID PRN #1 box PRN Reason: Wheezing Spironolactone [Aldactone] 25 mg PO QDAY #30 tablet Ipratropium [Atrovent NEB] 0.5 mg IH Q8HRT #1 box carvediloL [Coreg] 3.125 mg PO BID #60 tablet Folic Acid [Folvite] 1 mg PO DAILY #30 tablet Aspirin EC [Halfprin EC] 81 mg PO QDAY #30 tablet Furosemide [Lasix TAB] 20 mg PO QDAY #30 tablet Multivitamin Tab W-MINERAL [Multiple Vitamin/Mineral (Theragran M)] 1 each PO QDAY #30 tablet Pantoprazole [Protonix TAB] 40 mg PO QDAY 30 Days #30 tablet Thiamine [Vitamin B-1] 100 mg PO QDAY 30 Days #30 lisinopriL [Zestril TAB] 2.5 mg PO QDAY #30 tablet
[2020-02-04 15:41] VITALS: BP 112/68
== END 2020-02-04 18:25 | disposition home health service (06) ==
LOC: ED 21:40 → 3A 02-03 04:09 → INTOOBSV 02-03 04:09
PROVIDERS: ADMIT Internal Medicine Geriatric Medicine; ATTEND Internal Medicine
DX: R07.89 Other chest pain (principal); Z20.828 Contact with and (suspected) exposure to other viral communicable diseases; R06.02 Shortness of breath; R05 Cough; I11.0 Hypertensive heart disease with heart failure; I50.20 Unspecified systolic (congestive) heart failure; R10.13 Epigastric pain; R11.2 Nausea with vomiting, unspecified; J44.9 Chronic obstructive pulmonary disease, unspecified; F17.213 Nicotine dependence, cigarettes, with withdrawal; Z71.6 Tobacco abuse counseling; Z79.51 Long term (current) use of inhaled steroids; Z79.899 Other long term (current) drug therapy
CPT/HCPCS: 36415; 71045; 78452; 80048; 80053; 83690; 83880; 84484; 85025; 85610; 85730; 93005; 93017; 93306; 94640; 94760; 96372; 96374; 96375; 99285; 99406; A9502; G0378; J1100; J1644; J2405; J2785; U0003

== ENCOUNTER 2020-02-11 20:33 | Emergency (ER) | payer SELFPAY ==
--- NOTE | 2020-02-11 20:39 | Event Note ---
ED Screening Note ED Screening Note: abd pain - epigastric he thinks its related to meds no fever/ chills pos n/v pmh copd heart disease- recent ef 25; normal stress test hernia htn Sharla RODRIGUEZ was admitted 1.5 w ago cig thc rx lisinopril coreg hctz folic acid spironl. lasix This initial assessment/diagnostic orders/clinical plan/treatment(s) is/are subject to change based on patients health status, clinical progression and re- assessment by fellow clinical providers in the ED. Further treatment and workup at subsequent clinical providers discretion. Patient/guardian urged not to elope from the ED as their condition may be serious if not clinically assessed and managed. Initial orders include: labs xray ekg ro atypical card presentation
[2020-02-11 21:12] LABS: Hematocrit 38.9 % (35.5-45.6); Hemoglobin 13.5 gm/dl (11.8-15.2); Mean Corpuscular HGB Conc 35 % (32-34); Mean Corpuscular Volume 104 fl (84-94); Platelet Count 254 K/mm3 (140-440); Red Blood Count 3.73 M/mm3 (3.65-5.03); Red Cell Distribution Width 14.1 % (13.2-15.2)
--- NOTE | 2020-02-11 21:23 | XRay Report ---
CHEST 2 VIEWS INDICATION / CLINICAL INFORMATION: Chest Pain. COMPARISON: 02/02/20 FINDINGS: SUPPORT DEVICES: None. HEART / MEDIASTINUM: No significant abnormality. LUNGS / PLEURA: No significant pulmonary or pleural abnormality. No pneumothorax. ADDITIONAL FINDINGS: No significant additional findings. IMPRESSION: 1. No acute findings. No change. Signer Name: Arnav Mead MD Signed: 02/11/2020 9:18 PM Workstation Name: [id number]
[2020-02-11 21:30] LABS: Alanine Aminotransferase 31 units/L (7-56); Albumin 3.9 g/dL (3.9-5); Blood Urea Nitrogen 4 mg/dL (9-20); Calcium 8.7 mg/dL (8.4-10.2); Hemolysis Index 12
[2020-02-11 21:31] LABS: BUN/Creatinine Ratio 8
[2020-02-11 23:15] LABS: Basophils % (Manual) 0 % (0.0-1.8); RBC Morphology Normal; Total Cells Counted 100
[2020-02-12] MEDS ORDERED: IPRATROPIUM/ALBUTEROL SULFATE 3 ML AMPUL.NEB IH ONE ×2 (03:08→03:24)
[2020-02-12] MEDS ORDERED: DICYCLOMINE 10 MG CAP PO ONE (03:19)
--- NOTE | 2020-02-12 03:39 | Emergency Department Report ---
HPI - General Chief Complaint: Abdominal Pain Time Seen by Provider: 02/11/20 20:37 - HPI HPI: This is a 59-year-old male who presents to the emergency department with a complaint of abdominal cramping that he attributes to his medications. The patient was just discharged from here about 1 week ago after being admitted for a chest pain work-up. He had a negative stress test and had an echocardiogram that showed an ejection fraction of 20 to 25%. The patient is currently on folic acid, lisinopril, carvedilol, Lasix and spironolactone. He thinks that 1 of these medications, or possibly a combination of them, is causing the abdominal cramping. He says he has been having some nausea and vomiting and diarrhea over this time as well. He has not taken anything else for his symptoms prior to presentation. Patient has a history of asthma, CHF, COPD, hypertension. He also has a history of alcohol and illicit drug use/abuse. ED Past Medical Hx - Past Medical History Previous Medical History?: Yes Hx Hypertension: Yes Hx CVA: (BRONCHITIS) Hx Heart Attack/AMI: No Hx Congestive Heart Failure: Yes Hx Diabetes: No Hx Asthma: Yes Hx COPD: Yes Hx HIV: No Additional medical history: hernia - Surgical History Past Surgical History?: No Additional Surgical History: LEFT FEMUR FRACTURE, chest tube insertion - Social History Smoking Status: Current Every Day Smoker Substance Use Type: Alcohol - Medications Home Medications: Home Medications Medication Instructions Recorded Confirmed Last Taken Type Nebulizer and Compressor [[place] 1 each MC TID PRN #1 each 11/27/19 02/03/20 Unknown Rx Choice Nebulizer] Albuterol Sulfate [Albuterol 0.63% 0.63 mg IH TID PRN #1 box 02/03/20 Unknown Rx NEBS] Folic Acid [Folvite] 1 mg PO DAILY #30 tablet 02/03/20 Unknown Rx Ipratropium [Atrovent NEB] 0.5 mg IH Q8HRT #1 box 02/03/20 Unknown Rx Multivitamin Tab W-MINERAL 1 each PO QDAY #30 tablet 02/03/20 Unknown Rx [Multiple Vitamin/Mineral (Theragran M)] Pantoprazole [Protonix TAB] 40 mg PO QDAY 30 Days #30 tablet 02/03/20 Unknown Rx Thiamine [Vitamin B-1] 100 mg PO QDAY 30 Days #30 02/03/20 Unknown Rx Aspirin EC [Halfprin EC] 81 mg PO QDAY #30 tablet. 02/04/20 Unknown Rx Furosemide [Lasix TAB] 20 mg PO QDAY #30 tablet 02/04/20 Unknown Rx Spironolactone [Aldactone] 25 mg PO QDAY #30 tablet 02/04/20 Unknown Rx carvediloL [Coreg] 3.125 mg PO BID #60 tablet 02/04/20 Unknown Rx lisinopriL [Zestril TAB] 2.5 mg PO QDAY #30 tablet 02/04/20 Unknown Rx Dicyclomine [Bentyl] 10 mg PO QID PRN #20 capsule 02/12/20 Unknown Rx ED Review of Systems ROS: Stated complaint: MEDICINE Other details as noted in HPI Comment: All other systems reviewed and negative Constitutional: denies: chills, fever Eyes: denies: eye pain, vision change ENT: denies: ear pain, throat pain Respiratory: denies: cough, shortness of breath Cardiovascular: denies: chest pain, palpitations Gastrointestinal: abdominal pain, nausea, vomiting, diarrhea Genitourinary: denies: dysuria, discharge Musculoskeletal: denies: back pain, arthralgia Skin: denies: rash, lesions Neurological: denies: headache, weakness Physical Exam - Physical Exam Vital Signs: Vital Signs 02/12/20 02/12/20 03:05 03:18 Temperature 98.6 F Pulse Rate 92 H Pulse Rate [ 71 Anterior Throughout] Respiratory 18 Rate Respiratory 19 Rate [Anterior Throughout] Blood Pressure 159/94 [Right] O2 Sat by Pulse 97 Oximetry Physical Exam: GENERAL: The patient is well-developed well-nourished. HENT: Normocephalic. Atraumatic. Patient has moist mucous membranes. EYES: Extraocular motions are intact. NECK: Supple. Trachea is midline. CHEST/LUNGS: Clear to auscultation. There is no respiratory distress noted. HEART/CARDIOVASCULAR: Regular. There is no tachycardia. There is no murmur. ABDOMEN: Abdomen is soft. There is some mild generalized tenderness to palpation. No guarding. Patient has normal bowel sounds. There is no abdominal distention. SKIN: Skin is warm and dry. NEURO: The patient is awake, alert, and oriented. The patient is cooperative. Normal speech. MUSCULOSKELETAL: There is no tenderness or deformity. There is no evidence of acute injury. ED Course Vital Signs 02/12/20 02/12/20 03:05 03:18 Temperature 98.6 F Pulse Rate 92 H Pulse Rate [ 71 Anterior Throughout] Respiratory 18 Rate Respiratory 19 Rate [Anterior Throughout] Blood Pressure 159/94 [Right] O2 Sat by Pulse 97 Oximetry ED Medical Decision Making - Lab Data Result diagrams: 02/11/20 20:54 02/11/20 20:54 - EKG Data -: EKG Interpreted by Me EKG shows normal: sinus rhythm, axis, intervals, QRS complexes (LVH), ST-T waves Rate: normal - EKG Data When compared to previous EKG there are: no significant change Interpretation: unchanged when compared t (02/03/20), LVH - Radiology Data Radiology results: image reviewed interpreted by me: Chest x-ray does not show any acute process. There are no pleural effusions, obvious pneumonia and there is no pneumothorax. Abdominal x-ray shows nonspecific nonobstructive bowel gas - Medical Decision Making This patient presents with a complaint of some abdominal cramping that he believes is secondary to his medications that were started after his previous visit for chest pain. There is some mild generalized tenderness to palpation. Otherwise the abdomen is soft, nondistended and nontoxic in appearance. Abdominal x-ray shows nonspecific nonobstructive bowel gas. Patient had a chest x-ray done through triage that also did not show any acute process. Labs have been unremarkable including CBC, metabolic panel, BMP and lipase. His vital signs have been reassuring throughout his ED course including being afebrile. Patient has been reevaluated multiple times and most recently has been seen resting comfortably, sleeping on the gurney. He was given a dose of Bentyl for his abdominal cramping pain. Patient appears safe for discharge home at this time. He has been instructed to follow-up with primary care and to return to the ER with any worsening of his symptoms or with any acute distress. Critical Care Time: No Critical care attestation.: If time is entered above; I have spent that time in minutes in the direct care of this critically ill patient, excluding procedure time. ED Disposition Clinical Impression: Abdominal cramping Hypertension Qualifiers: Hypertension type: essential hypertension Qualified Code(s): I10 - Essential (primary) hypertension Disposition: DC-01 TO HOME OR SELFCARE Is pt being admited?: No Condition: Stable Instructions: Abdominal Pain (ED), Hypertension (ED) Additional Instructions: Follow-up with a primary care physician in the next few days. Return to the emergency department with any worsening of your symptoms or with any acute distress. Prescriptions: Dicyclomine [Bentyl] 10 mg PO QID PRN #20 capsule PRN Reason: abdominal pain Referrals: PRIMARY MD BESSY [Primary Care Provider] - 3-5 Days ANKUR PEÑA MD [Staff Physician] - 3-5 Days [facility] [Provider Group] - 3-5 Days Time of Disposition: 06:03
--- NOTE | 2020-02-12 04:46 | XRay Report ---
ABDOMEN 2 VIEWS INDICATION / CLINICAL INFORMATION: abd pain. COMPARISON: None available. FINDINGS: Normal bowel gas pattern. No evidence of obstruction or pneumoperitoneum Signer Name: Flash Stanley MD FACR Signed: 02/12/2020 4:42 AM Workstation Name: [id number]
[2020-02-12 09:28] VITALS: BP 128/80
== END 2020-02-12 09:27 | disposition home or self-care (01) ==
LOC: ED 20:33
DX: I11.0 Hypertensive heart disease with heart failure (principal); I50.9 Heart failure, unspecified; R10.9 Unspecified abdominal pain; J44.9 Chronic obstructive pulmonary disease, unspecified; F17.200 Nicotine dependence, unspecified, uncomplicated; Z79.82 Long term (current) use of aspirin; Z79.1 Long term (current) use of non-steroidal anti-inflammatories (NSAID); Z79.899 Other long term (current) drug therapy; Z98.890 Other specified postprocedural states
CPT/HCPCS: 36415; 71046; 74019; 80053; 83690; 83880; 84484; 85007; 85025; 93005; 94644

== ENCOUNTER 2020-02-26 12:51 | Inpatient (IN) | payer OTHER ==
--- NOTE | 2020-02-26 15:52 | Emergency Department Report ---
HPI - HPI HPI: Room 24 The patient is a 59-year-old male present with a chief complaint of chest and abdominal pain. Patient states for 1 week he has been unable to eat anything. The patient states every time he eats or drinks he vomits it right back up. Patient describes pain in the right chest and suprapubic region. The patient admits to daily alcohol consumption but states he has been unable to keep beer down as well <ROSITA SIFUENTES - Last Filed: 02/26/20 20:00> <JEFFREY CRONIN III - Last Filed: 02/26/20 21:38> - General Chief Complaint: Alcohol Time Seen by Provider: 02/26/20 15:27 ED Past Medical Hx - Past Medical History Hx Hypertension: Yes Hx CVA: (BRONCHITIS) Hx Congestive Heart Failure: Yes Hx Asthma: Yes Hx COPD: Yes Additional medical history: hernia - Surgical History Additional Surgical History: LEFT FEMUR FRACTURE, chest tube insertion - Family History Family history: no significant - Social History Smoking Status: Current Every Day Smoker (1 pack/day) Substance Use Type: Alcohol (Daily), Marijuana <ROSITA SIFUENTES - Last Filed: 02/26/20 20:00> <JEFFREY CRONIN III - Last Filed: 02/26/20 21:38> - Medications Home Medications: Home Medications Medication Instructions Recorded Confirmed Last Taken Type Nebulizer and Compressor [[place] 1 each MC TID PRN #1 each 11/27/19 02/03/20 Unknown Rx Choice Nebulizer] Albuterol Sulfate [Albuterol 0.63% 0.63 mg IH TID PRN #1 box 02/03/20 Unknown Rx NEBS] Folic Acid [Folvite] 1 mg PO DAILY #30 tablet 02/03/20 Unknown Rx Ipratropium [Atrovent NEB] 0.5 mg IH Q8HRT #1 box 02/03/20 Unknown Rx Multivitamin Tab W-MINERAL 1 each PO QDAY #30 tablet 02/03/20 Unknown Rx [Multiple Vitamin/Mineral (Theragran M)] Pantoprazole [Protonix TAB] 40 mg PO QDAY 30 Days #30 tablet 02/03/20 Unknown Rx Thiamine [Vitamin B-1] 100 mg PO QDAY 30 Days #30 02/03/20 Unknown Rx Aspirin EC [Halfprin EC] 81 mg PO QDAY #30 tablet. 02/04/20 Unknown Rx Furosemide [Lasix TAB] 20 mg PO QDAY #30 tablet 02/04/20 Unknown Rx Spironolactone [Aldactone] 25 mg PO QDAY #30 tablet 02/04/20 Unknown Rx carvediloL [Coreg] 3.125 mg PO BID #60 tablet 02/04/20 Unknown Rx lisinopriL [Zestril TAB] 2.5 mg PO QDAY #30 tablet 02/04/20 Unknown Rx Dicyclomine [Bentyl] 10 mg PO QID PRN #20 capsule 02/12/20 Unknown Rx ED Review of Systems ROS: Stated complaint: ETOH Other details as noted in HPI Constitutional: no symptoms reported Respiratory: no symptoms reported Cardiovascular: chest pain Endocrine: no symptoms reported Gastrointestinal: abdominal pain, nausea, vomiting <ROSITA SIFUENTES K - Last Filed: 02/26/20 20:00> ROS: Stated complaint: ETOH Other details as noted in HPI <JEFFREY CRONIN III K - Last Filed: 02/26/20 21:38> Physical Exam - Physical Exam Physical Exam: GENERAL: The patient is well-developed well-nourished male lying on stretcher resting comfortably not appearing to be in acute distress. [] HEENT: Normocephalic. Atraumatic. Extraocular motions are intact. Patient has moist mucous membranes. NECK: Supple. Trachea midline CHEST/LUNGS: Clear to auscultation. There is no respiratory distress noted. HEART/CARDIOVASCULAR: Regular. There is no tachycardia. There is no gallop rub or murmur. ABDOMEN: Abdomen is soft, nontender. Patient has normal bowel sounds. There is no abdominal distention. SKIN: There is no rash. There is no edema. There is no diaphoresis. NEURO: The patient is awake, alert, and oriented. The patient is cooperative. The patient has normal speech MUSCULOSKELETAL: There is no evidence of acute injury. <ROSITA SIFUENTES K - Last Filed: 02/26/20 20:00> - Physical Exam Vital Signs: Vital Signs 02/26/20 02/26/20 02/26/20 14:38 14:46 15:00 Pulse Rate 104 H 104 H 88 Respiratory 22 20 23 Rate Blood Pressure 150/92 136/99 O2 Sat by Pulse 97 99 98 Oximetry 02/26/20 02/26/20 02/26/20 15:17 15:31 15:45 Pulse Rate 85 103 H 78 Respiratory 20 22 21 Rate Blood Pressure 136/113 143/96 O2 Sat by Pulse 98 97 98 Oximetry 02/26/20 02/26/20 02/26/20 16:01 16:15 16:31 Pulse Rate 73 80 105 H Respiratory 20 19 24 Rate Blood Pressure 143/96 142/96 143/93 O2 Sat by Pulse 97 98 97 Oximetry 02/26/20 02/26/20 02/26/20 16:45 17:01 17:15 Pulse Rate 95 H 94 H 96 H Respiratory 20 20 21 Rate Blood Pressure 159/91 145/97 139/93 O2 Sat by Pulse 98 98 98 Oximetry 02/26/20 02/26/20 02/26/20 17:31 17:45 18:01 Pulse Rate 99 H 97 H 92 H Respiratory 21 22 19 Rate Blood Pressure 150/101 137/89 137/89 O2 Sat by Pulse 100 99 Oximetry 02/26/20 02/26/20 02/26/20 18:15 18:31 18:45 Pulse Rate 98 H 96 H 109 H Respiratory 21 21 21 Rate Blood Pressure 145/95 143/100 134/93 O2 Sat by Pulse 97 98 98 Oximetry 02/26/20 02/26/20 02/26/20 19:03 19:15 19:31 Pulse Rate 97 H 133 H Respiratory 20 38 H Rate Blood Pressure 142/93 144/102 142/93 O2 Sat by Pulse 99 96 98 Oximetry <MEHRDAD BERGMAN,JEFFREY K - Last Filed: 02/26/20 21:38> ED Course Vital Signs 02/26/20 02/26/20 02/26/20 14:38 14:46 15:00 Pulse Rate 104 H 104 H 88 Respiratory 22 20 23 Rate Blood Pressure 150/92 136/99 O2 Sat by Pulse 97 99 98 Oximetry 02/26/20 02/26/20 02/26/20 15:17 15:31 15:45 Pulse Rate 85 103 H 78 Respiratory 20 22 21 Rate Blood Pressure 136/113 143/96 O2 Sat by Pulse 98 97 98 Oximetry 02/26/20 02/26/20 02/26/20 16:01 16:15 16:31 Pulse Rate 73 80 105 H Respiratory 20 19 24 Rate Blood Pressure 143/96 142/96 143/93 O2 Sat by Pulse 97 98 97 Oximetry 02/26/20 02/26/20 02/26/20 16:45 17:01 17:15 Pulse Rate 95 H 94 H 96 H Respiratory 20 20 21 Rate Blood Pressure 159/91 145/97 139/93 O2 Sat by Pulse 98 98 98 Oximetry 02/26/20 02/26/20 02/26/20 17:31 17:45 18:01 Pulse Rate 99 H 97 H 92 H Respiratory 21 22 19 Rate Blood Pressure 150/101 137/89 137/89 O2 Sat by Pulse 100 99 Oximetry 02/26/20 02/26/20 02/26/20 18:15 18:31 18:45 Pulse Rate 98 H 96 H 109 H Respiratory 21 21 21 Rate Blood Pressure 145/95 143/100 134/93 O2 Sat by Pulse 97 98 98 Oximetry 02/26/20 02/26/20 02/26/20 19:03 19:15 19:31 Pulse Rate 97 H 133 H Respiratory 20 38 H Rate Blood Pressure 142/93 144/102 142/93 O2 Sat by Pulse 99 96 98 Oximetry - Reevaluation(s) Reevaluation #1: Patient was signed out to me from previous physician to admit the patient after the CT scan has returned. 02/26/20 20:01 Reevaluation #2: I discussed all results with patient. I discussed plan of care with patient. Patient agrees with plan of care and admission. Patient to be admitted to the hospitalist service. 02/26/20 21:37 - Consultations Consultation #1: Hospitalist consulted for admission. Hospitalist to admit patient. 02/26/20 21:37 <JEFFREY CRONIN III K - Last Filed: 02/26/20 21:38> ED Medical Decision Making - Lab Data Result diagrams: 02/26/20 16:28 02/26/20 16:28 - Differential Diagnosis Small bowel obstruction, achalasia, pancreatitis, esophageal web, <ROSITA SIFUENTES - Last Filed: 02/26/20 20:00> - Lab Data Result diagrams: 02/26/20 16:28 02/26/20 16:28 - Radiology Data Radiology results: report reviewed CT abdomen pelvis w con INDICATION / CLINICAL INFORMATION: Intractable nausea vomiting. TECHNIQUE: Axial CT imaging of abdomen and pelvis was obtained with IV contrast. Coronal and sagittal reformatted imaging obtained and reviewed. All CT scans at this location are performed using CT dose reduction for ALARA by means of automated exposure control. COMPARISON: Prior CT abdomen/pelvis 11/26/2019 FINDINGS: CT abdomen with contrast demonstrates mild hepatic steatosis. The liver is otherwise unremarkable. Spleen, pancreas, kidneys, and adrenal glands are all unremarkable. No visible gallbladder abnormality or biliary dilatation. CT pelvis shows presence of right inguinal hernia containing only fat. No bowel is visible within the hernia sac. No pelvic mass or free fluid noted. GI tract is slightly abnormal but nonspecific. There are fluid-filled loops of small bowel none of which are particularly dilated throughout the abdomen and pelvis. The colon is mostly collapsed. The appearance could be secondary to enteritis if clinical presentation supports that diagnosis. I do not see evidence for mechanical bowel obstruction at this time. Visualized lung bases are clear. No significant acute osseous abnormality is noted. IMPRESSION: 1. Fluid-filled nondilated loops of small bowel are present. The overall appearance is most suggestive of enteritis. Please correlate with clinical symptoms/presentation. 2. Persistent right inguinal hernia, containing only fat. 3. Mild hepatic steatosis. <JEFFREY CRONIN III Mark - Last Filed: 02/26/20 21:38> Critical care attestation.: If time is entered above; I have spent that time in minutes in the direct care of this critically ill patient, excluding procedure time. <ROSITA SIFUENTES - Last Filed: 02/26/20 20:00> Critical care attestation.: If time is entered above; I have spent that time in minutes in the direct care of this critically ill patient, excluding procedure time. <JEFFREY CRONIN III - Last Filed: 02/26/20 21:38> ED Disposition Is pt being admited?: Yes Does the pt Need Aspirin: No <ROSITA SIFUENTES - Last Filed: 02/26/20 20:00> Is pt being admited?: Yes Does the pt Need Aspirin: No Time of Disposition: 21:37 <JEFFREY CRONIN III - Last Filed: 02/26/20 21:38> Clinical Impression: Intractable nausea and vomiting, Gastroenteritis, Chronic alcohol abuse Abdominal pain Qualifiers: Abdominal location: unspecified location Qualified Code(s): R10.9 - Unspecified abdominal pain Disposition: DC-09 OP ADMIT IP TO THIS HOSP Condition: Serious
[2020-02-26 17:46] LABS: Basophils % (Auto) 0.7 % (0.0-1.8); Eosinophils # (Auto) 0.1 K/mm3 (0.0-0.4); Eosinophils % (Auto) 1.1 % (0.0-4.3); Lymphocytes # (Auto) 1.3 K/mm3 (1.2-5.4); Lymphocytes % (Auto) 23.7 % (13.4-35.0); Mean Corpuscular HGB Conc 36 % (32-34); Mean Corpuscular Volume 104 fl (84-94); Monocytes # (Auto) 0.6 K/mm3 (0.0-0.8); Monocytes % (Auto) 10.9 % (0.0-7.3); Platelet Count 170 K/mm3 (140-440); Red Blood Count 3.86 M/mm3 (3.65-5.03)
[2020-02-26 17:48] LABS: Hemoglobin 14.5 gm/dl (11.8-15.2)
[2020-02-26 18:19] LABS: Creatine Kinase MB 2.5 ng/mL (0.0-4.0)
[2020-02-26 18:20] LABS: Alanine Aminotransferase 30 units/L (7-56); Albumin 3.9 g/dL (3.9-5); Blood Urea Nitrogen 4 mg/dL (9-20); Hemolysis Index 12
[2020-02-26 18:22] LABS: BUN/Creatinine Ratio 7
[2020-02-26] MEDS ORDERED: MAGNESIUM SULFATE 2 GM/50 ML BAG IV ONE (18:36)
[2020-02-26] MEDS ORDERED: SODIUM CHLORIDE 0.9% 1000 ML 1,000 ML IV ONE (18:36)
[2020-02-26] MEDS ORDERED: THIAMINE 100 MG, FOLIC ACID 1 MG, MULTIPLE VITAMIN INJ, ADULT 10 ML in SODIUM CHLORIDE ... IV ONE (18:36)
[2020-02-26] MEDS ORDERED: LORazepam 2 MG/ML VIAL IV PRN ×3 (19:50)
--- NOTE | 2020-02-26 20:15 | Cat Scan Report ---
CT abdomen pelvis w con INDICATION / CLINICAL INFORMATION: Intractable nausea vomiting. TECHNIQUE: Axial CT imaging of abdomen and pelvis was obtained with IV contrast. Coronal and sagittal reformatte d imaging obtained and reviewed. All CT scans at this location are performed using CT dose reduction for ALARA by means of automated exposure control. COMPARISON: Prior CT abdomen/pelvis 11/26/2019 FINDINGS: CT abdomen with contrast demonstrates mild hepatic steatosis. The liver is otherwise unremarkable. Sp manohar, pancreas, kidneys, and adrenal glands are all unremarkable. No visible gallbladder abnormality or biliary dilatation. CT pelvis shows presence of right inguinal hernia containing only fat. No bowel is visible within the hernia sac. No pelvic mass or free fluid noted. GI tract is slightly abnormal but nonspecific. There are fluid-filled loops of small bowel none of which are particularly dilated throughout the abdomen and pelvis. The colon is mostly collapsed. The appearance could be secondary to enteritis if clinical presentation supports that diagnosis. I do not see evidence for mechanical bowel obstruction at this time. Visualized lung bases are clear. No significant acute osseous abnormality is noted. IMPRESSION: 1. Fluid-filled nondilated loops of small bowel are present. The overall appearance is most suggestiv e of enteritis. Please correlate with clinical symptoms/presentation. 2. Persistent right inguinal hernia, containing only fat. 3. Mild hepatic steatosis. Signer Name: Matilde Salomon MD Signed: 02/26/2020 8:11 PM Workstation Name: [id number]
[2020-02-26] MEDS ORDERED: ONDANSETRON 4 MG/2 ML INJ IV PRN (22:30)
[2020-02-26] MEDS ORDERED: MORPHINE 2 MG/1 ML INJ IV PRN (22:30)
[2020-02-26] MEDS ORDERED: ACETAMINOPHEN 650 MG RECT SUPP PR PRN (22:31)
[2020-02-26] MEDS ORDERED: LORazepam 2 MG/ML VIAL ONE (23:01)
[2020-02-26] MEDS ORDERED: MORPHINE 2 MG/1 ML INJ ONE (23:01)
[2020-02-26] MEDS: HEPARIN 5,000 UNIT/1 ML VIAL SUB-Q SCH (23:03)
[2020-02-26] MEDS ORDERED: HEPARIN 5,000 UNIT/1 ML VIAL ONE (23:06)
--- NOTE | 2020-02-27 07:01 | History and Physical Report ---
History of Present Illness Date of examination: 02/26/20 Date of admission: 02/26/20 21:38 Chief complaint: ABDOMINAL PAIN, NAUSEA AND VOMITING History of present illness: History of presenting illness, patient is a 59-year-old male who presented with abdominal pain nausea and vomiting and patient admitted to abusing alcohol, he denied history of fever and chills, denied history of shortness of breath. Past History Past Medical History: hypertension, stroke (DailyTo administer in the ED cardiac arrest codeFinal check muscles going on meth in the ICU on his way to getting. Coded 3 times emergency room daily 5 times short of breath all night fortunately someone unknown whether), other (ASTHMA, HERNIA) Past Surgical History: Other Social history: no significant social history, smoking, alcohol abuse, other (MARIJUANA ABUSE) Family history: no significant family history Medications and Allergies Allergies Allergy/AdvReac Type Severity Reaction Status Date / Time No Known Allergies Allergy Verified 01/14/19 10:21 Home Medications Medication Instructions Recorded Confirmed Last Taken Type Nebulizer and Compressor [[place] 1 each MC TID PRN #1 each 11/27/19 02/03/20 Unknown Rx Choice Nebulizer] Albuterol Sulfate [Albuterol 0.63% 0.63 mg IH TID PRN #1 box 02/03/20 Unknown Rx NEBS] Folic Acid [Folvite] 1 mg PO DAILY #30 tablet 02/03/20 Unknown Rx Ipratropium [Atrovent NEB] 0.5 mg IH Q8HRT #1 box 02/03/20 Unknown Rx Multivitamin Tab W-MINERAL 1 each PO QDAY #30 tablet 02/03/20 Unknown Rx [Multiple Vitamin/Mineral (Theragran M)] Pantoprazole [Protonix TAB] 40 mg PO QDAY 30 Days #30 tablet 02/03/20 Unknown Rx Thiamine [Vitamin B-1] 100 mg PO QDAY 30 Days #30 02/03/20 Unknown Rx Aspirin EC [Halfprin EC] 81 mg PO QDAY #30 tablet 02/04/20 Unknown Rx Furosemide [Lasix TAB] 20 mg PO QDAY #30 tablet 02/04/20 Unknown Rx Spironolactone [Aldactone] 25 mg PO QDAY #30 tablet 02/04/20 Unknown Rx carvediloL [Coreg] 3.125 mg PO BID #60 tablet 02/04/20 Unknown Rx lisinopriL [Zestril TAB] 2.5 mg PO QDAY #30 tablet 02/04/20 Unknown Rx Dicyclomine [Bentyl] 10 mg PO QID PRN #20 capsule 02/12/20 Unknown Rx Active Meds: Active Medications Acetaminophen (Tylenol) 650 mg [place] Q4H PRN PRN Reason: Fever >101 Heparin Sodium (Porcine) (Heparin) 5,000 unit SUB-Q Q12HR GATO Last Admin: 02/26/20 23:03 Dose: 5,000 unit Documented by: Lorazepam (Ativan) 2 mg IV Q1HR PRN PRN Reason: CIWA-Ar 8-15 Lorazepam (Ativan) 4 mg IV Q1HR PRN PRN Reason: CIWA-Ar 16-25 Last Admin: 02/26/20 23:02 Dose: 4 mg Documented by: Lorazepam (Ativan) 4 mg IV Q15MIN PRN PRN Reason: CIWA-Ar >25 Morphine Sulfate (Morphine) 2 mg IV Q4H PRN PRN Reason: Pain, Moderate (4-6) Last Admin: 02/26/20 23:01 Dose: 2 mg Documented by: Ondansetron HCl (Zofran) 4 mg IV Q8H PRN PRN Reason: Nausea And Vomiting Review of Systems Constitutional: weakness, no weight loss, no weight gain, no fever, no sweats Eyes: bilateral: other (NO BILATERAL EYE SYMPTOM) Ears, nose, mouth and throat: no ear pain, no ear discharge Cardiovascular: no chest pain, no palpitations, no lightheadedness, no shortness of breath Respiratory: no cough, no excessive sputum, no shortness of breath Gastrointestinal: abdominal pain, nausea, vomiting, no diarrhea, no constipation Genitourinary Male: no dysuria, no hematuria, no flank pain, no erectile dysfunction Rectal: no pain, no itching Integumentary: no rash, no pruritis, no redness, no sores, no wounds, no j aundice, no acne, no unusual bruising Neurological: no weakness, no parathesias, no numbness, no tingling, no seizures, no syncope, no vertigo, no headaches, no convulsions, no aphasia, no change in speech, no change in mentation, no sensory deficit, no double vision, no loss of vision Psychiatric: no anxiety, no memory loss, no insomnia, no hypersomnia, no paranoia Endocrine: no cold intolerance, no heat intolerance, no polyphagia, no polyuria, no nocturia, no proptosis, no palpatations, no high blood sugars Hematologic/Lymphatic: no easy bruising Exam - Constitutional Vitals: Temp Pulse Resp BP Pulse Ox 97.6 F 77 16 117/79 99 02/27/20 04:23 02/27/20 04:23 02/27/20 04:23 02/27/20 04:23 02/27/20 04:23 General appearance: Present: no acute distress - EENT Eyes: Present: PERRL ENT: hearing intact, clear oral mucosa, dentition normal - Neck Neck: Present: supple, normal ROM. Absent: enlarged thyroid, carotid bruits - Respiratory Respiratory effort: normal - Cardiovascular Rhythm: regular Heart Sounds: Present: S1 & S2. Absent: gallop, systolic murmur, diastolic murmur - Extremities Extremities: no ischemia, No edema Peripheral Pulses: within normal limits - Abdominal General gastrointestinal: Present: soft, tender, non-distended. Absent: non- tender, distended, rigid, hepatomegaly, splenomegaly Male genitourinary: Present: deferred - Rectal Rectal Exam: deferred - Integumentary Integumentary: Present: clear, warm, dry - Musculoskeletal Musculoskeletal: strength equal bilaterally - Psychiatric Psychiatric: appropriate mood/affect HEART Score - HEART Score Risk factors: > 3 risk factors or hx of atherosclerotic disease Troponin: Troponin T < 0.010 ng/mL (0.00-0.029) 02/26/20 16:28 - Critical Actions Critical Actions: 4-6 pts:12-16.6% risk of adverse cardiac event. Should be admitted Results - Labs CBC & Chem 7: 02/26/20 16:28 02/26/20 16:28 Labs: Laboratory Last Values WBC 5.4 K/mm3 (4.5-11.0) 02/26/20 16:28 RBC 3.86 M/mm3 (3.65-5.03) 02/26/20 16:28 Hgb 14.5 gm/dl (11.8-15.2) 02/26/20 16:28 Hct 40.0 % (35.5-45.6) 02/26/20 16:28 MCV 104 fl (84-94) H 02/26/20 16: MCH 37 pg (28-32) H 02/26/20 16: MCHC 36 % (32-34) H 02/26/20 16: RDW 14.0 % (13.2-15.2) 02/26/20 16: Plt Count 170 K/mm3 (140-440) 02/26/20 16: Lymph % (Auto) 23.7 % (13.4-35.0) 02/26/20 16: [place] % (Auto) 10.9 % (0.0-7.3) H 02/26/20 16: Eos % (Auto) 1.1 % (0.0-4.3) 02/26/20 16: Baso % (Auto) 0.7 % (0.0-1.8) 02/26/20 16: Lymph # 1.3 K/mm3 (1.2-5.4) 02/26/20 16: [place] # 0.6 K/mm3 (0.0-0.8) 02/26/20 16: Eos # 0.1 K/mm3 (0.0-0.4) 02/26/20 16: Baso # 0.0 K/mm3 (0.0-0.1) 02/26/20 16: Seg Neutrophils % 63.6 % (40.0-70.0) 02/26/20 16: Seg Neutrophils # 3.4 K/mm3 (1.8-7.7) 02/26/20 16: Sodium 137 mmol/L (137-145) 02/26/20 16: Potassium 3.8 mmol/L (3.6-5.0) 02/26/20 16: Chloride 97.2 mmol/L (98-107) L 02/26/20 16: Carbon Dioxide 23 mmol/L (22-30) 02/26/20 16: Anion Gap 21 mmol/L 02/26/20 16:28 BUN 4 mg/dL (9-20) L 02/26/20 16:28 Creatinine 0.6 mg/dL (0.8-1.3) L 02/26/20 16:28 Estimated GFR > 60 ml/min 02/26/20 16:28 BUN/Creatinine Ratio 7 % 02/26/20 16:28 Glucose 72 mg/dL (75-100) L 02/26/20 16:28 Calcium 9.0 mg/dL (8.4-10.2) 02/26/20 16:28 Total Bilirubin 0.30 mg/dL (0.1-1.2) 02/26/20 16:28 AST 56 units/L (5-40) H 02/26/20 16:28 ALT 30 units/L (7-56) 02/26/20 16:28 Alkaline Phosphatase 136 units/L (35-129) H 02/26/20 16:28 Total Creatine Kinase 86 units/L (55-170) 02/26/20 16:28 CK-MB (CK-2) 2.5 ng/mL (0.0-4.0) 02/26/20 16:28 CK-MB (CK-2) Rel Index 2.9 (0-4) 02/26/20 16:28 Troponin T < 0.010 ng/mL (0.00-0.029) 02/26/20 16:28 Total Protein 7.0 g/dL (6.3-8.2) 02/26/20 16:28 Albumin 3.9 g/dL (3.9-5) 02/26/20 16:28 Albumin/Globulin Ratio 1.3 % 02/26/20 16:28 Lipase 15 units/L (13-60) 02/26/20 16:28 Martin/IV: Voiding Method Urinal IV Catheter Type [Left Forearm Peripheral IV ] Assessment and Plan - Patient Problems (1) Abdominal pain Current Visit: Yes Status: Acute Qualifiers: Abdominal location: unspecified location Qualified Code(s): R10.9 - Unspecified abdominal pain Plan to address problem: 1. I.V MORPHINE FOR PAIN 2. I.V ZOFRAN FOR NAUSEA AND VOMITING (2) Chronic alcohol abuse Current Visit: Yes Status: Acute Plan to address problem: 1. [facility] PROTOCOL FOR ALCOHOL ABUSE AND WITHDRAWAL 2. I.V NORMAL SALINE WITH THIAMINE, FOLIC ACID , MULTIVITAMIN AND MAGNESIUM. 3. COUNSELING FOR ALCOHOL ABUSE (3) Gastroenteritis Current Visit: Yes Status: Acute (4) Nausea & vomiting Current Visit: Yes Status: Acute Plan to address problem: 1. I.V FLUID 2. I.V MORPHINE FOR PAIN 3. I.V ZOFRAN FOR NAUSEA AND VOMITING
[2020-02-27] MEDS: HEPARIN 5,000 UNIT/1 ML VIAL SUB-Q SCH ×2 (11:37→23:00)
--- NOTE | 2020-02-27 12:26 | XRay Report ---
CHEST 1 VIEW INDICATION / CLINICAL INFORMATION: sob. COMPARISON: 02/11/2020 FINDINGS: SUPPORT DEVICES: None. HEART / MEDIASTINUM: No significant abnormality. LUNGS / PLEURA: No significant pulmonary or pleural abnormality. No pneumothorax. ADDITIONAL FINDINGS: No significant additional findings. IMPRESSION: No acute disease or interval change from 02/11/2020 Signer Name: Flash Stanley MD FACR Signed: 02/27/2020 12:21 PM Workstation Name: [id number]
--- NOTE | 2020-02-27 16:55 | Event Note ---
Date: 02/27/20 Patient seen and examined, resting comfortable but still with tremors, will continue current management,
[2020-02-27] MEDS: ALBUTEROL 2.5 MG/3 ML NEBU IH SCH (20:54)
[2020-02-27] MEDS: IPRATROPIUM 0.02% NEBU 2.5 ML IH SCH (20:55)
[2020-02-28] MEDS: ALBUTEROL 2.5 MG/3 ML NEBU IH SCH (02:29)
[2020-02-28] MEDS: IPRATROPIUM 0.02% NEBU 2.5 ML IH SCH (02:29)
[2020-02-28 06:19] LABS: Hemoglobin 12.4 gm/dl (11.8-15.2); Mean Corpuscular HGB Conc 34 % (32-34); Mean Corpuscular Volume 106 fl (84-94); Platelet Count 128 K/mm3 (140-440); Red Blood Count 3.39 M/mm3 (3.65-5.03); Red Cell Distribution Width 13.8 % (13.2-15.2)
[2020-02-28] MEDS ORDERED: ALBUTEROL 2.5 MG/3 ML NEBU IH PRN (07:03)
[2020-02-28 07:11] LABS: Alanine Aminotransferase 22 units/L (7-56); Albumin 2.9 g/dL (3.9-5); Blood Urea Nitrogen 7 mg/dL (9-20); Calcium 8.4 mg/dL (8.4-10.2); Hemolysis Index 15
[2020-02-28 07:19] LABS: BUN/Creatinine Ratio 14
[2020-02-28] MEDS: IPRATROPIUM/ALBUTEROL SULFATE 3 ML AMPUL.NEB IH SCH ×2 (07:32→14:39)
[2020-02-28] MEDS: HEPARIN 5,000 UNIT/1 ML VIAL SUB-Q SCH (10:35)
--- NOTE | 2020-02-28 11:51 | Discharge Summary ---
Providers - Providers Date of Admission: 02/27/20 11:54 Date of discharge: 02/28/20 Attending physician: ANNY MEJIA MD Primary care physician: BRIM SETTER Hospitalization Reason for admission: EtOH withdrawal Condition: Serious Hospital course: The patient is a 59-year-old male present with a chief complaint of chest and abdominal pain. Patient states for 1 week he has been unable to eat anything. The patient states every time he eats or drinks he vomits it right back up. Patient describes pain in the right chest and suprapubic region. The patient admits to daily alcohol consumption but states he has been unable to keep beer down as well Patient clinically improved and still has mild tremor but significantly improved ambulating with a cane which he uses at home reports that he has family support he understands that he is not to drink alcohol anymore. Electrolytes are stable no further shortness of breath reported. Clinically stable for discharge 15 minutes counseling provided to the patient. Acute respiratory failure without hypoxia Chronic abdominal pain with acute exacerbation EtOH withdrawal syndrome EtOH dependence Atypical chest pain secondary to GERD GERD Gastroenteritis secondary to EtOH abuse Ataxic gait Alcohol use protein calorie malnutrition severe Disposition: DC-01 TO HOME OR SELFCARE Time spent for discharge: 35 minutes Core Measure Documentation - Palliative Care Palliative Care/ Comfort Measures: Not Applicable - Core Measures Any of the following diagnoses?: none Exam - Physical Exam Narrative exam: VITAL SIGNS: Reviewed. GENERAL: The patient appears normally developed, cachectic vital signs as documented. HEAD: No signs of head trauma. EYES: Pupils are equal. Extraocular motions intact. EARS: Hearing grossly intact. MOUTH: Oropharynx is normal. NECK: No adenopathy, no JVD. CHEST: Chest with clear breath sounds bilaterally. No wheezes, rales, or rhonchi. CARDIAC: Regular rate and rhythm. S1 and S2, without murmurs, gallops, or rubs. VASCULAR: No Edema. Peripheral pulses normal and equal in all extremities. ABDOMEN: Soft, non tender and non distended. No rebound or guarding, and no masses palpated. Bowel Sounds normal. MUSCULOSKELETAL: Good range of motion of all major joints. Extremities without clubbing, cyanosis or edema. NEUROLOGIC EXAM: Alert and oriented x 3 No focal sensory or strength deficits except for noted mild fine tremor. Speech normal. Follows commands. PSYCHIATRIC: Mood normal. SKIN: detail exam as documented in skin assessment - Constitutional Vitals: Temp Pulse Resp BP Pulse Ox 98.0 F 72 18 104/76 100 02/28/20 04:19 02/28/20 07:50 02/28/20 07:50 02/28/20 04:19 02/28/20 04:19 Plan Activity: advance as tolerated, fall precautions Diet: low fat Special Instructions: smoking cessation, other (must quit etoh) Follow up with: PRIMARY CARE, [Primary Care Provider] - 7 Days Prescriptions: Albuterol Sulfate [Albuterol 0.63% NEBS] 0.63 mg IH TID PRN #1 box PRN Reason: Wheezing Folic Acid [Folvite] 1 mg PO DAILY #30 tablet Multivitamin Tab W-MINERAL [Multiple Vitamin/Mineral (Theragran M)] 1 each PO QDAY #30 tablet Thiamine [Vitamin B-1] 100 mg PO QDAY 30 Days #30
[2020-02-28 18:18] VITALS: BP 97/70
== END 2020-02-28 18:34 | disposition home or self-care (01) | DRG 896 ==
LOC: ED 12:51 → 3A 21:38 → OBSVTOIN 02-27 11:54
PROVIDERS: ADMIT Internal Medicine; ATTEND Internal Medicine
DX: F10.239 Alcohol dependence with withdrawal, unspecified (principal); J96.00 Acute respiratory failure, unspecified whether with hypoxia or hypercapnia; E43 Unspecified severe protein-calorie malnutrition; Z68.1 Body mass index [BMI] 19.9 or less, adult; K21.9 Gastro-esophageal reflux disease without esophagitis; K52.9 Noninfective gastroenteritis and colitis, unspecified; I50.9 Heart failure, unspecified; I11.0 Hypertensive heart disease with heart failure; F17.210 Nicotine dependence, cigarettes, uncomplicated; J44.9 Chronic obstructive pulmonary disease, unspecified; Y90.9 Presence of alcohol in blood, level not specified; R27.0 Ataxia, unspecified; Z86.73 Personal history of transient ischemic attack (TIA), and cerebral infarction without residual deficits
CPT/HCPCS: 36415; 71045; 74177; 80053; 82550; 82553; 83690; 84484; 85025; 85027; 93005; 94640; 94760; G0378; J1644; J2060; J2270; J3411; J3475; J7030; Q9967

== ENCOUNTER → 2020-03-15 20:09 | Emergency (ER) | payer SELFPAY | END | disposition left against medical advice (07) | LOC: ED 20:09 | DX: F10.20 Alcohol dependence, uncomplicated (principal); Z53.21 Procedure and treatment not carried out due to patient leaving prior to being seen by health care provider ==

== ENCOUNTER 2020-04-14 20:54 | Emergency (ER) | payer SELFPAY ==
[2020-04-15] MEDS ORDERED: THIAMINE 100 MG, FOLIC ACID 1 MG, MULTIPLE VITAMIN INJ, ADULT 10 ML in SODIUM CHLORIDE ... IV ONE (03:49)
[2020-04-15] MEDS ORDERED: ONDANSETRON 4 MG/2 ML INJ IV ONE (03:49)
--- NOTE | 2020-04-15 04:13 | XRay Report ---
CHEST 1 VIEW INDICATION: cough, weakness. COMPARISON: 02/27/2020 FINDINGS: Support devices: None. Heart: Normal. Lungs/Pleura: No acute pulmonary or pleural findings. Lungs remain hyperexpanded. IMPRESSION: 1. No acute findings. Signer Name: Dave Winkler MD Signed: 04/15/2020 4:08 AM Workstation Name: [id number]
[2020-04-15 05:00] LABS: Basophils # (Auto) 0.1 K/mm3 (0.0-0.1); Basophils % (Auto) 0.7 % (0.0-1.8); Eosinophils # (Auto) 0.1 K/mm3 (0.0-0.4); Eosinophils % (Auto) 1.9 % (0.0-4.3); Hematocrit 46.8 % (35.5-45.6); Hemoglobin 16.2 gm/dl (11.8-15.2); Lymphocytes # (Auto) 3.4 K/mm3 (1.2-5.4); Mean Corpuscular HGB Conc 35 % (32-34); Mean Corpuscular Volume 106 fl (84-94); Monocytes # (Auto) 0.7 K/mm3 (0.0-0.8); Monocytes % (Auto) 8.9 % (0.0-7.3); Platelet Count 138 K/mm3 (140-440); Red Blood Count 4.41 M/mm3 (3.65-5.03); Red Cell Distribution Width 13.8 % (13.2-15.2)
[2020-04-15 05:44] LABS: Alanine Aminotransferase 82 units/L (7-56); Albumin 3.8 g/dL (3.9-5); Blood Urea Nitrogen 5 mg/dL (9-20); Calcium 8.8 mg/dL (8.4-10.2); Hemolysis Index 21
[2020-04-15 05:47] LABS: BUN/Creatinine Ratio 10
[2020-04-15] MEDS ORDERED: ONDANSETRON 4 MG/2 ML INJ ONE (05:59)
[2020-04-15] MEDS ORDERED: KETOROLAC 30 MG/1 ML INJ IV ONE (06:13)
--- NOTE | 2020-04-15 07:11 | Emergency Department Report ---
<JANIYA SILVA - Last Filed: 04/15/20 14:38> ED Fall HPI - General Chief Complaint: Fall Stated Complaint: LEFT SHOULDER AND FOREARM ABRASION, ETOH - Related Data Previous Rx's Medication Instructions Recorded Last Taken Type Nebulizer and Compressor [Brandon 1 each MC TID PRN #1 each 11/27/19 Unknown Rx Choice Nebulizer] Ipratropium [Atrovent NEB] 0.5 mg IH Q8HRT #1 box 02/03/20 Unknown Rx Pantoprazole [Protonix TAB] 40 mg PO QDAY 30 Days #30 tablet 02/03/20 Unknown Rx Aspirin EC [Halfprin EC] 81 mg PO QDAY #30 tablet.dr 02/04/20 Unknown Rx Furosemide [Lasix TAB] 20 mg PO QDAY #30 tablet 02/04/20 Unknown Rx Spironolactone [Aldactone] 25 mg PO QDAY #30 tablet 02/04/20 Unknown Rx carvediloL [Coreg] 3.125 mg PO BID #60 tablet 02/04/20 Unknown Rx lisinopriL [Zestril TAB] 2.5 mg PO QDAY #30 tablet 02/04/20 Unknown Rx Dicyclomine [Bentyl] 10 mg PO QID PRN #20 capsule 02/12/20 Unknown Rx Albuterol Sulfate [Albuterol 0.63% 0.63 mg IH TID PRN #1 box 02/28/20 Unknown Rx NEBS] Folic Acid [Folvite] 1 mg PO DAILY #30 tablet 02/28/20 Unknown Rx Multivitamin Tab W-MINERAL 1 each PO QDAY #30 tablet 02/28/20 Unknown Rx [Multiple Vitamin/Mineral (Theragran M)] Thiamine [Vitamin B-1] 100 mg PO QDAY 30 Days #30 02/28/20 Unknown Rx Albuterol Sulfate [Proventil Hfa] 6.7 gm IH TID PRN #1 hfa.aer.ad 04/15/20 Unknown Rx Prednisone [predniSONE 10 mg 10 mg PO .TAPER #1 tab.ds.pk 04/15/20 Unknown Rx (6-Day Pack, 21 Tabs)] Allergies Allergy/AdvReac Type Severity Reaction Status Date / Time No Known Allergies Allergy Verified 01/14/19 10:21 ED Past Medical Hx - Medications Home Medications: Home Medications Medication Instructions Recorded Confirmed Last Taken Type Nebulizer and Compressor [Brandon 1 each MC TID PRN #1 each 11/27/19 02/03/20 Unknown Rx Choice Nebulizer] Ipratropium [Atrovent NEB] 0.5 mg IH Q8HRT #1 box 02/03/20 Unknown Rx Pantoprazole [Protonix TAB] 40 mg PO QDAY 30 Days #30 tablet 02/03/20 Unknown Rx Aspirin EC [Halfprin EC] 81 mg PO QDAY #30 tablet.dr 02/04/20 Unknown Rx Furosemide [Lasix TAB] 20 mg PO QDAY #30 tablet 02/04/20 Unknown Rx Spironolactone [Aldactone] 25 mg PO QDAY #30 tablet 02/04/20 Unknown Rx carvediloL [Coreg] 3.125 mg PO BID #60 tablet 02/04/20 Unknown Rx lisinopriL [Zestril TAB] 2.5 mg PO QDAY #30 tablet 02/04/20 Unknown Rx Dicyclomine [Bentyl] 10 mg PO QID PRN #20 capsule 02/12/20 Unknown Rx Albuterol Sulfate [Albuterol 0.63% 0.63 mg IH TID PRN #1 box 02/28/20 Unknown Rx NEBS] Folic Acid [Folvite] 1 mg PO DAILY #30 tablet 02/28/20 Unknown Rx Multivitamin Tab W-MINERAL 1 each PO QDAY #30 tablet 02/28/20 Unknown Rx [Multiple Vitamin/Mineral (Theragran M)] Thiamine [Vitamin B-1] 100 mg PO QDAY 30 Days #30 02/28/20 Unknown Rx Albuterol Sulfate [Proventil Hfa] 6.7 gm IH TID PRN #1 hfa.aer.ad 04/15/20 Unknown Rx Prednisone [predniSONE 10 mg 10 mg PO .TAPER #1 tab.ds.pk 04/15/20 Unknown Rx (6-Day Pack, 21 Tabs)] ED Physical Exam - Head Head exam: Present: other ED Medical Decision Making - Lab Data Result diagrams: 04/15/20 04:14 04/15/20 04:14 Lab Results 04/15/20 04/15/20 04/15/20 Range/Units 04:14 04:14 04:14 WBC 7.7 (4.5-11.0) K/mm3 RBC 4.41 (3.65-5.03) M/mm3 Hgb 16.2 H (11.8-15.2) gm/dl Hct 46.8 H (35.5-45.6) % MCV 106 H (84-94) fl MCH 37 H (28-32) pg MCHC 35 H (32-34) % RDW 13.8 (13.2-15.2) % Plt Count 138 L (140-440) K/mm3 Lymph % (Auto) 44.0 H (13.4-35.0) % [place] % (Auto) 8.9 H (0.0-7.3) % Eos % (Auto) 1.9 (0.0-4.3) % Baso % (Auto) 0.7 (0.0-1.8) % Lymph # (Auto) 3.4 (1.2-5.4) K/mm3 [place] # (Auto) 0.7 (0.0-0.8) K/mm3 Eos # (Auto) 0.1 (0.0-0.4) K/mm3 Baso # (Auto) 0.1 (0.0-0.1) K/mm3 Seg Neutrophils % 44.5 (40.0-70.0) % Seg Neutrophils # 3.4 (1.8-7.7) K/mm3 Sodium 145 (137-145) mmol/L Potassium 3.9 (3.6-5.0) mmol/L Chloride 103.2 (98-107) mmol/L Carbon Dioxide 19 L (22-30) mmol/L Anion Gap 27 mmol/L BUN 5 L (9-20) mg/dL Creatinine 0.5 L (0.8-1.3) mg/dL Estimated GFR > 60 ml/min BUN/Creatinine Ratio 10 % Glucose 70 L (75-100) mg/dL Calcium 8.8 (8.4-10.2) mg/dL Total Bilirubin 0.30 (0.1-1.2) mg/dL AST 182 H (5-40) units/L ALT 82 H (7-56) units/L Alkaline Phosphatase 181 H (35-129) units/L Total Protein 7.1 (6.3-8.2) g/dL Albumin 3.8 L (3.9-5) g/dL Albumin/Globulin Ratio 1.2 % Lipase (13-60) units/L Urine Color (Yellow) Urine Turbidity (Clear) Urine pH (5.0-7.0) Ur Specific [place] (1.003-1.030) Urine Protein (Negative) mg/dL Urine Glucose (UA) (Negative) mg/dL Urine Ketones (Negative) mg/dL Urine Blood (Negative) Urine Nitrite (Negative) Urine Bilirubin (Negative) Urine Urobilinogen (<2.0) mg/dL Ur Leukocyte Esterase (Negative) Urine WBC (Auto) (0.0-6.0) /HPF Urine RBC (Auto) (0.0-6.0) /HPF U Epithel Cells (Auto) (0-13.0) /HPF Urine Mucus /HPF Plasma/Serum Alcohol 0.20 H (0-0.07) % 04/15/20 04/15/20 04/15/20 Range/Units 04:14 07:14 12:25 WBC (4.5-11.0) K/mm3 RBC (3.65-5.03) M/mm3 Hgb (11.8-15.2) gm/dl Hct (35.5-45.6) % MCV (84-94) fl MCH (28-32) pg MCHC (32-34) % RDW (13.2-15.2) % Plt Count (140-440) K/mm3 Lymph % (Auto) (13.4-35.0) % [place] % (Auto) (0.0-7.3) % Eos % (Auto) (0.0-4.3) % Baso % (Auto) (0.0-1.8) % Lymph # (Auto) (1.2-5.4) K/mm3 [place] # (Auto) (0.0-0.8) K/mm3 Eos # (Auto) (0.0-0.4) K/mm3 Baso # (Auto) (0.0-0.1) K/mm3 Seg Neutrophils % (40.0-70.0) % Seg Neutrophils # (1.8-7.7) K/mm3 Sodium (137-145) mmol/L Potassium (3.6-5.0) mmol/L Chloride (98-107) mmol/L Carbon Dioxide (22-30) mmol/L Anion Gap mmol/L BUN (9-20) mg/dL Creatinine (0.8-1.3) mg/dL Estimated GFR ml/min BUN/Creatinine Ratio % Glucose (75-100) mg/dL Calcium (8.4-10.2) mg/dL Total Bilirubin (0.1-1.2) mg/dL AST (5-40) units/L ALT (7-56) units/L Alkaline Phosphatase (35-129) units/L Total Protein (6.3-8.2) g/dL Albumin (3.9-5) g/dL Albumin/Globulin Ratio % Lipase 37 (13-60) units/L Urine Color (Yellow) Urine Turbidity (Clear) Urine pH (5.0-7.0) Ur Specific [place] (1.003-1.030) Urine Protein (Negative) mg/dL Urine Glucose (UA) (Negative) mg/dL Urine Ketones (Negative) mg/dL Urine Blood (Negative) Urine Nitrite (Negative) Urine Bilirubin (Negative) Urine Urobilinogen (<2.0) mg/dL Ur Leukocyte Esterase (Negative) Urine WBC (Auto) (0.0-6.0) /HPF Urine RBC (Auto) (0.0-6.0) /HPF U Epithel Cells (Auto) (0-13.0) /HPF Urine Mucus /HPF Plasma/Serum Alcohol 0.21 H 0.09 H (0-0.07) % 10/14/20 Range/Units Unknown WBC (4.5-11.0) K/mm3 RBC (3.65-5.03) M/mm3 Hgb (11.8-15.2) gm/dl Hct (35.5-45.6) % MCV (84-94) fl MCH (28-32) pg MCHC (32-34) % RDW (13.2-15.2) % Plt Count (140-440) K/mm3 Lymph % (Auto) (13.4-35.0) % [place] % (Auto) (0.0-7.3) % Eos % (Auto) (0.0-4.3) % Baso % (Auto) (0.0-1.8) % Lymph # (Auto) (1.2-5.4) K/mm3 [place] # (Auto) (0.0-0.8) K/mm3 Eos # (Auto) (0.0-0.4) K/mm3 Baso # (Auto) (0.0-0.1) K/mm3 Seg Neutrophils % (40.0-70.0) % Seg Neutrophils # (1.8-7.7) K/mm3 Sodium (137-145) mmol/L Potassium (3.6-5.0) mmol/L Chloride (98-107) mmol/L Carbon Dioxide (22-30) mmol/L Anion Gap mmol/L BUN (9-20) mg/dL Creatinine (0.8-1.3) mg/dL Estimated GFR ml/min BUN/Creatinine Ratio % Glucose (75-100) mg/dL Calcium (8.4-10.2) mg/dL Total Bilirubin (0.1-1.2) mg/dL AST (5-40) units/L ALT (7-56) units/L Alkaline Phosphatase (35-129) units/L Total Protein (6.3-8.2) g/dL Albumin (3.9-5) g/dL Albumin/Globulin Ratio % Lipase (13-60) units/L Urine Color Yellow (Yellow) Urine Turbidity Clear (Clear) Urine pH 5.0 (5.0-7.0) Ur Specific [place] 1.039 H (1.003-1.030) Urine Protein <15 mg/dl (Negative) mg/dL Urine Glucose (UA) Neg (Negative) mg/dL Urine Ketones Neg (Negative) mg/dL Urine Blood Neg (Negative) Urine Nitrite Neg (Negative) Urine Bilirubin Neg (Negative) Urine Urobilinogen 2.0 (<2.0) mg/dL Ur Leukocyte Esterase Neg (Negative) Urine WBC (Auto) 1.0 (0.0-6.0) /HPF Urine RBC (Auto) < 1.0 (0.0-6.0) /HPF U Epithel Cells (Auto) 1.0 (0-13.0) /HPF Urine Mucus Few /HPF Plasma/Serum Alcohol (0-0.07) % Vital Signs 04/15/20 04/15/20 04/15/20 04:30 06:36 08:43 Temperature 97.9 F 98.8 F Pulse Rate 99 H 72 Pulse Rate [ Anterior Bilateral Throughout] Respiratory 18 20 16 Rate Respiratory Rate [Anterior Bilateral Throughout] Blood Pressure 102/47 Blood Pressure 130/66 [Right] O2 Sat by Pulse 95 91 Oximetry 04/15/20 04/15/20 04/15/20 09:48 10:01 10:15 Temperature Pulse Rate 56 L 65 52 L Pulse Rate [ Anterior Bilateral Throughout] Respiratory 15 14 15 Rate Respiratory Rate [Anterior Bilateral Throughout] Blood Pressure Blood Pressure [Right] O2 Sat by Pulse 93 93 92 Oximetry 04/15/20 04/15/20 04/15/20 10:21 10:31 10:45 Temperature Pulse Rate 70 92 H Pulse Rate [ 100 H Anterior Bilateral Throughout] Respiratory 19 16 Rate Respiratory 22 Rate [Anterior Bilateral Throughout] Blood Pressure Blood Pressure [Right] O2 Sat by Pulse 85 98 Oximetry 04/15/20 04/15/20 04/15/20 11:01 11:15 11:30 Temperature Pulse Rate 67 73 Pulse Rate [ Anterior Bilateral Throughout] Respiratory 16 17 Rate Respiratory Rate [Anterior Bilateral Throughout] Blood Pressure 133/81 Blood Pressure [Right] O2 Sat by Pulse 91 91 83 L Oximetry 04/15/20 04/15/20 04/15/20 11:45 12:00 12:15 Temperature Pulse Rate Pulse Rate [ Anterior Bilateral Throughout] Respiratory Rate Respiratory Rate [Anterior Bilateral Throughout] Blood Pressure 131/87 122/78 109/48 Blood Pressure [Right] O2 Sat by Pulse 86 94 95 Oximetry 04/15/20 04/15/20 04/15/20 12:30 12:45 13:00 Temperature Pulse Rate Pulse Rate [ Anterior Bilateral Throughout] Respiratory Rate Respiratory Rate [Anterior Bilateral Throughout] Blood Pressure 136/63 116/56 124/61 Blood Pressure [Right] O2 Sat by Pulse 93 89 92 Oximetry 04/15/20 04/15/20 04/15/20 13:05 13:15 13:30 Temperature Pulse Rate 78 Pulse Rate [ Anterior Bilateral Throughout] Respiratory 16 Rate Respiratory Rate [Anterior Bilateral Throughout] Blood Pressure 108/48 114/58 Blood Pressure 128/70 [Right] O2 Sat by Pulse 95 93 94 Oximetry 04/15/20 04/15/20 04/15/20 13:45 14:00 14:15 Temperature Pulse Rate Pulse Rate [ Anterior Bilateral Throughout] Respiratory Rate Respiratory Rate [Anterior Bilateral Throughout] Blood Pressure 121/61 123/61 137/65 Blood Pressure [Right] O2 Sat by Pulse 94 96 95 Oximetry - Radiology Data Radiology results: report reviewed, image reviewed CT CERVICAL SPINE WITHOUT CONTRAST INDICATION / CLINICAL INFORMATION: Fall - neck pain. TECHNIQUE: Axial CT images were obtained through the cervical spine. Sagittal and coronal reformatted images were produced. All CT scans at this location are performed using CT dose reduction for ALARA by means of automated exposure control. COMPARISON: None available. FINDINGS: ALIGNMENT: Normal alignment is maintained throughout. There is no indication of traumatic subluxation. VERTEBRAE: There is no indication of fracture or bone destruction. DISC SPACES: Disc height is noted throughout the cervical region compatible with widespread disc desiccation. DEGENERATIVE CHANGES: Facet and uncovertebral arthritic changes are present multiple levels. Multifocal neuroforaminal stenosis results. Posterior osteophyte is a prominent finding at the C3-4, C4-5 and C6-7 levels. Central canal stenosis is evident at the C3-4 level. Calcifications are seen in the anterior and posterior annulus fibrosis at the C4-5 and C5-6 levels. CRANIOCERVICAL JUNCTION:No significant abnormality. SPINAL CANAL: Central canal stenosis is evident at the C3-4 level. PARASPINAL SOFT TISSUES: No significant abnormality. ADDITIONAL FINDINGS: None. LUNG APICES: Bilateral bullous changes are seen at the lung apices. Pleural and parenchymal fibrotic changes are observed at the right lung apex. IMPRESSION: 1. No indication of fracture or traumatic subluxation. 2. Widespread cervical spondylosis. There is central canal stenosis at the C3-4 level and multifocal neuroforaminal narrowing. Signer Name: Miguel Kumar MD Signed: 04/15/2020 9:42 AM Workstation Name: [id number] Transcribed By: Dictated By: Miguel Kumar MD Electronically Authenticated By: Miguel Kumar MD Signed Date/Time: 04/15/20941 DD/ 7 TD/TT: LEFT SHOULDER 3 VIEWS INDICATION / CLINICAL INFORMATION: Fall - shoulder pain. COMPARISON: None available. FINDINGS: No significant skeletal abnormality Signer Name: Flash Stanley MD FACR Signed: 04/15/2020 8:28 AM Workstation Name: [id number] Transcribed By: MS Dictated By: Flash Stanley MD Electronically Authenticated By: Flash Stanley MD Signed Date/Time: 04/15/20827 DD/ 6 TD/TT: CT ABDOMEN: Lung Bases: Clear. Liver: The liver is borderline enlarged with moderate diffuse fatty infiltration. No focal liver lesion is detected. Biliary: No significant abnormality. Spleen: No significant abnormality. Unenlarged. Pancreas: No significant abnormality. Adrenals: No significant abnormality. Kidneys: No significant abnormality. 1 cm exophytic cyst from the mid right kidney is noted and unchanged. Lymphatics: No lymphadenopathy. Vasculature: No significant abnormality. Bowel/Peritoneum: No evidence for bowel obstruction or focal inflammation. Normal appendix. No free fluid or free air. A large right inguinal hernia is identified containing multiple loops of small bowel in the upper scrotal sac. On the previous examination, this hernia containing mesenteric fat only. CT PELVIS: : No significant abnormality. Osseous Structures: Healing right lateral ninth rib fracture is again noted. No acute bony injury is appreciated. Additional Findings: None IMPRESSION: No acute process or injury is appreciated in the abdomen or pelvis. Stable hepatic steatosis. Large right inguinal hernia containing multiple loops of distal small bowel. No evidence for obstruction. Subacute to chronic right lateral ninth rib fracture. No acute fracture is detected. Signer Name: Malachi Camacho Jr, MD Signed: 04/15/2020 9:21 AM Workstation Name: [id number] Transcribed By: TTR Dictated By: MALACHI CAMACHO JR, MD Electronically Authenticated By: MALACHI CAMACHO JR, MD Signed Date/Time: 04/15/20920 DD/ 4 TD/TT: CT MAXILLOFACIAL WITHOUT CONTRAST INDICATION / CLINICAL INFORMATION: Fall - head injury. TECHNIQUE: All CT scans at this location are performed using CT dose reduction for ALARA by means of automated exposure control. COMPARISON: None available. FINDINGS: FACIAL BONES: There is no CT evidence of acute fracture involving the facial bones. The orbital sullivan, sinuses and zygomatic arches appear intact. There is poor dentition with multifocal areas of lucency surrounding the apices of the remaining teeth at. PARANASAL SINUSES: There is mild mucosal thickening within the left maxillary and right sphenoid sinuses. There is moderate deviation of the nasal septum toward the right. ORBITS: The optic globes demonstrate appropriate size and configuration. There is no clear CT evidence of significant post septal inflammatory changes. VISUALIZED INTRACRANIAL STRUCTURES: No significant abnormality. ADDITIONAL FINDINGS: None. IMPRESSION: 1. There is no CT evidence of acute fracture involving the facial bones. 2. There is mild mucosal thickening involving the left maxillary and right sphenoid sinuses. Signer Name: Carl Jin MD Signed: 04/15/2020 9:28 AM Workstation Name: [id number] Transcribed By: MR Dictated By: Carl Jin MD Electronically Authenticated By: Carl Jin MD Signed Date/Time: 04/15/20927 DD/ 1 TD/TT: CT head/brain wo con INDICATION / CLINICAL INFORMATION: 59 years Male; Fall - head injury. TECHNIQUE: Routine CT head without contrast. All CT scans at this location are performed using CT dose reduction for ALARA by means of automated exposure control. COMPARISON: None. FINDINGS: BRAIN / INTRACRANIAL CONTENTS: The motion degrades the image quality. However, there is mild cerebral white matter disease most consistent with microvascular angiopathy. There is also mild cerebral atrophy. The ventricular system is correspondingly appropriate in size and configuration. There is no clear CT evidence of acute intracranial hemorrhage or significant mass effect. ORBITS: No significant abnormality of visualized orbits. SINUSES / MASTOIDS: No significant abnormality in the visualized paranasal sin uses or mastoid air cells. CRANIOCERVICAL JUNCTION: No significant abnormality. ADDITIONAL FINDINGS: None. IMPRESSION: 1. There is mild microvascular angiopathy and cerebral atrophy without clear CT evidence of acute intracranial hemorrhage. Signer Name: Carl Jin MD Signed: 04/15/2020 9:22 AM Workstation Name: [id number] Transcribed By: MR Dictated By: Carl Jin MD Electronically Authenticated By: Carl Jin MD Signed Date/Time: 04/15/20921 DD/ 6 TD/TT: CHEST 1 VIEW INDICATION: cough, weakness. COMPARISON: 02/27/2020 FINDINGS: Support devices: None. Heart: Normal. Lungs/Pleura: No acute pulmonary or pleural findings. Lungs remain hyperexpanded. IMPRESSION: 1. No acute findings. Signer Name: Dave Winkler MD Signed: 04/15/2020 4:08 AM Workstation Name: [id number] Transcribed By: Dictated By: Dave Winkler MD Electronically Authenticated By: Dave Winkler MD Signed Date/Time: 04/15/20407 DD/ 7 TD/TT: - Medical Decision Making Patient signed out by Josey Sanon PA-C at 7:30 AM this morning pending imaging and case management consult Blood alcohol level remains elevated, another liter of normal saline ordered At 8:45 AM, nurse went to give patient another liter of normal saline and he states that he has an exacerbation of his chronic shortness of breath from COPD I went to examine patient at bedside, he is wheezing bilaterally on exam, he states that he ran out of his COPD medications, patient will be given neb treat ment and IV steroids and reexamined 11:50 AM After neb treatment and steroids, wheezing has significantly improved, patient has good air movement, oxygen saturation is 95% on room air, patient is awaiting case management consultation Blood alcohol has improved to 0.09, patient is clinically sober at this time and stable for discharge pt given prescription for albuterol inhaler and prednisone taper. advised pt Please take medication as prescribed. Increase your water intake. Follow-up with primary care doctor. follow up with a GI doctor. Return to emergency room for any new or worsening symptoms. please see social work note below: Barista spoke to patient about discharge plans per nurse request. Patient reported that he was living behind the [facility] and that is where he will return. Patient stated that he does have family, however does not want to bother them. Patient has a hx of Alcohol Abuse. Patient is open to receiving outpatient resources for AA programs. Patient has been in substance abuse programs before and stated that he is willing to go again. will provide list of programs for Alcohol Abuse. Patient will need a bus pass at discharge. ED Disposition Clinical Impression: Contusion of scalp, face, or neck, excluding eyes, Nausea and vomiting in adult patient, Dehydration, COPD exacerbation, Elevated LFTs Alcohol intoxication Qualifiers: Complication of substance-induced condition: uncomplicated Qualified Code(s): F10.920 - Alcohol use, unspecified with intoxication, uncomplicated Disposition: DC-01 TO HOME OR SELFCARE Is pt being admited?: No Does the pt Need Aspirin: No Condition: Stable Instructions: Chronic Obstructive Pulmonary Disease (ED), Alcohol Intoxication (ED), Abuse of Alcohol (ED) Additional Instructions: Please take medication as prescribed. Increase your water intake. Follow-up with primary care doctor. follow up with a GI doctor. Return to emergency room for any new or worsening symptoms. Prescriptions: Prednisone [predniSONE 10 mg (6-Day Pack, 21 Tabs)] 10 mg PO .TAPER #1 tab.ds.pk Albuterol Sulfate [Proventil Hfa] 6.7 gm IH TID PRN #1 hfa.aer.ad PRN Reason: Shortness Of Breath Referrals: PRIMARY CAREMD [Primary Care Provider] - 2-3 Days ANKUR PEÑA MD [Staff Physician] - 2-3 Days [facility] [Provider Group] - 2-3 Days [facility] [Provider Group] - 2-3 Days Time of Disposition: 14:23 Print Language: ROMANIAN <JOSEY SANON - Last Filed: 04/15/20 19:36> ED Fall HPI - General Source: EMS Mode of arrival: Ambulatory - History of Present Illness Initial Comments: Patient is a 59-year-old white male with a history of hypertension, CHF, COPD, asthma and chronic alcohol abuse who presents to the ED via EMS with complaint of headache, left shoulder pain, abdominal pain, diffuse body aches and pains, nausea and vomiting for the last 6 hours after he slipped and fell down on the street. Patient states that he had been drinking alcohol prior to him falling on the street and states that he drinks alcohol heavily every day. Patient d enies loss of consciousness, dizziness, syncope, chest pain, shortness of breath, hematemesis, hemoptysis, cough, change in vision, fever, chills, testicular pain, hematuria or numbness and tingling or weakness of upper and lower extremities bilaterally. 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 Fall Witnessed: yes, by bystander Place Fall Occurred: street Loss of Consciousness: none Prolonged Down Time?: no Symptoms Prior to Fall: other (alcohol intoxication) Location: head, face, abdomen, other (left shoulder) Location - Extremities: Left: Shoulder (pain) Severity: severe Severity scale (0 -10): 7 Quality: sharp, aching Context: tripped/slipped, alcohol use, other (Chronic alcoholic) Associated Symptoms: headache, neck pain, abdominal pain, other (nausea and vomiting) ED Review of Systems Constitutional: denies: chills, fever Eyes: denies: eye pain, eye discharge, vision change ENT: denies: ear pain, throat pain Respiratory: denies: cough, shortness of breath, wheezing Cardiovascular: denies: chest pain, palpitations Endocrine: no symptoms reported Gastrointestinal: abdominal pain, nausea, vomiting. denies: diarrhea Genitourinary: denies: urgency, dysuria Musculoskeletal: arthralgia (Left shoulder pain). denies: back pain, joint swelling Skin: denies: rash, lesions Neurological: headache. denies: weakness, paresthesias Psychiatric: denies: anxiety, depression Hematological/Lymphatic: denies: easy bleeding, easy bruising ED Past Medical Hx - Past Medical History Hx Hypertension: Yes Hx CVA: (BRONCHITIS) Hx Heart Attack/AMI: No Hx Congestive Heart Failure: Yes Hx Diabetes: No Hx Asthma: Yes Hx COPD: Yes Hx HIV: No Additional medical history: hernia - Surgical History Additional Surgical History: LEFT FEMUR FRACTURE, chest tube insertion - Social History Smoking Status: Current Every Day Smoker Substance Use Type: Alcohol ED Physical Exam - General Limitations: No Limitations General appearance: alert, in no apparent distress - Head Head exam: Present: other (Mild left facial abrasion) - Eye Eye exam: Present: normal appearance, PERRL, EOMI Pupils: Present: normal accommodation - ENT ENT exam: Present: normal exam, normal orophraynx, mucous membranes moist, TM's normal bilaterally, normal external ear exam - Neck Neck exam: Present: normal inspection, tenderness (Palpable cervical paraspinal musculoskeletal tenderness), full ROM. Absent: meningismus, lymphadenopathy, thyromegaly - Respiratory Respiratory exam: Present: normal lung sounds bilaterally. Absent: respiratory distress, wheezes, rales, rhonchi, chest wall tenderness, accessory muscle use, decreased breath sounds, prolonged expiratory - Cardiovascular Cardiovascular Exam: Present: regular rate, normal rhythm, normal heart sounds. Absent: systolic murmur, diastolic murmur, rubs, gallop - GI/Abdominal GI/Abdominal exam: Present: soft, tenderness (Palpable mild diffuse abdominal tenderness), normal bowel sounds. Absent: guarding, rebound, rigid, hyperactive bowel sounds, hypoactive bowel sounds, organomegaly - Extremities Exam Extremities exam: Present: normal inspection, tenderness (Palpable left shoulder tenderness with mild abrasions), normal capillary refill. Absent: full ROM (Limited range of motion due to pain) - Back Exam Back exam: Present: normal inspection, full ROM, tenderness. Absent: CVA tenderness (R), muscle spasm, paraspinal tenderness, vertebral tenderness - Neurological Exam Neurological exam: Present: alert, oriented X3, CN II-XII intact, normal gait, reflexes normal - Psychiatric Psychiatric exam: Present: normal affect, normal mood, depressed, anxious, other (Intoxicated on alcohol). Absent: homicidal ideation, suicidal ideation - Skin Skin exam: Present: warm, dry, intact, normal color, abrasion (Multiple abrasion on left shoulder and mild left facial abrasions). Absent: rash ED Medical Decision Making - Lab Data Result diagrams: 04/15/20 04:14 04/15/20 04:14 - Radiology Data Radiology results: report reviewed, image reviewed - Medical Decision Making This is a 59-year-old white male with a history of hypertension, CHF, COPD, asthma and chronic alcohol abuse who presents to the ED via EMS with complaint of headache, left shoulder pain, abdominal pain, diffuse body aches and pains, nausea and vomiting for the last 6 hours after he slipped and fell down on the street. Patient states that he had been drinking alcohol prior to him falling on the street and states that he drinks alcohol heavily every day. In the ED, patient is alert and oriented x3 and is not in distress, but appears intoxicated and in pain. Patient was treated in the ED for nausea and vomiting and pain. Patient also received banana bag in the ED. Lab test results were reviewed and showed blood alcohol level of 0.2 mg/dL, transaminitis with AST of 182 and and ALT of 82 with alk phos of 181. On reevaluation, patient's pain is well controlled medications. Patient has not had any nausea or vomiting after being treated with antiemetics. Patient receiving fluids in the ED and in no acute distress, sleeping comfortably in the chair. Abdomen pelvis CT scan with contrast, head CT scan without contrast, facial bone CT scan without contrast, C-spine CT scan without contrast and left shoulder x-rays were ordered and are pending. The patient care was transferred to Ms. Janiya Silva PA-C at shift change at 0730 hrs. A consult for case management was also placed for the patient. All imaging reports were reviewed and showed no acute abnormalities. Final blood alcohol level was 0.09 percent down from 20% initially. The vital signs prior to discharge was stable. Patient was discharged from the ED and advised to follow-up with his primary care physician in 5 to 7 days for reevaluation. Patient is advised to return to the ED immediately if symptoms get worse. - Differential Diagnosis Scalp contusion; alcohol intoxication; dehydration; shoulder sprain <CARL COCHRAN - Last Filed: 04/16/20 05:50> ED Review of Systems ROS: Stated complaint: LEFT SHOULDER AND FOREARM ABRASION, ETOH Other details as noted in HPI ED Course Vital Signs 04/15/20 04/15/20 04/15/20 04:30 06:36 08:43 Temperature 97.9 F 98.8 F Pulse Rate 99 H 72 Pulse Rate [ Anterior Bilateral Throughout] Respiratory 18 20 16 Rate Respiratory Rate [Anterior Bilateral Throughout] Blood Pressure 102/47 Blood Pressure 130/66 [Right] O2 Sat by Pulse 95 91 Oximetry 04/15/20 04/15/20 04/15/20 09:48 10:01 10:15 Temperature Pulse Rate 56 L 65 52 L Pulse Rate [ Anterior Bilateral Throughout] Respiratory 15 14 15 Rate Respiratory Rate [Anterior Bilateral Throughout] Blood Pressure Blood Pressure [Right] O2 Sat by Pulse 93 93 92 Oximetry 04/15/20 04/15/20 04/15/20 10:21 10:31 10:45 Temperature Pulse Rate 70 92 H Pulse Rate [ 100 H Anterior Bilateral Throughout] Respiratory 19 16 Rate Respiratory 22 Rate [Anterior Bilateral Throughout] Blood Pressure Blood Pressure [Right] O2 Sat by Pulse 85 98 Oximetry 04/15/20 04/15/20 04/15/20 11:01 11:15 11:30 Temperature Pulse Rate 67 73 Pulse Rate [ Anterior Bilateral Throughout] Respiratory 16 17 Rate Respiratory Rate [Anterior Bilateral Throughout] Blood Pressure 133/81 Blood Pressure [Right] O2 Sat by Pulse 91 91 83 L Oximetry 04/15/20 04/15/20 04/15/20 11:45 12:00 12:15 Temperature Pulse Rate Pulse Rate [ Anterior Bilateral Throughout] Respiratory Rate Respiratory Rate [Anterior Bilateral Throughout] Blood Pressure 131/87 122/78 109/48 Blood Pressure [Right] O2 Sat by Pulse 86 94 95 Oximetry 04/15/20 04/15/20 04/15/20 12:30 12:45 13:00 Temperature Pulse Rate Pulse Rate [ Anterior Bilateral Throughout] Respiratory Rate Respiratory Rate [Anterior Bilateral Throughout] Blood Pressure 136/63 116/56 124/61 Blood Pressure [Right] O2 Sat by Pulse 93 89 92 Oximetry 04/15/20 04/15/20 04/15/20 13:05 13:15 13:30 Temperature Pulse Rate 78 Pulse Rate [ Anterior Bilateral Throughout] Respiratory 16 Rate Respiratory Rate [Anterior Bilateral Throughout] Blood Pressure 108/48 114/58 Blood Pressure 128/70 [Right] O2 Sat by Pulse 95 93 94 Oximetry 04/15/20 04/15/20 04/15/20 13:45 14:00 14:15 Temperature Pulse Rate Pulse Rate [ Anterior Bilateral Throughout] Respiratory Rate Respiratory Rate [Anterior Bilateral Throughout] Blood Pressure 121/61 123/61 137/65 Blood Pressure [Right] O2 Sat by Pulse 94 96 95 Oximetry ED Medical Decision Making - Lab Data Result diagrams: 04/15/20 04:14 04/15/20 04:14 Critical care attestation.: If time is entered above; I have spent that time in minutes in the direct care of this critically ill patient, excluding procedure time. ED Disposition Is pt being admited?: No Does the pt Need Aspirin: No
[2020-04-15] MEDS ORDERED: SODIUM CHLORIDE 0.9% 1000 ML 1,000 ML IV ONE (07:53)
--- NOTE | 2020-04-15 08:33 | XRay Report ---
LEFT SHOULDER 3 VIEWS INDICATION / CLINICAL INFORMATION: Fall - shoulder pain. COMPARISON: None available. FINDINGS: No significant skeletal abnormality Signer Name: Flash Stanley MD FACR Signed: 04/15/2020 8:28 AM Workstation Name: [email or web address]
[2020-04-15] MEDS ORDERED: ALBUTEROL 2.5 MG/3 ML NEBU IH ONE (08:50)
[2020-04-15] MEDS ORDERED: IPRATROPIUM 0.02% NEBU 2.5 ML IH ONE (08:50)
[2020-04-15] MEDS ORDERED: dexAMETHasone 20 MG/5 ML VIAL IV ONE (08:51)
--- NOTE | 2020-04-15 09:26 | Cat Scan Report ---
CT ABDOMEN AND PELVIS WITH CONTRAST HISTORY: Abdominal pain after fall COMPARISON: 02/26/2020 TECHNIQUE: Axial CT images were obtained through the abdomen and pelvis after 100 cc of Omnipaque 300 intravenously. Sagittal and coronal reformatted images. All CT scans at this location are performed using CT dose reduction for ALARA by means of automated exposure control. FINDINGS: CT ABDOMEN: Lung Bases: Clear. Liver: The liver is borderline enlarged with moderate diffuse fatty infiltration. No focal liver lesi on is detected. Biliary: No significant abnormality. Spleen: No significant abnormality. Unenlarged. Pancreas: No significant abnormality. Adrenals: No significant abnormality. Kidneys: No significant abnormality. 1 cm exophytic cyst from the mid right kidney is noted and uncha nged. Lymphatics: No lymphadenopathy. Vasculature: No significant abnormality. Bowel/Peritoneum: No evidence for bowel obstruction or focal inflammation. Normal appendix. No free f luid or free air. A large right inguinal hernia is identified containing multiple loops of small haim l in the upper scrotal sac. On the previous examination, this hernia containing mesenteric fat only. CT PELVIS: : No significant abnormality. Osseous Structures: Healing right lateral ninth rib fracture is again noted. No acute bony injury is appreciated. Additional Findings: None IMPRESSION: No acute process or injury is appreciated in the abdomen or pelvis. Stable hepatic steatosis. Large right inguinal hernia containing multiple loops of distal small bowel. No evidence for obstruct ion. Subacute to chronic right lateral ninth rib fracture. No acute fracture is detected. Signer Name: Malachi Camacho Jr, MD Signed: 04/15/2020 9:21 AM Workstation Name: [id number]
--- NOTE | 2020-04-15 09:28 | Cat Scan Report ---
CT head/brain wo con INDICATION / CLINICAL INFORMATION: 59 years Male; Fall - head injury. TECHNIQUE: Routine CT head without contrast. All CT scans at this location are performed using CT dos e reduction for ALARA by means of automated exposure control. COMPARISON: None. FINDINGS: BRAIN / INTRACRANIAL CONTENTS: The motion degrades the image quality. However, there is mild cerebral white matter disease most consistent with microvascular angiopathy. There is also mild cerebral atro phy. The ventricular system is correspondingly appropriate in size and configuration. There is no diana ar CT evidence of acute intracranial hemorrhage or significant mass effect. ORBITS: No significant abnormality of visualized orbits. SINUSES / MASTOIDS: No significant abnormality in the visualized paranasal sinuses or mastoid air jaida ls. CRANIOCERVICAL JUNCTION: No significant abnormality. ADDITIONAL FINDINGS: None. IMPRESSION: 1. There is mild microvascular angiopathy and cerebral atrophy without clear CT evidence of acute int racranial hemorrhage. Signer Name: Carl Jin MD Signed: 04/15/2020 9:22 AM Workstation Name: [id number]
--- NOTE | 2020-04-15 09:34 | Cat Scan Report ---
CT MAXILLOFACIAL WITHOUT CONTRAST INDICATION / CLINICAL INFORMATION: Fall - head injury. TECHNIQUE: All CT scans at this location are performed using CT dose reduction for ALARA by means of automated e xposure control. COMPARISON: None available. FINDINGS: FACIAL BONES: There is no CT evidence of acute fracture involving the facial bones. The orbital sullivan , sinuses and zygomatic arches appear intact. There is poor dentition with multifocal areas of lucenc y surrounding the apices of the remaining teeth at. PARANASAL SINUSES: There is mild mucosal thickening within the left maxillary and right sphenoid sinu ses. There is moderate deviation of the nasal septum toward the right. ORBITS: The optic globes demonstrate appropriate size and configuration. There is no clear CT evidenc e of significant post septal inflammatory changes. VISUALIZED INTRACRANIAL STRUCTURES: No significant abnormality. ADDITIONAL FINDINGS: None. IMPRESSION: 1. There is no CT evidence of acute fracture involving the facial bones. 2. There is mild mucosal thickening involving the left maxillary and right sphenoid sinuses. Signer Name: Carl Jin MD Signed: 04/15/2020 9:28 AM Workstation Name: [id number]
--- NOTE | 2020-04-15 09:47 | Cat Scan Report ---
CT CERVICAL SPINE WITHOUT CONTRAST INDICATION / CLINICAL INFORMATION: Fall - neck pain. TECHNIQUE: Axial CT images were obtained through the cervical spine. Sagittal and coronal reformatted images wer e produced. All CT scans at this location are performed using CT dose reduction for ALARA by means of automated exposure control. COMPARISON: None available. FINDINGS: ALIGNMENT: Normal alignment is maintained throughout. There is no indication of traumatic subluxation . VERTEBRAE: There is no indication of fracture or bone destruction. DISC SPACES: Disc height is noted throughout the cervical region compatible with widespread disc wang ccation. DEGENERATIVE CHANGES: Facet and uncovertebral arthritic changes are present multiple levels. Multifoc al neuroforaminal stenosis results. Posterior osteophyte is a prominent finding at the C3-4, C4-5 and C6-7 levels. Central canal stenosis is evident at the C3-4 level. Calcifications are seen in the ant erior and posterior annulus fibrosis at the C4-5 and C5-6 levels. CRANIOCERVICAL JUNCTION:No significant abnormality. SPINAL CANAL: Central canal stenosis is evident at the C3-4 level. PARASPINAL SOFT TISSUES: No significant abnormality. ADDITIONAL FINDINGS: None. LUNG APICES: Bilateral bullous changes are seen at the lung apices. Pleural and parenchymal fibrotic changes are observed at the right lung apex. IMPRESSION: 1. No indication of fracture or traumatic subluxation. 2. Widespread cervical spondylosis. There is central canal stenosis at the C3-4 level and multifocal neuroforaminal narrowing. Signer Name: Miguel Kumar MD Signed: 04/15/2020 9:42 AM Workstation Name: [id number]
[2020-04-15] MEDS ORDERED: dexAMETHasone 20 MG/5 ML VIAL ONE (11:13)
[2020-04-15 12:01] LABS: Bilirubin,Urine NEG (Negative); Blood,Urine NEG (Negative); Color,Urine Yellow (Yellow); Mucus,Urine FEW /HPF; Protein,Urine <15 mg/dL mg/dL (Negative); RBC,Urine < 1.0 /HPF (0.0-6.0)
[2020-04-15 14:21] VITALS: BP 137/65
== END 2020-04-15 15:40 | disposition home or self-care (01) ==
LOC: ED 20:54
DX: S00.03XA Contusion of scalp, initial encounter (principal); S10.93XA Contusion of unspecified part of neck, initial encounter; S00.12XA Contusion of left eyelid and periocular area, initial encounter; S00.11XA Contusion of right eyelid and periocular area, initial encounter; S00.83XA Contusion of other part of head, initial encounter; E86.0 Dehydration; R11.2 Nausea with vomiting, unspecified; R79.89 Other specified abnormal findings of blood chemistry; I11.0 Hypertensive heart disease with heart failure; I50.9 Heart failure, unspecified; J44.1 Chronic obstructive pulmonary disease with (acute) exacerbation; F10.920 Alcohol use, unspecified with intoxication, uncomplicated; F17.200 Nicotine dependence, unspecified, uncomplicated; Z98.890 Other specified postprocedural states; Z79.899 Other long term (current) drug therapy; X58.XXXA Exposure to other specified factors, initial encounter; Y93.89 Activity, other specified; Y92.89 Other specified places as the place of occurrence of the external cause; Y99.8 Other external cause status
CPT/HCPCS: 36415; 70450; 70486; 71045; 72125; 73030; 74177; 80053; 81001; 83690; 85025; 94640; 96361; 96365; 96366; 96375; 99285; J1100; J1885; J2405; J3411; J7030; Q9967; 80320; 94644; G0480

== ENCOUNTER 2020-04-21 14:34 | Emergency (ER) | payer SELFPAY ==
[2020-04-21 14:52] VITALS: BP 139/95
--- NOTE | 2020-04-21 14:55 | Event Note ---
ED Screening Note Date of service: 04/21/20 Time: 14:53 ED Screening Note: Pt complains of continued left hip and left shoulder pain since his visit 04/14/20 and right leg pain x last night after a fall pt had multiple xrays and CTs at his visit 04/14/20 Pt appears intoxicated This initial assessment/diagnostic orders/clinical plan/treatment(s) is/are subject to change based on patients health status, clinical progression and re- assessment by fellow clinical providers in the ED. Further treatment and workup at subsequent clinical providers discretion. Patient/guardian urged not to elope from the ED as their condition may be serious if not clinically assessed and managed. Initial orders include: xr
--- NOTE | 2020-04-21 16:33 | XRay Report ---
. LEFT FEMUR 2 VIEWS INDICATION: pain after fall. COMPARISON: None. IMPRESSION: No acute osseous or soft tissue abnormality. Normal articulation at the hip and knee. Signer Name: Malachi Camacho Jr, MD Signed: 04/21/2020 4:29 PM Workstation Name: [id number]
== END 2020-04-21 19:50 | disposition left against medical advice (07) ==
LOC: ED 14:34
DX: M25.551 Pain in right hip (principal); Z53.21 Procedure and treatment not carried out due to patient leaving prior to being seen by health care provider

== ENCOUNTER 2020-09-29 05:14 | Observation (INO) | payer OTHER ==
--- NOTE | 2020-09-29 05:48 | XRay Report ---
CHEST 1 VIEW INDICATION: dyspnea COMPARISON: 04/15/2020 FINDINGS: Support devices: None Heart: Normal and unchanged Lungs/Pleura: Lungs are hyperinflated but clear of acute disease. IMPRESSION: 1. No significant change. Signer Name: Angel Vidales MD Signed: 09/29/2020 5:43 AM Workstation Name: [id number]
[2020-09-29 06:06] LABS: Basophils % (Auto) 0.4 % (0.0-1.8); Eosinophils # (Auto) 0.1 K/mm3 (0.0-0.4); Eosinophils % (Auto) 2.1 % (0.0-4.3); Hematocrit 43.1 % (35.5-45.6); Lymphocytes # (Auto) 1.4 K/mm3 (1.2-5.4); Lymphocytes % (Auto) 20.1 % (13.4-35.0); Mean Corpuscular HGB Conc 35 % (32-34); Mean Corpuscular Volume 108 fl (84-94); Monocytes % (Auto) 14.4 % (0.0-7.3); Platelet Count 169 K/mm3 (140-440); Red Blood Count 3.98 M/mm3 (3.65-5.03); Red Cell Distribution Width 13.2 % (13.2-15.2)
[2020-09-29] MEDS ORDERED: SODIUM CHLORIDE 0.9% 1000 ML 1,000 ML IV ONE (06:37)
[2020-09-29] MEDS ORDERED: THIAMINE 100 MG, FOLIC ACID 1 MG, MULTIPLE VITAMIN INJ, ADULT 10 ML in SODIUM CHLORIDE ... IV ONE (06:37)
[2020-09-29] MEDS ORDERED: MAGNESIUM SULFATE 2 GM/50 ML BAG IV ONE (06:37)
[2020-09-29] MEDS ORDERED: LORazepam 2 MG/ML VIAL IV ONE (06:38)
[2020-09-29] MEDS ORDERED: LORazepam 2 MG/ML VIAL IV PRN ×3 (06:38)
[2020-09-29] MEDS ORDERED: ONDANSETRON 4 MG/2 ML INJ IV ONE (06:44)
[2020-09-29 06:48] LABS: Alanine Aminotransferase 64 units/L (7-56); Albumin 3.7 g/dL (3.9-5); Blood Urea Nitrogen 7 mg/dL (9-20); Calcium 8.7 mg/dL (8.4-10.2); Hemolysis Index 5
--- NOTE | 2020-09-29 06:48 | Emergency Department Report ---
HPI - General Chief Complaint: Dyspnea/Respdistress Time Seen by Provider: 09/29/20 06:24 - HPI HPI: Room 21 The patient is a 59-year-old male present with a chief complaint of nausea vomiting diarrhea. The patient states he has been unable to eat for the past 5 days secondary to loss of appetite. Patient states for the past 2 days he has had nausea vomiting diarrhea in addition to shortness of breath. Patient states he felt weak and dizzy and his weakness kept him from being able to ambulate. Patient states he normally considers approximately 3 beers daily but with his nausea vomiting his consumption has been sporadic. The patient appears c onfusing when asked last time he consumed alcohol initially states the day before yesterday but then states he drank 3 beers yesterday. The patient states last night he began "seeing visions" which are visual hallucinations of people sitting on his bed "that are not there." Patient admits to chronic cough but states for the past 2 days has been productive of white sputum. Patient states he noticed tremulousness of his extremities while in the ED ED Past Medical Hx - Past Medical History Previous Medical History?: Yes Hx Hypertension: Yes Hx CVA: (BRONCHITIS) Hx Congestive Heart Failure: Yes Hx Asthma: Yes Hx COPD: Yes Additional medical history: hernia - Surgical History Past Surgical History?: Yes Additional Surgical History: LEFT FEMUR FRACTURE, chest tube insertion - Family History Family history: no significant - Social History Smoking Status: Current Every Day Smoker (1 pack/day) Substance Use Type: None (Denies illicit drug use), Alcohol - Medications Home Medications: Home Medications Medication Instructions Recorded Confirmed Last Taken Type Nebulizer and Compressor [Valdez 1 each MC TID PRN #1 each 11/27/19 02/03/20 Unknown Rx Choice Nebulizer] Ipratropium [Atrovent NEB] 0.5 mg IH Q8HRT #1 box 02/03/20 Unknown Rx Pantoprazole [Protonix TAB] 40 mg PO QDAY 30 Days #30 tablet 02/03/20 Unknown Rx Aspirin EC [Halfprin EC] 81 mg PO QDAY #30 tablet. 02/04/20 Unknown Rx Furosemide [Lasix TAB] 20 mg PO QDAY #30 tablet 02/04/20 Unknown Rx Spironolactone [Aldactone] 25 mg PO QDAY #30 tablet 02/04/20 Unknown Rx carvediloL [Coreg] 3.125 mg PO BID #60 tablet 02/04/20 Unknown Rx lisinopriL [Zestril TAB] 2.5 mg PO QDAY #30 tablet 02/04/20 Unknown Rx Dicyclomine [Bentyl] 10 mg PO QID PRN #20 capsule 02/12/20 Unknown Rx Albuterol Sulfate [Albuterol 0.63% 0.63 mg IH TID PRN #1 box 02/28/20 Unknown Rx NEBS] Folic Acid [Folvite] 1 mg PO DAILY #30 tablet 02/28/20 Unknown Rx Multivitamin Tab W-MINERAL 1 each PO QDAY #30 tablet 02/28/20 Unknown Rx [Multiple Vitamin/Mineral (Theragran M)] Thiamine [Vitamin B-1] 100 mg PO QDAY 30 Days #30 02/28/20 Unknown Rx Albuterol Sulfate [Proventil Hfa] 6.7 gm IH TID PRN #1 hfa.aer.ad 04/15/20 Unknown Rx Prednisone [predniSONE 10 mg 10 mg PO .TAPER #1 tab.ds.pk 04/15/20 Unknown Rx (6-Day Pack, 21 Tabs)] ED Review of Systems ROS: Stated complaint: DIFFICULTY BREATHING Other details as noted in HPI Constitutional: fever (Occasional subjective) Eyes: denies: eye pain ENT: denies: throat pain Respiratory: shortness of breath Cardiovascular: denies: chest pain Endocrine: no symptoms reported Gastrointestinal: nausea, vomiting, diarrhea. denies: abdominal pain Genitourinary: denies: dysuria Musculoskeletal: denies: back pain Neurological: other (Dizziness). denies: headache Psychiatric: visual hallucinations Physical Exam - Physical Exam Vital Signs: Vital Signs 09/29/20 05:25 Temperature 98.5 F Pulse Rate 109 H Respiratory 21 Rate Blood Pressure 122/83 [Left] O2 Sat by Pulse 96 Oximetry Physical Exam: GENERAL: The patient is well-developed thin male lying on stretcher not a ppearing to be in acute distress tremulousness noted HEENT: Normocephalic. Atraumatic. Extraocular motions are intact. Patient has moist mucous membranes. No nystagmus NECK: Supple. Trachea midline CHEST/LUNGS: Clear to auscultation. There is no respiratory distress noted. HEART/CARDIOVASCULAR: Regular. There is tachycardia. There is no gallop rub or murmur. ABDOMEN: Abdomen is soft, nontender. Patient has normal bowel sounds. There is no abdominal distention. SKIN: There is no rash. There is no edema. There is no diaphoresis. NEURO: The patient is awake, alert, and oriented. The patient is cooperative. The patient has no focal neurologic deficits. The patient has normal speech. Cranial nerves II through XII grossly intact. Tremulousness noted MUSCULOSKELETAL: There is no evidence of acute injury. ED Course Vital Signs 09/29/20 05:25 Temperature 98.5 F Pulse Rate 109 H Respiratory 21 Rate Blood Pressure 122/83 [Left] O2 Sat by Pulse 96 Oximetry ED Medical Decision Making - Lab Data Result diagrams: 09/29/20 05:35 09/29/20 05:35 - Radiology Data Radiology results: report reviewed (Chest x-ray, CT head), image reviewed (Chest x-ray, CT head) interpreted by me: Chest x-ray-no focal infiltrates, no pneumothorax. No foreign body seen [address] [address] XRay Report Signed Patient: GRACIE CONTE MR#: [id number] : 1960 Acct:[id number] Age/Sex: 59 / M ADM Date: 09/29/20 Loc: ED Attending Dr: Ordering Physician: Dotty Mcmillan MD Date of Service: 09/29/20 Procedure(s): XR chest 1V ap Accession Number(s): [id number] cc: Dotty Mcmillan MD Fluoro Time In Minutes: CHEST 1 VIEW INDICATION: dyspnea COMPARISON: 04/15/2020 FINDINGS: Support devices: None Heart: Normal and unchanged Lungs/Pleura: Lungs are hyperinflated but clear of acute disease. IMPRESSION: 1. No significant change. Signer Name: Angel Vidales MD Signed: 09/29/2020 5:43 AM Workstation Name: [id number] Transcribed By: TM Dictated By: Angel Vidales MD Electronically Authenticated By: Angel Vidales MD Signed Date/Time: 09/29/20542 DD/ 1 TD/TT: Print Cancel [address] [address] Cat Scan Report Signed Patient: GRACIE CONTE MR#: [id number] : 1960 Acct:[id number] Age/Sex: 59 / M ADM Date: 09/29/20 Loc: ED Attending Dr: Ordering Physician: ROSITA SIFUENTES MD Date of Service: 09/29/20 Procedure(s): CT head/brain wo con Accession Number(s): [id number] cc: ROSITA SIFUENTES MD CT HEAD WITHOUT CONTRAST INDICATION / CLINICAL INFORMATION: Dizziness, visual hallucination. TECHNIQUE: All CT scans at this location are performed using CT dose reduction for ALARA by means of automated exposure control. COMPARISON: Head CT 04/15/2020 FINDINGS: HEMORRHAGE: No evidence of intracranial hemorrhage or extra-axial fluid collection. EXTRA-AXIAL SPACES: Cortical sulci, sylvian fissures and basilar cisterns have an unremarkable appearance. VENTRICULAR SYSTEM: The third and lateral ventricles are of normal size and configuration. CEREBRAL PARENCHYMA: No areas of abnormal brain parenchymal attenuation are identified. There is no indication of recent infarction. MIDLINE SHIFT OR HERNIATION: There is no mass effect. CEREBELLUM / BRAINSTEM: Brainstem and cerebellum have an unremarkable appearance. MIDLINE STRUCTURES:No abnormalities of the pituitary gland or pineal region are identified. INTRACRANIAL VESSELS:No abnormalities are identified on this noncontrast head CT. ORBITS: visualized portions of the orbits have an unremarkable appearance. SOFT TISSUES of HEAD: No significant abnormality. CALVARIUM: Evaluation of bone windows reveals no abnormalities. PARANASAL SINUSES / MASTOID AIR CELLS: Visualized portions of the paranasal sinuses are free from inflammatory mucosal disease. Mastoid air cells are normally pneumatized. IMPRESSION: 1. No acute intracranial abnormality. No significant interval change. Signer Name: Miguel Kumar MD Signed: 09/29/2020 8:05 AM Workstation Name: [id number] Transcribed By: Dictated By: Miguel Kumar MD Electronically Authenticated By: Miguel Kumar MD Signed Date/Time: 09/29/20804 DD/ 0 TD/TT: Print Cancel - Differential Diagnosis Alcohol withdrawal, gastroenteritis, alcoholic hepatitis, ICH, encephalopat Critical care attestation.: If time is entered above; I have spent that time in minutes in the direct care of this critically ill patient, excluding procedure time. ED Disposition Clinical Impression: Alcohol withdrawal, Visual hallucinations, Nausea vomiting and diarrhea Disposition: DC-09 OP ADMIT IP TO THIS HOSP Is pt being admited?: Yes Does the pt Need Aspirin: No Condition: Fair Referrals: PRIMARY CARE, [Primary Care Provider] - 3-5 Days Time of Disposition: 08:15 (Hospitalist paged)
[2020-09-29 06:49] LABS: BUN/Creatinine Ratio 10
[2020-09-29] MEDS ORDERED: THIAMINE 100 MG, FOLIC ACID 1 MG in SODIUM CHLORIDE 0.9% 1000 ML 1,000 ML IV ONE (07:00)
--- NOTE | 2020-09-29 08:10 | Cat Scan Report ---
CT HEAD WITHOUT CONTRAST INDICATION / CLINICAL INFORMATION: Dizziness, visual hallucination. TECHNIQUE: All CT scans at this location are performed using CT dose reduction for ALARA by means of automated e xposure control. COMPARISON: Head CT 04/15/2020 FINDINGS: HEMORRHAGE: No evidence of intracranial hemorrhage or extra-axial fluid collection. EXTRA-AXIAL SPACES: Cortical sulci, sylvian fissures and basilar cisterns have an unremarkable appear ance. VENTRICULAR SYSTEM: The third and lateral ventricles are of normal size and configuration. CEREBRAL PARENCHYMA: No areas of abnormal brain parenchymal attenuation are identified. There is no i ndication of recent infarction. MIDLINE SHIFT OR HERNIATION: There is no mass effect. CEREBELLUM / BRAINSTEM: Brainstem and cerebellum have an unremarkable appearance. MIDLINE STRUCTURES:No abnormalities of the pituitary gland or pineal region are identified. INTRACRANIAL VESSELS:No abnormalities are identified on this noncontrast head CT. ORBITS: visualized portions of the orbits have an unremarkable appearance. SOFT TISSUES of HEAD: No significant abnormality. CALVARIUM: Evaluation of bone windows reveals no abnormalities. PARANASAL SINUSES / MASTOID AIR CELLS: Visualized portions of the paranasal sinuses are free from inf lammatory mucosal disease. Mastoid air cells are normally pneumatized. IMPRESSION: 1. No acute intracranial abnormality. No significant interval change. Signer Name: Miguel Kumar MD Signed: 09/29/2020 8:05 AM Workstation Name: [email or web address]
--- NOTE | 2020-09-29 09:39 | History and Physical Report ---
History of Present Illness Date of examination: 09/29/20 Date of admission: 09/29/20 08:17 Chief complaint: AMS History of present illness: The patient is a 59-year-old male present with a chief complaint of nausea vomiting diarrhea per ER physician and hospital record. The patient reportedly had been unable to eat for the past 5 days secondary to loss of appetite. ER physician reported that for the past 2 days he has had nausea vomiting diarrhea in addition to shortness of breath and patient stated he felt weak and dizzy and his weakness kept him from being able to ambulate. Patient apparently normally drink approximately 3 beers daily but with his nausea vomiting his consumption has been sporadic. However, during my interview, the patient was unaware of why he was in the hospital and only noted that he was brought by ambulance. The patient was not able to give me any history. The patient appeared confused when asked last time he consumed alcohol initially states the day before yesterday but then states he drank 3 beers yesterday. The patient states last night he began "seeing visions" which are visual hallucinations of people sitting on his bed "that are not there." Past History Past Medical History: hypertension, stroke Social history: smoking, alcohol abuse Medications and Allergies Allergies Allergy/AdvReac Type Severity Reaction Status Date / Time No Known Allergies Allergy Verified 01/14/19 10:21 Home Medications Medication Instructions Recorded Confirmed Last Taken Type Nebulizer and Compressor [[place] 1 each MC TID PRN #1 each 11/27/19 02/03/20 Unknown Rx Choice Nebulizer] Ipratropium [Atrovent NEB] 0.5 mg IH Q8HRT #1 box 02/03/20 Unknown Rx Pantoprazole [Protonix TAB] 40 mg PO QDAY 30 Days #30 tablet 02/03/20 Unknown Rx Aspirin EC [Halfprin EC] 81 mg PO QDAY #30 tablet. 02/04/20 Unknown Rx Furosemide [Lasix TAB] 20 mg PO QDAY #30 tablet 02/04/20 Unknown Rx Spironolactone [Aldactone] 25 mg PO QDAY #30 tablet 02/04/20 Unknown Rx carvediloL [Coreg] 3.125 mg PO BID #60 tablet 02/04/20 Unknown Rx lisinopriL [Zestril TAB] 2.5 mg PO QDAY #30 tablet 08/04/20 Unknown Rx Dicyclomine [Bentyl] 10 mg PO QID PRN #20 capsule 02/12/20 Unknown Rx Albuterol Sulfate [Albuterol 0.63% 0.63 mg IH TID PRN #1 box 02/28/20 Unknown Rx NEBS] Folic Acid [Folvite] 1 mg PO DAILY #30 tablet 02/28/20 Unknown Rx Multivitamin Tab W-MINERAL 1 each PO QDAY #30 tablet 02/28/20 Unknown Rx [Multiple Vitamin/Mineral (Theragran M)] Thiamine [Vitamin B-1] 100 mg PO QDAY 30 Days #30 02/28/20 Unknown Rx Albuterol Sulfate [Proventil Hfa] 6.7 gm IH TID PRN #1 hfa.aer.ad 04/15/20 Unknown Rx Prednisone [predniSONE 10 mg 10 mg PO .TAPER #1 tab.ds.pk 04/15/20 Unknown Rx (6-Day Pack, 21 Tabs)] Active Meds: Active Medications Thiamine HCl 100 mg/ Folic (Acid 1 mg/ Sodium Chloride) 1,001.2 mls @ 250 mls/hr IV ONCE ONE Stop: 09/29/20 11:00 Last Admin: 09/29/20 07:16 Dose: 250 mls/hr Documented by: Lorazepam (Lorazepam 2 Mg/Ml Vial) 2 mg IV Q1HR PRN PRN Reason: CIWA-Ar 8-15 Lorazepam (Lorazepam 2 Mg/Ml Vial) 4 mg IV Q1HR PRN PRN Reason: CIWA-Ar 16-25 Lorazepam (Lorazepam 2 Mg/Ml Vial) 4 mg IV Q15MIN PRN PRN Reason: CIWA-Ar >25 Review of Systems All systems: negative Exam - Constitutional Vitals: Temp Pulse Resp BP Pulse Ox 98.5 F 93 H 18 127/73 95 09/29/20 05:25 09/29/20 09:00 09/29/20 09:00 09/29/20 09:00 09/29/20 09:00 General appearance: Present: no acute distress, well-nourished - EENT Eyes: Present: PERRL ENT: hearing intact, clear oral mucosa - Neck Neck: Present: supple, normal ROM - Respiratory Respiratory effort: normal Respiratory: bilateral: CTA - Cardiovascular Heart Sounds: Present: S1 & S2. Absent: rub, click - Extremities Extremities: pulses symmetrical, No edema Peripheral Pulses: within normal limits - Abdominal General gastrointestinal: Present: soft, non-tender, non-distended, normal bowel sounds Male genitourinary: Present: normal - Integumentary Integumentary: Present: clear, warm, dry - Musculoskeletal Musculoskeletal: gait normal, strength equal bilaterally - Psychiatric Psychiatric: appropriate mood/affect, intact judgment & insight - Neurologic Neurologic: CNII-XII intact, moves all extremities HEART Score - HEART Score Troponin: Troponin T < 0.010 ng/mL (0.00-0.029) 09/29/20 05:35 Results - Labs CBC & Chem 7: 09/29/20 05:35 09/29/20 05:35 Labs: Laboratory Last Values WBC 6.9 K/mm3 (4.5-11.0) 09/29/20 05:35 RBC 3.98 M/mm3 (3.65-5.03) 09/29/20 05:35 Hgb 15.0 gm/dl (11.8-15.2) 09/29/20 05:35 Hct 43.1 % (35.5-45.6) 09/29/20 05:35 MCV 108 fl (84-94) H 09/29/20 05:35 MCH 38 pg (28-32) H 09/29/20 05:35 MCHC 35 % (32-34) H 09/29/20 05:35 RDW 13.2 % (13.2-15.2) 09/29/20 05:35 Plt Count 169 K/mm3 (140-440) 09/29/20 05:35 Lymph % (Auto) 20.1 % (13.4-35.0) 09/29/20 05:35 [place] % (Auto) 14.4 % (0.0-7.3) H 09/29/20 05:35 Eos % (Auto) 2.1 % (0.0-4.3) 09/29/20 05:35 Baso % (Auto) 0.4 % (0.0-1.8) 09/29/20 05:35 Lymph # (Auto) 1.4 K/mm3 (1.2-5.4) 09/29/20 05:35 [place] # (Auto) 1.0 K/mm3 (0.0-0.8) H 09/29/20 05:35 Eos # (Auto) 0.1 K/mm3 (0.0-0.4) 09/29/20 05:35 Baso # (Auto) 0.0 K/mm3 (0.0-0.1) 09/29/20 05:35 Seg Neutrophils % 63.0 % (40.0-70.0) 09/29/20 05:35 Seg Neutrophils # 4.3 K/mm3 (1.8-7.7) 09/29/20 05:35 Sodium 136 mmol/L (137-145) L 09/29/20 05:35 Potassium 4.2 mmol/L (3.6-5.0) 09/29/20 05:35 Chloride 95.6 mmol/L (98-107) L 09/29/20 05:35 Carbon Dioxide 27 mmol/L (22-30) 09/29/20 05:35 Anion Gap 18 mmol/L 09/29/20 05:35 BUN 7 mg/dL (9-20) L 09/29/20 05:35 Creatinine 0.7 mg/dL (0.8-1.3) L 09/29/20 05:35 Estimated GFR > 60 ml/min 09/29/20 05:35 BUN/Creatinine Ratio 10 % 09/29/20 05:35 Glucose 74 mg/dL (75-100) L 09/29/20 05:35 Calcium 8.7 mg/dL (8.4-10.2) 09/29/20 05:35 Total Bilirubin 1.00 mg/dL (0.1-1.2) 09/29/20 05:35 AST 169 units/L (5-40) H 09/29/20 05:35 ALT 64 units/L (7-56) H 09/29/20 05:35 Alkaline Phosphatase 172 units/L (35-129) H 09/29/20 05:35 Troponin T < 0.010 ng/mL (0.00-0.029) 09/29/20 05:35 Total Protein 6.3 g/dL (6.3-8.2) 09/29/20 05:35 Albumin 3.7 g/dL (3.9-5) L 09/29/20 05:35 Albumin/Globulin Ratio 1.4 % 09/29/20 05:35 Assessment and Plan Assessment and plan: Toxic metabolic encephalopathy/delirium tremens. EtOH withdrawal EtOH abuse COPD, compensated History of substance abuse Elevated LFTs. Plan: Continue CIWA protocol and monitor closely. Fall precautions. Follow-up B12 and folate. Supportive care with IV fluid hydration.
--- NOTE | 2020-09-30 08:31 | Discharge Summary ---
Providers - Providers Date of Admission: 09/29/20 08:17 Date of discharge: 09/30/20 Attending physician: CHRISSY JEFFERY Primary care physician: ROS DOHERTY MD Hospitalization Reason for admission: EtOH withdrawal Condition: Fair Hospital course: 59-year-old male who presented through the emergency department with complaints of N/V/D related to alcohol intake. Patient was admitted with diagnosis of alcohol withdrawal, alcoholic hepatitis and hepatic encephalopathy. The patient was noted to have elevated LFTs with AST of 169, ALT 64 and alkaline phosphatase 172. The patient was placed on CIWA protocol and received Ativan with stabilization of symptoms. Patient returned back to his baseline mental status. Patient's GI symptoms resolved and patient tolerated cardiac diet. Patient is felt to have received maximal hospital benefit and will be discharged home. Dedicated discharge time 35 minutes. Disposition: DC- TO HOME OR SELFCARE Final Discharge Diagnosis (Prints w/discharge instructions): Alcohol withdrawal, nausea, vomiting, hepatic encephalopathy Core Measure Documentation - Palliative Care Palliative Care/ Comfort Measures: Not Applicable - Core Measures Any of the following diagnoses?: none Exam - Constitutional Vitals: Temp Pulse Resp BP Pulse Ox 97.9 F 89 24 118/85 99 09/30/20 05:54 09/30/20 05:54 09/30/20 05:54 09/30/20 05:54 09/30/20 05:54 General appearance: Present: no acute distress, well-nourished - EENT Eyes: Present: PERRL ENT: hearing intact, clear oral mucosa - Neck Neck: Present: supple, normal ROM - Respiratory Respiratory effort: normal Respiratory: bilateral: CTA - Cardiovascular Heart Sounds: Present: S1 & S2. Absent: rub, click - Extremities Extremities: pulses symmetrical, No edema Peripheral Pulses: within normal limits - Abdominal General gastrointestinal: Present: soft, non-tender, non-distended, normal bowel sounds Male genitourinary: Present: normal - Integumentary Integumentary: Present: clear, warm, dry - Musculoskeletal Musculoskeletal: gait normal, strength equal bilaterally - Psychiatric Psychiatric: appropriate mood/affect, intact judgment & insight - Neurologic Neurologic: CNII-XII intact, moves all extremities Plan Activity: advance as tolerated Weight Bearing Status: Weight Bear as Tolerated Diet: low fat, low cholesterol, low salt Follow up with: PRIMARY CARE, [Primary Care Provider] - 3-5 Days Prescriptions: Albuterol Sulfate [Albuterol 0.63% NEBS] 0.63 mg IH TID PRN #1 box PRN Reason: Wheezing Spironolactone [Aldactone] 25 mg PO QDAY #30 tablet Ipratropium [Atrovent NEB] 0.5 mg IH Q8HRT #1 box Dicyclomine [Bentyl] 10 mg PO QID PRN #20 capsule PRN Reason: abdominal pain Nebulizer and Compressor [[place] Choice Nebulizer] 1 each MC TID PRN #1 each PRN Reason: Wheezing carvediloL [Coreg] 3.125 mg PO BID #60 tablet Folic Acid [Folvite] 1 mg PO DAILY #30 tablet Aspirin EC [Halfprin EC] 81 mg PO QDAY #30 tablet. Furosemide [Lasix TAB] 20 mg PO QDAY #30 tablet Multivitamin Tab W-MINERAL [Multiple Vitamin/Mineral (Theragran M)] 1 each PO QDAY #30 tablet Pantoprazole [Protonix TAB] 40 mg PO QDAY 30 Days #30 tablet Albuterol Sulfate [Proventil Hfa] 6.7 gm IH TID PRN #1 hfa.aer.ad PRN Reason: Shortness Of Breath Thiamine [Vitamin B-1] 100 mg PO QDAY 30 Days #30 lisinopriL [Zestril TAB] 2.5 mg PO QDAY #30 tablet
--- NOTE | 2020-09-30 09:07 | Progress Note ---
Assessment and Plan Assessment and plan: Toxic metabolic encephalopathy/delirium tremens. EtOH withdrawal EtOH abuse COPD, compensated History of substance abuse Elevated LFTs. Plan: Continue CIWA protocol and monitor closely. Fall precautions. Follow-up B12 and folate. Supportive care with IV fluid hydration. 09/30/2020. Nurse reports patient with CIWA score of 10 last evening. However, this morning appears to be back to baseline with his mental status. Advance diet today and if tolerated will consider discharge later today or in a.m. Continue CIWA protocols. GI symptoms have resolved. Follow-up ammonia level and LFTs. History Interval history: No new issues overnight. Hospitalist Physical - Constitutional Vitals: Temp Pulse Resp BP Pulse Ox 97.9 F 89 24 118/85 99 09/30/20 05:54 09/30/20 05:54 09/30/20 05:54 09/30/20 05:54 09/30/20 05:54 General appearance: Present: no acute distress, well-nourished - EENT Eyes: Present: PERRL, EOM intact ENT: hearing intact, clear oral mucosa, dentition normal - Neck Neck: Present: supple, normal ROM - Respiratory Respiratory effort: normal Respiratory: bilateral: CTA - Cardiovascular Rhythm: regular Heart Sounds: Present: S1 & S2. Absent: gallop, rub - Extremities Extremities: no ischemia, No edema, Full ROM - Abdominal General gastrointestinal: soft, non-tender, non-distended, normal bowel sounds - Integumentary Integumentary: Present: clear, warm, dry - Neurologic Neurologic: CNII-XII intact, moves all extremities HEART Score - HEART Score Troponin: Troponin T < 0.010 ng/mL (0.00-0.029) 09/29/20 05:35 Results - Labs CBC & Chem 7: 09/29/20 05:35 09/29/20 05:35 Labs: Laboratory Last Values WBC 6.9 K/mm3 (4.5-11.0) 09/29/20 05:35 RBC 3.98 M/mm3 (3.65-5.03) 09/29/20 05:35 Hgb 15.0 gm/dl (11.8-15.2) 09/29/20 05:35 Hct 43.1 % (35.5-45.6) 09/29/20 05:35 MCV 108 fl (84-94) H 09/29/20 05:35 MCH 38 pg (28-32) H 09/29/20 05:35 MCHC 35 % (32-34) H 09/29/20 05:35 RDW 13.2 % (13.2-15.2) 09/29/20 05:35 Plt Count 169 K/mm3 (140-440) 09/29/20 05:35 Lymph % (Auto) 20.1 % (13.4-35.0) 09/29/20 05:35 [place] % (Auto) 14.4 % (0.0-7.3) H 09/29/20 05:35 Eos % (Auto) 2.1 % (0.0-4.3) 09/29/20 05:35 Baso % (Auto) 0.4 % (0.0-1.8) 09/29/20 05:35 Lymph # (Auto) 1.4 K/mm3 (1.2-5.4) 09/29/20 05:35 [place] # (Auto) 1.0 K/mm3 (0.0-0.8) H 09/29/20 05:35 Eos # (Auto) 0.1 K/mm3 (0.0-0.4) 09/29/20 05:35 Baso # (Auto) 0.0 K/mm3 (0.0-0.1) 09/29/20 05:35 Seg Neutrophils % 63.0 % (40.0-70.0) 09/29/20 05:35 Seg Neutrophils # 4.3 K/mm3 (1.8-7.7) 09/29/20 05:35 Sodium 136 mmol/L (137-145) L 09/29/20 05:35 Potassium 4.2 mmol/L (3.6-5.0) 09/29/20 05:35 Chloride 95.6 mmol/L (98-107) L 09/29/20 05:35 Carbon Dioxide 27 mmol/L (22-30) 09/29/20 05:35 Anion Gap 18 mmol/L 09/29/20 05:35 BUN 7 mg/dL (9-20) L 09/29/20 05:35 Creatinine 0.7 mg/dL (0.8-1.3) L 09/29/20 05:35 Estimated GFR > 60 ml/min 09/29/20 05:35 BUN/Creatinine Ratio 10 % 09/29/20 05:35 Glucose 74 mg/dL (75-100) L 09/29/20 05:35 Calcium 8.7 mg/dL (8.4-10.2) 09/29/20 05:35 Total Bilirubin 1.00 mg/dL (0.1-1.2) 09/29/20 05:35 AST 169 units/L (5-40) H 09/29/20 05:35 ALT 64 units/L (7-56) H 09/29/20 05:35 Alkaline Phosphatase 172 units/L (35-129) H 09/29/20 05:35 Troponin T < 0.010 ng/mL (0.00-0.029) 09/29/20 05:35 Total Protein 6.3 g/dL (6.3-8.2) 09/29/20 05:35 Albumin 3.7 g/dL (3.9-5) L 09/29/20 05:35 Albumin/Globulin Ratio 1.4 % 09/29/20 05:35 Martin/IV: Voiding Method Toilet Active Medications - Current Medications Current Medications: Generic Name Dose Route Start Last Admin Trade Name Freq PRN Reason Stop Dose Admin Lorazepam 2 mg 09/29/20 06:38 09/29/20 20:41 Lorazepam 2 Mg/Ml Vial IV 2 mg Q1HR PRN Administration CIWA-Ar 8-15 Lorazepam 4 mg 09/29/20 06:38 Lorazepam 2 Mg/Ml Vial IV Q1HR PRN CIWA-Ar 16-25 Lorazepam 4 mg 09/29/20 06:38 Lorazepam 2 Mg/Ml Vial IV Q15MIN PRN CIWA-Ar >25
[2020-09-30 10:47] LABS: Alanine Aminotransferase 46 units/L (7-56); Blood Urea Nitrogen 10 mg/dL (9-20); Calcium 8.1 mg/dL (8.4-10.2); Hemolysis Index 9
[2020-09-30 10:52] LABS: BUN/Creatinine Ratio 20
[2020-09-30] MEDS ORDERED: POTASSIUM CHLORIDE ER 20 MEQ TAB PO NR ×2 (11:30→14:30)
[2020-09-30 14:05] VITALS: BP 140/83
--- NOTE | 2020-10-02 10:22 | Electrocardiograph Report ---
[facility] Test Date: 2020-09-29 Test Time: 05:35:30 Pat Name: GRACIE CONTE Department: Room: A371 Gender: M Template Checker: CHLOÉ : 1960 Requested By: JENNIFER DIAZ Order Number: [id number] Reading MD: Rod Thorpe Measurements Intervals [place] Rate: 101 P: 87 MT: 125 QRS: 81 QRSD: 97 T: 64 QT: 356 QTc: 463 Interpretive Statements Sinus tachycardia Biatrial enlargement No previous ECG available for comparison Electronically Signed On 10-02-2020 10:22:05 EDT by Rod Thorpe
== END 2020-09-30 16:00 | disposition home or self-care (01) ==
LOC: ED 05:14 → 3A 08:17
PROVIDERS: ADMIT Hospitalist; ATTEND Hospitalist
DX: G92 Toxic encephalopathy (principal); F10.239 Alcohol dependence with withdrawal, unspecified; I11.0 Hypertensive heart disease with heart failure; I50.9 Heart failure, unspecified; J44.9 Chronic obstructive pulmonary disease, unspecified; R44.1 Visual hallucinations; R11.2 Nausea with vomiting, unspecified; F17.210 Nicotine dependence, cigarettes, uncomplicated; R79.89 Other specified abnormal findings of blood chemistry; Z86.73 Personal history of transient ischemic attack (TIA), and cerebral infarction without residual deficits; Z79.82 Long term (current) use of aspirin; Z98.890 Other specified postprocedural states; Z79.899 Other long term (current) drug therapy
CPT/HCPCS: 36415; 70450; 71045; 80053; 82140; 84484; 85025; 93005; 96365; 96366; 96367; 96375; 96376; 99285; G0378; J2060; J2405; J3411; J3475; J7030

== ENCOUNTER 2020-11-08 02:03 | Inpatient (IN) | payer OTHER ==
[2020-11-08] MEDS ORDERED: IPRATROPIUM 0.02% NEBU 2.5 ML IH ONE (02:33)
[2020-11-08] MEDS ORDERED: ALBUTEROL 2.5 MG/3 ML NEBU IH ONE ×2 (02:33→10:08)
[2020-11-08] MEDS ORDERED: LORazepam 2 MG/ML VIAL IV ONE (02:35)
--- NOTE | 2020-11-08 02:39 | Emergency Department Report ---
HPI - General Chief Complaint: Dyspnea/Respdistress Time Seen by Provider: 11/08/20 02:25 - HPI HPI: Room 21 The patient is a 59-year-old male present with a chief complaint of shortness of breath. The patient states he is chronically short of breath but this worsened over the past 3 hours. Patient admits to daily cough states that is occasionally productive. Patient denies history of fever. Patient went to [facility] and was administered Solu-Medrol, Zofran and albuterol in addition to magnesium sulfate. Patient was sent to this ED by EMS reportedly hypoxic to 91-92% on a nonrebreather. Patient states he is not on oxygen at home. The patient states he usually drinks 3-4 beers daily but only had one today secondary to his chief complaint ED Past Medical Hx - Past Medical History Previous Medical History?: Yes Hx Hypertension: Yes Hx CVA: (BRONCHITIS) Hx Congestive Heart Failure: Yes Hx Asthma: Yes Hx COPD: Yes (No home O2) Additional medical history: hernia - Surgical History Past Surgical History?: Yes Additional Surgical History: LEFT FEMUR FRACTURE, chest tube insertion - Family History Family history: no significant - Social History Smoking Status: Current Every Day Smoker (1 pack/day) Substance Use Type: None (Denies illicit drug use), Alcohol (3-4 beers daily) - Medications Home Medications: Home Medications Medication Instructions Recorded Confirmed Last Taken Type Albuterol Sulfate [Albuterol 0.63% 0.63 mg IH TID PRN #1 box 09/30/20 Unknown Rx NEBS] Albuterol Sulfate [Proventil Hfa] 6.7 gm IH TID PRN #1 hfa.aer.ad 09/30/20 Unknown Rx Aspirin EC [Halfprin EC] 81 mg PO QDAY #30 tablet. 09/30/20 Unknown Rx Dicyclomine [Bentyl] 10 mg PO QID PRN #20 capsule 09/30/20 Unknown Rx Folic Acid [Folvite] 1 mg PO DAILY #30 tablet 09/30/20 Unknown Rx Furosemide [Lasix TAB] 20 mg PO QDAY #30 tablet 09/30/20 Unknown Rx Ipratropium [Atrovent NEB] 0.5 mg IH Q8HRT #1 box 09/30/20 Unknown Rx Multivitamin Tab W-MINERAL 1 each PO QDAY #30 tablet 09/30/20 Unknown Rx [Multiple Vitamin/Mineral (Theragran M)] Nebulizer and Compressor [[place] 1 each MC TID PRN #1 each 09/30/20 Unknown Rx Choice Nebulizer] Pantoprazole [Protonix TAB] 40 mg PO QDAY 30 Days #30 tablet 09/30/20 Unknown Rx Spironolactone [Aldactone] 25 mg PO QDAY #30 tablet 09/30/20 Unknown Rx Thiamine [Vitamin B-1] 100 mg PO QDAY 30 Days #30 09/30/20 Unknown Rx carvediloL [Coreg] 3.125 mg PO BID #60 tablet 09/30/20 Unknown Rx lisinopriL [Zestril TAB] 2.5 mg PO QDAY #30 tablet 09/30/20 Unknown Rx ED Review of Systems ROS: Stated complaint: COPD Other details as noted in HPI Constitutional: denies: fever Eyes: denies: eye pain ENT: denies: throat pain Respiratory: cough, shortness of breath, wheezing Cardiovascular: denies: chest pain Endocrine: no symptoms reported Gastrointestinal: nausea, vomiting Genitourinary: denies: dysuria Musculoskeletal: back pain (Chronic) Neurological: denies: headache Physical Exam - Physical Exam Vital Signs: Vital Signs 11/08/20 02:10 Temperature 98.2 F Pulse Rate 123 H Respiratory 19 Rate Blood Pressure 128/73 [Left] O2 Sat by Pulse 96 Oximetry Physical Exam: GENERAL: The patient is well-developed well-nourished male lying on stretcher not appearing to be in acute distress. Mild tremulousness noted HEENT: Normocephalic. Atraumatic. Extraocular motions are intact. Patient has moist mucous membranes. NECK: Supple. Trachea midline CHEST/LUNGS: Diffuse faint wheezing. There is no respiratory distress noted. HEART/CARDIOVASCULAR: Regular. There is tachycardia. There is no gallop rub or murmur. ABDOMEN: Abdomen is soft, nontender. Patient has normal bowel sounds. There is no abdominal distention. SKIN: There is no rash. There is no edema. There is no diaphoresis. NEURO: The patient is awake, alert, and oriented. The patient is cooperative. The patient has no focal neurologic deficits. The patient has normal speech. Tremulousness noted MUSCULOSKELETAL: There is no evidence of acute injury. ED Course Vital Signs 11/08/20 02:10 Temperature 98.2 F Pulse Rate 123 H Respiratory 19 Rate Blood Pressure 128/73 [Left] O2 Sat by Pulse 96 Oximetry - Reevaluation(s) Reevaluation #1: 11/08/20 04:53 Patient resting comfortably. When awakened and asked about his breathing the patient states he feels improved 11/08/20 05:10 Patient taken off of supplemental O2 and his sats dropped to 84% on room air. Patient placed back on 2.5 L nasal cannula with sats greater than 93%. Patient is not on home O2 subsequently I will admit the patient to the hospital. - Consultations Consultation #1: 11/08/20 05:10 [facility] called 11/08/20 05:[address] Singleton-may admit patient here at [facility] ED Medical Decision Making - Lab Data Result diagrams: 11/08/20 02:49 11/08/20 02:49 Laboratory Tests 11/08/20 11/08/20 11/08/20 02:49 02:49 02:49 WBC 6.1 RBC 3.68 Hgb 13.4 Hct 40.0 MCV 109 H MCH 36 H MCHC 33 RDW 13.8 Plt Count 215 Lymph % (Auto) 14.9 [place] % (Auto) 6.2 Eos % (Auto) 11.1 H Baso % (Auto) 1.1 Lymph # (Auto) 0.9 L [place] # (Auto) 0.4 Eos # (Auto) 0.7 H Baso # (Auto) 0.1 Seg Neutrophils % 66.7 Seg Neutrophils # 4.0 Sodium 137 Potassium 4.2 Chloride 100.0 Carbon Dioxide 24 Anion Gap 17 BUN 6 L Creatinine 0.5 L Estimated GFR > 60 BUN/Creatinine Ratio 12 Glucose 87 Calcium 8.0 L Total Bilirubin 0.30 AST 55 H ALT 35 Alkaline Phosphatase 161 H Troponin T < 0.010 NT-Pro-B Natriuret Pep 175.8 Total Protein 5.8 L Albumin 3.2 L Albumin/Globulin Ratio 1.2 Lipase 16 - EKG Data -: EKG Interpreted by Wi EKG shows normal: sinus rhythm Rate: tachycardia (113 bpm) - EKG Data When compared to previous EKG there are: previous EKG unavailable Interpretation: other (No ischemic changes seen) - Radiology Data Radiology results: report reviewed (Chest x-ray), image reviewed (Chest x-ray) interpreted by me: Chest x-ray-no focal infiltrates, no pneumothorax. [facility] [address] [place] [address] XRay Report Signed Patient: GRACIE CONTE MR#: [id number] : 1960 Acct:[id number] Age/Sex: 59 / M ADM Date: 11/08/20 Loc: ED Attending Dr: Ordering Physician: ROSITA SIFUENTES MD Date of Service: 11/08/20 Procedure(s): XR chest 1V ap Accession Number(s): [id number] cc: ROSITA SIFUENTES MD Fluoro Time In Minutes: CHEST 1 VIEW 11/08/2020 2:40 AM INDICATION / CLINICAL INFORMATION: Shortness of breath. COMPARISON: 09/29/2020. FINDINGS: SUPPORT DEVICES: None. HEART / MEDIASTINUM: No significant abnormality. LUNGS / PLEURA: No significant pulmonary or pleural abnormality. Underlying COPD remains. No pneumothorax. ADDITIONAL FINDINGS: No significant additional findings. IMPRESSION: No acute abnormality. Signer Name: Jorden Rocha MD Signed: 11/08/2020 3:01 AM Workstation Name: [id number] Transcribed By: ES Dictated By: Jorden Rocha MD Electronically Authenticated By: Jorden Rocha MD Signed Date/Time: 11/08/20300 DD/ 0300 TD/TT: Print Cancel - Differential Diagnosis COPD exacerbation, bronchitis, pneumonia, CHF, ACS Critical care attestation.: If time is entered above; I have spent that time in minutes in the direct care of this critically ill patient, excluding procedure time. ED Disposition Clinical Impression: COPD exacerbation, Hypoxia Disposition: OP ADMIT IP TO THIS HOSP Is pt being admited?: Yes Does the pt Need Aspirin: No Condition: Fair Instructions: Chronic Obstructive Pulmonary Disease (ED) Time of Disposition: 05:49 (Hospitalist notified (Dr Byers))
[2020-11-08 03:05] LABS: Basophils # (Auto) 0.1 K/mm3 (0.0-0.1); Basophils % (Auto) 1.1 % (0.0-1.8); Eosinophils # (Auto) 0.7 K/mm3 (0.0-0.4); Eosinophils % (Auto) 11.1 % (0.0-4.3); Hemoglobin 13.4 gm/dl (11.8-15.2); Lymphocytes # (Auto) 0.9 K/mm3 (1.2-5.4); Lymphocytes % (Auto) 14.9 % (13.4-35.0); Mean Corpuscular HGB Conc 33 % (32-34); Mean Corpuscular Volume 109 fl (84-94); Monocytes # (Auto) 0.4 K/mm3 (0.0-0.8); Monocytes % (Auto) 6.2 % (0.0-7.3); Platelet Count 215 K/mm3 (140-440); Red Blood Count 3.68 M/mm3 (3.65-5.03); Red Cell Distribution Width 13.8 % (13.2-15.2)
--- NOTE | 2020-11-08 03:05 | XRay Report ---
CHEST 1 VIEW 11/08/2020 2:40 AM INDICATION / CLINICAL INFORMATION: Shortness of breath. COMPARISON: 09/29/2020. FINDINGS: SUPPORT DEVICES: None. HEART / MEDIASTINUM: No significant abnormality. LUNGS / PLEURA: No significant pulmonary or pleural abnormality. Underlying COPD remains. No pneumoth orax. ADDITIONAL FINDINGS: No significant additional findings. IMPRESSION: No acute abnormality. Signer Name: Jorden Rocha MD Signed: 11/08/2020 3:01 AM Workstation Name: [id number]
[2020-11-08 03:24] LABS: Alanine Aminotransferase 35 units/L (7-56); Albumin 3.2 g/dL (3.9-5); Blood Urea Nitrogen 6 mg/dL (9-20); Hemolysis Index 5
[2020-11-08 03:27] LABS: BUN/Creatinine Ratio 12
[2020-11-08] MEDS ORDERED: ACETAMINOPHEN 325 MG TAB PO PRN (06:14)
[2020-11-08] MEDS ORDERED: MORPHINE 2 MG/1 ML INJ IV PRN (06:14)
[2020-11-08] MEDS ORDERED: MAGNESIUM HYDROXIDE (MOM) ORAL LIQD UDC PO PRN (06:14)
[2020-11-08] MEDS ORDERED: ONDANSETRON 4 MG/2 ML INJ IV PRN (06:14)
--- NOTE | 2020-11-08 06:30 | History and Physical Report ---
History of Present Illness Date of examination: 11/08/20 Date of admission: 11/08/20 05:49 Chief complaint: Shortness of Breath History of present illness: 59-year-old male with known history of COPD, congestive heart failure and asthma presents to the emergency room today complaining of shortness of breath which has been ongoing for the past 3 hours. Patient has had some cough which is all occasionally productive of sputum. He denies any chest pain, no fever or chills, no nausea vomiting, no abdominal pain. Shortness of breath has gotten worse over the past 1 to 2 hours and patient had gone to a [facility] facility for evaluation where he was given Solu-Medrol, nebulizing treatment, magnesium sulfate and Zofran. He was eventually sent to the emergency room because he became hypoxic with oxygen saturation of 91 to 92% on a nonrebreather. Patient is not on any oxygen at home. Patient denies any sick contacts and no recent travel. Denies any contact with anyone with COVID-19. Patient drinks alcohol almost on a daily basis. Drinks up to 3-4 beers daily. He is also a current daily smoker. Work-up in the emergency room today, chest x-ray was unremarkable. Patient was started on nebulizing treatment and IV steroid with significant improvement. He is being admitted for COPD exacerbation with hypoxia. NB: Patient is from [facility]. Authorization obtained by ER physician for management in this facility. Past History Past Medical History: COPD, hypertension, other (Asthma) Past Surgical History: hernia repair, Other (Left Femur Fracture,Chest Tube Insertion) Social history: smoking (Current daily smoker), alcohol abuse (3-4 beers daily) Family history: no significant family history Medications and Allergies Allergies Allergy/AdvReac Type Severity Reaction Status Date / Time No Known Allergies Allergy Verified 01/14/19 10:21 Home Medications Medication Instructions Recorded Confirmed Last Taken Type Albuterol Sulfate [Albuterol 0.63% 0.63 mg IH TID PRN #1 box 09/30/20 Unknown Rx NEBS] Albuterol Sulfate [Proventil Hfa] 6.7 gm IH TID PRN #1 hfa.aer.ad 09/30/20 Unknown Rx Aspirin EC [Halfprin EC] 81 mg PO QDAY #30 tablet. 09/30/20 Unknown Rx Dicyclomine [Bentyl] 10 mg PO QID PRN #20 capsule 09/30/20 Unknown Rx Folic Acid [Folvite] 1 mg PO DAILY #30 tablet 09/30/20 Unknown Rx Furosemide [Lasix TAB] 20 mg PO QDAY #30 tablet 09/30/20 Unknown Rx Ipratropium [Atrovent NEB] 0.5 mg IH Q8HRT #1 box 09/30/20 Unknown Rx Multivitamin Tab W-MINERAL 1 each PO QDAY #30 tablet 09/30/20 Unknown Rx [Multiple Vitamin/Mineral (Theragran M)] Nebulizer and Compressor [[place] 1 each MC TID PRN #1 each 09/30/20 Unknown Rx Choice Nebulizer] Pantoprazole [Protonix TAB] 40 mg PO QDAY 30 Days #30 tablet 09/30/20 Unknown Rx Spironolactone [Aldactone] 25 mg PO QDAY #30 tablet 09/30/20 Unknown Rx Thiamine [Vitamin B-1] 100 mg PO QDAY 30 Days #30 09/30/20 Unknown Rx carvediloL [Coreg] 3.125 mg PO BID #60 tablet 09/30/20 Unknown Rx lisinopriL [Zestril TAB] 2.5 mg PO QDAY #30 tablet 09/30/20 Unknown Rx Review of Systems Constitutional: no fever, no chills Ears, nose, mouth and throat: no nasal congestion, no sore throat Cardiovascular: no chest pain, no palpitations Respiratory: cough, shortness of breath, no cough with sputum Gastrointestinal: no abdominal pain, no nausea, no vomiting, no diarrhea Genitourinary Male: no dysuria, no hematuria, no flank pain, no nocturia Musculoskeletal: no neck pain, no low back pain Integumentary: no rash, no pruritis Neurological: no headaches, no confusion Psychiatric: no anxiety, no depression Endocrine: no polyphagia, no polydipsia, no polyuria, no nocturia Exam - Constitutional Vitals: Temp Pulse Resp BP Pulse Ox 98.2 F 103 H 22 137/83 94 11/08/20 02:10 11/08/20 06:00 11/08/20 06:00 11/08/20 06:00 11/08/20 06:00 General appearance: Present: no acute distress, well-nourished - EENT Eyes: Present: PERRL, EOM intact. Absent: scleral icterus ENT: hearing intact, clear oral mucosa, dentition normal - Neck Neck: Present: supple, normal ROM - Respiratory Respiratory effort: normal Respiratory: bilateral: wheezing - Cardiovascular Rhythm: regular Heart Sounds: Present: S1 & S2. Absent: gallop, systolic murmur, diastolic murmur, rub, click - Extremities Extremities: no ischemia, pulses intact, pulses symmetrical, No edema, normal temperature, normal color, Full ROM Peripheral Pulses: within normal limits - Abdominal General gastrointestinal: Present: soft, non-tender, non-distended, normal bowel sounds. Absent: mass - Integumentary Integumentary: Present: clear, warm, dry, normal turgor. Absent: rash - Musculoskeletal Musculoskeletal: strength equal bilaterally - Psychiatric Psychiatric: appropriate mood/affect, intact judgment & insight, memory intact, cooperative - Neurologic Neurologic: CNII-XII intact, no focal deficits, moves all extremities HEART Score - HEART Score Troponin: Troponin T < 0.010 ng/mL (0.00-0.029) 11/08/20 02:49 Results - Labs CBC & Chem 7: 11/08/20 02:49 11/08/20 02:49 Labs: Abnormal lab results 11/08/20 11/08/20 Range/Units 02:49 02:49 MCV 109 H (84-94) fl MCH 36 H (28-32) pg Eos % (Auto) 11.1 H (0.0-4.3) % Lymph # (Auto) 0.9 L (1.2-5.4) K/mm3 Eos # (Auto) 0.7 H (0.0-0.4) K/mm3 BUN 6 L (9-20) mg/dL Creatinine 0.5 L (0.8-1.3) mg/dL Calcium 8.0 L (8.4-10.2) mg/dL AST 55 H (5-40) units/L Alkaline Phosphatase 161 H (35-129) units/L Total Protein 5.8 L (6.3-8.2) g/dL Albumin 3.2 L (3.9-5) g/dL Assessment and Plan - Patient Problems (1) COPD exacerbation Current Visit: Yes Status: Acute Plan to address problem: Patient placed on nebulizing treatments and Steroids. Will keep oxygen saturation greater than 92% Consult placed to pulmonology for recommendations. (2) Alcohol abuse Current Visit: No Status: Acute Plan to address problem: Counseled on alcohol abuse. Will monitor for alcohol withdrawal. (3) DVT prophylaxis Current Visit: No Status: Acute Plan to address problem: Patient placed on Subqutaneous Heparin (4) Full code status Current Visit: No Status: Acute Plan to address problem: Full code
[2020-11-08] MEDS: IPRATROPIUM/ALBUTEROL SULFATE 3 ML AMPUL.NEB IH SCH ×4 (07:48→20:57)
[2020-11-08] MEDS ORDERED: LORazepam 2 MG/ML VIAL IV PRN ×2 (09:57)
--- NOTE | 2020-11-08 10:06 | Progress Note ---
Assessment and Plan Assessment and plan: 59-year-old male who presents with COPD exacerbation and alcohol withdrawal symptoms COPD exacerbation Duo nebs as needed Steroids, Solu-Medrol 40 mg every 8 hours Azithromycin Oxygen supplementation as needed with respiratory support Alcohol abuse Alcohol withdrawal symptoms CIWA protocol Start Librium, low-dose Folate and thiamine and multivitamin Hold off banana bag due to possible heart failure history Hypertension Lisinopril, furosemide, spironolactone Systolic heart failure with unknown ejection fraction Continue carvedilol, lisinopril, furosemide, spironolactone Patient is euvolemic, be careful with fluids Chronic gastritis PPI and dicyclomine CODE STATUS: Full DVT prophylaxis: Heparin Disposition: Patient has [employer] insurance. Patient will most likely be transferred to [facility] once arranged by [facility]. History Interval history: 11 08: 11/08/2020: Patient seen and examined, started to have tremors in his upper right extremity. Patient was not placed on CIWA protocol. Spoke with the nurse, will start CIWA protocol at this time. Patient continues to have shortness of breath. Hospitalist Physical - Physical exam Narrative exam: General appearance: no acute distress, cachectic EENT: PERRL, EOM intact, hearing intact, clear oral mucosa, poor dentition Neck: Present: supple, normal ROM Respiratory: Bilateral wheezing, no rales or rhonchi heard Cardiovascular: Regular rate/rhythm, Normal S1 & S2. No gallop, rub Extremities: no ischemia, No edema, normal temperature, normal color, Full ROM Abdominal: soft, non-tender, non-distended, normal bowel sounds Integumentary: Present: clear, warm, dry Psychiatric: appropriate mood/affect, intact judgment & insight Neurologic: CNII-XII intact, moves all extremities, awake extremity tremors, mor e prevalent in the right upper extremity - Constitutional Vitals: Temp Pulse Resp BP Pulse Ox 98.0 F 107 H 18 126/75 96 11/08/20 09:02 11/08/20 09:02 11/08/20 09:02 11/08/20 09:02 11/08/20 09:02 General appearance: Present: no acute distress, well-nourished HEART Score - HEART Score Troponin: Troponin T < 0.010 ng/mL (0.00-0.029) 11/08/20 02:49 Results - Labs CBC & Chem 7: 05/09/21 02:49 11/08/20 02:49 Labs: Laboratory Last Values WBC 6.1 K/mm3 (4.5-11.0) 11/08/20 02:49 RBC 3.68 M/mm3 (3.65-5.03) 11/08/20 02:49 Hgb 13.4 gm/dl (11.8-15.2) 11/08/20 02:49 Hct 40.0 % (35.5-45.6) 11/08/20 02:49 MCV 109 fl (84-94) H 11/08/20 02:49 MCH 36 pg (28-32) H 11/08/20 02:49 MCHC 33 % (32-34) 11/08/20 02:49 RDW 13.8 % (13.2-15.2) 11/08/20 02:49 Plt Count 215 K/mm3 (140-440) 11/08/20 02:49 Lymph % (Auto) 14.9 % (13.4-35.0) 11/08/20 02:49 [place] % (Auto) 6.2 % (0.0-7.3) 11/08/20 02:49 Eos % (Auto) 11.1 % (0.0-4.3) H 11/08/20 02:49 Baso % (Auto) 1.1 % (0.0-1.8) 11/08/20 02:49 Lymph # (Auto) 0.9 K/mm3 (1.2-5.4) L 11/08/20 02:49 M[place]ley # (Auto) 0.4 K/mm3 (0.0-0.8) 11/08/20 02:49 Eos # (Auto) 0.7 K/mm3 (0.0-0.4) H 11/08/20 02:49 Baso # (Auto) 0.1 K/mm3 (0.0-0.1) 11/08/20 02:49 Seg Neutrophils % 66.7 % (40.0-70.0) 11/08/20 02:49 Seg Neutrophils # 4.0 K/mm3 (1.8-7.7) 11/08/20 02:49 Sodium 137 mmol/L (137-145) 11/08/20 02:49 Potassium 4.2 mmol/L (3.6-5.0) 11/08/20 02:49 Chloride 100.0 mmol/L (98-107) 11/08/20 02:49 Carbon Dioxide 24 mmol/L (22-30) 11/08/20 02:49 Anion Gap 17 mmol/L 11/08/20 02:49 BUN 6 mg/dL (9-20) L 11/08/20 02:49 Creatinine 0.5 mg/dL (0.8-1.3) L 11/08/20 02:49 Estimated GFR > 60 ml/min 11/08/20 02:49 BUN/Creatinine Ratio 12 % 11/08/20 02:49 Glucose 87 mg/dL (75-100) 11/08/20 02:49 Calcium 8.0 mg/dL (8.4-10.2) L 11/08/20 02:49 Total Bilirubin 0.30 mg/dL (0.1-1.2) 11/08/20 02:49 AST 55 units/L (5-40) H 11/08/20 02:49 ALT 35 units/L (7-56) 11/08/20 02:49 Alkaline Phosphatase 161 units/L (35-129) H 11/08/20 02:49 Troponin T < 0.010 ng/mL (0.00-0.029) 11/08/20 02:49 NT-Pro-B Natriuret Pep 175.8 pg/mL (0-900) 11/08/20 02:49 Total Protein 5.8 g/dL (6.3-8.2) L 11/08/20 02:49 Albumin 3.2 g/dL (3.9-5) L 11/08/20 02:49 Albumin/Globulin Ratio 1.2 % 11/08/20 02:49 Lipase 16 units/L (13-60) 11/08/20 02:49 Active Medications - Current Medications Current Medications: Generic Name Dose Route Start Last Admin Trade Name Freq PRN Reason Stop Dose Admin Acetaminophen 650 mg 11/08/20 06:14 Acetaminophen 325 Mg Tab PO Q4H PRN Pain MILD(1-3)/Fever >100.5/PATRICIO Albuterol/Ipratropium 1 ampul 11/08/20 08:00 11/08/20 07:48 Ipratropium/Albuterol Sulfate 3 Ml Ampul.Neb IH 1 ampul Q4HRT GATO Administration Chlordiazepoxide HCl 5 mg 11/08/20 14:00 Chlordiazepoxide 5 Mg Cap PO TID GATO Heparin Sodium (Porcine) 5,000 unit 11/08/20 14:00 Heparin 5,000 Unit/1 Ml Vial SUB-Q Q8HR GATO Lorazepam 2 mg 11/08/20 09:57 Lorazepam 2 Mg/Ml Vial IV Q1H PRN CIWA-Ar 8-15 Lorazepam 4 mg 11/08/20 09:57 Lorazepam 2 Mg/Ml Vial IV Q1H PRN CIWA-Ar 16-25 Magnesium Hydroxide 30 ml 11/08/20 06:14 Magnesium Hydroxide (Mom) Oral Liqd Udc PO Q4H PRN Constipation Methylprednisolone Sodium Succinate 40 mg 11/08/20 14:00 Methylprednisolone Sod Succinate 40 Mg/1 Ml Inj IV Q8HR [facility] Morphine Sulfate 2 mg 11/08/20 06:14 Morphine 2 Mg/1 Ml Inj IV Q4H PRN Pain, Moderate (4-6) Ondansetron HCl 4 mg 11/08/20 06:14 Ondansetron 4 Mg/2 Ml Inj IV Q8H PRN Nausea And Vomiting Sodium Chloride 10 ml 11/08/20 10:00 Sodium Chloride 0.9% 10 Ml Flush Syringe IV BID [facility] Sodium Chloride 10 ml 11/08/20 06:14 Sodium Chloride 0.9% 10 Ml Flush Syringe IV PRN PRN LINE FLUSH
[2020-11-08] MEDS ORDERED: ALBUTEROL 2.5 MG/3 ML NEBU IH PRN ×3 (10:10→19:08)
[2020-11-08] MEDS ORDERED: DICYCLOMINE 10 MG CAP PO PRN (10:19)
--- NOTE | 2020-11-08 11:40 | Consultation ---
History of Present Illness Consult date: 11/08/20 Requesting physician: AMALIA HILARIO Reason for consult: COPD History of present illness: 59 y/o male smoker with known obstructive lung disease, followed by [place] with multiple ED visits and admits to this hospital in the past admitted with COPD exacerbation. [facility] has never consulted pulmonary about this patient before. Not sure if he sees a lung physician within [place]. Past History Past Medical History: COPD, hypertension, other (Asthma) Past Surgical History: hernia repair, Other (Left Femur Fracture,Chest Tube Insertion) Social history: smoking (Current daily smoker), alcohol abuse (3-4 beers daily) Family history: no significant family history Medications and Allergies Allergies Allergy/AdvReac Type Severity Reaction Status Date / Time No Known Allergies Allergy Verified 01/14/19 10:21 Home Medications Medication Instructions Recorded Confirmed Last Taken Type Albuterol Sulfate [Albuterol 0.63% 0.63 mg IH TID PRN #1 box 09/30/20 Unknown Rx NEBS] Albuterol Sulfate [Proventil Hfa] 6.7 gm IH TID PRN #1 hfa.aer.ad 09/30/20 Unknown Rx Aspirin EC [Halfprin EC] 81 mg PO QDAY #30 tablet.dr 09/30/20 Unknown Rx Dicyclomine [Bentyl] 10 mg PO QID PRN #20 capsule 09/30/20 Unknown Rx Folic Acid [Folvite] 1 mg PO DAILY #30 tablet 09/30/20 Unknown Rx Furosemide [Lasix TAB] 20 mg PO QDAY #30 tablet 09/30/20 Unknown Rx Ipratropium [Atrovent NEB] 0.5 mg IH Q8HRT #1 box 09/30/20 Unknown Rx Multivitamin Tab W-MINERAL 1 each PO QDAY #30 tablet 09/30/20 Unknown Rx [Multiple Vitamin/Mineral (Theragran M)] Nebulizer and Compressor [[place] 1 each MC TID PRN #1 each 09/30/20 Unknown Rx Choice Nebulizer] Pantoprazole [Protonix TAB] 40 mg PO QDAY 30 Days #30 tablet 09/30/20 Unknown Rx Spironolactone [Aldactone] 25 mg PO QDAY #30 tablet 09/30/20 Unknown Rx Thiamine [Vitamin B-1] 100 mg PO QDAY 30 Days #30 09/30/20 Unknown Rx carvediloL [Coreg] 3.125 mg PO BID #60 tablet 09/30/20 Unknown Rx lisinopriL [Zestril TAB] 2.5 mg PO QDAY #30 tablet 09/30/20 Unknown Rx Active Meds: Active Medications Acetaminophen (Acetaminophen 325 Mg Tab) 650 mg PO Q4H PRN PRN Reason: Pain MILD(1-3)/Fever >100.5/PATRICIO Albuterol/Ipratropium (Ipratropium/Albuterol Sulfate 3 Ml Ampul.Neb) 1 ampul IH Q4HRT [facility] Last Admin: 11/08/20 11:32 Dose: 1 ampul Documented by: Aspirin (Aspirin Ec 81 Mg Tab) 81 mg PO QDAY [facility] Carvedilol (Carvedilol 3.125 Mg Tab) 3.125 mg PO BID [facility] Chlordiazepoxide HCl (Chlordiazepoxide 5 Mg Cap) 5 mg PO TID [facility] Dicyclomine HCl (Dicyclomine 10 Mg Cap) 10 mg PO QID PRN PRN Reason: abdominal pain Folic Acid (Folic Acid 1 Mg Tab) 1 mg PO DAILY [facility] Furosemide (Furosemide 20 Mg Tab) 20 mg PO QDAY [facility] Heparin Sodium (Porcine) (Heparin 5,000 Unit/1 Ml Vial) 5,000 unit SUB-Q Q8HR [facility] Azithromycin (Zithromax/Ns) 500 mg in 250 mls @ 250 mls/hr IV Q24H [facility] Lisinopril (Lisinopril 5 Mg Tab) 2.5 mg PO QDAY [facility] Lorazepam (Lorazepam 2 Mg/Ml Vial) 2 mg IV Q1H PRN PRN Reason: CIWA-Ar 8-15 Lorazepam (Lorazepam 2 Mg/Ml Vial) 4 mg IV Q1H PRN PRN Reason: CIWA-Ar 16-25 Magnesium Hydroxide (Magnesium Hydroxide (Mom) Oral Liqd Udc) 30 ml PO Q4H PRN PRN Reason: Constipation Methylprednisolone Sodium Succinate (Methylprednisolone Sod Succinate 40 Mg/1 Ml Inj) 40 mg IV Q8HR [facility] Morphine Sulfate (Morphine 2 Mg/1 Ml Inj) 2 mg IV Q4H PRN PRN Reason: Pain, Moderate (4-6) Multivitamins/Minerals (Multivitamins,Ther W-Minerals Tab) 1 each PO QDAY [facility] Nicotine (Nicotine 21 Mg/24 Hr Patch) 21 mg TD QDAY [facility] Ondansetron HCl (Ondansetron 4 Mg/2 Ml Inj) 4 mg IV Q8H PRN PRN Reason: Nausea And Vomiting Pantoprazole Sodium (Pantoprazole 40 Mg Tab) 40 mg PO QDAY [facility] Sodium Chloride (Sodium Chloride 0.9% 10 Ml Flush Syringe) 10 ml IV BID [facility] Sodium Chloride (Sodium Chloride 0.9% 10 Ml Flush Syringe) 10 ml IV PRN PRN PRN Reason: LINE FLUSH Spironolactone (Spironolactone 25 Mg Tab) 25 mg PO QDAY [facility] Thiamine HCl (Thiamine 100 Mg Tab) 100 mg PO QDAY [facility] Physical Examination Vital signs: Vital Signs Temp Pulse Resp BP Pulse Ox 98.2 F 123 H 19 128/73 96 11/08/20 02:10 11/08/20 02:10 11/08/20 02:10 11/08/20 02:10 11/08/20 02:10 General appearance: no acute distress, alert Results - Laboratory Findings CBC and BMP: 11/08/20 02:49 11/08/20 02:49 Abnormal lab findings: Abnormal Labs 11/08/20 11/08/20 02:49 02:49 MCV 109 H MCH 36 H Eos % (Auto) 11.1 H Lymph # (Auto) 0.9 L Eos # (Auto) 0.7 H BUN 6 L Creatinine 0.5 L Calcium 8.0 L AST 55 H Alkaline Phosphatase 161 H Total Protein 5.8 L Albumin 3.2 L - Diagnostic Findings Chest x-ray: report reviewed, image reviewed Assessment and Plan 59 y/o male with acute exacerbation of COPD Agree with IV steroids Suggest adding BID Pulmicort and keeping scheduled duo or stopping scheduled duo and adding BID Brovana therapy. Continue PRN albuterol puffs and nebs Smoking cessation Need to find out history from [place] ETOH withdrawal per primary No objection pulm mitchell to transfer to [facility].
[2020-11-08] MEDS: ASPIRIN EC 81 MG TAB PO SCH (12:08)
[2020-11-08] MEDS: LISINOPRIL 5 MG TAB PO SCH (12:08)
[2020-11-08] MEDS: PANTOPRAZOLE 40 MG TAB PO SCH (12:09)
[2020-11-08] MEDS: THIAMINE 100 MG TAB PO SCH (12:09)
[2020-11-08] MEDS: MULTIVITAMINS,THER W-MINERALS TAB PO SCH (12:09)
[2020-11-08] MEDS: NICOTINE 21 MG/24 HR PATCH TD SCH (12:09)
[2020-11-08] MEDS: SPIRONOLACTONE 25 MG TAB PO SCH (12:09)
[2020-11-08] MEDS: carvediloL 3.125 MG TAB PO SCH ×2 (12:11→21:20)
[2020-11-08] MEDS: FOLIC ACID 1 MG TAB PO SCH (12:13)
[2020-11-08] MEDS: HEPARIN 5,000 UNIT/1 ML VIAL SUB-Q SCH ×2 (13:08→21:22)
[2020-11-08] MEDS: AZITHROMYCIN/NS 500 MG/250 ML 500 MG/250 ML BAG IV SCH (13:08)
[2020-11-08] MEDS: methylPREDNISolone Sod Succinate 40 MG/1 ML INJ IV SCH ×2 (13:08→21:20)
[2020-11-08] MEDS: BUDESONIDE 0.5 MG/2 ML NEBU IH SCH (21:07)
[2020-11-09] MEDS: IPRATROPIUM/ALBUTEROL SULFATE 3 ML AMPUL.NEB IH SCH ×4 (01:43→20:40)
[2020-11-09] MEDS: HEPARIN 5,000 UNIT/1 ML VIAL SUB-Q SCH ×2 (06:08→17:40)
[2020-11-09] MEDS: methylPREDNISolone Sod Succinate 40 MG/1 ML INJ IV SCH ×2 (06:08→17:40)
[2020-11-09 06:39] LABS: Basophils % (Auto) 0.1 % (0.0-1.8); Hematocrit 36.8 % (35.5-45.6); Hemoglobin 12.5 gm/dl (11.8-15.2); Lymphocytes # (Auto) 0.6 K/mm3 (1.2-5.4); Lymphocytes % (Auto) 6.8 % (13.4-35.0); Mean Corpuscular HGB Conc 34 % (32-34); Mean Corpuscular Volume 108 fl (84-94); Monocytes # (Auto) 0.5 K/mm3 (0.0-0.8); Monocytes % (Auto) 6.1 % (0.0-7.3); Platelet Count 230 K/mm3 (140-440); Red Blood Count 3.41 M/mm3 (3.65-5.03); Red Cell Distribution Width 13.8 % (13.2-15.2)
[2020-11-09 06:46] LABS: INR 0.8 (0.87-1.13)
[2020-11-09 06:52] LABS: Blood Urea Nitrogen 9 mg/dL (9-20); Calcium 8.2 mg/dL (8.4-10.2); Hemolysis Index 4
[2020-11-09 07:03] LABS: BUN/Creatinine Ratio 23
[2020-11-09] MEDS: BUDESONIDE 0.5 MG/2 ML NEBU IH SCH ×2 (09:15→20:39)
[2020-11-09] MEDS ORDERED: FUROSEMIDE 20 MG TAB PO SCH (10:00)
[2020-11-09] MEDS: SPIRONOLACTONE 25 MG TAB PO SCH (10:36)
[2020-11-09] MEDS: MULTIVITAMINS,THER W-MINERALS TAB PO SCH (10:37)
[2020-11-09] MEDS: PANTOPRAZOLE 40 MG TAB PO SCH (10:37)
[2020-11-09] MEDS: ASPIRIN EC 81 MG TAB PO SCH (10:37)
[2020-11-09] MEDS: FOLIC ACID 1 MG TAB PO SCH (10:37)
[2020-11-09] MEDS: NICOTINE 21 MG/24 HR PATCH TD SCH (10:37)
[2020-11-09] MEDS: carvediloL 3.125 MG TAB PO SCH (10:37)
[2020-11-09] MEDS: THIAMINE 100 MG TAB PO SCH (10:37)
[2020-11-09] MEDS: LISINOPRIL 5 MG TAB PO SCH (10:39)
[2020-11-09] MEDS: AZITHROMYCIN/NS 500 MG/250 ML 500 MG/250 ML BAG IV SCH (10:56)
--- NOTE | 2020-11-09 11:03 | Discharge Summary ---
Providers - Providers Date of Admission: 11/08/20 05:49 Date of discharge: 11/09/20 Attending physician: LILLIAN PALACIO MD 11/08/20 06:45 Consult to Physician [CONS] Routine Comment: Consulting Provider: IGNACIA HAAS Physician Instructions: Reason For Exam: COPD Exac., Hypoxia 11/09/20 08:23 Consult to Case Management [CONS] Routine Services Needed at Discharge: Other Notified:: na Additional Physician Instructions: [facility] pt? Does pt need to be transferred? Hospitalization Reason for admission: COPD exacerbation Condition: Good Hospital course: Assessment and plan: 59-year-old male who presents with COPD exacerbation and alcohol withdrawal symptoms COPD exacerbation Duo nebs as needed Steroids, Solu-Medrol 40 mg every 8 hours Azithromycin Oxygen supplementation as needed with respiratory support Covid PUI Covid swab pending Alcohol abuse Alcohol withdrawal symptoms CIWA protocol Librium, low-dose 5 mg 3 times daily Folate and thiamine and multivitamin Hold off banana bag due to possible heart failure history Hypertension Lisinopril, furosemide, spironolactone Systolic heart failure with unknown ejection fraction Continue carvedilol, lisinopril, furosemide, spironolactone Patient is euvolemic, be careful with fluids Chronic gastritis PPI and dicyclomine CODE STATUS: Full DVT prophylaxis: Heparin History Interval history: 11/08/2020: Patient seen and examined, started to have tremors in his upper right extremity. Patient was not placed on CIWA protocol. Spoke with the nurse, will start CIWA protocol at this time. Patient continues to have shortness of breath. 11/09/2020: Patient seen and examined, looks better than yesterday, on 3 L nasal cannula oxygen, tremors have decreased significantly. Patient continues to have some wheezing. Spoke with [facility] medical transfer staff, they requested patient have a Covid swab. This has been ordered. Dr. Gillespie at [facility] will be excepting the patient. [facility] will make all arrangements for transfer. Discharge patient today. Disposition: [id number] ANOTHER TYPE HLTHCARE Final Discharge Diagnosis (Prints w/discharge instructions): COPD exacerbation. Alcohol abuse. Hypertension. Systolic heart failure with unknown ejection fraction? Chronic gastritis. PUI Covid. Moderatesevere protein caloric malnutrition Core Measure Documentation - Palliative Care Palliative Care/ Comfort Measures: Not Applicable - Core Measures Any of the following diagnoses?: none Exam - Physical Exam Narrative exam: General appearance: no acute distress, cachectic EENT: PERRL, EOM intact, hearing intact, clear oral mucosa, poor dentition Neck: Present: supple, normal ROM Respiratory: Bilateral wheezing, no rales or rhonchi heard Cardiovascular: Regular rate/rhythm, Normal S1 & S2. No gallop, rub Extremities: no ischemia, No edema, normal temperature, normal color, Full ROM Abdominal: soft, non-tender, non-distended, normal bowel sounds Integumentary: Present: clear, warm, dry Psychiatric: appropriate mood/affect, intact judgment & insight Neurologic: CNII-XII intact, moves all extremities, awake extremity tremors, more prevalent in the right upper extremity - Constitutional Vitals: Temp Pulse Resp BP Pulse Ox 97.2 F L 95 H 18 117/81 92 11/09/20 08:29 11/09/20 10:36 11/09/20 08:29 11/09/20 10:36 11/09/20 08:29 Plan Activity: no restrictions Diet: low salt Follow up with: GERARDO CARRILLO [Other] - 3-5 Days
--- NOTE | 2020-11-09 11:13 | Electrocardiograph Report ---
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
--- NOTE | 2020-11-09 16:12 | Progress Note ---
Assessment and Plan Assessment and plan: 59-year-old male who presents with COPD exacerbation and alcohol withdrawal symptoms COPD exacerbation Duo nebs as needed Steroids, Solu-Medrol 40 mg every 8 hours Azithromycin Oxygen supplementation as needed with respiratory support Alcohol abuse Alcohol withdrawal symptoms CIWA protocol Librium, low-dose 5 mg 3 times daily Folate and thiamine and multivitamin Hold off banana bag due to possible heart failure history Covid PUI Covid swab pending, but it will not be done until tomorrow We will place patient on isolation precautions Hypertension Lisinopril, furosemide, spironolactone Systolic heart failure with unknown ejection fraction Continue carvedilol, lisinopril, furosemide, spironolactone Patient is euvolemic, be careful with fluids Chronic gastritis PPI and dicyclomine CODE STATUS: Full DVT prophylaxis: Heparin Disposition: Patient was discharged today per [facility] recommendation to [facility], however there are no beds. History Interval history: 11/08/2020: Patient seen and examined, started to have tremors in his upper right extremity. Patient was not placed on CIWA protocol. Spoke with the nurse, will start CIWA protocol at this time. Patient continues to have shortness of breath.. 11/09/2020: Patient is improved. Spoke with [place], patient plan to go to [facility] as a transfer. However, received a call from the nurse, patient was supposed to be transferred to [place], however there are no beds at this time. We will continue to treat patient. Hospitalist Physical - Physical exam Narrative exam: General appearance: no acute distress, cachectic EENT: PERRL, EOM intact, hearing intact, clear oral mucosa, poor dentition Neck: Present: supple, normal ROM Respiratory: Bilateral wheezing, no rales or rhonchi heard Cardiovascular: Regular rate/rhythm, Normal S1 & S2. No gallop, rub Extremities: no ischemia, No edema, normal temperature, normal color, Full ROM Abdominal: soft, non-tender, non-distended, normal bowel sounds Integumentary: Present: clear, warm, dry Psychiatric: appropriate mood/affect, intact judgment & insight Neurologic: CNII-XII intact, moves all extremities, awake extremity tremors, more prevalent in the right upper extremity - Constitutional Vitals: Temp Pulse Resp BP Pulse Ox 98.3 F 84 16 137/81 98 11/09/20 10:55 11/09/20 10:55 11/09/20 10:55 11/09/20 10:55 11/09/20 10:55 General appearance: Present: no acute distress, well-nourished HEART Score - HEART Score Troponin: Troponin T < 0.010 ng/mL (0.00-0.029) 11/08/20 02:49 Results - Labs CBC & Chem 7: 11/09/20 05:26 11/09/20 05:26 Labs: Laboratory Last Values WBC 8.9 K/mm3 (4.5-11.0) 11/09/20 05:26 RBC 3.41 M/mm3 (3.65-5.03) L 11/09/20 05:26 Hgb 12.5 gm/dl (11.8-15.2) 11/09/20 05:26 Hct 36.8 % (35.5-45.6) 11/09/20 05:26 MCV 108 fl (84-94) H 11/09/20 05:26 MCH 37 pg (28-32) H 11/09/20 05:26 MCHC 34 % (32-34) 11/09/20 05:26 RDW 13.8 % (13.2-15.2) 11/09/20 05:26 Plt Count 230 K/mm3 (140-440) 11/09/20 05:26 Lymph % (Auto) 6.8 % (13.4-35.0) L 11/09/20 05:26 [place] % (Auto) 6.1 % (0.0-7.3) 11/09/20 05:26 Eos % (Auto) 0.0 % (0.0-4.3) 11/09/20 05:26 Baso % (Auto) 0.1 % (0.0-1.8) 11/09/20 05:26 Lymph # (Auto) 0.6 K/mm3 (1.2-5.4) L 11/09/20 05:26 [place] # (Auto) 0.5 K/mm3 (0.0-0.8) 11/09/20 05:26 Eos # (Auto) 0.0 K/mm3 (0.0-0.4) 11/09/20 05:26 Baso # (Auto) 0.0 K/mm3 (0.0-0.1) 11/09/20 05:26 Seg Neutrophils % 87.0 % (40.0-70.0) H 11/09/20 05:26 Seg Neutrophils # 7.7 K/mm3 (1.8-7.7) 11/09/20 05:26 PT 10.9 Sec. (12.2-14.9) L 11/09/20 05:26 INR 0.80 (0.87-1.13) L 11/09/20 05:26 Sodium 136 mmol/L (137-145) L 11/09/20 05:26 Potassium 4.0 mmol/L (3.6-5.0) 11/09/20 05:26 Chloride 100.0 mmol/L (98-107) 11/09/20 05:26 Carbon Dioxide 29 mmol/L (22-30) 11/09/20 05:26 Anion Gap 11 mmol/L 11/09/20 05:26 BUN 9 mg/dL (9-20) 11/09/20 05:26 Creatinine 0.4 mg/dL (0.8-1.3) L 11/09/20 05:26 Estimated GFR > 60 ml/min 11/09/20 05:26 BUN/Creatinine Ratio 23 % 11/09/20 05:26 Glucose 127 mg/dL (75-100) H 11/09/20 05:26 Calcium 8.2 mg/dL (8.4-10.2) L 11/09/20 05:26 Total Bilirubin 0.30 mg/dL (0.1-1.2) 11/08/20 02:49 AST 55 units/L (5-40) H 11/08/20 02:49 ALT 35 units/L (7-56) 11/08/20 02:49 Alkaline Phosphatase 161 units/L (35-129) H 11/08/20 02:49 Troponin T < 0.010 ng/mL (0.00-0.029) 11/08/20 02:49 NT-Pro-B Natriuret Pep 175.8 pg/mL (0-900) 11/08/20 02:49 Total Protein 5.8 g/dL (6.3-8.2) L 11/08/20 02:49 Albumin 3.2 g/dL (3.9-5) L 11/08/20 02:49 Albumin/Globulin Ratio 1.2 % 11/08/20 02:49 Lipase 16 units/L (13-60) 11/08/20 02:49 Martin/IV: Voiding Method Urinal Active Medications - Current Medications Current Medications: Generic Name Dose Route Start Last Admin Trade Name Freq PRN Reason Stop Dose Admin Acetaminophen 650 mg 11/08/20 06:14 Acetaminophen 325 Mg Tab PO Q4H PRN Pain MILD(1-3)/Fever >100.5/PATRICIO Albuterol 2.5 mg 11/08/20 19:08 Albuterol 2.5 Mg/3 Ml Nebu IH Q4HRT PRN Shortness Of Breath Albuterol/Ipratropium 1 ampul 11/09/20 02:00 11/09/20 15:15 Ipratropium/Albuterol Sulfate 3 Ml Ampul.Neb IH 1 ampul Q6HRT GATO Administration Aspirin 81 mg 11/08/20 11:00 11/09/20 10:37 Aspirin Ec 81 Mg Tab PO 81 mg QDAY GATO Administration Budesonide 0.5 mg 11/08/20 21:00 11/09/20 09:15 Budesonide 0.5 Mg/2 Ml Nebu IH 0.5 mg Q12HRT GATO Administration Carvedilol 3.125 mg 11/08/20 11:00 11/09/20 10:37 Carvedilol 3.125 Mg Tab PO 3.125 mg BID GATO Administration Chlordiazepoxide HCl 5 mg 11/08/20 14:00 11/09/20 10:36 Chlordiazepoxide 5 Mg Cap PO 5 mg TID GATO Administration Dicyclomine HCl 10 mg 11/08/20 10:19 11/09/20 11:00 Dicyclomine 10 Mg Cap PO 10 mg QID PRN Administration abdominal pain Folic Acid 1 mg 11/08/20 11:00 11/09/20 10:37 Folic Acid 1 Mg Tab PO 1 mg DAILY GATO Administration Furosemide 20 mg 11/09/20 10:00 11/09/20 10:37 Furosemide 20 Mg Tab PO 20 mg QDAY GATO Administration Heparin Sodium (Porcine) 5,000 unit 11/08/20 14:00 11/09/20 06:08 Heparin 5,000 Unit/1 Ml Vial SUB-Q 5,000 unit Q8HR GATO Administration Azithromycin 500 mg in 250 mls @ 250 mls/hr 11/08/20 11:00 11/09/20 10:56 Zithromax/Ns IV 250 mls/hr Q24H GATO Administration Lisinopril 2.5 mg 11/08/20 11:00 11/09/20 10:39 Lisinopril 5 Mg Tab PO 2.5 mg QDAY GATO Administration Lorazepam 2 mg 11/08/20 09:57 11/08/20 13:08 Lorazepam 2 Mg/Ml Vial IV 2 mg Q1H PRN Administration CIWA-Ar 8-15 Lorazepam 4 mg 11/08/20 09:57 Lorazepam 2 Mg/Ml Vial IV Q1H PRN CIWA-Ar 16-25 Magnesium Hydroxide 30 ml 11/08/20 06:14 Magnesium Hydroxide (Mom) Oral Liqd Udc PO Q4H PRN Constipation Methylprednisolone Sodium Succinate 40 mg 11/08/20 14:00 11/09/20 06:08 Methylprednisolone Sod Succinate 40 Mg/1 Ml Inj IV 40 mg Q8HR GTAO Administration Morphine Sulfate 2 mg 11/08/20 06:14 Morphine 2 Mg/1 Ml Inj IV Q4H PRN Pain, Moderate (4-6) Multivitamins/Minerals 1 each 11/08/20 11:00 11/09/20 10:37 Multivitamins,Ther W-Minerals Tab PO 1 each QDAY GATO Administration Nicotine 21 mg 11/08/20 11:00 11/09/20 10:37 Nicotine 21 Mg/24 Hr Patch TD 21 mg QDAY GATO Administration Ondansetron HCl 4 mg 11/08/20 06:14 Ondansetron 4 Mg/2 Ml Inj IV Q8H PRN Nausea And Vomiting Pantoprazole Sodium 40 mg 11/08/20 11:00 11/09/20 10:37 Pantoprazole 40 Mg Tab PO 40 mg QDAY GATO Administration Sodium Chloride 10 ml 11/08/20 10:00 11/09/20 10:40 Sodium Chloride 0.9% 10 Ml Flush Syringe IV 10 ml BID GATO Administration Sodium Chloride 10 ml 11/08/20 06:14 Sodium Chloride 0.9% 10 Ml Flush Syringe IV PRN PRN LINE FLUSH Spironolactone 25 mg 11/08/20 11:00 11/09/20 10:36 Spironolactone 25 Mg Tab PO 25 mg QDAY GATO Administration Thiamine HCl 100 mg 11/08/20 11:00 11/09/20 10:37 Thiamine 100 Mg Tab PO 100 mg QDAY GATO Administration Nutrition/Malnutrition Assess - Dietary Evaluation Nutrition/Malnutrition Findings: Nutrition Notes Start: 11/09/20 15:23 Freq: Status: Active Protocol: Document 11/09/20 15:23 ERENDIRA (Rec: 11/09/20 15:28 [facility] [id number]) Nutrition Notes Need for Assessment generated from: Low BMI Initial or Follow up Brief Note Current Diagnosis COPD,Heart Failure Other Pertinent Diagnosis COPD exacerbation, EtOH dependence, Asthma Current Diet Cardiac + Ensure Enlive daily Labs/Tests Reviewed Pertinent Medications Folic acid, Lasix, Solumedrol, MVI with minerals, Nicotine, Protonix, Thiamine Height 5 ft 5 in Weight 42.8 kg [place] Body Weight (kg) 61.81 BMI 15.7 Weight Status Underweight Subjective/Other Information Pt screened for low BMI; ordered ONS. Pt on CIWA protocol. D/C summary written this am. Pt consumed 100% of breakfast and lunch today. Burn Absent Trauma Absent Current % PO Good (75-100%) Minimum of two criteria No Is patient on ventilator? No Is Patient Ambulatory and/or Out of Bed Yes [facility] [ 1514.344 NUTR.MSJOOB] Kcal/Kg value to use for calculation 45 Approximate Energy Requirements Using 1926 kcal/Kg Calculation Used for Recommendations Kcal/kg Additional Notes Pro needs 1.2-1.5g/k-64g/ day Fluid needs 1ml/kcal Nutrition Intervention Follow-Up By: 11/13/20 Additional Comments F/U: stable intakes (meals/ONS )
--- NOTE | 2020-11-09 16:55 | Progress Note ---
Assessment and Plan Imp: 1. Acute bronchitis 2. COPD exac. 3. Acute respiratory failure, hypoxia 4. Cachexia 5. Chronic nicotine dependence, cigarettes 6. Chronic EtOH abuse per chart Rec: 1. Cont. with ABX, IV Solumedrol, Bronchodilators 2. D/c smoking and EtOH 3. Outpatient pulm f/u 4. Home O2 evaluation at d/c 5. For transfer to [facility] [address] [place] [address] insurance Plan of care reviewed w/ patient, he understands/agrees Subjective Date of service: 11/09/20 Principal diagnosis: COPD exac. Interval history: No events. Still with SOB, cough, and wheezing. On O2. Objective Vital Signs - 12hr 11/09/20 11/09/20 11/09/20 08:29 10:00 10:36 Temperature 97.2 F L Pulse Rate 95 H 95 H Respiratory 18 20 Rate Blood Pressure 117/81 117/81 O2 Sat by Pulse 92 Oximetry 11/09/20 10:55 Temperature 98.3 F Pulse Rate 84 Respiratory 16 Rate Blood Pressure 137/81 O2 Sat by Pulse 98 Oximetry Constitutional: no acute distress, alert Eyes: non-icteric ENT: oropharynx moist Neck: supple Effort: normal Ascultation: Bilateral: wheezes Cardiovascular: regular rate and rhythm (no mrg) Gastrointestinal: normoactive bowel sounds, soft, non-tender, non-distended Integumentary: normal Extremities: no cyanosis, no edema Neurologic: normal mental status, non-focal exam Psychiatric: mood appropriate, affect normal CBC and BMP: 11/09/20 05:26 11/09/20 05:26 ABG, PT/INR, D-dimer: PT/INR, D-dimer PT 10.9 Sec. (12.2-14.9) L 11/09/20 05:26 INR 0.80 (0.87-1.13) L 11/09/20 05:26 Abnormal lab findings: Abnormal Labs 11/08/20 11/08/20 11/09/20 02:49 02:49 05:26 RBC 3.41 L MCV 109 H 108 H MCH 36 H 37 H Lymph % (Auto) 6.8 L Eos % (Auto) 11.1 H Lymph # (Auto) 0.9 L 0.6 L Eos # (Auto) 0.7 H Seg Neutrophils % 87.0 H PT INR Sodium BUN 6 L Creatinine 0.5 L Glucose Calcium 8.0 L AST 55 H Alkaline Phosphatase 161 H Total Protein 5.8 L Albumin 3.2 L 11/09/20 11/09/20 05:26 05:26 RBC MCV MCH Lymph % (Auto) Eos % (Auto) Lymph # (Auto) Eos # (Auto) Seg Neutrophils % PT 10.9 L INR 0.80 L Sodium 136 L BUN Creatinine 0.4 L Glucose 127 H Calcium 8.2 L AST Alkaline Phosphatase Total Protein Albumin Chest x-ray: report reviewed, image reviewed
[2020-11-09 19:34] VITALS: BP 126/74
== END 2020-11-09 20:52 | disposition short-term general hospital (02) | DRG 189 ==
LOC: ED 02:03 → 4A 05:49
PROVIDERS: ADMIT Internal Medicine Geriatric Medicine; ATTEND Family Medicine
DX: J96.00 Acute respiratory failure, unspecified whether with hypoxia or hypercapnia (principal); E43 Unspecified severe protein-calorie malnutrition; J44.1 Chronic obstructive pulmonary disease with (acute) exacerbation; I50.20 Unspecified systolic (congestive) heart failure; R64 Cachexia; Z68.1 Body mass index [BMI] 19.9 or less, adult; J45.909 Unspecified asthma, uncomplicated; I11.0 Hypertensive heart disease with heart failure; J20.9 Acute bronchitis, unspecified; F17.210 Nicotine dependence, cigarettes, uncomplicated; K52.9 Noninfective gastroenteritis and colitis, unspecified; F10.10 Alcohol abuse, uncomplicated; Z79.899 Other long term (current) drug therapy; Z87.81 Personal history of (healed) traumatic fracture; Z79.891 Long term (current) use of opiate analgesic; Z79.01 Long term (current) use of anticoagulants
CPT/HCPCS: 36415; 71045; 80048; 80053; 83690; 83880; 84484; 85025; 85610; 93005; 94640; 94644; 96365; 96375; 99406; G0378; J0456; J1644; J2060; J2920

== ENCOUNTER 2021-08-09 10:15 | Emergency (ER) | payer OTHER ==
--- NOTE | 2021-08-09 10:27 | Emergency Department Report ---
ED CPR HPI - General Chief Complaint: Cardiac Arrest/CPR Stated Complaint: CARDIAC ARREST Time Seen by Provider: 08/09/21 10:22 - History of Present Illness Initial Comments: Patient presents in cardiac arrest. History is obtained from EMS. Patient was unable to provide any history as he was unresponsive. Family was not present. Patient had collapsed with bystander CPR. His total downtime for EMS once they arrived here was 25 to 30 minutes. They did administer CPR. They administered epinephrine. Their first rhythm was in PEA. They were able to get the patient into ventricular fibrillation. They defibrillated the patient x1 and the resultant rhythm was asystole. Patient had remained in asystole subsequently. They had administered amiodarone. They continued CPR. Back ventilation was completed with Ricardo airway. During this time, there has been no return of spontaneous circulation. Upon arrival, CPR was in progress. - Related Data Previous Rx's Medication Instructions Recorded Last Taken Type Albuterol Sulfate [Albuterol 0.63% 0.63 mg IH TID PRN #1 box 09/30/20 Unknown Rx NEBS] Albuterol Sulfate [Proventil Hfa] 6.7 gm IH TID PRN #1 hfa.aer.ad 09/30/20 Unknown Rx Aspirin EC [Halfprin EC] 81 mg PO QDAY #30 tablet. 09/30/20 Unknown Rx Dicyclomine [Bentyl] 10 mg PO QID PRN #20 capsule 09/30/20 Unknown Rx Folic Acid [Folvite] 1 mg PO DAILY #30 tablet 09/30/20 Unknown Rx Furosemide [Lasix TAB] 20 mg PO QDAY #30 tablet 09/30/20 Unknown Rx Ipratropium [Atrovent NEB] 0.5 mg IH Q8HRT #1 box 09/30/20 Unknown Rx Multivitamin Tab W-MINERAL 1 each PO QDAY #30 tablet 09/30/20 Unknown Rx [Multiple Vitamin/Mineral (Theragran M)] Nebulizer and Compressor [Thompson 1 each MC TID PRN #1 each 09/30/20 Unknown Rx Choice Nebulizer] Pantoprazole [Protonix TAB] 40 mg PO QDAY 30 Days #30 tablet 09/30/20 Unknown Rx Spironolactone [Aldactone] 25 mg PO QDAY #30 tablet 09/30/20 Unknown Rx Thiamine [Vitamin B-1] 100 mg PO QDAY 30 Days #30 09/30/20 Unknown Rx carvediloL [Coreg] 3.125 mg PO BID #60 tablet 09/30/20 Unknown Rx lisinopriL [Zestril TAB] 2.5 mg PO QDAY #30 tablet 09/30/20 Unknown Rx chlordiazePOXIDE [Librium] 5 mg PO TID capsule 11/09/20 Unknown Rx Allergies Allergy/AdvReac Type Severity Reaction Status Date / Time No Known Allergies Allergy Verified 01/14/19 10:21 ED Review of Systems ROS: Stated complaint: CARDIAC ARREST Other details as noted in HPI Comment: Unobtainable due to pts medical conditions (Cardiac arrest) ED Past Medical Hx - Past Medical History Hx Hypertension: Yes Hx CVA: (BR[place]CHITIS) Hx Heart Attack/AMI: No Hx Congestive Heart Failure: Yes Hx Diabetes: No Hx Asthma: Yes Hx COPD: Yes (No home O2) Hx HIV: No Additional medical history: Cannot be obtained for the patient secondary to cardiac arrest. hernia - Surgical History Additional Surgical History: Cannot be obtained for the patient secondary to cardiac arrest. LEFT FEMUR FRACTURE, chest tube insertion - Family History Family history: other (Cannot be obtained for the patient secondary to cardiac arrest) - Social History Smoking Status: Current Every Day Smoker Substance Use Type: Other (Cannot be obtained for the patient secondary to cardiac arrest) - Medications Home Medications: Home Medications Medication Instructions Recorded Confirmed Last Taken Type Albuterol Sulfate [Albuterol 0.63% 0.63 mg IH TID PRN #1 box 09/30/20 Unknown Rx NEBS] Albuterol Sulfate [Proventil Hfa] 6.7 gm IH TID PRN #1 hfa.aer.ad 09/30/20 Unknown Rx Aspirin EC [Halfprin EC] 81 mg PO QDAY #30 tablet. 09/30/20 Unknown Rx Dicyclomine [Bentyl] 10 mg PO QID PRN #20 capsule 09/30/20 Unknown Rx Folic Acid [Folvite] 1 mg PO DAILY #30 tablet 09/30/20 Unknown Rx Furosemide [Lasix TAB] 20 mg PO QDAY #30 tablet 09/30/20 Unknown Rx Ipratropium [Atrovent NEB] 0.5 mg IH Q8HRT #1 box 09/30/20 Unknown Rx Multivitamin Tab W-MINERAL 1 each PO QDAY #30 tablet 09/30/20 Unknown Rx [Multiple Vitamin/Mineral (Theragran M)] Nebulizer and Compressor [Thompson 1 each MC TID PRN #1 each 09/30/20 Unknown Rx Choice Nebulizer] Pantoprazole [Protonix TAB] 40 mg PO QDAY 30 Days #30 tablet 09/30/20 Unknown Rx Spironolactone [Aldactone] 25 mg PO QDAY #30 tablet 09/30/20 Unknown Rx Thiamine [Vitamin B-1] 100 mg PO QDAY 30 Days #30 09/30/20 Unknown Rx carvediloL [Coreg] 3.125 mg PO BID #60 tablet 09/30/20 Unknown Rx lisinopriL [Zestril TAB] 2.5 mg PO QDAY #30 tablet 09/30/20 Unknown Rx chlordiazePOXIDE [Librium] 5 mg PO TID capsule 11/09/20 Unknown Rx ED Physical Exam - General Limitations: Physical Limitation (Cardiac arrest), Other (No spontaneous respirations. CPR in progress.) General appearance: cachectic, other (Cardiac arrest) - Head Head exam: Present: atraumatic, normocephalic - Eye Eye exam: Present: other (Pupils were fixed and dilated at 4 with a conjugate gaze). Absent: scleral icterus - ENT ENT exam: Present: other (Ricardo airway in place) - Neck Neck exam: Present: other (Trachea midline) - Respiratory Respiratory exam: Present: rhonchi (With Ricardo airway ventilation), other (No spontaneous respirations) - Cardiovascular Cardiovascular Exam: Present: other (Pulseless and asystolic) - GI/Abdominal GI/Abdominal exam: Present: soft - exam: Present: scrotal swelling (Consistent with large inguinal hernia) - Extremities Exam Extremities exam: Absent: pedal edema - Neurological Exam Neurological exam: Present: other (CPR was in progress. GCS 3) - Psychiatric Psychiatric exam: Present: other (Unresponsive) - Skin Skin exam: Present: other (Cool and mottled) ED Course - Reevaluation(s) Reevaluation #1: 08/09/21 10:25 EMS was met upon arrival. CPR was continued. Patient had had 25 to 30 minutes of CPR with no return of spontaneous circulation. Patient had remainedAsystolic since her last intervention. Upon arrival, CPR was continued. Patient was given epinephrine and bicarbonate. We continued CPR for another 2-minute cycle. Subsequent to that, pulses were checked and were absent. Patient was asystolic on the monitor. Bedside cardiac ultrasound was completed. There was no cardiac activity. Resuscitation was halted and the patient was pronounced. Family was not present at this time. - Procedure Description Procedures done: Procedure note: Cardiac ultrasound. Indication: Cardiac arrest, evaluate for cardiac activity. Patient was supine. Small curvilinear probe was used to evaluate the cardiac silhouette in a left parasternal view. There was no cardiac activity noted. Patient had no pericardial effusion noted. Compared to the monitor, patient was asystolic. ED Medical Decision Making - Lab Data Rhythm strip: Asystole. Monitor observe 10 seconds. - Medical Decision Making Patient presented in cardiac arrest. CPR had been continued. Patient had had 25 to 30 minutes of downtime prior to arrival. He failed to respond to any resuscitative efforts. There was no cardiac activity noted. Patient was ultimately pronounced. Family was not present at this time. Critical Care Time: No (CPR time of 4 minutes) Critical care attestation.: If time is entered above; I have spent that time in minutes in the direct care of this critically ill patient, excluding procedure time. ED Disposition Clinical Impression: Cardiac arrest Disposition: 20 Is pt being admited?: No Condition: Stable
== END 2021-08-09 18:00 ==
LOC: ED 10:15
DX: I46.9 Cardiac arrest, cause unspecified (principal); I10 Essential (primary) hypertension; J44.9 Chronic obstructive pulmonary disease, unspecified; F17.200 Nicotine dependence, unspecified, uncomplicated; Z79.899 Other long term (current) drug therapy
CPT/HCPCS: 92950; 99285